=== PATIENT | male | born 1965 | race Caucasian/White ===

== ENCOUNTER → 2017-06-07 09:21 | Outpatient (CLI) | payer BC, SELFPAY ==
[2017-06-07 10:40] LABS: AST(SGOT) 23 U/L (15-37); Alanine Aminotransfer ALT/SGPT 52 U/L (16-61); Albumin, Serum 4.2 g/dL (3.2-5.0); Alkaline Phosphatase 71 U/L (45-117); Bilirubin, Direct 0.13 mg/dL (0.00-0.30); Cholesterol 174 mg/dL (200); Globulin 3.7 g/dL (2.2-4.2); High Density Lipoprotein 51 mg/dL; Protein, Total 7.9 g/dL (6.4-8.2); Triglycerides 100 mg/dL; Very Low Density Lipoprotein 20 mg/dL (5-40)
== END ==
PROVIDERS: Family Provider Internal Medicine; PCP Internal Medicine; Visit Provider Internal Medicine Cardiovascular Disease
DX: E78.5 Hyperlipidemia, unspecified (principal)
CPT/HCPCS: 36415; 80061; 80076

== ENCOUNTER 2018-01-20 13:10 | Emergency (ER) | payer BC, SELFPAY ==
[2018-01-20 13:10] VITALS: BP 127/93; PULSE 86; RESP 20; TEMP 36.7; O2SAT 99; BMI 28.2
[2018-01-20 14:43] VITALS: BP 146/101; PULSE 77; RESP 19; O2SAT 97
--- NOTE | 2018-01-20 15:13 | EKG12_ITS ---
Test Reason : Blood Pressure : / mmHG Vent. Rate : 076 BPM Atrial Rate : 076 BPM P-R Int : 186 ms QRS Dur : 138 ms QT Int : 436 ms P-R-T Axes : 019 -41 004 degrees QTc Int : 490 ms Normal sinus rhythm Left axis deviation Non-specific intra-ventricular conduction block Abnormal ECG Confirmed by KERA GUILLAUME, RACHEL ([id number]), makeup editor SEDRAS PURCELL ([id number]) on 01/23/2018 1:40:54 PM Referred By: AUGUSTO Confirmed By:RACHEL COTE MD
--- NOTE | 2018-01-20 15:14 | ED.VISSUMM ---
- ER Visit Summary Date of Service: 01/20/18 Chief Complaint: Shortness of breath History of Present Illness: The patient is a 52 M past medical history of a left bundle branch block and seasonal allergies. Patient states his been short of breath intermittently for the last month. Not associated with exertion. No chest pain. He has had a nonproductive cough. Friend is is a physician I called him in prednisone and Z-Daniel both in which she recently finished and neither one did give any significant benefit. He denies any melena. He denies any fever. 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 He has never had a DVT or PE. Physical Examination: Well-appearing middle-age male. Vital signs are all. His pulse ox is 97% on room air no signs of. He is in no distress. H EENT exam unremarkable. Neck nontender no lymphadenopathy. No JVD. Noted. Equal and symmetrical. Heart regular rate and rhythm no murmur. Abdomen soft and nontender. Normal bowel sounds no peritoneal signs. He is moving all 4 extremities. Calves are nontender without edema or cords. Radial pulses are equal and symmetrical. 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 Dorsi and plantar flexion are intact. Neurologically he is awake and alert with full motor deficits. Back exam is nontender. Skin is unremarkable without rashes. Test Results: Education CBC normal. Chemistries normal. Troponin normal. D-dimer normal. EKG sinus rhythm rate is 76 with an interventricular conduction delay which is old otherwise no acute process. Chest x-ray normal normal cardiac silhouette. No infiltrate. No pleural effusions or failure. Emergency Department Course and Treatment: Patient complaining of feeling short of breath with a normal exam. Treatment Plan: Repeat exam patient doing well at 1623. All test results with both he and his . He will be discharged home with outpatient follow-up Disposition: Discharge Impression: Acute dyspnea of uncertain etiology This note was generated with [employer] dictation software. It may contain incorrect words, spelling, and punctuation that were not noted in review of the chart prior to signing ED Disposition - Plan for ED Patient: Chief Complaint: Shortness of Breath Referrals: Elaine Soriano MD [Primary Care Provider] -
--- NOTE | 2018-01-20 15:17 | ED.DCSUM_ITS ---
- ER Visit Summary Date of Service: 01/20/18 Chief Complaint: Shortness of breath History of Present Illness: The patient is a 52 M past medical history of a left bundle branch block and seasonal allergies. Patient states his been short of breath intermittently for the last month. Not associated with exertion. No chest pain. He has had a nonproductive cough. Friend is is a physician I called him in prednisone and Z-Daniel both in which she recently finished and neither one did give any significant benefit. He denies any melena. He denies any fever. 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 He has never had a DVT or PE. Physical Examination: Well-appearing middle-age male. Vital signs are all. His pulse ox is 97% on room air no signs of. He is in no distress. H EENT exam unremarkable. Neck nontender no lymphadenopathy. No JVD. Noted. Equal and symmetrical. Heart regular rate and rhythm no murmur. Abdomen soft and nontender. Normal bowel sounds no peritoneal signs. He is moving all 4 extremities. Calves are nontender without edema or cords. Radial pulses are equal and symmetrical. 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 Dorsi and plantar flexion are intact. Neurologically he is awake and alert with full motor deficits. Back exam is nontender. Skin is unremarkable without rashes. Test Results: Education CBC normal. Chemistries normal. Troponin normal. D- dimer normal. EKG sinus rhythm rate is 76 with an interventricular conduction delay which is old otherwise no acute process. Chest x-ray normal normal cardiac silhouette. No infiltrate. No pleural effusions or failure. Emergency Department Course and Treatment: Patient complaining of feeling short of breath with a normal exam. Treatment Plan: Repeat exam patient doing well at 1623. All test results with both he and his . He will be discharged home with outpatient follow-up Disposition: Discharge Impression: Acute dyspnea of uncertain etiology This note was generated with [employer] dictation software. It may contain incorrect words, spelling, and punctuation that were not noted in review of the chart pr ior to signing ED Disposition - Plan for ED Patient: Chief Complaint: Shortness of Breath Referrals: Elaine Soriano MD [Primary Care Provider] -
[2018-01-20 15:19] VITALS: O2SAT 99
--- NOTE | 2018-01-20 15:21 | RAD_ITS ---
STUDY: X-RAY CHEST REASON FOR EXAM: Male, 52 years old. Shortness of breath 2 weeks history of left ventricular blockage. TECHNIQUE: PA and lateral views of the chest. COMPARISON: 09/08/2013 FINDINGS: The lungs are clear and expanded. There is no demonstrated pleural abnormality. There is borderline cardiomegaly. Normal mediastinum and kira. Normal visualized pulmonary arteries. Normal visualized aortic arch and descending thoracic aorta. Normal visualized thoracic spine. Normal visualized ribs, clavicles, and shoulders. There is no demonstrated abnormality of the visualized soft tissue structures of the upper abdomen. RAD/Chest PA and Lateral IMPRESSION: Borderline cardiomegaly. No visualized acute focal infiltrate. Stable chest Electronically Signed: Karina Pichardo MD at 15:56 EDT Tel , Service support ,
[2018-01-20 15:31] LABS: Absolute Lymphocyte Count 2.56 X10^3/ul (0.83-4.51); Absolute Neutrophil Count 6.8 X10^3/uL (2.0-7.7); Basophil# 0.02 X10^3/uL; Basophil% 0.2 % (0-1); Eosinophil# 0.09 X10^3/uL; Eosinophils% 0.9 % (0-5); Hematocrit 44.6 % (40-54); Hemoglobin 14.8 g/dl (13.0-16.5); Lymphocyte # 2.56 X10^3/ul (4.0); Lymphocyte % 24.4 % (19-41); Mean Corp Hgb Conc 33.2 g/gl (32-36); Mean Corpuscular Hgb 28.9 pg (27.0-32.0); Mean Corpuscular Volume 87.1 fL (80-94); Mean Platelet Vol. 8.7 fl (6.2-12.0); Monocyte# 0.99 X10^3/uL; Monocyte% 9.4 % (0-10); Neutrophil % 64.8 % (47-70); Platelet Count 296 K/mm3 (150-450); RBC Distribution Width CV 13.1 % (11.6-14.6); Red Blood Count 5.12 M/mm3 (4.6-6.2); White Blood Count 10.5 K/mm3 (4.4-11.0)
[2018-01-20 15:40] LABS: POSITIVE COUNT NO; POSITIVE DIFFERENTIAL NO; POSITIVE MORPHOLOGY NO
[2018-01-20 15:57] LABS: Anion Gap 9 (5-15); BUN 17 mg/dL (7-18); BUN/Creat Ratio 18.5 RATIO (10-20); Calcium,Total 9.3 mg/dL (8.5-10.1); Chloride 102 mmol/L (98-107); Creatinine, Serum 0.92 mg/dL (0.70-1.30); EST Glomerular Filtration Rate 92 mL/min (>60); Est Glom Filt Rate - Afr Amer 111 mL/min (>60); Glucose 109 mg/dL (74-106); Potassium 3.8 mmol/L (3.5-5.1); Sodium Level 137 mmol/L (136-145)
[2018-01-20 15:59] LABS: D-Dimer Quantitative (DVT/PE) < 0.27 FEU/ug/m (0.27-0.49)
[2018-01-20 16:07] VITALS: BP 132/90; PULSE 71; RESP 15; O2SAT 94
--- NOTE | 2018-01-20 16:24 | ED.DEP ---
ED Disposition - Plan for ED Patient: Disposition: Home or Assisted Living Chief Complaint: Shortness of Breath Instructions: ED Dyspnea Shortness of Breath Referrals: Elaine Soriano MD [Primary Care Provider] - As soon as possible Additional Instructions: All your test results were normal today. Chest x-ray, blood count, chemistry panel, kidney function, heart enzymes and a negative test for blood clot.. Call follow-up your primary care physician.
[2018-01-20 16:50] VITALS: BP 124/86; PULSE 81; RESP 16; O2SAT 97
== END 2018-01-20 16:51 | disposition home or self-care (01) ==
PROVIDERS: Emergency Provider Emergency Medicine; Family Provider Internal Medicine; PCP Internal Medicine
DX: R06.00 Dyspnea, unspecified (principal); Z79.52 Long term (current) use of systemic steroids
CPT/HCPCS: 71046; 80048; 84484; 85025; 85379; 93005; 99284; A4216

== ENCOUNTER → 2019-03-09 09:42 | Outpatient (CLI) | payer OTHER, SELFPAY ==
[2018-06-02 14:13] VITALS: BMI 28.2
[2019-03-09 11:25] LABS: Absolute Lymphocyte Count 2.15 X10^3/uL (0.83-4.51); Absolute Neutrophil Count 3.7 X10^3/uL (2.0-7.7); Basophil# 0.03 X10^3/uL; Basophil% 0.4 % (0-1); Eosinophil# 0.23 X10^3/uL; Eosinophils% 3.3 % (0-5); Hematocrit 44.8 % (40-54); Hemoglobin 14.7 g/dL (13.0-16.5); Lymphocyte # 2.15 X10^3/ul (4.0); Mean Corp Hgb Conc 32.8 g/dL (32-36); Mean Corpuscular Hgb 29.1 pg (27.0-32.0); Mean Corpuscular Volume 88.5 fL (80-94); Mean Platelet Vol. 8.7 fl (6.2-12.0); Monocyte# 0.83 X10^3/uL; NRBC Flagged by Analyzer 0 % (0-5); Neutrophil # 3.67 X10^3/uL (2.7-7.7); Platelet Count 269 K/mm3 (150-450); RBC Distribution Width CV 12.9 % (11.6-14.6); RBC Distribution Width SD 41.4 fl (35.1-43.9); Red Blood Count 5.06 M/mm3 (4.6-6.2); White Blood Count 6.9 K/mm3 (4.4-11.0)
[2019-03-09 11:53] LABS: Vitamin B12 395 pg/mL (211-911); Vitamin D,25 Hydroxy 20.6 ng/mL (29.95-100.01)
[2019-03-09 12:00] LABS: AST(SGOT) 17 U/L (15-37); Alanine Aminotransfer ALT/SGPT 46 U/L (16-61); Alkaline Phosphatase 69 U/L (45-117); Anion Gap 8 (5-15); BUN 12 mg/dL (7-18); BUN/Creat Ratio 13.1 RATIO (10-20); Bilirubin, Direct 0.17 mg/dL (0.00-0.30); Chloride 105 mmol/L (98-107); Cholesterol 172 mg/dL (200); Creatinine, Serum 0.91 mg/dL (0.70-1.30); EST Glomerular Filtration Rate 92 mL/min (>60); Est Glom Filt Rate - Afr Amer 111 mL/min (>60); Globulin 3.9 g/dL (2.2-4.2); Glucose 103 mg/dL (74-106); High Density Lipoprotein 50 mg/dL; PSA,Total - Annual Screen 0.51 ng/mL (0.00-4.00); Potassium 4.4 mmol/L (3.5-5.1); Protein, Total 7.9 g/dL (6.4-8.2); Sodium Level 139 mmol/L (136-145); Thyroid Stim Hormone (TSH) 1.29 uIU/mL (0.358-3.74); Triglycerides 86 mg/dL; Very Low Density Lipoprotein 17 mg/dL (5-40)
[2019-03-12 05:06] LABS: Clam <0.10 kU/L (Class 0); Codfish <0.10 kU/L (Class 0); Corn <0.10 kU/L (Class 0); Dog Epithelia <0.10 kU/L (Class 0); Egg, White <0.10 kU/L (Class 0); Egg, Whole <0.10 kU/L (Class 0); Gluten <0.10 kU/L (Class 0); Milk (Cow) <0.10 kU/L (Class 0); Oak, White <0.10 kU/L (Class 0); Peanut <0.10 kU/L (Class 0); Pecan <0.10 kU/L (Class 0); SCALLOP <0.10 kU/L (Class 0); SESAME SEED <0.10 kU/L (Class 0); Shrimp <0.10 kU/L (Class 0); Soybean <0.10 kU/L (Class 0); Walnut, (Food) <0.10 kU/L (Class 0); Wheat <0.10 kU/L (Class 0)
[2019-03-12 08:03] LABS: Peanut <0.10 kU/L (Class 0); Pine, White <0.10 kU/L (Class 0); Wheat <0.10 kU/L (Class 0)
[2019-03-13 13:41] LABS: Testosterone, % Free 1.87 % (1.50-4.20); Testosterone, Total 385 ng/dL (264-916)
== END ==
PROVIDERS: Family Provider Family Medicine; PCP Family Medicine; Referring Provider Otolaryngology Otolaryngology/Facial Plastic Surgery; Visit Provider Otolaryngology Otolaryngology/Facial Plastic Surgery
DX: E78.5 Hyperlipidemia, unspecified (principal); E55.9 Vitamin D deficiency, unspecified; E53.9 Vitamin B deficiency, unspecified; R53.83 Other fatigue; T78.40XA Allergy, unspecified, initial encounter; Z12.5 Encounter for screening for malignant neoplasm of prostate
CPT/HCPCS: 36415; 80053; 80061; 82248; 82306; 82607; 84153; 84402; 84403; 84443; 85025; 86003; G0103

== ENCOUNTER → 2019-04-09 12:52 | Outpatient (CLI) | payer OTHER, SELFPAY ==
[2019-03-25 10:24] VITALS: BMI 29.7
--- NOTE | 2019-04-09 12:53 | ECHOD_ITS ---
Reason For Study: PALPITATIONS Procedure This was a 2D Doppler, Color Flow transthoracic echocardiogram. The exam was of adequate technical quality. Exam performed in department. Left Ventricle Normal LV size. Apical false tendon noted. Left ventricular systolic function is normal. The estimated ejection fraction is 55 %. Septal motion consistent with IVCD. Diastolic function is indeterminate. No regional wall motion abnormalities noted. Right Ventricle Normal RV size. Normal systolic function. Atria Normal left atrium. Normal right atrium. No doppler evidence for ASD. Mitral Valve There is no mitral annular calcification. Normal mitral valve. Trivial mitral valve insufficiency. Tricuspid Valve Normal tricuspid valve. Trivial tricuspid valve insufficiency. Aortic Valve Trisinus/trileaflet aortic valve. Mild focal aortic valve thickening. Mild focal aortic valve calcification. Pulmonic Valve The pulmonic valve is not well visualized. Trivial pulmonic valve insufficiency. Great Vessels Normal sized aortic root. Pericardium/Pleural No pericardial effusion. MMode/2D Measurements & Calculations LVIDd: 5.4 cm IVSd: 0.97 cm Ao root diam: 3.5 cm LVIDs: 4.1 cm LVPWd: 0.92 cm RVDd: 3.5 cm FS: 23.8 % LAV(MOD-bp): 47.5 ml LA A4 area: 13.4 cm2 LA dimension(2D): 3.7 cm LAV(MOD-bp) Indexed: 24.6 ml/m2 LAV(MOD-sp2): 46.3 ml LAV(MOD-sp4): 38.6 ml RA A4 area: 8.1 cm2 Time Measurements MV dec time: 0.12 sec Doppler Measurements & Calculations MV E max shaan: 102.6 cm/sec Lat Peak E' Shaan: 5.3 cm/sec Med Peak E' Shaan: 5.7 cm/sec MV A max shaan: 37.9 cm/sec E/E' lat: 19.2 E/E' med: 18.1 MV E/A: 2.7 Ao V2 max: 94.4 cm/sec LV V1 max: 67.5 cm/sec PA V2 max: 124.3 cm/sec Ao max P.6 mmHg LV V1 max P.8 mmHg Interpretation Summary Left ventricular systolic function is normal. The estimated ejection fraction is 55 %. Septal motion consistent with IVCD. Apical false tendon noted. Trivial mitral valve insufficiency. Trivial tricuspid valve insufficiency. Mild focal aortic valve thickening. Mild focal aortic valve calcification. Trivial pulmonic valve insufficiency. Diastolic function is indeterminate. Ordering Physician: Se Carrington Referring Physician: Eddie Martin Performed By: Marla Isaac, TRACY, RVT
== END ==
PROVIDERS: Family Provider Family Medicine; PCP Family Medicine; Referring Provider Internal Medicine Cardiovascular Disease; Visit Provider Internal Medicine Cardiovascular Disease
DX: R00.2 Palpitations (principal); I44.7 Left bundle-branch block, unspecified; R55 Syncope and collapse
CPT/HCPCS: 93225; 93226; 93306

== ENCOUNTER 2019-05-31 08:13 | Observation (INO) | payer OTHER, SELFPAY ==
[2019-03-25 10:24] VITALS: BMI 29.7
[2019-05-31] VITALS (10 sets, daily range): BP systolic 118–170; BP diastolic 66–112; PULSE 87–103; RESP 16–20; TEMP 36.4–37.2; O2SAT 93–100; BMI 28.2; BMI 29.2
--- NOTE | 2019-05-31 08:31 | CT_ITS ---
STUDY: CT ABDOMEN AND PELVIS WITH CONTRAST REASON FOR EXAM: Male, 54 years old. RLQ PAIN RADIATION DOSAGE (If Supplied By Facility): CTDIvol = ( 12.47 ) mGy, DLP = ( 906.20 ) mGycm TECHNIQUE: Transaxial images were obtained from the dome of the diaphragm to the symphysis pubis without oral contrast. IV 100mL Isovue-370 was administered. Sagittal and coronal images were reconstructed. Individualized dose optimization techniques were used for this CT. COMPARISON: 10/06/2015 FINDINGS: Calcified granuloma in the right lung base is stable. The visualized portions of the heart are within normal limits. There is decreased attenuation of the liver consistent with steatosis. There is a solitary gallstone. There are multiple benign calcified granulomata of the spleen. Normal pancreas. Normal bilateral adrenal glands. Normal right kidney. Normal left kidney. There is a small hiatal hernia. Normal small intestine. There are multiple colonic diverticula consistent with diverticulosis. There is a tubular, thick-walled appendix (>7mm), consistent with acute appendicitis. There is an appendicolith at the junction of the base of the appendix and the colon. Normal abdominal aorta. Normal inferior vena cava. Normal retroperitoneum. Normal urinary bladder. Normal visualized prostate gland. Normal abdominal wall. There are diffuse degenerative changes of the visualized lumbar spine. CT/Abdomen/Pelvis W IV Cont ONLY IMPRESSION: Acute uncomplicated appendicitis. Electronically Signed: Tank Hagan DO at 10:06 EST Tel , Service support ,
--- NOTE | 2019-05-31 08:31 | EKG12_ITS ---
Test Reason : N/V Blood Pressure : / mmHG Vent. Rate : 074 BPM Atrial Rate : 074 BPM P-R Int : 182 ms QRS Dur : 140 ms QT Int : 448 ms P-R-T Axes : 037 -43 072 degrees QTc Int : 497 ms Normal sinus rhythm Left axis deviation Left bundle branch block Abnormal ECG Confirmed by KERA GUILLAUME, RACHEL ([id number]), avid editor PADDY LANDRY ([id number]) on 06/03/2019 8:57:19 AM Referred By: KOMAL Confirmed By:RACHEL COTE MD
--- NOTE | 2019-05-31 08:37 | ED.VISSUMM ---
- ER Visit Summary Date of Service: 05/31/19 Chief Complaint: Abdominal pain History of Present Illness: The patient is a 54 M presenting with abdominal pain. Patient states he woke up with epigastric abdominal pain. He tried Gas-X with no improvement. He states the pain is now more in the right lower quadrant. He has associated nausea without vomiting. He has had subjective fever. Denies diarrhea or constipation. Denies urinary complaints. Physical Examination: Vitals are stable. Patient is afebrile. Alert no acute distress. HEENT exam is unremarkable. Neck is supple. Lungs are clear and equal bilaterally. Heart is regular rate and rhythm. Abdomen is soft epigastric and right lower quadrant tenderness Extremities are unremarkable. Skin is warm and dry. Remainder of exam is unremarkable. Emergency Department Course and Treatment: Patient was given IV fluids, morphine, Zofran. EKG is sinus rate of 74, unchanged from previous. CBC shows white count 16.7. Chemistries unremarkable other than glucose 123. Liver lipase are normal. Troponin is negative. CT abdomen pelvis shows acute uncomplicated appendicitis. He was given Zosyn IV. Discussed with Dr. Araujo. Disposition: To OR Impression: Appendicitis This note was generated with [employer] dictation software. It may contain incorrect words, spelling, and punctuation that were not noted in review of the chart prior to signing ED Disposition - Plan for ED Patient: Referrals: Eddie Martin MD [Primary Care Provider] -
[2019-05-31 08:38] LABS: Absolute Lymphocyte Count 1.97 X10^3/uL (0.83-4.51); Absolute Neutrophil Count 13.4 X10^3/uL (2.0-7.7); Basophil# 0.07 X10^3/uL; Basophil% 0.4 % (0-1); Eosinophil# 0.11 X10^3/uL; Eosinophils% 0.7 % (0-5); Hematocrit 45.1 % (40-54); Hemoglobin 15.1 g/dL (13.0-16.5); Lymphocyte # 1.97 X10^3/ul (4.0); Lymphocyte % 11.8 % (19-41); Mean Corp Hgb Conc 33.5 g/dL (32-36); Mean Corpuscular Hgb 29.1 pg (27.0-32.0); Mean Corpuscular Volume 86.9 fL (80-94); Mean Platelet Vol. 8.7 fl (6.2-12.0); Monocyte# 1.15 X10^3/uL; Monocyte% 6.9 % (0-10); NRBC Flagged by Analyzer 0 % (0-5); Neutrophil # 13.37 X10^3/uL (2.7-7.7); Neutrophil % 79.8 % (47-70); Platelet Count 280 K/mm3 (150-450); RBC Distribution Width CV 12.4 % (11.6-14.6); RBC Distribution Width SD 39.4 fl (35.1-43.9); Red Blood Count 5.19 M/mm3 (4.6-6.2); White Blood Count 16.7 K/mm3 (4.4-11.0)
[2019-05-31] MEDS: Ondansetron 4 MG/2 ML Vial IV (08:40)
[2019-05-31] MEDS: Morphine 4 MG/ML Syringe IV ×3 (08:40→14:27)
[2019-05-31] MEDS: 0.9% Normal Saline 1,000 ML 1000 ML IV (08:40)
[2019-05-31 08:54] LABS: ALB/GLOB Ratio 1.2 RATIO (0.9-2.4); AST(SGOT) 19 U/L (15-37); Alanine Aminotransfer ALT/SGPT 37 U/L (16-61); Albumin, Serum 4.2 g/dL (3.2-5.0); Alkaline Phosphatase 75 U/L (45-117); Anion Gap 8 (5-15); BUN 13 mg/dL (7-18); BUN/Creat Ratio 13.6 RATIO (10-20); Calcium,Total 9.3 mg/dL (8.5-10.1); Chloride 106 mmol/L (98-107); Creatinine, Serum 0.96 mg/dL (0.70-1.30); EST Glomerular Filtration Rate 87 mL/min (>60); Est Glom Filt Rate - Afr Amer 105 mL/min (>60); Estimated Creatinine Clearance 78.46 ml/min; Globulin 3.6 g/dL (2.2-4.2); Glucose 123 mg/dL (74-106); Lipase 124 U/L (73-393); Protein, Total 7.8 g/dL (6.4-8.2); Sodium Level 137 mmol/L (136-145)
[2019-05-31 10:00] LABS: Bacteria 0 SEEN /hpf (None Seen); Mucous, Urine 0 SEEN /hpf (<or=2+); Red Blood Cells-Urine 0 SEEN /hpf (0-5); Squamous Epithelial Cells - UA 0 SEEN /hpf (0-5); White Blood Cells 0 SEEN /hpf (0-5)
[2019-05-31 10:03] LABS: Color, Urine Straw (Yellow); Glucose, Dipstick Normal (Normal); Ketone-Dipstick 15 mg/dl (Negative); Leukocyte Esterase-Dipstick Negative /ul (Negative); Nitrite-Dipstick Negative (Negative); Occult Blood-Urine Negative /ul (Negative); Protein-Dipstick Negative (Negative); Urine Bilirubin Dipstick Negative (Negative); Urine Clarity Sl. Cloudy (Clear); Urine Urobilinogen Normal (Normal)
--- NOTE | 2019-05-31 10:35 | PCM.HP.BLA ---
History and Physical Date of Admission: 05/31/19 Chief Complaint: abdominal pain History of Present Illness: 54 y/o pleasant WM presents with abdominal pain that awoke him from sleep at 3 am this morning. Thought it was gas pains and tried Gas X with no improvement. Denies problems with chronic constipation or diarrhea. Pain began in periumbilical area and now in right lower quadrant. Presented to [facility] ED. Found to have WBC of 16.7K with left shift of differential CT scan - There is a small hiatal hernia. Normal small intestine. There are multiple colonic diverticula consistent with diverticulosis. There is a tubular, thick-walled appendix (>7mm), consistent with acute appendicitis. There is an appendicolith at the junction of the base of the appendix and the colon. Past Medical History: left bundle branch block - followed by Dr. Carrington ventricular hypertrophy hypertension controlled by diet JEFFERY hyperlipidemia Past Surgical History: left hip replacement 2000 nasal surgery Medications: none Allergies: Has no known drug allergies Social history: TOB use denies Review of Systems: General - denies fevers Cardiovascular denies chest pain, has occasional chest palpitations, denies history of heart attack Pulmonary denies shortness of breath, denies coughing up blood Gastrointestinal as per HPI Neurological denies denies seizures, denies history of stroke Genitourinary denies burning with urination, denies blood in urine Hematological denies spontaneous/prolonged bleeding, not on aspirin Skin denies open non healing wounds Musculoskeletal s/p hip replacement Endocrine denies diabetes Psychological denies hallucinations Physical examination: Vital signs Ht: 5'6 Wt: 184# Temp 97.6F HR 87 BP 153/112 RR 16 General WD/WN WM in no apparent distress, alert and oriented, not septic appearing HEENT Normocephalic. EOM intact with sclera clear and no icterus noted. Neck is supple with no jugular venous distention noted. Trachea is midline. Lungs normal breath sounds in all lung galvez. No rales/rhonchi/wheezing noted. No labored breathing noted, such as retractions. No cough heard. Heart normal S1 and S2 auscultated. No rubs/clicks/murmurs noted. Normal size and location by auscultation. Abdomen soft but tender in right lower quadrant with rebound, decreased bowel sounds. Extremities no calf tenderness noted. No pitting edema noted. . Genitourinary/Rectal deferred Skin normal skin integrity. Neurological gait normal , no focal deficits noted. Psychological normal affect, patient is calm and appropriate Impression: right lower quadrant abdominal pain leukocytosis appendicitis by CT scan Discussion/Plan: I have discussed the above with the patient and his who is present with him. I have offered the patient the procedure of laparoscopic appendectomy. I have explained the procedure to the patient. I have counseled the patient as to the risks of the procedure, including but not limited to: infection, bleeding, injury to any blood vessels/nerves, scar tissue, injury to any intrabdominal organs, injury to kidney/ureters, injury to bowel/bladder, intraabdominal abscess/bleeding, hernias at incisional sites, wound infections, possible open procedure, complications of anesthesia, postoperative pneumonia/cardiac problems/blood clots etc. the patient understands. The patient wishes to proceed I have answered all questions to the patient?s satisfaction and the patient has no further questions.
--- NOTE | 2019-05-31 11:00 | APP_PTH ---
PATIENT: TRIP MURPHY LOC: MS3 U#:[id number] AGE/SX: 54/M ROOM: [facility] RE05/31/[address]: Dr. Dayan Araujo MD : [id number] BED: 1 DIS: 06/01/2019 SPEC #: [id number] RECD: 06/01/19 10:55 STATUS: ANTONIA REQ #: [id number] MOISES: 05/31/19 11:[address]: Dayan Araujo DEPT: SURGICAL PATHOLOGY RECD BY: Francis Dunn ENTERED: 06/01/19 11:11 SP TYPE: APPENDIX OTHR DR: Dr. Eddie Martin MD Tissues: Appendix, NOS Procedures: Surgery Specimen Level III HEADER OPERATION: Laparoscopic appendectomy PRE-OP DIAGNOSIS: Right lower quadrant abdominal pain; leukocytosis, appendicitis TISSUE SUBMITTED: Appendix MICROSCOPIC DIAGNOSIS Appendix, appendectomy: Acute appendicitis. Acute serositis. AM:serenity 06/02/19 MICROSCOPIC DESCRIPTION Slides are reviewed. GROSS DESCRIPTION Received is one container labeled with the patient's name and designated appendix. The specimen consists of an appendix measuring 7.5 cm in length and 0.7 cm in average diameter. No gross perforation is identified. [employer] Director sections are submitted in one cassette. / AM:serenity 06/01/19 TC:2 CPT: 16579
[2019-05-31] MEDS: Bupiv/Epi 0.25% 30 ML Vial (12:18)
--- NOTE | 2019-05-31 12:22 | OP.PCM_ITS ---
Report of Operation Date of Procedure: 05/31/19 Pre-Operative Diagnosis: acute appendicitis by CT scan, right lower quadrant abdominal pain, leukocytosis Post-Operative Diagnosis: acute appendicitis Surgery/Procedure Performed:: laparoscopic appendectomy Description of Surgical Findings:: acute appendicitis, not perforated, darkly pigmented mottling of fatty tissues, large hematoma appearing lesion of abdominal wall Type of Anesthesia:: General Anesthesiologist: Yeni Lopez Specimen's removed: appendix Estimated Blood Loss (mL): < 10 ml Fluids Replaced: 1000 ml RL Description of Procedure: After informed consent was obtained, the patient was brought into the Operating Room. Appropriate time out protocol was followed. He was then placed in the supine position on the operating table. The patient was then placed under general anesthesia. The patient?s abdomen was then prepped with a sterile surgical skin preparation and sterile surgical drapes were placed. A skin fold was grasped with penetrating clamps and the skin and subcutaneous tissues were infiltrated with 0.25% marcaine with epinephrine. A skin incision was then made. A Veress needle was then inserted into the intraabdominal cavity and checked to be in the proper position with a normal saline drop test. A CO2 pne umoperitoneum was then created. Once this was achieved, the Veress needle was removed and a 5 mm trocar was placed in its stead. A 5 mm laparoscope was then inserted into the trocar. Careful examination of the intraabdominal contents was then done. There was no evidence of injury to any internal organs from placement of the Veress needle or the trocar. Under direct visualization, a 12mm suprapubic trocar and a 5mm left lower quadrant trocar was then placed into the intraabdominal cavity. The skin and subcutaneous tissues at these sites were first infiltrated with 0.25% marcaine with epinephrine. Attention was then directed to the right lower quadrant. The appendix was visualized. The mesentery of the appendix was taken down by cauterizing the tissue from the free edge to the base of the appendix with the Harmonic scalpel. Once the base of the appendix was freed of surrounding tissues, then the linear gastrointestinal stapling device was brought into the abdominal cavity via the 12mm port and placed across the base of the appendix. The stapling device was fired, thus stapling across the base of the appendix and transecting it simultaneously. The appendix was then placed in an Endobag and this was brought out through the suprapubic trocar. The appendix was then forwarded to Pathology for analysis. The appendiceal stump was carefully examined. There was no evidence of any active bleeding or fecal leakage. Surgicel was applied. The surrounding tissues were also examined and there was no evidence of any active bleeding or fecal/bile leakage. The intraabdominal cavity was examined and there was no evidence of further inflammation or tissue abnormality. There was no evidence of any peritoneal fluid. The CO2 pneumoperitoneum was released and all trocars were removed intact. The suprapubic fascia was reapproximated with a figure-of-8 vicryl suture. All skin incisions were reapproximated with monocryl suture. Cavilon and steristrips were applied to reinforce skin closure and proper sterile dressings were placed. The patient was then extubated and brought to the Recovery Room in stable condition. - Complications none noted - Admit VTE Documentation VTE Present on Admission: Yes VTE Mechan Device Prophylaxis: SCD's
[2019-05-31] MEDS: Lactated Ringers 1,000 ML 100 ML IV ×2 (12:39→21:13)
--- NOTE | 2019-05-31 12:57 | DCINST_ITS ---
Discharge Diet: No Restrictions - avoid carbonated beverages for a couple of days drink plenty of water Discharge Activity: Return to Normal Activity, May not drive while taking narcotic pain medications. Lifting Restrictions: no lifting greater than 20 pounds for 2 weeks Call your doctor if your incision/area has: Continuous Slow Oozing, Increased Redness, Foul Smelling Discharge Call your doctor if you observe: Fever of 101 or Higher Additional Dressing/Incision Instructions:: Leave dressings in place. May get wet in shower - do not scrub to prevent inadvertant removal of dressings. Do not soak - no tub baths/swimming Additional Instructions: may take alternating dose of ibuprofen (Motrin) and acetaminophen (Tylenol) for steady state control of pain and take narcotic prescription medication for s evere pain and at night can take 600 mg ibuprofen then in 3-4 hours can take 650 mg acetaminophen, then in 3-4 hours take 600 mg ibuprofen, then in 3-4 hours take 650 mg acetaminophen, etc. for 2-3 days Medications to take at Discharge Hydrocodone Bitart/Apap 5-325 [[place] 5MG-325MG] 1 tab PO Q8H PRN PRN 5 Days #15 tab 05/31/19 Allergies/Adverse Reactions: Allergies No Known Allergies Allergy (Verified 03/25/19 10:24) The following prescriptions were given: Hydrocodone Bitart/Apap 5-325 [[place] 5MG-325MG] 1 tab PO Q8H PRN PRN 5 Days #15 tab PRN Reason: Pain Transmission Status: Received by [facility] Primary Care Physician: Eddie Martin MD [Primary Care Provider] - Test Results: Test results from this visit will be discussed in further detail at your follow- up appointment, if applicable. Please Follow Up With: Dayan Araujo MD - call When: to be seen in 1-2 weeks, please call for date and time, thank you
--- NOTE | 2019-05-31 14:00 | NURSING ---
Dr. Araujo in surgery. This nurse called and spoke with Milvia informed that there were no orders by Dr. Araujo and pt was asking about diet and pain medication. Milvia asked Dr. Araujo and Dr. Araujo had ordered Toradol and Morphine.
[2019-05-31] MEDS: 0.9% Saline Lock 10 ML Syringe IV ×2 (14:27→16:41)
[2019-05-31] MEDS: Ketorolac 30 MG/ML Syringe IV (16:41)
[2019-05-31] MEDS: HYDROcodone Bitartrate/Apap 5/325 Tablet PO (23:42)
[2019-06-01 03:42] VITALS: BP 125/66; PULSE 66; RESP 14; TEMP 36.7; O2SAT 93
--- NOTE | 2019-06-01 07:50 | PCM.PN.SRG ---
Subjective: patient feeling well, has minimal pain - Physical Exam Vitals/I&O's: Vital Signs Temp Pulse Resp BP Pulse Ox 98.1 F 66 14 125/66 H 93 06/01/19 03:42 06/01/19 03:42 06/01/19 03:42 06/01/19 03:42 06/01/19 03:42 Oxygen Delivery Method Room Air Weight: 82.101 kg Body Mass Index (BMI) 29.2 Intake and Output for Last 24 Hours 05/30/19 05/31/19 06/01/19 23:59 23:59 23:59 Intake Total 2706.67 / 2906.67 300 / 300 Balance 2706.67 / 2906.67 300 / 300 General: Alert, Oriented x3 Neck: Supple Lungs: Normal air movement Abdomen: Bowel Sounds Present - dressings in tact, Soft Laboratory Results 05/31/19 08:20: WBC 16.7 H, RBC 5.19, Hgb 15.1, Hct 45.1, MCV 86.9, MCH 29.1, MCHC 33.5, RDW Std Deviation 39.4, RDW Coeff of Arnoldo 12.4, Plt Count 280, MPV 8.7, Immature Gran % (Auto) 0.400, Neut % (Auto) 79.8 H, Lymph % (Auto) 11.8 L, [place] % (Auto) 6.9, Eos % (Auto) 0.7, Baso % (Auto) 0.4, Absolute Neuts (auto) 13.4 H, Absolute Lymphs (auto) 1.97, Nucleated RBC % 0 05/31/19 08:20: Sodium 137, Potassium 4.0, Chloride 106, Carbon Dioxide 23.0, Anion Gap 8, BUN 13, Creatinine 0.96, Estim Creat Clear Calc 78.46, Est GFR (MDRD) Af Amer 105, Est GFR (MDRD) Non-Af 87, BUN/Creatinine Ratio 13.6, Glucose 123 H, Calcium 9.3, Total Bilirubin 0.50, AST 19, ALT 37, Alkaline Phosphatase 75, Troponin I < 0.015, Total Protein 7.8, Albumin 4.2, Globulin 3.6, Albumin/Globulin Ratio 1.2, Lipase 124 05/31/19 09:55: Urine Color Straw, Urine Clarity Sl. Cloudy, Urine pH 8.0, Ur Specific [place] 1.010, Urine Protein Negative, Urine Glucose (UA) Normal, Urine Ketones 15 H, Urine Occult Blood Negative, Urine Nitrite Negative, Urine Bilirubin Negative, Urine Urobilinogen Normal, Ur Leukocyte Esterase Negative, Urine RBC 0 SEEN, Urine WBC 0 SEEN, Ur Squamous Epith Cells 0 SEEN, Urine Bacteria 0 SEEN, Urine Mucus 0 SEEN Current Medications Hydrocodone Bitart/Acetaminophen ([place] 5mg-325mg) 1 tablet PO Q4H PRN PRN PRN Reason: Pain Score 1-5/10 Last Admin: 05/31/19 23:42 Dose: 1 tablet Documented by: Lactated Ringer's () 1,000 mls @ 100 mls/hr IV .Q10H ROSARIO Last Admin: 05/31/19 21:13 Dose: 100 mls/hr Documented by: Sodium Chloride () 250 mls @ 15 mls/hr IV .[id number] PRN PRN Reason: Saline Flush Sodium Chloride () 250 mls @ 15 mls/hr IV .[id number] PRN PRN Reason: Additional IVPB Infusion Ketorolac Tromethamine (Toradol (Bkc)) 30 mg IV Q8H PRN PRN PRN Reason: Pain Score 1-5/10 Stop: 06/05/19 13:58 Last Admin: 05/31/19 16:41 Dose: 30 mg Documented by: Morphine Sulfate () 4 mg IV Q2H PRN PRN PRN Reason: Pain Score 6-10/10 Last Admin: 05/31/19 14:27 Dose: 4 mg Documented by: Sodium Chloride () 10 - 40 ml IV UD PRN PRN Reason: SALINE FLUSH Last Admin: 05/31/19 16:41 Dose: 10 ml Documented by: Medical Necessity - Tobacco Use Smoking Status: Former smoker Assessment/Plan Impression: POD#1 s/p laparoscopic appendectomy Plan: d/c to home
[2019-06-01 08:03] VITALS: BP 114/74; PULSE 68; RESP 16; TEMP 36.7; O2SAT 93
--- NOTE | 2019-06-01 10:00 | CASEMGMT ---
RN CONY Face to Face with patient for initial transition planning/care coordination assessment. RN CM introduced self and role at [facility]. Patient lying in bed, alert and oriented, at bedside. Patient willing to participate in assessment and is able to answer all questions appropriately. Care providers, pharmacy, and demographics verified. Patient wishes to discharge home, denies need for home health at this time. Patient states he has no further needs or concerns at this time. CM to follow for discharge planning needs that may arise. PCP: Veronica Specialists: Charissa Preferred [facility]acy: [facility] Insurance: MMO Prescription Benefit: yes Living Will/HPOA: none LNOK: Living Arrangements: Patient lives with in 1 story home with ramp to enter the home. Transportation: self, DME/HHC: Patient denies any DME or HHC. Patient is currently being setup with cpap. Disposition Plan: Patient to discharge home with family support and follow-up plans in place. Yady IRAHETA, RN, CM
== END 2019-06-01 10:58 | disposition home or self-care (01) | DRG 343 ==
LOC: ED 08:50 → SDC 11:18 → MS3 06-01 06:17
PROVIDERS: Admitting Provider Surgery; Emergency Provider Emergency Medicine; PCP Family Medicine; Visit Provider Surgery
PROC: 0DTJ4ZZ Resection of Appendix, Percutaneous Endoscopic Approach (ICD-10-PCS; CPT 44970; principal; 2019-05-31 11:00)
DX: K35.80 Unspecified acute appendicitis (principal); G47.33 Obstructive sleep apnea (adult) (pediatric); I10 Essential (primary) hypertension; E78.5 Hyperlipidemia, unspecified; Z87.891 Personal history of nicotine dependence
CPT/HCPCS: 00840; 44970; 74177; 80053; 81001; 83690; 84484; 85025; 88304; 93005; 96361; 96374; 96375; 96376; 99218; 99284; J7030; J7120; Q9967; A4216; G0378; J2405

== ENCOUNTER → 2019-06-03 13:54 | Outpatient (CLI) | payer OTHER, SELFPAY ==
[2019-05-31 13:24] VITALS: BMI 29.2
--- NOTE | 2019-06-03 13:58 | RAD_ITS ---
STUDY: X-RAY CHEST REASON FOR EXAM: Male, 54 years old. Postop shortness of breath TECHNIQUE: PA and lateral views of the chest. COMPARISON: 01/20/2018 FINDINGS: The lungs are clear and expanded. There is no demonstrated pleural abnormality. Normal size heart. Normal mediastinum and kira. Normal visualized pulmonary arteries. Normal visualized aortic arch and descending thoracic aorta. Normal visualized thoracic spine. Normal visualized ribs, clavicles, and shoulders. There is no demonstrated abnormality of the visualized soft tissue structures of the upper abdomen. RAD/Chest PA and Lateral IMPRESSION: Normal x-ray examination of the chest. Electronically Signed: Alli Foss MD at 17:51 EST , Service support ,
== END ==
PROVIDERS: PCP Family Medicine; Referring Provider Family Medicine; Visit Provider Family Medicine
DX: R06.02 Shortness of breath (principal)
CPT/HCPCS: 71046

== ENCOUNTER → 2019-06-12 13:32 | Outpatient (CLI) | payer OTHER, SELFPAY ==
[2019-06-04 09:56] VITALS: BMI 29.1
--- NOTE | 2019-06-12 13:35 | RAD_ITS ---
STUDY: X-RAY - LEFT KNEE REASON FOR EXAM: Male, 54 years old. knee pain,mostly the right TECHNIQUE: 4 view(s) of the knee. COMPARISON: None. FINDINGS: Mild osteophytosis otherwise normal visualized distal femur. Normal visualized proximal tibia and fibula. There is mild arthrosis of the proximal tibiofibular articulation. There is no demonstrated fracture. There is mild degenerative arthrosis of the medial femorotibial compartment. There is mild degenerative arthrosis of the lateral femorotibial compartment. There is moderate to severe degenerative arthrosis of the lateral patellofemoral articulation. Trace amount of joint effusion. The soft tissue structures are unremarkable. RAD/Knee 4 or More Views IMPRESSION: Degenerative disease as described with trace amount of joint effusion. No acute fracture or subluxation. Electronically Signed: Nia Ribera MD at 2:06 EST , Service support ,
--- NOTE | 2019-06-12 13:36 | RAD_ITS ---
STUDY: X-RAY - RIGHT KNEE REASON FOR EXAM: Male, 54 years old. knee pain, mostly right TECHNIQUE: 4 view(s) of the knee. COMPARISON: None. FINDINGS: Normal visualized distal femur. Normal visualized proximal tibia and fibula. There is arthrosis of the proximal tibiofibular articulation. There is no demonstrated fracture. There is mild degenerative arthrosis of the medial femorotibial compartment. There is mild degenerative arthrosis of the lateral femorotibial compartment. There is mild to moderate degenerative arthrosis of the patellofemoral articulation. There is no demonstrated joint effusion. The soft tissue structures are unremarkable. RAD/Knee 4 or More Views IMPRESSION: Degenerative disease as described. Electronically Signed: Nia Ribera MD at 2:05 EST , Service support ,
== END ==
PROVIDERS: PCP Family Medicine; Referring Provider Family Medicine; Visit Provider Family Medicine
DX: M25.569 Pain in unspecified knee (principal)
CPT/HCPCS: 73564

== ENCOUNTER → 2019-09-02 13:51 | Outpatient (CLI) | payer OTHER, SELFPAY ==
[2019-06-04 09:56] VITALS: BMI 29.1
[2019-09-02 15:59] LABS: Vitamin D,25 Hydroxy 27.3 ng/mL
== END ==
PROVIDERS: PCP Family Medicine; Referring Provider Family Medicine; Visit Provider Family Medicine
DX: E55.9 Vitamin D deficiency, unspecified (principal)
CPT/HCPCS: 36415; 82306

== ENCOUNTER → 2019-11-03 06:45 | Outpatient (CLI) | payer OTHER, SELFPAY ==
[2019-06-04 09:56] VITALS: BMI 29.1
--- NOTE | 2019-11-03 08:55 | STRESSREP_ITS ---
Stress Test Report Date: 11-03-2019 Procedure: Exercise tolerance test/imaging study Indications: Shortness of breath/dyspnea on exertion; abnormal ECG (rate-d ependent left bundle branch block pattern) Consent: Per the patient Procedure: The patient exercised on a Amol protocol for 10 minutes completing Stage III and 1 minute of Stage IV achieving a peak heart rate of 173 bpm (104 % predicted maximal heart rate) with a peak blood pressure 164/100 mmHg and a peak MET capacity of 11 METs. The baseline ECG demonstrated sinus rhythm; left bundle branch block. The peak exercise ECG demonstrated continued left bundle branch block pattern. There was a rare PAC during exercise and recovery. The functional capacity was considered good. There was no complaint of chest discomfort during exercise or recovery9. The examination was discontinued secondary to leg discomfort. Impression: 1. Technically adequate (percent predicted maximal heart rate greater than 85%) exercise tolerance test 2. Peak exercise ECG with continued left bundle branch block pattern 3. There was a rare PAC during exercise and recovery 4. Nuclear images pending Myocardial perfusion imaging study: Technique: The patient was injected with 12.0 mCi of technetium 99m Cardiolite and subsequently rest SPECT Cardiolite nuclear imaging was obtained in the horizontal long, vertical long, and short axis views. The patient exercised on a Amol protocol for 10 minutes completing Stage III and 1 minute of Stage IV achieving a peak heart rate of 173 bpm (104 % predicted maximal heart rate) with a peak blood pressure 164/100 mmHg and a peak MET capacity of 11 METs. The patient was injected with 35.0 mCi of technetium 99m Cardiolite and subsequently stress SPECT Cardiolite nuclear imaging was obtained in the horizontal long, vertical long, and short axis views. A gated Cardiolite study at peak stress was obtained. Interpretation: Rest and stress SPECT Cardiolite nuclear imaging status post realignment, normalization, and attenuation correction, demonstrates the appearance of an area of diminished myocardial perfusion/tracer uptake in portions of the basal t o mid interventricular septum without significant change between rest and stress. There is end systolic thickening and brightening. The gated Cardiolite study demonstrates myocardial thickening and inward wall motion. The reported LVEF is 38 %. Impression: 1. Rest and stress SPECT Cardiolite nuclear imaging demonstrate myocardial perfusion changes appearing compatible with the effects of the underlying left bundle branch block pattern with no myocardial perfusion changes considered diagnostic for associated stress-induced myocardial ischemia. 2. The gated Cardiolite study reports an LVEF of 38 %. This note was generated with WIDIPation software. It may contain incorrect words, spelling, and punctuation that were not noted in checking the note before signing.
== END ==
PROVIDERS: PCP Family Medicine; Referring Provider Internal Medicine Cardiovascular Disease; Visit Provider Internal Medicine Cardiovascular Disease
DX: I44.7 Left bundle-branch block, unspecified (principal); R55 Syncope and collapse; E78.5 Hyperlipidemia, unspecified; I10 Essential (primary) hypertension; R06.09 Other forms of dyspnea
CPT/HCPCS: 78452; 93017; A9500; A4216

== ENCOUNTER → 2019-11-17 12:54 | Outpatient (CLI) | payer OTHER, SELFPAY ==
[2019-06-04 09:56] VITALS: BMI 29.1
--- NOTE | 2019-11-17 12:58 | ECHOD_ITS ---
Reason For Study: LBBB Procedure This was a 2D Doppler, Color Flow transthoracic echocardiogram. The exam was of adequate technical quality. Exam performed in department. Left Ventricle Normal LV size. Apical false tendon noted. Moderate segmental systolic dysfunction (see wall motion). The estimated ejection fraction is 35 %. Septal motion consistent with IVCD. No evidence for diastolic dysfunction. Infero-Basal: Hypokinetic. Basal inferoseptal: Hypokinetic. Basal anteroseptal: Hypokinetic. Mid-Anterior : Hypokinetic. Mid-Lateral : Hypokinetic. Mid-Posterior: Hypokinetic. Mid-Inferior: Hypokinetic. Mid-inferoseptal : Hypokinetic. Mid-anteroseptal : Hypokinetic. [place] : Hypokinetic. Right Ventricle Normal RV size. Normal systolic function. Atria Normal left atrium. Normal right atrium. No doppler evidence for ASD. Mitral Valve There is no mitral annular calcification. Normal mitral valve. Trivial mitral valve insufficiency. Tricuspid Valve Normal tricuspid valve. Trivial tricuspid valve insufficiency. Aortic Valve Trisinus/trileaflet aortic valve. Mild focal aortic valve thickening. Mild focal aortic valve calcification. Pulmonic Valve The pulmonic valve is not well visualized. Trivial pulmonic valve insufficiency. Great Vessels Normal sized aortic root. Pericardium/Pleural No pericardial effusion. MMode/2D Measurements & Calculations LVIDd: 4.4 cm IVSd: 1.2 cm LVOT diam: 2.0 cm LVIDs: 3.7 cm LVPWd: 1.2 cm LVOT area: 3.1 cm2 FS: 14.7 % Ao root diam: 3.8 cm LAV(MOD-sp2): 31.1 ml Time Measurements MV dec time: 0.14 sec Doppler Measurements & Calculations MV E max allyson: 74.0 cm/sec MV V2 max: 84.9 cm/sec MV P1/2t max allyson: 85.7 cm/sec MV A max allyson: 37.0 cm/sec MV max P.9 mmHg MV P1/2t: 40.7 msec MV E/A: 2.0 MV V2 mean: 37.7 cm/sec MV mean P.74 mmHg MV dec slope: 616.9 cm/sec2 MV V2 VTI: 16.0 cm MVA(P1/2t): 5.4 cm2 Ao V2 max: 79.0 cm/sec LV V1 max: 69.1 cm/sec PA V2 max: 82.8 cm/sec Ao max P.5 mmHg LV V1 max P.9 mmHg JEANETH(V,D): 2.7 cm2 Interpretation Summary Moderate segmental systolic dysfunction (see wall motion). The estimated ejection fraction is 35 %. Septal motion consistent with IVCD. Apical false tendon noted. Trivial mitral valve insufficiency. Trivial tricuspid valve insufficiency. Mild focal aortic valve thickening. Mild focal aortic valve calcification. Trivial pulmonic valve insufficiency. No evidence for diastolic dysfunction. Ordering Physician: Se Carrington Referring Physician: Se Carrington Performed By: Ld Reyna RCS
== END ==
PROVIDERS: PCP Family Medicine; Referring Provider Internal Medicine Cardiovascular Disease; Visit Provider Internal Medicine Cardiovascular Disease
DX: I44.7 Left bundle-branch block, unspecified (principal)
CPT/HCPCS: 93306

== ENCOUNTER 2019-12-11 07:58 | Day surgery (SDC) | payer OTHER, SELFPAY ==
[2019-06-04 09:56] VITALS: BMI 29.1
--- NOTE | 2019-12-07 05:18 | HP_ITS ---
HPI HPI History of Present Illness Surgical H&P: Yes Details: TRIP MURPHY, is a 54 year old white male who presents to the office today for Outpatient cardiovascular follow up of his history of underlying left bundle branch block. He states his main concern appears to be his shortness of breath and dyspnea. He is undergoing evaluation care for obstructive sleep apnea. He states he for the most part tolerates his CPAP device at home. However he states there are some nights he wakes up and feels he has to take it off in order to breathe. He did have a recent evaluation with a transthoracic echocardiogram and a follow-up Holter monitor. On transthoracic echocardiogram his estimated LVEF was 55%. His Holter monitor demonstrated his sinus rhythm with an underlying IVCD with occasional ectopy with PACs and PVCs. Based upon his concerns with respect to her shortness of breath and dyspnea on exertion he has undergone further evaluation with an exercise tolerance test/imaging study. The results are noted below. Based upon the exercise tolerance test/imaging study LVEF it was elected to repeat his transthoracic echocardiogram to compare to his study performed earlier. There was concern that his overall LV systolic function has diminished. He has been started on medical management with the addition of a beta-nena. It is been recommended based upon his symptoms and his objective changes that he undergo further definitive evaluation for any concerns of CAD with a diagnostic cardiac catheterization. The procedure and risks have been discussed with him and he is agreeable to this approach. In the meantime he states he has not noted any ongoing chest discomfort. His main concern is the shortness of breath and dyspnea on exertion. There is been no near syncope or syncope. He did have a follow-up ECG today. He was noted to be in sinus rhythm with left axis deviation and a left bundle branch block pattern. It is noted that his QRS duration was 144 ms. 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 Required: No Accompanied by: Self Allergies No Known Allergies Allergy (Verified 12/07/19 15:45) Medications aspirin 81 mg tablet,delayed release 81 mg PO DAILY 11/18/19 [History Confirmed 12/07/19] carvedilol 3.125 mg tablet 3.125 mg PO BID #60 tab 11/18/19 [Rx Confirmed 12/07/19] clopidogrel 75 mg tablet 75 mg PO .COMPLEX #30 tab 12/07/19 [Rx Confirmed 12/07/19] montelukast 10 mg tablet 10 mg PO DAILY 12/07/19 [History Confirmed 12/07/19] [facility] Medical History Decreased cardiac ejection fraction (Acute) Abnormal echocardiogram (Acute) Essential hypertension (Chronic) Ventricular hypertrophy (Chronic) Syncope and collapse (Chronic) Left bundle branch block (Chronic) Hyperlipidemia (Chronic) Dyspnea on exertion (Chronic) Abnormal electrocardiogram (Chronic) JEFFERY (obstructive sleep apnea) (Acute) Left ventricular hypertrophy (Chronic) Surgical History History of appendectomy (Resolved) History of hip replacement, total (Resolved) Social History (Updated 12/07/19 @ 17:[address] Se Carrington MD) Smoking Status: Former smoker alcohol intake: current details: rare ROS Const Const: Positive for fatigue (increased); negative for weakness, frequent falls, excessive sweating, weight gain or weight loss Eyes Eyes: Negative for transient loss of vision, blurry vision or change in vision ENT ENT: Positive for dizziness (occasional random); negative for balance problems Cardio Chest Pain: No Palpitations: No Edema: None Muscle aches with walking: None Resp Respiratory: Positive for SOB with activity and Cough (productive in the am); negative for SOB at rest GI GI: Negative vomiting or vomiting blood/hematemesis : Negative for hematuria Musc Musc: Negative for muscle aches/ myalgia, muscle weakness, joint pain or balance problems Skin Skin: Negative non-healing lesions or rash Neuro Neuro: Positive for dizziness (occasional random); negative for lightheadedness, orthostatic symptoms, frequent falls, weakness or blurry vision Dion Hematologic/Lymphatic: Negative for easy bleeding Endo Endo: Positive for fatigue (increased); negative for excessive sweating Psych Psych: Negative for anxiety or depression Allergy Allergy/Immunology: Negative for hives, Negative for rash Cardiology Exam Const Appearance: cooperative, healthy appearing, comfortable, no acute distress, well developed and well groomed Nutritional Appearance: average body habitus Orientation: alert, awake and oriented x3 Head Head: normal to inspection, normocephalic and atraumatic Ears: hearing grossly normal bilaterally Nose: external nose normal Face and Sinus: face symmetric Eyes Eyelids: eyelids normal Conjunctivae: conjunctivae normal Pupils: PERRL EOM: EOM intact bilaterally Neck Neck: normal visual inspection, full ROM, no lymphadenopathy and trachea midline Carotids: normal carotid upstroke Chest Chest inspection: normal inspection of the chest, symmetric chest movement and normal respiratory effort Auscultation: Bilateral: Clear to Auscultation Cardio Palpation: normal PMI Rate: regular rate Rhythm: regular rhythm Heart sounds: S1 normal and paradoxically split S2 GI GI: normal to inspection, soft and bowel sounds present Neuro General: alert, awake, oriented x3 and moves all extremities Skin Skin: no rashes or lesions noted Extremities Pulses: Normal: Right Femoral Pulse, Left Femoral Pulse, Right Radial Pulse, Left Radial Pulse Lower Extremity Edema: None: Bilateral Psych Psychological: normal affect Assessment & Plan 1. Decreased cardiac ejection fraction R93.1 Plan At the present time there is concern with respect to his change in his LV systolic function/LVEF-diminished compared to previous studies. This may be compatible with a cardiomyopathy. He will continue medical management with adjustment as needed. He will undergo further evaluation with diagnostic cardiac catheterization to define whether he truly has any CAD or not contributing to these findings. If he does not have CAD requiring revascularization therapy then he will continue medical management with further adjustment of beta-blockers in the edition of agent such as EDUARDA inhibitors or ARB's as deemed appropriate. Also as he has a history of an underlying left bundle branch block pattern as noted he may be a future candidate for a cardiac resynchronization device. Orders Orders: 12 Lead EKG performed by BMS Today 12 Lead EKG performed by BMS Today Left Heart Cath/COR/LV Percut Today Basic Metabolic Profile (BMP) Today Partial Thromboplast Time Today Prothrombin Time w/INR Today CBC W/Diff, Automated Today Chest PA and Lateral Today 2. Left bundle branch block I44.7 Plan Again he has a history of a left bundle branch block pattern. He will continue his evaluation and care as noted above. If he does require a future device he should be considered for resynchronization device/LOAN EXAMINER device based upon his left bundle branch block pattern. Orders Orders: 12 Lead EKG performed by BMS Today 12 Lead EKG performed by BMS Today Left Heart Cath/COR/LV Percut Today Basic Metabolic Profile (BMP) Today Partial Thromboplast Time Today Prothrombin Time w/INR Today CBC W/Diff, Automated Today Chest PA and Lateral Today 3. Hyperlipidemia, unspecified hyperlipidemia type E78.5 Plan He will continue risk factor evaluation care as deemed appropriate Orders Orders: 12 Lead EKG performed by BMS Today Left Heart Cath/COR/LV Percut Today Basic Metabolic Profile (BMP) Today Partial Thromboplast Time Today Prothrombin Time w/INR Today CBC W/Diff, Automated Today Chest PA and Lateral Today 4. Essential hypertension I10 Plan His blood pressure appears to be stable at this time. We will continue medical therapy peer Orders Orders: 12 Lead EKG performed by BMS Today 12 Lead EKG performed by BMS Today Left Heart Cath/COR/LV Percut Today Basic Metabolic Profile (BMP) Today Partial Thromboplast Time Today Prothrombin Time w/INR Today CBC W/Diff, Automated Today Chest PA and Lateral Today 5. Dyspnea on exertion R06.00 Plan His main concern is his shortness of breath/dyspnea on exertion. Thus he will continue evaluation care as noted above. Thank you for allowing me to participate in the care of your patient. Please don't hesitate to call if any issues arise. This note was generated using a voice recognition system and there may be incorrect words, spelling or punctuation that were not noted when reviewing the office note prior to saving. Orders Orders: 12 Lead EKG performed by BMS Today Left Heart Cath/COR/LV Percut Today Basic Metabolic Profile (BMP) Today Partial Thromboplast Time Today Prothrombin Time w/INR Today CBC W/Diff, Automated Today Chest PA and Lateral Today Plan Detail Other Medications New: clopidogrel 75 mg PO take 4 tabs by mouth on day 1 and then 1 tab by mouth daily; For cardiac cath 30 tabs 3RF Follow Up 3 Months (with PFM) Coding Level of Care Code Off vis,est,level 5 Diagnoses Decreased cardiac ejection fraction R93.1 Left bundle branch block I44.7 Hyperlipidemia, unspecified hyperlipidemia type E78.5 ??Hyperlipidemia type: unspecified Essential hypertension I10 Dyspnea on exertion R06.00 Coding Level of Care Code Off vis,est,level 5 Diagnoses Decreased cardiac ejection fraction R93.1 Left bundle branch block I44.7 Hyperlipidemia, unspecified hyperlipidemia type E78.5 ??Hyperlipidemia type: unspecified Essential hypertension I10 Dyspnea on exertion R06.00 Supplemental Info Supplemental Information Echocardiogram: 04-09-2019 Interpretation Summary Left ventricular systolic function is normal. The estimated ejection fraction is 55 %. Septal motion consistent with IVCD. Apical false tendon noted. Trivial mitral valve insufficiency. Trivial tricuspid valve insufficiency. Mild focal aortic valve thickening. Mild focal aortic valve calcification. Trivial pulmonic valve insufficiency. Diastolic function is indeterminate. Echocardiogram: 11-17-2019 Interpretation Summary Moderate segmental systolic dysfunction (see wall motion). The estimated ejection fraction is 35 %. Septal motion consistent with IVCD. Apical false tendon noted. Trivial mitral valve insufficiency. Trivial tricuspid valve insufficiency. Mild focal aortic valve thickening. Mild focal aortic valve calcification. Trivial pulmonic valve insufficiency. No evidence for diastolic dysfunction. Stress Test Report Date: 11-03-2019 Procedure: Exercise tolerance test/imaging study Indications: Shortness of breath/dyspnea on exertion; abnormal ECG (rate- dependent left bundle branch block pattern) Consent: Per the patient Procedure: The patient exercised on a Amol protocol for 10 minutes completing Stage III and 1 minute of Stage IV achieving a peak heart rate of 173 bpm (104 % predicted maximal heart rate) with a peak blood pressure 164/100 mmHg and a peak MET capacity of 11 METs. The baseline ECG demonstrated sinus rhythm; left bundle branch block. The peak exercise ECG demonstrated continued left bundle branch block pattern. There was a rare PAC during exercise and recovery. The functional capacity was considered good. There was no complaint of chest discomfort during exercise or recovery9. The examination was discontinued secondary to leg discomfort. Impression: 1. Technically adequate (percent predicted maximal heart rate greater than 85%) exercise tolerance test 2. Peak exercise ECG with continued left bundle branch block pattern 3. There was a rare PAC during exercise and recovery 4. Nuclear images pending Myocardial perfusion imaging study: Technique: The patient was injected with 12.0 mCi of technetium 99m Cardiolite and subsequently rest SPECT Cardiolite nuclear imaging was obtained in the horizontal long, vertical long, and short axis views. The patient exercised on a Amol protocol for 10 minutes completing Stage III and 1 minute of Stage IV achieving a peak heart rate of 173 bpm (104 % predicted maximal heart rate) with a peak blood pressure 164/100 mmHg and a peak MET capacity of 11 METs. The patient was injected with 35.0 mCi of technetium 99m Cardiolite and subsequently stress SPECT Cardiolite nuclear imaging was obtained in the horizontal long, vertical long, and short axis views. A gated Cardiolite study at peak stress was obtained. Interpretation: Rest and stress SPECT Cardiolite nuclear imaging status post realignment, normalization, and attenuation correction, demonstrates the appearance of an area of diminished myocardial perfusion/tracer uptake in portions of the basal to mid interventricular septum without significant change between rest and stress. There is end systolic thickening and brightening. The gated Cardiolite study demonstrates myocardial thickening and inward wall motion. The reported LVEF is 38 %. Impression: 1. Rest and stress SPECT Cardiolite nuclear imaging demonstrate myocardial perfusion changes appearing compatible with the effects of the underlying left bundle branch block pattern with no myocardial perfusion changes considered diagnostic for associated stress-induced myocardial ischemia. 2. The gated Cardiolite study reports an LVEF of 38 %. Labs LDL Cholesterol 105 mg/dL (0-130) 03/09/19 HDL Cholesterol 50 mg/dL (40-) 03/09/19 Triglycerides 86 mg/dL (-199) 03/09/19 VLDL Cholesterol 17 mg/dL (5-40) 03/09/19 Diagnostics Electrocardiogram 12/07/19 Echocardiogram 11/17/19 Stress Test Nuclear Medicine 11/03/19 Stress Test 11/03/19 Chest X-Ray 06/03/19 12/07/19 5200 <Electronically signed by Se quevedo MD> Date _ Se Carrington MD The surgeon/proceduralist and patient have discussed in detail the risk of exposure to and/or potential harm posed by the COVID-19 virus with having a surgery/procedure at this time versus the risk of delaying the surgery/procedure. It is not possible to know either the risk of delaying the surgery or procedure or chance of getting an infection with perfect accuracy, but a joint decision was made between the patient and the surgeon/proceduralist to proceed at this time with the scheduled surgery/procedure as indicated on the consent form. I have re-examined the patient. There are no clinical changes since date of exam.
[2019-12-07 15:45] VITALS: BMI 29.2
--- NOTE | 2019-12-08 16:20 | RAD_ITS ---
STUDY: X-RAY CHEST REASON FOR EXAM: Male, 54 years old. dyspnea, abnormal stress, patient having heart cath TECHNIQUE: PA and lateral views of the chest. COMPARISON: Prior study of 06/03/2019 FINDINGS: The lungs are clear and expanded. There is no demonstrated pleural abnormality. Normal size heart. Normal mediastinum and kira. Normal visualized pulmonary arteries. Normal visualized aortic arch and descending thoracic aorta. Normal visualized thoracic spine. Normal visualized ribs, clavicles, and shoulders. There is no demonstrated abnormality of the visualized soft tissue structures of the upper abdomen. RAD/Chest PA and Lateral IMPRESSION: Normal x-ray examination of the chest. No acute cardiopulmonary disease process is seen. Electronically Signed: Jason Yeung MD at 21:59 EDT , Service support ,
[2019-12-08 16:48] LABS: Absolute Lymphocyte Count 1.93 X10^3/uL (0.83-4.51); Basophil# 0.04 X10^3/uL; Basophil% 0.6 % (0-1); Eosinophil# 0.19 X10^3/uL; Eosinophils% 2.8 % (0-5); Hematocrit 43.1 % (40-54); Hemoglobin 14.4 g/dL (13.0-16.5); Lymphocyte # 1.93 X10^3/ul (4.0); Lymphocyte % 28.2 % (19-41); Mean Corp Hgb Conc 33.4 g/dL (32-36); Mean Corpuscular Volume 86.7 fL (80-94); Mean Platelet Vol. 8.6 fl (6.2-12.0); Monocyte# 0.71 X10^3/uL; Monocyte% 10.4 % (0-10); NRBC Flagged by Analyzer 0 % (0-5); Neutrophil # 3.95 X10^3/uL (2.7-7.7); Neutrophil % 57.6 % (47-70); Platelet Count 289 K/mm3 (150-450); RBC Distribution Width SD 40.5 fl (35.1-43.9); Red Blood Count 4.97 M/mm3 (4.6-6.2); White Blood Count 6.9 K/mm3 (4.4-11.0)
[2019-12-08 17:01] LABS: International Normalized Ratio 1.1; Prothrombin Time (Protime)PT. 13.9 SECONDS (11.7-14.9)
[2019-12-08 17:02] LABS: Partial Thromboplast Time 32.1 Seconds (24.1-36.2)
[2019-12-08 17:40] LABS: Anion Gap 5 (5-15); BUN 14 mg/dL (7-18); BUN/Creat Ratio 13.1 RATIO (10-20); Calcium,Total 8.7 mg/dL (8.5-10.1); Chloride 108 mmol/L (98-107); Creatinine, Serum 1.07 mg/dL (0.70-1.30); EST Glomerular Filtration Rate 76 mL/min (>60); Est Glom Filt Rate - Afr Amer 92 mL/min (>60); Glucose 128 mg/dL (74-106); Sodium Level 140 mmol/L (136-145)
[2019-12-10 07:55] VITALS: BMI 29.2
--- NOTE | 2019-12-11 10:09 | CL.D_ITS ---
Patient Name: TRIP MURPHY Study Date: 12/11/2019 Performing: Se Carrington MD Ht: 66.14 inches 168 cm : 1965 Wt: 180.78 lbs 82 kg Age: 54 Gender: male BSA: 1.92 PROCEDURE(S) PERFORMED BT87-RCW/COR/LV CLINICAL PROFILE AND INDICATIONS Indications: LV Dysfunction, Cardiomyopathy Heart Failure: None Stress/Imaging Date: 11/03/2019Stress Test with SPECT MPI: Positive (abnormal LV systolic functio n / LVEF c/w a cardiomyopathy) Angina Classification Anginal Classification w/in 2 Weeks: Anginal Equivalent Dyspnea CAD Presentations: Other: dyspnea on exertion CONCLUSIONS Elevated Left Ventricular End Diastolic Pressure (mild) Segmented LV systolic dysfunction- Mild LVEF: by LV gram 40 % [place] Multivessel CAD RECOMMENDATIONS Risk factor modification Medical therapy DESCRIPTION OF PROCEDURE The patient arrived to the procedure lab. The risks and benefits of the procedure as well as a full d escription of our services here and current unavailability of surgical backup were fully explained to the patient and/or their significant other prior to the catheterization. The Timeout was completed, verifying the correct patient and procedure. The patient's procedural site was prepped and draped in the usual fashion. Local anesthetic was given subcutaneously to right radial region with Lidocaine 2% . Using a modified Seldinger technique, arterial access was obtained via the right radial artery, a 6 Fr sheath was inserted. Right Coronary Artery selective angiography was then performed in multiple v iews using a 5 Fr. 4.0 [place] catheter. Left Coronary Artery selective angiography was performed in mu ltiple views using a 5 Fr. 4.0 [place] catheter. Left Ventriculography was performed in MOLINA projection using a 5 Fr. Pig[place] catheter. LV to AO pullback pressures were then recorded.The arterial sheath was pulled and a TR Band was applied for hemostasis CORONARY ANGIOGRAPHY DOMINANCE: Right Dominant LEFT HEART ASSESSMENT Left Ventricular Ejection Fraction: by LV Gram 40 % Anterior Hypokinesis. Inferior Mid Hypokinesis. Apical Hypokinesis Elevated Left Ventricular End Diastolic Pressure LVEDP: 19 mmHg LEFT MAIN: Mild luminal irregularities LEFT ANTERIOR DESCENDING ARTERY: DIAGONAL 1: Proximal - small caliber vessel: smooth: 50 % Stenosis CIRCUMFLEX ARTERY: PROX CIRC: Mild luminal irregularities RIGHT CORONARY ARTERY: PROX RCA: Mild luminal irregularities AORTIC ROOT: Angiographically normal COMPLICATIONS No Complications PROCEDURE MEDICATIONS Fentanyl 50 mcg IV Versed 1 mg IV Oxygen: 2 L/min via nasal cannula SUMMARY OF HEMODYNAMIC DATA Time AIR REST ECG 08:14:57 AO 105/96 (101) SA 09:25:38 LV 125/14, 19 09:34:01 LV 128/12, 19 09:34:08 LV 127/11, 20 09:35:37 LVp 126/14, 23 09:35:42 AOp 120/87 (102) 09:35:47 AO 127/86 (103) 09:35:56 Signed By Se Carrington MD On 12/11/2019 10:08:10 AM Se Carrington MD
== END 2019-12-11 11:05 | disposition home or self-care (01) ==
LOC: CLSP 07:59
PROVIDERS: PCP Family Medicine; Referring Provider Internal Medicine Cardiovascular Disease; Visit Provider Internal Medicine Cardiovascular Disease
DX: I25.10 Atherosclerotic heart disease of native coronary artery without angina pectoris (principal); R06.09 Other forms of dyspnea; I44.7 Left bundle-branch block, unspecified; G47.33 Obstructive sleep apnea (adult) (pediatric); Z79.899 Other long term (current) drug therapy; Z79.02 Long term (current) use of antithrombotics/antiplatelets; Z79.82 Long term (current) use of aspirin; I10 Essential (primary) hypertension; E78.5 Hyperlipidemia, unspecified; R94.31 Abnormal electrocardiogram [ECG] [EKG]; Z87.891 Personal history of nicotine dependence; I08.1 Rheumatic disorders of both mitral and tricuspid valves; I42.9 Cardiomyopathy, unspecified
CPT/HCPCS: 36415; 71046; 80048; 85025; 85610; 85730; 93458; 99152; 99153; J7040; Q9967; C1769; C1894

== ENCOUNTER → 2020-01-04 10:07 | Outpatient (CLI) | payer OTHER, SELFPAY ==
[2019-12-10 07:55] VITALS: BMI 29.2
== END ==
PROVIDERS: PCP Family Medicine; Referring Provider Family Medicine; Visit Provider Family Medicine
DX: Z20.828 Contact with and (suspected) exposure to other viral communicable diseases (principal)

== ENCOUNTER → 2020-01-04 17:49 | Outpatient (CLI) | payer OTHER, SELFPAY ==
[2019-12-10 07:55] VITALS: BMI 29.2
== END ==
PROVIDERS: PCP Family Medicine; Referring Provider Family Medicine; Visit Provider Family Medicine
DX: Z20.828 Contact with and (suspected) exposure to other viral communicable diseases (principal)
CPT/HCPCS: 87635; U0003

== ENCOUNTER → 2020-04-12 14:49 | Outpatient (CLI) | payer OTHER, SELFPAY ==
[2020-02-24 15:46] VITALS: BMI 29.0
--- NOTE | 2020-04-12 14:54 | ECHOL_ITS ---
Reason For Study: LBBB, CMP Procedure This was a limited 2D transthoracic echocardiogram. The study was technically difficult. Limited views were obtained. Exam performed in department. Left Ventricle Normal LV size. Apical false tendon noted. Left ventricular systolic function is lower limits of normal. The estimated ejection fraction is 50 %. Septal motion consistent with IVCD. Unable to assess diastolic dysfunction. Right Ventricle Normal RV size. Normal systolic function. Atria Normal left atrium. Normal right atrium. No doppler evidence for ASD. Mitral Valve There is no mitral annular calcification. Normal mitral valve. Tricuspid Valve Normal tricuspid valve. Aortic Valve Trisinus/trileaflet aortic valve. Normal aortic valve. Pulmonic Valve The pulmonic valve is not well visualized. Great Vessels Normal sized aortic root. Pericardium/Pleural No pericardial effusion. MMode/2D Measurements & Calculations LVIDd: 5.0 cm IVSd: 1.1 cm Ao root diam: 3.5 cm LVIDs: 3.7 cm LVPWd: 1.1 cm RVDd: 3.7 cm FS: 26.2 % LAV(MOD-bp): 35.0 ml LA A4 area: 13.1 cm2 LA dimension(2D): 3.8 cm LAV(MOD-bp) Indexed: 18.3 ml/m2 LAV(MOD-sp2): 45.0 ml LAV(MOD-sp4): 28.5 ml RA A4 area: 13.5 cm2 Interpretation Summary The study was technically difficult. Limited views were obtained. Left ventricular systolic function is lower limits of normal. The estimated ejection fraction is 50 %. Septal motion consistent with IVCD. Apical false tendon noted. Unable to assess diastolic dysfunction. Ordering Physician: Se Carrington Referring Physician: Eddie Martin Performed By: Marla Isaac, TRACY, RVT
== END ==
PROVIDERS: PCP Family Medicine; Referring Provider Internal Medicine Cardiovascular Disease; Visit Provider Internal Medicine Cardiovascular Disease
DX: I25.10 Atherosclerotic heart disease of native coronary artery without angina pectoris (principal); R93.1 Abnormal findings on diagnostic imaging of heart and coronary circulation; I44.7 Left bundle-branch block, unspecified; E78.5 Hyperlipidemia, unspecified; I10 Essential (primary) hypertension
CPT/HCPCS: 93308

== ENCOUNTER → 2020-04-19 07:59 | Outpatient (CLI) | payer OTHER, SELFPAY ==
[2020-02-24 15:46] VITALS: BMI 29.0
--- NOTE | 2020-04-19 08:05 | RAD_ITS ---
STUDY: X-RAY - ESOPHAGUS (BARIUM SWALLOW) WITH FLUOROSCOPY REASON FOR EXAM: Male, 55 years old. Pt. Has felt like there is a lump in his throat for a few months, no trouble swallowing TECHNIQUE: 22 view(s) of the esophagus were obtained following swallowing of barium. FLUOROSCOPY TIME (if supplied): (0:24) minutes/seconds COMPARISON: None. FINDINGS: There is no demonstrated esophageal foreign body. There is no demonstrated stricture or mucosal abnormality. Normal gastroesophageal junction, without a demonstrated hiatal hernia. The patient ingested a 12 mm tablet of barium without any difficulty. Normal visualized aortic arch and descending thoracic aorta. Normal visualized pulmonary parenchyma. There are degenerative changes of the visualized thoracic spine. RAD/Esophagus Dual Contrast IMPRESSION: Normal plain film x-ray examination (barium swallow) of the esophagus. Electronically Signed: Rylan Levy, at 9:28 EST , Service support ,
== END ==
PROVIDERS: PCP Family Medicine; Referring Provider Family Medicine; Visit Provider Family Medicine
DX: R09.89 Other specified symptoms and signs involving the circulatory and respiratory systems (principal)
CPT/HCPCS: 74221

== ENCOUNTER → 2020-11-18 12:06 | Outpatient (CLI) | payer OTHER, SELFPAY ==
[2020-10-31 15:49] VITALS: BMI 29.5
--- NOTE | 2020-11-18 12:08 | RAD_ITS ---
STUDY: X-RAY - RIGHT HAND REASON FOR EXAM: Male, 55 years old. Thumb pain. TECHNIQUE: 3 view(s) of the hand. COMPARISON: None. FINDINGS: Mild arthrosis of the radiocarpal articulation. Normal distal radioulnar joint. Normal visualized carpal bones. Mild arthrosis of the radial carpal row. Mild arthrosis of the first CMC joint. Mild arthrosis of the MCP and IP joints. The soft tissue structures are unremarkable. RAD/Hand Min 3 Views IMPRESSION: Osteoarthritic changes as described. No acute abnormality, erosive changes or periostitis. Electronically Signed: Harinder Young MD at 12:41 EDT , Service support ,
== END ==
PROVIDERS: PCP Family Medicine; Referring Provider Family Medicine; Visit Provider Family Medicine
DX: M79.644 Pain in right finger(s) (principal)
CPT/HCPCS: 73130

== ENCOUNTER → 2021-03-21 12:48 | Outpatient (CLI) | payer OTHER, SELFPAY ==
--- NOTE | 2021-03-21 12:54 | ECHOD_ITS ---
Reason For Study: CMP Procedure This was a 2D Doppler, Color Flow transthoracic echocardiogram. The study was technically difficult. Exam performed in department. Left Ventricle Based upon the 2D echocardiographic and contrast enhanced images obtained there appears to be grossly normal left ventricular size, wall motion, and systolic function. The estimated ejection fraction is 55 %. Septal motion consistent with IVCD. Unable to assess diastolic dysfunction. Right Ventricle Normal RV size. Normal systolic function. Atria Normal left atrium. Normal right atrium. No doppler evidence for ASD. Mitral Valve There is no mitral annular calcification. Normal mitral valve. Trivial mitral valve insufficiency. Tricuspid Valve Normal tricuspid valve. Trivial tricuspid valve insufficiency. Unable to estimate RV systolic pressure due to insufficient tricuspid regurgitant envelope. Aortic Valve Trisinus/trileaflet aortic valve. Normal aortic valve. Pulmonic Valve The pulmonic valve is not well visualized. Trivial pulmonic valve insufficiency. Great Vessels Normal sized aortic root. Pericardium/Pleural No pericardial effusion. MMode/2D Measurements & Calculations LVIDd: 4.6 cm IVSd: 1.2 cm Ao root diam: 3.9 cm LVIDs: 2.9 cm LVPWd: 1.0 cm FS: 36.7 % Time Measurements MV dec time: 0.25 sec Doppler Measurements & Calculations MV E max shaan: 54.4 cm/sec Lat Peak E' Shaan: 6.8 cm/sec MV V2 max: 71.2 cm/sec MV A max shaan: 75.5 cm/sec E/E' lat: 8.0 MV max P.0 mmHg MV E/A: 0.72 MV V2 mean: 44.4 cm/sec MV mean P.87 mmHg MV V2 VTI: 22.6 cm MV P1/2t max shaan: 59.9 cm/sec Ao V2 max: 92.0 cm/sec LV V1 max: 77.0 cm/sec MV P1/2t: 132.9 msec Ao max P.4 mmHg LV V1 max P.4 mmHg MV dec slope: 131.9 cm/sec2 MVA(P1/2t): 1.7 cm2 ECHO/Echo Complete Interpretation Summary The study was technically difficult. Based upon the 2D echocardiographic and contrast enhanced images obtained there appears to be grossly normal left ventricular size, wall motion, and systolic function. The estimated ejection fraction is 55 %. Septal motion consistent with IVCD. Trivial mitral valve insufficiency. Trivial tricuspid valve insufficiency. Trivial pulmonic valve insufficiency. Unable to estimate RV systolic pressure due to insufficient tricuspid regurgita nt envelope. Unable to assess diastolic dysfunction. Ordering Physician: Se Carrington Referring Physician: Eddie Martin Performed By: Ld Reyna RCS
== END ==
PROVIDERS: PCP Family Medicine; Referring Provider Internal Medicine Cardiovascular Disease; Visit Provider Internal Medicine Cardiovascular Disease
DX: R93.1 Abnormal findings on diagnostic imaging of heart and coronary circulation (principal)
CPT/HCPCS: 93306

== ENCOUNTER 2021-04-26 17:17 | Outpatient (CLI) | payer OTHER, SELFPAY | END 2021-04-26 23:59 | disposition short-term general hospital (02) | PROVIDERS: PCP Family Medicine; Referring Provider Family Medicine; Visit Provider Family Medicine | DX: Z20.822 Contact with and (suspected) exposure to COVID-19 (principal) | CPT/HCPCS: 87635; U0003; U0005 ==

== ENCOUNTER → 2022-02-20 | Outpatient (CLI) | payer OTHER, SELFPAY ==
[2022-02-20 17:55] LABS: Absolute Neutrophil Count 3.6 X10^3/uL (2.0-7.7); Basophil# 0.02 X10^3/uL; Basophil% 0.3 % (0-1); Eosinophil# 0.18 X10^3/uL; Eosinophils% 2.7 % (0-5); Hematocrit 42.4 % (40-54); Hemoglobin 14.1 g/dL (13.0-16.5); Lymphocyte % 30.3 % (19-41); Mean Corp Hgb Conc 33.3 g/dL (32-36); Mean Corpuscular Hgb 29.6 pg (27.0-32.0); Mean Corpuscular Volume 88.9 fL (80-94); Mean Platelet Vol. 8.6 fl (6.2-12.0); Monocyte# 0.82 X10^3/uL; Monocyte% 12.4 % (0-10); NRBC Flagged by Analyzer 0 % (0-5); Neutrophil # 3.58 X10^3/uL (2.7-7.7); Neutrophil % 54.1 % (47-70); Platelet Count 316 K/mm3 (150-450); RBC Distribution Width CV 13.3 % (11.6-14.6); RBC Distribution Width SD 43.3 fl (35.1-43.9); Red Blood Count 4.77 M/mm3 (4.6-6.2); White Blood Count 6.6 K/mm3 (4.4-11.0)
[2022-02-20 18:32] LABS: ALB/GLOB Ratio 0.9 RATIO (0.9-2.4); AST(SGOT) 18 U/L (15-37); Alanine Aminotransfer ALT/SGPT 46 U/L (16-61); Albumin, Serum 3.6 g/dL (3.2-5.0); Alkaline Phosphatase 70 U/L (45-117); Anion Gap 6 (5-15); BUN 16 mg/dL (7-18); BUN/Creat Ratio 17.7 RATIO (10-20); Calcium,Total 9.1 mg/dL (8.5-10.1); Chloride 106 mmol/L (98-107); EST Glomerular Filtration Rate 92 mL/min (>60); Est Glom Filt Rate - Afr Amer 111 mL/min (>60); Globulin 3.8 g/dL (2.2-4.2); Glucose 112 mg/dL (74-106); PSA,Total - Annual Screen 0.42 ng/mL (0.00-4.00); Potassium 3.9 mmol/L (3.5-5.1); Protein, Total 7.4 g/dL (6.4-8.2); Sodium Level 140 mmol/L (136-145); T4 Free Direct 0.88 ng/dL (0.76-1.46); Thyroid Stim Hormone (TSH) 1.01 uIU/mL (0.358-3.74)
[2022-02-20 18:33] LABS: Vitamin B12 573 pg/mL (211-911); Vitamin D,25 Hydroxy 30.4 ng/mL
== END | disposition home or self-care (01) ==
LOC: MFPLAB 15:08
PROVIDERS: PCP Family Medicine; Referring Provider Family Medicine; Visit Provider Family Medicine
DX: R73.09 Other abnormal glucose (principal); R53.83 Other fatigue; Z12.5 Encounter for screening for malignant neoplasm of prostate
CPT/HCPCS: 36415; 80053; 82306; 82607; 83036; 84153; 84439; 84443; 85025; G0103

== ENCOUNTER → 2022-04-19 | Outpatient (CLI) | payer OTHER, SELFPAY ==
--- NOTE | 2022-04-19 11:01 | ECHOD_ITS ---
Reason For Study: ABNORMAL EKG Procedure This was a 2D Doppler, Color Flow transthoracic echocardiogram. The study was technically difficult. Exam performed in department. Left Ventricle Normal LV size. Left ventricular systolic function is normal. The estimated ejection fraction is 55 %. Septal motion consistent with IVCD. Diastolic function is indeterminate. Right Ventricle Normal RV size. Normal systolic function. Atria Normal left atrium. Normal right atrium. No doppler evidence for ASD. Mitral Valve There is no mitral annular calcification. Normal mitral valve. Trivial mitral valve insufficiency. Tricuspid Valve Normal tricuspid valve. Trivial tricuspid valve insufficiency. Unable to estimate RV systolic pressure/pulmonary artery pressure due to technically difficult study. Aortic Valve Trisinus/trileaflet aortic valve. Normal aortic valve. Trivial aortic valve insufficiency. Pulmonic Valve The pulmonic valve is not well visualized. Trivial pulmonic valve insufficiency. Great Vessels Normal sized aortic root. Pericardium/Pleural No pericardial effusion. MMode/2D Measurements & Calculations LVIDd: 4.9 cm IVSd: 1.2 cm Ao root diam: 3.7 cm LVIDs: 3.4 cm LVPWd: 1.2 cm RVDd: 3.5 cm FS: 30.5 % LA dimension(2D): 3.4 cm Time Measurements MV dec time: 0.26 sec Doppler Measurements & Calculations MV E max shaan: 52.5 cm/sec Lat Peak E' Shaan: 4.0 cm/sec Med Peak E' Shaan: 5.5 cm/sec MV A max shaan: 69.3 cm/sec E/E' lat: 13.2 E/E' med: 9.6 MV E/A: 0.76 LV V1 max: 61.7 cm/sec PA V2 max: 64.3 cm/sec MV dec slope: 204.2 cm/sec2 LV V1 max P.5 mmHg LV V1 mean P.84 mmHg LV V1 mean: 42.6 cm/sec LV V1 VTI: 14.1 cm ECHO/Echo Complete Interpretation Summary The study was technically difficult. Left ventricular systolic function is normal. The estimated ejection fraction is 55 %. Septal motion consistent with IVCD. Trivial mitral valve insufficiency. Trivial tricuspid valve insufficiency. Trivial aortic valve insufficiency. Trivial pulmonic valve insufficiency. Unable to estimate RV systolic pressure/pulmonary artery pressure due to techni ally difficult study. Diastolic function is indeterminate. Ordering Physician: Se Carrington Referring Physician: Eddie Martin Performed By: Marla Isaac, RDCS, RVT
== END | disposition home or self-care (01) ==
LOC: CVS 11:00
PROVIDERS: PCP Family Medicine; Referring Provider Internal Medicine Cardiovascular Disease; Visit Provider Internal Medicine Cardiovascular Disease
DX: I25.10 Atherosclerotic heart disease of native coronary artery without angina pectoris (principal); I10 Essential (primary) hypertension; I44.7 Left bundle-branch block, unspecified; E78.5 Hyperlipidemia, unspecified; R93.1 Abnormal findings on diagnostic imaging of heart and coronary circulation
CPT/HCPCS: 93306

== ENCOUNTER 2022-04-24 05:21 | Day surgery (SDC) | payer OTHER, SELFPAY ==
[2022-04-24] VITALS (9 sets, daily range): BP systolic 108–143; BP diastolic 75–92; PULSE 56–67; RESP 16–18; TEMP 36.5–36.9; O2SAT 91–100; BMI 28.9
[2022-04-24] MEDS: Lactated Ringers 1,000 ML 15 ML IV (05:58)
--- NOTE | 2022-04-24 06:15 | PCM.HP.STD ---
[facility] - General General Date of Service: 04/24/22 Chief Complaint: Personal history of colon polyps [facility] Narrative TRIP MURPHY, is a 57 M who presents who presents for surveillance colonoscopy today. He has had a previous colonoscopy done by Dr. Des Douglas approximately 6-1/2 years ago. He states that there was a polyp that Dr. Douglas cannot remove so the patient then went to [facility] where a different physician apparently was able to completely remove the polyp. The patient presents via open access today. We do not have those records. He denies any bright red blood per rectum or melena. He has no personal history or family history of colon cancer. He is otherwise been enjoying good health. He does have a left bundle branch block and had a echocardiogram just last week. Dr. Se Carrington follows him for this. [facility] Medical History (Updated 04/20/22 @ 14:05 by Lauren Alexander) Abnormal echocardiogram Abnormal electrocardiogram Alcohol use Arthritis Atherosclerotic heart disease of [place] coronary artery without angina pectoris Back pain Cardiology follow-up encounter CPAP (continuous positive airway pressure) dependence Decreased cardiac ejection fraction Dyspnea on exertion Essential hypertension Former smoker History of echocardiogram History of left heart catheterization (LHC) (~12/11/19) Hyperlipidemia Hypertension Left bundle branch block Left ventricular hypertrophy Syncope and collapse Ventricular hypertrophy Home Medications aspirin 81 mg tablet,delayed release (Adult Low Dose Aspirin) 81 mg PO DAILY 11/18/19 [History Last Taken 12/11/19] montelukast 10 mg tablet (Singulair) 10 mg PO DAILY 11/15/21 [History Last Taken Unknown] carvedilol 12.5 mg tablet 12.5 mg PO BID #180 TABLETS 02/02/22 [Rx Last Taken Unknown] Allergy/AdvReac Type Severity Reaction Status Date / Time No Known Allergies Allergy Verified 04/24/22 05:54 Family History Father CAD (coronary artery disease) Myocardial infarction Hx of CABG Grandmother History of permanent cardiac pacemaker placement Grandfather CVA (cerebral vascular accident) Surgical History History of appendectomy History of colonoscopy History of hip replacement, total Social History Smoking Status: Former smoker how long ago did patient quit smokin alcohol intake: current alcohol intake frequency: a few times a week substance use type: does not use caffeine: Yes Type: coffee Number of servings: 1 ROS Constitutional Constitutional: Reports systems reviewed and no addt'l complaints, except as documented Cardiovascular Cardiovascular: Denies chest pain Respiratory/Chest Respiratory/Chest: Denies shortness of breath at rest Gastrointestinal Gastrointestinal: Denies abdominal pain, change in bowel habits, hematochezia or melena Vital Signs Vital Signs Vital Signs: 04/24/22 05:55 04/24/22 05:55 Temperature 98.2 F Temperature Source Temporal Pulse Rate 59 L Respiratory Rate 18 Respiratory Pattern Normal Blood Pressure 127/83 H Blood Pressure Mean 97 Blood Pressure Source Monitor Blood Pressure Position Sitting Blood Pressure Location Right Arm Pulse Ox 100 Oxygen Delivery Method Room Air Weight Weight: 179 lb 3.773 oz Body Mass Index (BMI) 28.9 Physical Exam Const alert, oriented x3 and no apparent distress General Appearance: cooperative and comfortable Eyes General Eye: normal appearance of both eyes Neck General: normal visual inspection Chest inspection of chest normal Resp Effort and Inspection: able to speak in complete sentences and symmetric chest movement Auscultation: clear to auscultation bilaterally Cardio regular rate and regular rhythm GI soft to palpation, non-tender and non-distended Extremity no calf tenderness Neuro oriented x3 Psych thought process normal Assessment & Plan Assessment/Plan (1) Encounter for screening for malignant neoplasm of colon: PLAN: 57-year-old gentleman with a personal history of colon polyps. He presents via open access for colonoscopy with possible biopsy or polypectomy. He is aware of the technique, benefit, risk, alternatives. He denies any limitations on his physical wellbeing. He is on carvedilol and aspirin. He denies any chest pain or shortness of breath. We will proceed with her surveillance colonoscopy as noted. He is aware of the technique, benefit, risk, alternatives. Stefano Yao M.D., F.A.C.S.
[2022-04-24] MEDS: Midazolam 5 MG/ML Syringe (06:30)
--- NOTE | 2022-04-24 06:30 | COLBX_PTH ---
PATIENT: TRIP MURPHY LOC: EN U#:[id number] AGE/SX: 57/M ROOM: RE04/24/[address]: Dr. Stefano Yao MD : 1965 BED: DIS: 04/24/2022 SPEC #: [id number] RECD: 04/24/22 09:55 STATUS: ANTONIA ARMENDARIZRaymond #: [id number] MOISES: 04/24/22 06:[address]: Stefano Yao DEPT: SURGICAL PATHOLOGY RECD BY: Isamar Dias ENTERED: 04/24/22 11:05 SP TYPE: COLON BX MAXIM DR: Dr. Eddie Martin MD Tissues: Descending colon Procedures: Surgery Specimen Level IV HEADER OPERATION: Colonoscopy ? open access, biopsy (MOD) PRE-OP DIAGNOSIS: Screening TISSUE SUBMITTED: Descending colon biopsy MICROSCOPIC DIAGNOSIS Descending colon, biopsy: Fragments of hyperplastic polyp. ROBERTH:serenity 04/25/2022 MICROSCOPIC DESCRIPTION Slides are reviewed. GROSS DESCRIPTION Received in fixative is one container labeled with the patient's name and designated descending colon biopsy. The specimen consists of multiple irregular fragments of light isidro soft tissue that in aggregate measure 1 x 0.3 x 0.1 cm. The specimen is totally submitted in one cassette. / SJ:serenity 04/24/2022 TC:1 CPT: 25969
--- NOTE | 2022-04-24 06:49 | OP.COLON_ITS ---
Patient Name: Barron Myers Procedure Date: 04/24/2022 6:11 AM Date of : 1965 Age: 57 Procedure: Colonoscopy Indications: High risk colon cancer surveillance: Personal history of colonic polyps Providers: Stefano Yao MD Referring MD: Stefano Yao MD Medicines: Midazolam 3.5 mg IV, Meperidine 100 mg IV Patient Profile: Last Colonoscopy: several years ago. Complications: No immediate complications. Procedure: Pre-Anesthesia Assessment: - Prior to the procedure, a History and Physical was performed, and patient medications and allergies were reviewed. The patient's tolerance of previous anesthesia was also reviewed. The risks and benefits of the procedure and the sedation options and risks were discussed with the patient. All questions were answered, and informed consent was obtained. Prior Anticoagulants: The patient has taken aspirin, last dose was 1 day prior to procedure. ASA Grade Assessment: II - A patient with mild systemic disease. After reviewing the risks and benefits, the patient was deemed in satisfactory condition to undergo the procedure. After I obtained informed consent, the scope was passed under direct vision. Throughout the procedure, the patient's blood pressure, pulse, and oxygen saturations were monitored continuously. The adult colonoscope was introduced through the anus and advanced to the cecum, identified by appendiceal orifice and ileocecal valve. The colonoscopy was performed without difficulty. The patient tolerated the procedure well. The quality of the bowel preparation was good. The ileocecal valve and the appendiceal orifice were photographed. Moderate Sedation: Moderate (conscious) sedation was personally administered by the endoscopist. The following parameters were monitored: oxygen saturation, heart rate, blood pressure, and response to care. Total physician intraservice time was 15 minutes. Scope In: 6:32:22 AM Scope Withdrawal Time 0 hours 8 minutes 26 seconds Scope Out: 6:43:34 AM Total Procedure Duration Time 0 hours 11 minutes 12 seconds Findings: Hemorrhoids were found on perianal exam. A 4 mm polyp was found in the mid descending colon. The polyp was sessile. The polyp was removed with a cold biopsy forceps. Resection and retrieval were complete. Scattered diverticula were found in the sigmoid colon. A tattoo was seen in the mid sigmoid colon. The tattoo site appeared normal. Impression: - Hemorrhoids found on perianal exam. - One 4 mm polyp in the mid descending colon, removed with a cold biopsy forceps. Resected and retrieved. - Diverticulosis in the sigmoid colon. - A tattoo was seen in the mid sigmoid colon. The tattoo site appeared normal. Recommendation: - Discharge patient to home. - Resume previous diet. - Continue present medications. - Repeat colonoscopy in 5 years for surveillance. - Telephone my office for pathology results in 1 week. Procedure Code(s): --- Professional --- 28473, Colonoscopy, flexible; with biopsy, single or multiple 12462, 59, Moderate sedation services provided by the same physician or other qualified health patient care provider performing the diagnostic or therapeutic service that the sedation supports, requiring the presence of an independent trained observer to assist in the monitoring of the patient's level of consciousness and physiological status; initial 15 minutes of intraservice time, patient age 5 years or older Diagnosis Code(s): --- Professional --- Z86.010, Personal history of colonic polyps K64.9, Unspecified hemorrhoids D12.4, Benign neoplasm of descending colon K57.30, Diverticulosis of large intestine without perforation or abscess without bleeding CPT copyright 2017 [employer]. All rights reserved. The codes documented in this report are preliminary and upon frame hand review may be revised to meet current compliance requirements. Stefano Yao MD 04/24/2022 6:48:37 AM This report has been signed electronically. Number of Addenda: 0 Note Initiated On: 04/24/2022 6:11 AM
--- NOTE | 2022-04-24 06:50 | OP.CCLET_ITS ---
04/24/2022 Eddie Martin [address] [place] [address] Re : Colonoscopy procedure for Barron Myers Dear Dr. Martin This procedure was performed on Sunday, April 24, 2022. My impressions and recommendations are as follows: Impressions : - Hemorrhoids found on perianal exam. - One 4 mm polyp in the mid descending colon, removed with a cold biopsy forceps. Resected and retrieved. - Diverticulosis in the sigmoid colon. - A tattoo was seen in the mid sigmoid colon. The tattoo site appeared normal. Recommendations : - Discharge patient to home. - Resume previous diet. - Continue present medications. - Repeat colonoscopy in 5 years for surveillance. - Telephone my office for pathology results in 1 week. My findings are described in the full procedure note, which is enclosed. If I can be of further assistance, please feel free to contact me at Doctor phone number(s): Work: . Sincerely, Stefano Yao MD 04/24/2022 6:48:37 AM This report has been signed electronically.
== END 2022-04-24 07:59 | disposition home or self-care (01) ==
LOC: EN 05:25 → AC 05:26
PROVIDERS: PCP Family Medicine; Referring Provider Family Medicine; Visit Provider Surgery
PROC: 0DJD8ZZ Inspection of Lower Intestinal Tract, Via Natural or Artificial Opening Endoscopic (ICD-10-PCS; CPT 45378; principal; 2022-04-24 06:25)
DX: Z12.11 Encounter for screening for malignant neoplasm of colon (principal); D12.4 Benign neoplasm of descending colon; K57.30 Diverticulosis of large intestine without perforation or abscess without bleeding; E78.5 Hyperlipidemia, unspecified; I25.10 Atherosclerotic heart disease of native coronary artery without angina pectoris; K64.9 Unspecified hemorrhoids; I44.7 Left bundle-branch block, unspecified; I10 Essential (primary) hypertension; F10.90 Alcohol use, unspecified, uncomplicated; Z79.82 Long term (current) use of aspirin; Z79.899 Other long term (current) drug therapy; Z86.010 Personal history of colon polyps; Z87.891 Personal history of nicotine dependence
CPT/HCPCS: 45380; 88305; 99152; 99153; J7120

== ENCOUNTER → 2022-07-10 | Outpatient (CLI) | payer OTHER, SELFPAY ==
[2022-07-10 09:54] LABS: Absolute Lymphocyte Count 1.73 X10^3/uL (0.83-4.51); Absolute Neutrophil Count 5.3 X10^3/uL (2.0-7.7); Basophil# 0.04 X10^3/uL; Basophil% 0.5 % (0-1); Eosinophil# 0.25 X10^3/uL; Hematocrit 40.8 % (40-54); Hemoglobin 13.6 g/dL (13.0-16.5); Lymphocyte # 1.73 X10^3/ul (0.83-4.51); Lymphocyte % 20.8 % (19-41); Mean Corp Hgb Conc 33.3 g/dL (32-36); Mean Corpuscular Hgb 29.4 pg (27.0-32.0); Mean Corpuscular Volume 88.3 fL (80-94); Mean Platelet Vol. 8.3 fl (6.2-12.0); Monocyte# 0.97 X10^3/uL; Monocyte% 11.7 % (0-10); NRBC Flagged by Analyzer 0 % (0-5); Neutrophil # 5.29 X10^3/uL (2.7-7.7); Neutrophil % 63.5 % (47-70); Platelet Count 335 K/mm3 (150-450); RBC Distribution Width CV 12.9 % (11.6-14.6); RBC Distribution Width SD 41.5 fl (35.1-43.9); Red Blood Count 4.62 M/mm3 (4.6-6.2); White Blood Count 8.3 K/mm3 (4.4-11.0)
[2022-07-10 10:21] LABS: ALB/GLOB Ratio 0.9 RATIO (0.9-2.4); AST(SGOT) 14 U/L (15-37); Alanine Aminotransfer ALT/SGPT 31 U/L (16-61); Albumin, Serum 3.5 g/dL (3.2-5.0); Alkaline Phosphatase 65 U/L (45-117); Anion Gap 5 (5-15); BUN 15 mg/dL (7-18); BUN/Creat Ratio 16.2 RATIO (10-20); Calcium,Total 8.9 mg/dL (8.5-10.1); Chloride 106 mmol/L (98-107); Creatinine, Serum 0.92 mg/dL (0.70-1.30); EST Glomerular Filtration Rate 89 mL/min (>60); Est Glom Filt Rate - Afr Amer 108 mL/min (>60); Globulin 4.1 g/dL (2.2-4.2); Glucose 142 mg/dL (74-106); Protein, Total 7.6 g/dL (6.4-8.2); Sodium Level 137 mmol/L (136-145)
== END | disposition home or self-care (01) ==
LOC: MTLAB 08:36
PROVIDERS: PCP Family Medicine; Referring Provider Family Medicine; Visit Provider Family Medicine
DX: K57.92 Diverticulitis of intestine, part unspecified, without perforation or abscess without bleeding (principal)
CPT/HCPCS: 36415; 80053; 85025

== ENCOUNTER → 2022-07-10 | Outpatient (CLI) | payer OTHER, SELFPAY ==
--- NOTE | 2022-07-10 09:19 | CT_ITS ---
EXAM: CT ABDOMEN AND PELVIS WITH INTRAVENOUS CONTRAST CLINICAL INDICATION: DIVERTICULITIS TECHNIQUE: Helically acquired images were obtained of the abdomen and pelvis with intravenous contrast. This CT exam was performed using one or more of the following dose reduction techniques: automated exposure control, adjustment of the mA and/or kV according to patient size, and/or use of iterative reconstruction technique. This report was created using [employer] report generation technology. CONTRAST: Oral and amp; IV Gastrografin and amp; 100mL Isovue-300 COMPARISON: CT Abdomen Pelvis dated 05/31/2019 FINDINGS: LOWER THORAX: Mild/moderate coronary artery calcification. ABDOMEN: LIVER: Normal. Homogeneous. No focal mass. GALLBLADDER AND BILE DUCTS: Multiple stones are noted within the gallbladder. No gallbladder distention or wall edema. No intra- or extrahepatic biliary ductal dilation. PANCREAS: Normal. No focal cystic or solid mass. SPLEEN: Multiple splenic granulomata. ADRENALS: Normal. No nodules. KIDNEYS AND URETERS: Normal. Normal renal size and position. No hydronephrosis. STOMACH AND BOWEL: There is wall thickening of the sigmoid colon and edematous change of the adjacent tissues consistent with acute diverticulitis. Question of small contained perforation. No evidence of abscess. PELVIS: APPENDIX: No evidence of acute appendicitis. BLADDER: Normal. REPRODUCTIVE: Unremarkable as visualized. No mass. ABDOMEN and PELVIS: INTRAPERITONEAL SPACE: Minimal amount of fluid noted within the vesicorectal pouch. No free air. BONES/JOINTS: No suspicious lytic or blastic abnormality. SOFT TISSUES: Normal. No discrete abdominal or pelvic wall hernia. VASCULATURE: See above. LYMPH NODES: Calcified right hilar lymph nodes related to old granulomatous disease. CT/Abdomen/Pelvis WITH Contrast IMPRESSION: 1. Acute sigmoid diverticulitis with suggestion of a small contained perforation. 2. Cholelithiasis. Electronically Signed: Hakan Martínez MD at 12:35 EDT ,
== END | disposition home or self-care (01) ==
LOC: CT 09:17
PROVIDERS: PCP Family Medicine; Visit Provider Family Medicine
DX: K57.32 Diverticulitis of large intestine without perforation or abscess without bleeding (principal); K80.20 Calculus of gallbladder without cholecystitis without obstruction
CPT/HCPCS: 74177; Q9967

== ENCOUNTER → 2022-10-24 | Outpatient (CLI) | payer OTHER, SELFPAY ==
[2022-10-24 17:54] LABS: Absolute Lymphocyte Count 2.11 X10^3/uL (0.83-4.51); Absolute Neutrophil Count 3.5 X10^3/uL (2.0-7.7); Basophil# 0.04 X10^3/uL; Basophil% 0.6 % (0-1); Eosinophil# 0.29 X10^3/uL; Eosinophils% 4.3 % (0-5); Hematocrit 42.3 % (40-54); Hemoglobin 13.7 g/dL (13.0-16.5); Lymphocyte # 2.11 X10^3/ul (0.83-4.51); Lymphocyte % 31.3 % (19-41); Mean Corp Hgb Conc 32.4 g/dL (32-36); Mean Corpuscular Hgb 29.1 pg (27.0-32.0); Mean Corpuscular Volume 89.8 fL (80-94); Monocyte% 11.9 % (0-10); NRBC Flagged by Analyzer 0 % (0-5); Neutrophil # 3.49 X10^3/uL (2.7-7.7); Neutrophil % 51.6 % (47-70); Platelet Count 278 K/mm3 (150-450); RBC Distribution Width CV 13.2 % (11.6-14.6); RBC Distribution Width SD 43.4 fl (35.1-43.9); Red Blood Count 4.71 M/mm3 (4.6-6.2); White Blood Count 6.8 K/mm3 (4.4-11.0)
[2022-10-24 18:37] LABS: ALB/GLOB Ratio 1.1 RATIO (0.9-2.4); AST(SGOT) 32 U/L (15-37); Alanine Aminotransfer ALT/SGPT 130 U/L (16-61); Albumin, Serum 3.7 g/dL (3.2-5.0); Alkaline Phosphatase 99 U/L (45-117); Anion Gap 6 (5-15); BUN 13 mg/dL (7-18); BUN/Creat Ratio 15.1 RATIO (10-20); Calcium,Total 9.1 mg/dL (8.5-10.1); Chloride 108 mmol/L (98-107); Creatinine, Serum 0.86 mg/dL (0.70-1.30); EST Glomerular Filtration Rate 97 mL/min (>60); Est Glom Filt Rate - Afr Amer 117 mL/min (>60); Globulin 3.4 g/dL (2.2-4.2); Glucose 90 mg/dL (74-106); Lipase 92 U/L (13-75); Potassium 4.4 mmol/L (3.5-5.1); Protein, Total 7.1 g/dL (6.4-8.2); Sodium Level 140 mmol/L (136-145)
[2022-10-27 08:11] LABS: HEPATITIS B SURFACE AG Negative (Negative); Hep C Antibodies Non Reactive (Non Reactive); Hepatitis A IgM Antibody Negative (Negative); Hepatitis B Core AB IgM Negative (Negative)
== END | disposition home or self-care (01) ==
LOC: MFPLAB 16:37
PROVIDERS: PCP Family Medicine; Visit Provider Family Medicine
DX: R79.89 Other specified abnormal findings of blood chemistry (principal)
CPT/HCPCS: 36415; 80053; 80074; 83690; 85025

== ENCOUNTER → 2022-10-27 | Outpatient (CLI) | payer OTHER, SELFPAY ==
--- NOTE | 2022-10-27 08:44 | US_ITS ---
EXAM: US ABDOMEN LIMITED, RIGHT UPPER QUADRANT CLINICAL INDICATION: RUQ PAIN TECHNIQUE: Real-time ultrasound of the right upper quadrant with image documentation. COMPARISON: No relevant prior studies available. FINDINGS: LIVER: The liver measures 14.7 cm in length. There is normal echotexture. No intrahepatic biliary ductal dilation. GALLBLADDER: The gallbladder wall measures 2 mm. Multiple gallstones filling the gallbladder. No pericholecystic fluid. Negative sonographic Vivas''s sign. COMMON BILE DUCT: Unremarkable as visualized. The proximal common bile duct is within normal limits for the patient''s age. The common bile duct measuring 4 mm. PANCREAS: The tail of the pancreas is obscured by bowel gas. RIGHT KIDNEY: The right kidney measures 10.2 cm in length. There is no hydronephrosis. No shadowing calculus. No focal lesion or perinephric collection is demonstrated. US/Abdomen Limited IMPRESSION: Multiple gallstones filling the gallbladder without evidence of biliary dilatation. Electronically Signed: Jayden Mccain MD at 9:44 EDT ,
== END | disposition home or self-care (01) ==
PROVIDERS: PCP Family Medicine; Referring Provider Family Medicine; Visit Provider Family Medicine
DX: R10.11 Right upper quadrant pain (principal)
CPT/HCPCS: 76705

== ENCOUNTER → 2022-10-31 | Outpatient (CLI) | payer OTHER, SELFPAY ==
[2022-11-02 05:07] LABS: HEPATITIS B SURFACE AG Negative (Negative); Hep C Antibodies Non Reactive (Non Reactive); Hepatitis A IgM Antibody Negative (Negative); Hepatitis B Core AB IgM Negative (Negative)
== END | disposition home or self-care (01) ==
LOC: MFPLAB 14:41
PROVIDERS: PCP Family Medicine; Visit Provider Family Medicine
DX: R79.89 Other specified abnormal findings of blood chemistry (principal)
CPT/HCPCS: 36415; 80074

== ENCOUNTER 2022-12-03 00:26 | Inpatient (IN) | payer OTHER, SELFPAY ==
[2022-12-03] VITALS (19 sets, daily range): BP systolic 104–162; BP diastolic 68–94; PULSE 50–79; RESP 15–116; TEMP 36–37.6; O2SAT 92–100; BMI 26.1; BMI 25.9
--- NOTE | 2022-12-03 00:43 | EDS_ITS ---
HPI History of Present Illness Chief Complaint: Abd Pain Informant: patient Onset/Context/Timing Onset: Yesterday Current Severity: Moderate Maximum Severity: Severe Narrative Narrative: Patient presents secondary to upper abdominal pain. He has been having intermittent flares of upper abdominal pain and is scheduled to have his gallbladder removed 12/[address] Yao. Patient states around 2 PM yesterday afternoon after eating lunch she developed upper abdominal pain that is persisted and worsened throughout the evening. He complains of pain to the upper right abdomen that radiates into his back. He has had nausea and vomiting. He tried Tylenol at home without improvement. [facility] Medical History Abnormal echocardiogram Abnormal electrocardiogram Alcohol use Arthritis Atherosclerotic heart disease of [place] coronary artery without angina pectoris Back pain Cardiology follow-up encounter CPAP (continuous positive airway pressure) dependence Decreased cardiac ejection fraction Dyspnea on exertion Essential hypertension Former smoker History of diverticulitis History of echocardiogram History of Holter monitoring History of left heart catheterization (LHC) (~12/11/19) History of stress test Hyperlipidemia Hypertension Left bundle branch block Left ventricular hypertrophy Sleep apnea Syncope and collapse Ventricular hypertrophy Wears hearing aid Home Medications aspirin 81 mg tablet,delayed release (Adult Low Dose Aspirin) 81 mg PO DAILY 11/18/19 [History Last Taken 12/11/19] montelukast 10 mg tablet (Singulair) 10 mg PO DAILY 11/15/21 [History Last Taken Unknown] carvedilol 12.5 mg tablet 12.5 mg PO BID #180 TABLETS 02/02/22 [Rx Last Taken Unknown] Allergy/AdvReac Type Severity Reaction Status Date / Time Seasonal Allergies: Uncoded Allergy Mild PT UNSURE Verified 12/03/22 00:30 OF REACTION Family History Father CAD (coronary artery disease) Myocardial infarction Hx of CABG Grandmother History of permanent cardiac pacemaker placement Grandfather CVA (cerebral vascular accident) Surgical History History of appendectomy History of colonoscopy History of hip replacement, total History of nasal surgery Social History Smoking Status: Former smoker how long ago did patient quit smokin alcohol intake: current alcohol intake frequency: a few times a week substance use type: does not use caffeine: Yes Type: coffee Number of servings: 1 ROS ROS ED Constitutional Constitutional ED: Reports chills; Denies fever(s) Eyes Eyes: Denies change in vision or discharge from eye(s) ENT ENT ED: Denies discharge from eye(s), rhinorrhea or sore throat Cardiovascular Cardiovascular: Denies chest pain or palpitations Respiratory/Chest Respiratory/Chest: Denies cough or dyspnea Gastrointestinal Gastrointestinal: Reports abdominal pain, nausea and vomiting; Denies diarrhea Genitourinary Genitourinary ED: Denies dysuria Musculoskeletal Musculoskeletal: Reports back pain; Denies extremity pain Integumentary Denies Abrasions or rash Neurologic Neurologic: Denies headache(s) or weakness Psychiatric Psychiatric: Denies anxiety or depression Allergic/Immunologic Allergic/Immunologic ED: Denies lip swelling or urticaria EXAM Physical Exam Const Vital Signs: 12/03/22 00:27 12/03/22 01:55 12/03/22 02:53 Temperature 98.3 F Temperature Source Oral Pulse Rate 70 67 76 Respiratory Rate 18 20 H 15 Blood Pressure 124/78 H 149/87 H 142/88 H Blood Pressure Mean 93 107 106 Pulse Ox 97 100 97 Oxygen Delivery Method Room Air Room Air Room Air 12/03/22 03:42 Temperature Temperature Source Pulse Rate 73 Respiratory Rate 18 Blood Pressure 128/76 H Blood Pressure Mean 93 Pulse Ox 97 Oxygen Delivery Method Room Air Positive well nourished and well developed General Appearance ED: well developed HEENT Reports normocephalic and head/scalp atraumatic Eyes PERRL and EOMs intact bilaterally Neck supple Chest Wall inspection of chest normal and palpation of chest normal Resp normal respiratory effort and clear to auscultation bilaterally Cardio regular rate and regular rhythm GI GI Narrative: Moderate tenderness to palpation in the upper abdomen. Hypoactive bowel sounds. Palpation: soft Extremity normal to inspection Neuro oriented x3 and no sensory deficits noted Sensorium / Orientation: alert Motor Exam: strength 5/5 throughout Psych mental status grossly normal Skin no rashes or lesions noted MDM MDM MDM Narrative Medical decision making narrative: Patient is given morphine and Zofran along with IV fluids. Labwork obtained to evaluate for leukocytosis, anemia, and electrolyte derangement. Lab Data Attestation: I reviewed the patient's lab results. Labs: Laboratory Results - last 24 hr 12/03/22 00:45 WBC 12.4 H RBC 4.83 Hgb 14.1 Hct 42.5 MCV 88.0 MCH 29.2 MCHC 33.2 RDW Std Deviation 41.1 RDW Coeff of Arnoldo 12.8 Plt Count 218 MPV 8.6 Immature Gran % (Auto) 0.500 Neut % (Auto) 83.3 H Lymph % (Auto) 7.1 L Marshall % (Auto) 7.7 Eos % (Auto) 1.1 Baso % (Auto) 0.3 Absolute Neuts (auto) 10.3 H Absolute Lymphs (auto) 0.88 Nucleated RBC % 0 Sodium 137 Potassium 3.8 Chloride 103 Carbon Dioxide 28.0 Anion Gap 6 BUN 18 Creatinine 0.92 Estim Creat Clear Calc 78.98 Est GFR (MDRD) Af Amer 109 Est GFR (MDRD) Non-Af 90 BUN/Creatinine Ratio 19.6 Glucose 149 H Calcium 9.3 Total Bilirubin 2.10 H Direct Bilirubin 1.48 H AST 616 H ALT 605 H Alkaline Phosphatase 163 H Total Protein 7.1 Albumin 3.7 Globulin 3.4 Lipase > 5000 H Radiography Diagnostic Testing: Clinical Impression(s) from Imaging Studies Abdomen/Pelvis CT 12/03/22 02:08 IMPRESSION: undefined Treatment and Re-Evaluation :: CBC was a white count 12.4 with 83% neutrophils. Hemoglobin is normal at 14.1. Chemistry studies unremarkable. Liver function tests are abnormal with a total bilirubin of 2.1, direct bilirubin of 1.48, AST of 616, ALT of 605, alk phos of 163. Lipase is greater than 5000. Patient did require a dose of Dilaudid for pain control. I spoke with Dr. Powers, on-call for surgery. He asked that the patient receive a CT scan of the abdomen pelvis with IV contrast to evaluate how much pancreatic edema and inflammation is noted. An ultrasound will then need to be performed in the morning. He asked medicine to admit the patient with consults to both surgery and GI. Patient will be given a dose of Zosyn. Discharge Plan Triage Chief Complaint: Abd Pain ED Provider: Lisa Barger Dx/Rx/DC Orders Clinical Impression: Gallstone pancreatitis Prescriptions: No Action montelukast [Singulair] 10 mg tablet 10 mg PO DAILY aspirin [Adult Low Dose Aspirin] 81 mg tablet,delayed release (DR/EC) 81 mg PO DAILY carvedilol 12.5 mg tablet 12.5 mg PO BID Qty: 180 3RF Primary Care Provider: Eddie Martin Referrals: Eddie Martin MD [Primary Care Provider] - Disposition Disposition: Acute Care Hospital [facility]
[2022-12-03] MEDS: 0.9% Normal Saline 1,000 ML 150 ML IV ×3 (00:44→20:56)
[2022-12-03] MEDS: Ondansetron 4 MG/2 ML Vial IV ×3 (00:45→13:52)
[2022-12-03] MEDS: Morphine 4 MG/ML Syringe IV (00:45)
[2022-12-03 00:51] LABS: Absolute Lymphocyte Count 0.88 X10^3/uL (0.83-4.51); Absolute Neutrophil Count 10.3 X10^3/uL (2.0-7.7); Basophil# 0.04 X10^3/uL; Basophil% 0.3 % (0-1); Eosinophil# 0.14 X10^3/uL; Eosinophils% 1.1 % (0-5); Hematocrit 42.5 % (40-54); Hemoglobin 14.1 g/dL (13.0-16.5); Lymphocyte # 0.88 X10^3/ul (0.83-4.51); Lymphocyte % 7.1 % (19-41); Mean Corp Hgb Conc 33.2 g/dL (32-36); Mean Corpuscular Hgb 29.2 pg (27.0-32.0); Mean Platelet Vol. 8.6 fl (6.2-12.0); Monocyte# 0.96 X10^3/uL; Monocyte% 7.7 % (0-10); NRBC Flagged by Analyzer 0 % (0-5); Neutrophil # 10.31 X10^3/uL (2.7-7.7); Neutrophil % 83.3 % (47-70); Platelet Count 218 K/mm3 (150-450); RBC Distribution Width CV 12.8 % (11.6-14.6); RBC Distribution Width SD 41.1 fl (35.1-43.9); Red Blood Count 4.83 M/mm3 (4.6-6.2); White Blood Count 12.4 K/mm3 (4.4-11.0)
--- OUTSIDE RECORDS SUMMARY | 2022-12-03 00:52 | XMS RPT_ITS | CCD ---
Author Name Unknown Address [address] [place] [address] Organization [facility] Care Team Providers Care Asbestos Worker Name Role Phone Dulce Reyna RN Unavailable Unavailable Medications Completed/Discontinued Medications Medication Drug Class(es) Dates Sig (Normalized) Sig (Original) montelukast 10 mg oral tablet (2 sources) Leukotriene Receptor Antagonist Start: 05-14-2012 End: 05-21-2012 take 1 tablet by mouth once daily SINGULAIR 10 MG TABS One tablet by mouth daily MONTELUKAST SODIUM [id number] Rashmi Barboza valsartan 80 mg oral tablet (2 sources) Angiotensin 2 Receptor Willian Start: 05-14-2012 End: 05-21-2012 take 1 tablet by mouth once daily DIOVAN 80 MG TABS One tablet by mouth daily VALSARTAN [id number] Rashmi Barboza Problems Active Problems Problem Classification Problem Date Documented Da te Episodic/Chronic Conduction disorders (2 sources) Left bundle branch block; Translations: [Bundle branch block] Onset: 05-14-2012 09-10-2013 Chronic Disorders of lipid metabolism (1 source) Hyperlipidemia; Translations: [Hyperlipidemia, unspecified] Onset: 05-14-2012 05-14-2012 Chronic Essential hypertension (1 source) Hypertensive disorder; Translations: [Essential (primary) hypertension] Onset: 05-14-2012 05-14-2012 Chronic Other and ill-defined heart disease (1 source) Left ventricular hypertrophy; Translations: [Cardiomegaly] Onset: 05-25-2013 05-25-2013 Chronic Past or Other Problems Problem Classification Problem Date Documented Date Episodic/Chronic Other circulatory disease (1 source) Electrocardiogram abnormal; Translations: [Abnormal electrocardiogram [ECG] [EKG]] Onset: 05-14-2012 05-14-2012 Episodic Other lower respiratory disease (1 source) Dyspnea on exertion; Translations: [Other forms of dyspnea] Onset: 05-14-2012 05-14-2012 Episodic Other nutritional; endocrine; and metabolic disorders (1 source) Body mass index (BMI) 28.0-28.9, adult; Translations: [Body mass index (BMI) 28.0-28.9, adult] Onset: 05-25-2013 05-25-2013 Episodic Syncope (1 source) Syncope and collapse; Translations: [Syncope and collapse] Onset: 09-10-2013 09-10-2013 Episodic Results Test Name Value Interpretation Reference Range Facil ity Vital Signs Date Time Vital Sign Value Performing Clinician Roberto sutton 05-23-2016 14:58-0500 BMI (Body Mass Index) 29.37 kg/m2 [facility] Work Phone: 05-23-2016 14:58-0500 BP Diastolic 88 mm[Hg] Dulce Reyna RN [facility] Work Phone: 05-23-2016 14:58-0500 BP Systolic 122 mm[Hg] [facility] Work Phone: 05-23-2016 14:58-0500 BSA (Body Surface Area) 1.92 m2 [facility] Work Phone: 05-23-2016 14:58-0500 Pulse (Heart Rate) 88 /min [facility] Work Phone: 05-23-2016 14:58-0500 Respiratory Rate 14 /min [facility] Work Phone: 05-23-2016 14:58-0500 Weight 82.56 kg [facility] Work Phone: 05-21-2012 11:14-0500 Height 167.64 cm [facility] Work Phone: Procedures Date Procedure Procedure Detail Performing Clinician Start: 05-23-2016 End: 05-23-2016 Follow Up Appt 1 year Se Snell Start: 05-23-2016 End: 05-23-2016 PFM Se Carrington MD Start: 06-08-2015 End: 06-08-2015 Follow Up Appt 1 year Se Snell Start: 06-08-2015 End: 06-08-2015 PFM Se Carrington MD Start: 07-09-2014 End: 07-10-2014 Documentation of current medications Se Carrington MD Start: 09-14-2013 End: 09-14-2013 Follow Up Appt Other Se Carrington MD Start: 09-14-2013 End: 09-14-2013 PFM Se Carrington MD Start: 05-25-2013 End: 05-25-2013 Follow Up Appt 1 year Se Snell Start: 05-25-2013 End: 05-25-2013 PFM Se Carrington MD Start: 05-21-2012 End: 06-09-2015 *Hepatic Function Panel Se Carrington MD Start: 05-21-2012 End: 05-21-2012 Electrocardiogram, complete Se smith MD Start: 05-21-2012 End: 05-21-2012 Follow Up Appt 1 year Se Snell Start: 05-21-2012 End: 06-09-2015 Lipid panel [AGGREGATE] Se Carrington MD Start: 05-21-2012 End: 05-21-2012 PFM Se Carrington MD Plan of Treatment Date Care Activity Detail Author Start: 05-23-2016 End: 05-23-2016 Follow Up Appt 1 year Follow Up Appt 1 year [facility] Work Phone: Start: 05-23-2016 End: 05-23-2016 PFM PFM [facility] Work Phone: Start: 06-08-2015 End: 06-08-2015 Follow Up Appt 1 year Follow Up Appt 1 year [facility] Work Phone: Start: 06-08-2015 End: 06-08-2015 PFM PFM [facility] Work Phone: Start: 07-09-2014 End: 07-09-2014 Follow Up Appt 1 year Follow Up Appt 1 year [facility] Work Phone: Start: 07-09-2014 End: 07-09-2014 PFM PFM [facility] Work Phone: Start: 09-14-2013 End: 09-14-2013 Follow Up Appt Other Follow Up Appt Other [facility] Work Phone: Start: 09-14-2013 End: 09-14-2013 PFM PFM [facility] Work Phone: Start: 05-25-2013 End: 05-25-2013 Follow Up Appt 1 year Follow Up Appt 1 year [facility] Work Phone: Start: 05-25-2013 End: 05-25-2013 PFM PFM [facility] Work Phone: Start: 05-21-2012 End: 06-09-2015 *Hepatic Function Panel *Hepatic Function Panel [facility] Work Phone: Start: 05-21-2012 End: 05-21-2012 Electrocardiogram, complete EKG (In office) [facility] Work Phone: Start: 05-21-2012 End: 05-21-2012 Follow Up Appt 1 year Follow Up Appt 1 year [facility] Work Phone: Start: 05-21-2012 End: 06-09-2015 Lipid panel [AGGREGATE] *Lipid Profile [facility] Work Phone: Start: 05-21-2012 End: 05-21-2012 PFM PF [facility] Work Phone: Clinical Note 12-08-2020 Note Date & Type Note Facility 12-08-2020 Note Patient Outreach (ARA TNAV) TRIP MURPHY ([id number]) 1965 M Date Time Provider Department 12/08/20 EMMY LI During your visit today, we recorded the following information about you: Emmy Li Population Health Navigator 12/08/2020 11:21 AM Signed POPULATION HEALTH NAVIGATION OUTREACH Action/FYI I left a voice message and a my chart message re: pcp No care everywhere Contact made with patient or family member? NO Pt identified by name and : NO Outreach Outcome/Action Unable to reach patient: Left message [employer] message sent Reason for Outreach Attribution: Provider Off-boarding Payer: Payor: MMO / Plan: MMO [employer] / Product Type: PPO / Care Gap Reviewed:: Reminder: Reminder note to check Health Maintenance for items below Health Maintenance items due: DEPRESSION SCREENING Never done COVID-19 VACCINE(1) Never done ANNUAL PCP TEAM CHRONIC DISEASE VISIT Never done HEPATITIS C SCREENING Never done HIV SCREENING Never done BP CONTROLLED (<130/80) Never done LIPID SCREEN due on 08/08/2007 DIABETES SCREEN due on 02/18/2009 SHINGRIX VACCINE(1 of 2) Never done COLORECTAL CANCER SCREENING due on 02/12/2017 PROSTATE CANCER SCREENING DISCUSSION Never done Advanced Directives Completed: Have you ever planned for future healthcare decisions with a power of insurance defense attorney, living will, or advance directives? No. Please bring a copy to your next appointment or email to Referrals: N/A Message Sent to Practice: NO Navigation Signature: Emmy Li Population Health Navigator December 08, 2020 11:20 AM Allergies As of Date: 12/08/2020 (No Known Allergies) Date Reviewed: 06/11/2019 Reviewed by: Katie Cheng - Fully Assessed Reason for Visit: Population Health Navigation Outreach [3910] Cmt: Offboarding Problem List As Of Date 12/08/2020 Noted Resolved ABNORMAL WEIGHT GAIN [R63.5] 07/04/2005 HYPERTENSION NOS [I10] 07/04/2005 HYPERLIPIDEMIA NEC/NOS [E78.5] 07/04/2005 JEFFERY (obstructive sleep apnea) [G47.33] 10/30/2005 LBBB (left bundle branch block) [I44.7] 08/18/2015 Status post total replacement of left hip [Z96.*08/18/2015 Encounter Status:Closed by [facility] HEALTH NAVIGATOREMMY on 12/08/20 [facility] Progress note 12-08-2020 Note Date & Type Note Facility 12-08-2020 Note HNO ID: [id number] Author: Emmy [facility] Navigpadma Service: ? Author Type: ? Type: Progress Notes Filed: 12/08/2020 11:21 AM Note Text: POPULATION HEALTH NAVIGATION OUTREACH Action/FYI I left a voice message and a my chart message re: pcp No care everywhere Contact made with patient or family member? NO Pt identified by name and : NO Outreach Outcome/Action Unable to reach patient: Left message [employer] message sent Reason for Outreach Attribution: Provider Off-boarding Payer: Payor: MMO / Plan: MMO [employer] / Product Type: PPO / Care Gap Reviewed:: Reminder: Reminder note to check Health Maintenance for items below Health Maintenance items due: DEPRESSION SCREENING Never done COVID-19 VACCINE(1) Never done ANNUAL PCP TEAM CHRONIC DISEASE VISIT Never done HEPATITIS C SCREENING Never done HIV SCREENING Never done BP CONTROLLED (<130/80) Never done LIPID SCREEN due on 08/08/2007 DIABETES SCREEN due on 02/18/2009 SHINGRIX VACCINE(1 of 2) Never done COLORECTAL CANCER SCREENING due on 02/12/2017 PROSTATE CANCER SCREENING DISCUSSION Never done Advanced Directives Completed: Have you ever planned for future healthcare decisions with a power of insurance defense attorney, living will, or advance directives? No. Please bring a copy to your next appointment or email to Referrals: N/A Message Sent to Practice: NO Navigation Signature: Emmylai Li Population Health Navigator December 08, 2020 11:20 AM [facility] Summary Purpose Family History No Family History Records Found Advance Directives No Advanced Directives Records Found Additional Source Comments (unrecognized sect ion and content) No Status Records Found INFORMATION SOURCE (unrecogn ized section and content) FOR RECORDS PERTAINING TO PATIENTS WHO ARE OR HAVE BEEN ENROLLED IN A CHEMICAL DEPENDENCY/SUBSTANCEABUSE PROGRAM, SOME INFORMATION MAY BE OMITTED. This clinical summary was aggregated from multiple sources. Caution should be exercised in using it in the provision of clinical care. This summary normalizes information from multiple sources, and as a consequence, information in this document may materially change the coding, format and clinical context of patient data. In addition, data may be omitted in some cases. CLINICAL DECISIONS SHOULD BE BASED ON THE PRIMARY CLINICAL RECORDS. [facility]. provides no warranty or guarantee of the accuracy or completeness of information in this document.
[2022-12-03] MEDS: HYDROmorphone 0.5 MG/0.5 ML SYRINGE IV ×6 (01:51→21:09)
[2022-12-03 01:58] LABS: AST(SGOT) 616 U/L (15-37); Alanine Aminotransfer ALT/SGPT 605 U/L (16-61); Albumin, Serum 3.7 g/dL (3.2-5.0); Alkaline Phosphatase 163 U/L (45-117); Anion Gap 6 (5-15); BUN 18 mg/dL (7-18); BUN/Creat Ratio 19.6 RATIO (10-20); Bilirubin, Direct 1.48 mg/dL (0.00-0.30); Calcium,Total 9.3 mg/dL (8.5-10.1); Chloride 103 mmol/L (98-107); Creatinine, Serum 0.92 mg/dL (0.70-1.30); EST Glomerular Filtration Rate 90 mL/min (>60); Est Glom Filt Rate - Afr Amer 109 mL/min (>60); Estimated Creatinine Clearance 78.98 ml/min; Globulin 3.4 g/dL (2.2-4.2); Glucose 149 mg/dL (74-106); Lipase > 5000 U/L (13-75); Potassium 3.8 mmol/L (3.5-5.1); Protein, Total 7.1 g/dL (6.4-8.2); Sodium Level 137 mmol/L (136-145)
--- NOTE | 2022-12-03 02:08 | CT_ITS ---
EXAM: CT abdomen and pelvis with contrast. HISTORY: gallstone pancreatitis TECHNIQUE: CT Abdomen And Pelvis W/ Contrast Injection. A radiation dose optimization technique was used for this scan. COMPARISON: CT abdomen and pelvis July 10, 2022. LIMITATIONS: None. LOWER CHEST: Calcified granulomata. LIVER: Normal. GALLBLADDER: Multiple gallstones. No gross inflammatory change. BILE DUCTS: The common bile duct is mildly dilated measuring 6-7mm in diameter, new since the prior exam. One or more possible small stones in the distal common bile duct. PANCREAS: Extensive peripancreatic inflammatory stranding and ill-defined fluid. The inflammatory changes extend inferiorly within the retroperitoneum. These changes are new since the prior exam. No definite pancreatic necrosis. No pseudocyst identified. SPLEEN: Calcified granulomata. ADRENAL GLANDS: Normal. KIDNEYS/URETERS/BLADDER: Normal. AORTA: Normal caliber. BOWEL/MESENTERY: Multiple diverticula are without evidence of diverticulitis. No small bowel obstruction. APPENDIX: Not visualized. PERITONEUM: Mild free pelvic fluid. REPRODUCTIVE ORGANS: Normal. BONES/SOFT TISSUES: No acute fracture. Left hip prosthesis. Degenerative changes of the lumbar spine, greatest at L5-S1. OTHER: None. CONCLUSION: Extensive peripancreatic inflammatory changes consistent with severe acute pancreatitis, new since the prior exam. Mild dilatation of the common bile duct, new. Possible small stones in the distal common bile duct. Gallstones. Electronically Signed: Tanner Schmidt MD at 3:38 EDT , CT/Abdomen/Pelvis W IV Cont ONLY IMPRESSION: undefined
--- NOTE | 2022-12-03 04:29 | HP.PCM.HOS_ITS ---
HPI - General General Date of Admission: 12/03/22 Date of Service: 12/03/22 Chief Complaint: Abdominal pain HPI Narrative TRIP MURPHY, is a 57 M with a significant history of hypertension; and diverticulosis who presented to the emergency department with excruciating epigastric pain that radiated to his entire abdomen and into his back; diametrically opposite his epigastric region. He described the pain as heaviness. The pain has been going on for a couple of years but worsened since June 2022. The pain factors to food. On the day of presentation the pain came on with lunch. He denies any alleviating factors to the pain. Associated with symptoms is nausea, vomiting and chills. Because of gallbladder attacks and diverticulosis patient had developed sitophobia so he does not eat. He has lost about 30 pounds because of sitophobia. Previously patient was hypertensive but with losing so much weight his blood pressure has gone down. [facility] Medical History Abnormal echocardiogram Abnormal electrocardiogram Alcohol use Arthritis Atherosclerotic heart disease of [place] coronary artery without angina pectoris Back pain Cardiology follow-up encounter CPAP (continuous positive airway pressure) dependence Decreased cardiac ejection fraction Dyspnea on exertion Essential hypertension Former smoker History of diverticulitis History of echocardiogram History of Holter monitoring History of left heart catheterization (LHC) (~12/11/19) History of stress test Hyperlipidemia Hypertension Left bundle branch block Left ventricular hypertrophy Sleep apnea Syncope and collapse Ventricular hypertrophy Wears hearing aid Home Medications aspirin 81 mg tablet,delayed release (Adult Low Dose Aspirin) 81 mg PO DAILY 11/18/19 [History Last Taken 12/11/19] montelukast 10 mg tablet (Singulair) 10 mg PO DAILY 11/15/21 [History Last Taken Unknown] carvedilol 12.5 mg tablet 12.5 mg PO BID #180 TABLETS 02/02/22 [Rx Last Taken Unknown] Allergy/AdvReac Type Severity Reaction Status Date / Time Seasonal Allergies: Uncoded Allergy Mild PT UNSURE Verified 12/03/22 00:30 OF REACTION Family History Father CAD (coronary artery disease) Myocardial infarction Hx of CABG Grandmother History of permanent cardiac pacemaker placement Grandfather CVA (cerebral vascular accident) Surgical History History of appendectomy History of colonoscopy History of hip replacement, total History of nasal surgery Social History Smoking Status: Former smoker how long ago did patient quit smokin alcohol intake: current alcohol intake frequency: a few times a week substance use type: does not use caffeine: Yes Type: coffee Number of servings: 1 ROS ROS Narrative Pertinent positives and pertinent negatives as noted in HPI. All other systems were reviewed and are negative Vital Signs Vital Signs Vital Signs: 12/03/22 00:27 12/03/22 01:55 12/03/22 02:53 Temperature 98.3 F Temperature Source Oral Pulse Rate 70 67 76 Respiratory Rate 18 20 H 15 Blood Pressure 124/78 H 149/87 H 142/88 H Blood Pressure Mean 93 107 106 Pulse Ox 97 100 97 Oxygen Delivery Method Room Air Room Air Room Air 12/03/22 03:42 Temperature Temperature Source Pulse Rate 73 Respiratory Rate 18 Blood Pressure 128/76 H Blood Pressure Mean 93 Pulse Ox 97 Oxygen Delivery Method Room Air Weight Weight: 73.4 kg Body Mass Index (BMI) 26.1 Physical Exam Narrative Physical exam: General: Well-nourished, well-developed. Head: Normocephalic, atraumatic, no tenderness Eyes: Vision is grossly intact. EOMI ENT, no trauma, moist mucous membranes, no rhinorrhea Neck: Nontender, No thyromegaly. CVS: Regular rate and rhythm. S1-S2 present. No murmur, gallop or rub. Respiratory : clear to auscultation bilaterally, chest wall nontender Abdomen: Soft, tender, nondistended, normal bowel sounds, no masses : Deferred Back: Nontender, no CVA tenderness, no midline spinal tenderness, deformities, step-offs Extremities: Nontender full range of motion, no trauma Skin: Normal color, no trauma, abrasions Neuro: Alert, oriented, cranial nerves II through XII grossly intact. Psychiatry: Normal mood. Normal affect. Not depressed. Not anxious. Results Lab / Micro Data 12/03/22 00:45 12/03/22 00:45 Labs: Laboratory Results - last 24 hr 12/03/22 00:45: WBC 12.4 H, RBC 4.83, Hgb 14.1, Hct 42.5, MCV 88.0, MCH 29.2, MCHC 33.2, RDW Std Deviation 41.1, RDW Coeff of Arnoldo 12.8, Plt Count 218, MPV 8.6, Immature Gran % (Auto) 0.500, Neut % (Auto) 83.3 H, Lymph % (Auto) 7.1 L, [place] % (Auto) 7.7, Eos % (Auto) 1.1, Baso % (Auto) 0.3, Absolute Neuts (auto) 1 0.3 H, Absolute Lymphs (auto) 0.88, Nucleated RBC % 0, Sodium 137, Potassium 3.8, Chloride 103, Carbon Dioxide 28.0, Anion Gap 6, BUN 18, Creatinine 0.92, Estim Creat Clear Calc 78.98, Est GFR (MDRD) Af Amer 109, Est GFR (MDRD) Non-Af 90, BUN/Creatinine Ratio 19.6, Glucose 149 H, Calcium 9.3, Total Bilirubin 2.10 H, Direct Bilirubin 1.48 H, AST 616 H, ALT 605 H, Alkaline Phosphatase 163 H, Total Protein 7.1, Albumin 3.7, Globulin 3.4, Lipase > 5000 H Radiology Impression Abdomen/Pelvis CT 12/03/22 02:08 IMPRESSION: undefined Assessment & Plan Assessment/Plan (1) Gallstone pancreatitis: (2) Cholelithiasis with chronic cholecystitis: QUALIFIERS: Cholelithiasis location: gallbladder Biliary obstruction: without biliary obstruction Qualified Code(s): K80.10 - Calculus of gallbladder with chronic cholecystitis without obstruction PLAN: Plan Acute gallstone pancreatitis with chronic cholelithiasis and acute on chronic cholecystitis Patient was scheduled for cholecystitis (12/06/2022) of the week of presentation Impression of abdomen/pelvis CT by radiologist: Extensive peripancreatic inflammatory changes consistent with severe acute pancreatitis, new since the prior exam. Mild dilatation of the common bile duct, new. Possible small stones in the distal common bile duct. Gallstones. Abdomen/pelvis CT was independently interpreted and I agree with radiologist interpretation. Abdomen ultrasound on 10/27/2022 showed multiple gallstones without evidence of biliary dilatation. Patient with elevated lipase; total bilirubin; direct bilirubin and liver biochemistry. Trend CMP. Normal saline hydration. Keep NPO. Per general surgeon recommendations ultrasound of gallbladder was ordered from the ED. Zosyn was started emergency department and continued. GI consult and general surgery consult. History of hypertension Blood pressure is stable Hold home carvedilol in the setting of patient be n.p.o. Scheduled metoprolol IV ordered. Trend blood pressures DVT prophylaxis: SCDs ordered Time spent in the patient's overall evaluation,decision-making process, review of diagnostic data, adjustment of management, discussion with other providers, nursing nursing and ancillary staff involved in patient's care documentation, 65 minutes Charges/Coding Visit Charges Inpatient E&M: 47989 Init Hosp L3
--- OUTSIDE RECORDS SUMMARY | 2022-12-03 04:54 | XMS RPT_ITS | CCD ---
Author Name Unknown Address [address] [place] [address] Organization [facility] Care Team Providers Care Prosthetics Technician Name Role Phone Dulce Reyna RN Unavailable Unavailable Medications Completed/Discontinued Medications Medication Drug Class(es) Dates Sig (Normalized) Sig (Original) montelukast 10 mg oral tablet (2 sources) Leukotriene Receptor Antagonist Start: 05-14-2012 End: 05-21-2012 take 1 tablet by mouth once daily SINGULAIR 10 MG TABS One tablet by mouth daily MONTELUKAST SODIUM [id number] Rashmi Barboza valsartan 80 mg oral tablet (2 sources) Angiotensin 2 Receptor Willian Start: 05-14-2012 End: 05-21-2012 take 1 tablet by mouth once daily DIOVAN 80 MG TABS One tablet by mouth daily VALSARTAN [id number] Rashmi Barboza Problems Active Problems Problem Classification [...] BP Diastolic 88 mm[Hg] Dulce Reyna RN [facility] Work Phone: 05-23-2016 14:58-0500 BP [...] 1 year Follow Up Appt 1 year [facility] Work Phone: Start: 05-23-2016 End: 05-23-2016 PFM PFM [facility] Work Phone: Start: 06-08-2015 End: 06-08-2015 Follow Up Appt 1 year Follow Up Appt 1 year [facility] Work Phone: Start: 06-08-2015 End: 06-08-2015 PFM PFM [facility] Work Phone: Start: 07-09-2014 End: 07-09-2014 Follow Up Appt 1 year Follow Up Appt 1 year [facility] Work Phone: Start: 07-09-2014 End: 07-09-2014 PFM PFM [facility] Work Phone: Start: 09-14-2013 End: 09-14-2013 Follow Up Appt Other Follow Up Appt Other [facility] Work Phone: Start: 09-14-2013 End: 09-14-2013 PFM PFM [facility] Work Phone: Start: 05-25-2013 End: [...] End: 06-09-2015 Lipid panel [AGGREGATE] *Lipid Profile [facility] Work Phone: Start: 05-21-2012 End: 05-21-2012 PFM PF [facility] Work Phone: Clinical Note 12-08-2020 Note Date & Type Note Facility 12-08-2020 Note Patient Outreach (ARA TNAV) TRIP MURPHY ([id number]) 1965 M Date Time Provider Department 12/08/20 [...] Outcome/Action Unable to reach patient: Left message [employer] message sent Reason for Outreach Attribution: Provider [...] future healthcare decisions with a power of estate attorney, living will, or advance directives? No. [...] left hip [Z96.*08/18/2015 Encounter Status:Closed by [facility]EN [facility] HEALTH NAVIGATOREMMY on 12/08/20 [facility] Progress note 12-08-2020 Note Date & Type Note Facility 12-08-2020 Note HNO ID: [id number] Author: Emmy [facility] Navigpad[facility] Service: ? Author Type: ? Type: Progress Notes Filed: 12/08/2020 11:21 AM Note Text: POPULATION HEALTH NAVIGATION OUTREACH Action/FYI I left a voice message and a my chart message re: pcp No care everywhere Contact made with patient or family member? NO Pt identified by name and : NO Outreach Outcome/Action Unable to reach patient: Left message [employer] message sent Reason for Outreach Attribution: Provider [...] future healthcare decisions with a power of estate attorney, living will, or advance directives? No. Please bring a copy to your next appointment or email to Referrals: N/A Message Sent to Practice: NO Navigation Signature: Emmylai Li Population Health Navigator December 08, 2020 11:20 AM [facility] Summary Purpose Family History No Family History [...] BE BASED ON THE PRIMARY CLINICAL RECORDS. [facility] [email or web address] [facility]. provides no warranty or guarantee of the accuracy or completeness of information in this document.
[2022-12-03] MEDS: Metoprolol Tartrate 5 MG/5 ML Vial IV (05:48)
--- NOTE | 2022-12-03 06:52 | PN.HOSP_ITS ---
Reason for Visit Reason for Visit: Diagnoses Calculus of gallbladder with chronic cholecystitis without obstruction ( 3) Biliary acute pancreatitis without necrosis or infection (12/03/22) Subjective Subjective Patient with no acute events overnight per self or per nursing report. He notes still ongoing discomfort to the epigastric and right upper quadrant region, currently rated 5 out of 10 in severity, more sharp stabbing and aching in sensation. He does admit to mild nausea. He notes that currently its improved with Dilaudid administration. Patient evaluated already by general surgery Dr. Yao and also being evaluated by Dr. Eula PETTIT. Patient denies fevers, chills, emesis, chest pain or dyspnea. Objective Data Objective Data Vital Signs: Vital Signs Temp Pulse Resp BP Pulse Ox O2 Del Method 98.1 F 57 L 18 120/73 97 Room Air 12/03/22 05:39 12/03/22 05:48 12/03/22 05:39 12/03/22 06:28 12/03/22 05:39 12/03/22 05:39 Oxygen Delivery Method Room Air Weight: 161 lb 2.526 oz Body Mass Index (BMI) 25.9 Intake & Output: Intake and Output for Last 24 Hours 12/01/22 12/02/22 12/03/22 23:59 23:59 23:59 Intake Total 1050 / 1050 Output Total 0 / 0 Balance 1050 / 1050 Lab / Micro Data 12/03/22 00:45 12/03/22 00:45 Labs: Laboratory Results - last 24 hr 12/03/22 00:45: WBC 12.4 H, RBC 4.83, Hgb 14.1, Hct 42.5, MCV 88.0, MCH 29.2, MCHC 33.2, RDW Std Deviation 41.1, RDW Coeff of Arnoldo 12.8, Plt Count 218, MPV 8.6, Immature Gran % (Auto) 0.500, Neut % (Auto) 83.3 H, Lymph % (Auto) 7.1 L, [place] % (Auto) 7.7, Eos % (Auto) 1.1, Baso % (Auto) 0.3, Absolute Neuts (auto) 10.3 H, Absolute Lymphs (auto) 0.88, Nucleated RBC % 0, Sodium 137, Potassium 3.8, Chloride 103, Carbon Dioxide 28.0, Anion Gap 6, BUN 18, Creatinine 0.92, Estim Creat Clear Calc 78.98, Est GFR (MDRD) Af Amer 109, Est GFR (MDRD) Non-Af 90, BUN/Creatinine Ratio 19.6, Glucose 149 H, Calcium 9.3, Total Bilirubin 2.10 H, Direct Bilirubin 1.48 H, AST 616 H, ALT 605 H, Alkaline Phosphatase 163 H, Total Protein 7.1, Albumin 3.7, Globulin 3.4, Lipase > 5000 H Radiography Diagnostic Testing: Radiology Impression Abdomen/Pelvis CT 12/03/22 02:08 IMPRESSION: undefined Physical Exam Narrative Physical Examination: General: Awake, alert, oriented x 3 and cooperative, seated upright in the PCU bed, fatigued, notes pain improved currently status post Dilaudid, currently 5 out of 10. Skin: Normal color, normal turgor, no icterus, no cyanosis. HEENT: AT/NC, EOMI, PERRLA, mild dry MM. Lungs: CTA bilaterally, moderate effort, mild decrease BL bases, no rales, ronchi or wheezing. Heart: Mildly bradycardic with regular rhythm; no gallop, rub audible. Abdomen: Soft, when distracted mild discomfort apparent right upper quadrant and epigastric region however with full manual palpation severe discomfort with voluntary guarding, no marked distention, hyperactive BS. Extremities: No cyanosis, clubbing, or edema. Neurological: Patient awake, alert, oriented as noted, cognitive function intact; pupils equally reactive to light and accommodation, cranial nerves grossly normal, moving all 4 extremities, no focal deficits, strength moderately global decrease secondary to acute presentation. Psychiatric: Affect appears fatigued, reports discomfort, no acute evidence of depressive or anxiety feelings. Assessment & Plan Assessment/Plan (1) Cholelithiasis with chronic cholecystitis: QUALIFIERS: Cholelithiasis location: gallbladder Biliary obstruction: without biliary obstruction Qualified Code(s): K80.10 - Calculus of gallbladder with chronic cholecystitis without obstruction PLAN: Plan The patient is a 57 y/o M w/ PMHx: Allergic rhintis, OA, HTN, HLD, JEFFERY on CPAP, HTN, HLD, Former tobacco use, Non-CAD related cardiomyopathy, CAD-none angiographically significant, Underlying LBBB who presents to the [facility] ED on 8/21/23 with history of excruciating epigastric discomfort with radiation across his abdomen into his back with intermittent similar discomfort over the last several years however worsened since June prompting eventual ED evaluation. #1. Acute gallstone pancreatitis with potentially acute on chronic chol ecystitis with chronic cholelithiasis with Hyperbilirubinemia/Transaminitis: ED evaluation with lipase greater than 5000, T. bili 2.10, D bili 1.48, AST/ALT 616/65, alk phos 163, CT abdomen and pelvis with extensive peripancreatic inflammatory changes, mild dilation of the common bile duct, possible small stones in the distal common bile duct, follow-up gallbladder ultrasound with cholelithiasis with a distended biliary tree. Patient was scheduled a Cholecystectomy outpatient of note, given worsening pain presented to ED for evaluation, admitted to medical surgical floor, will maintain n.p.o., continue aggressive IV fluid, trend lipase and CMP, maintain on IV Zosyn, general surgery and gastroenterology consulted, pending evaluation and surgical intervention timeline. Based on most recent cardiology assessments and interventions/evaluations agree with progression to OR once felt appropriate per surgery/gastroenterology. #2. Nonobstructive not angiographically significant CAD with known CAD related cardiomyopathy: 04/19/22 ECHO w/ normal LV systolic function, EF 55%, septal motion consistent with IVCD, trivial MVI, trivial TVI, trivial IMAN, trivial PVI, diastolic function indeterminate, last cardiac catheterization noted 12/11/2019, holding aspirin therapy given planned intervention as noted, not on statin therapy which will defer to outpatient especially given acute presentation #1, continue Coreg. #3. Hypertension: Continue home regimen including Coreg, PRN hydralazine. #4. Hyperlipidemia: Not on statin therapy, defer to outpatient especially given #1. #5. Allergic rhinitis: We will continue patient home montelukast regimen. #6. Former tobacco use: Encourage continued tobacco cessation. #7. JEFFERY: CPAP nightly. #8. DVT prophylaxis: SCDs, hold chemoprophylaxis given planned interventions as noted. #9. CODE status: Full Code. Charges/Coding Procedures Hospitalists Procedures: Other Procedure - See Report ([id number]--froxmv to bill, admitted same day.)
--- NOTE | 2022-12-03 07:00 | US_ITS ---
EXAM: US ABDOMEN LIMITED, RIGHT UPPER QUADRANT CLINICAL INDICATION: gallstone pancreatitis -- being admitted - perform in AM TECHNIQUE: Real-time ultrasound of the right upper quadrant with image documentation. COMPARISON: No relevant prior studies available. FINDINGS: LIVER: Mild distention of the intrahepatic bile ducts. There is normal echotexture. GALLBLADDER: Multiple stones are present within the gallbladder. Positive ultrasound Vivas sign is reported. No pericholecystic fluid or significant gallbladder wall thickening. COMMON BILE DUCT: Common bile duct is enlarged measuring 8.3 mm in diameter. PANCREAS: Pancreas is obscured by overlying bowel gas. RIGHT KIDNEY: Normal. There is no hydronephrosis. No shadowing calculus. No focal lesion or perinephric collection is demonstrated. US/Gallbladder IMPRESSION: Cholelithiasis. Distended biliary tree. RECOMMENDATIONS: Follow-up MRCP recommended to exclude common bile duct stone. Electronically Signed: Hakan Martínez MD at 8:39 EDT ,
--- NOTE | 2022-12-03 07:36 | NURSING ---
This RN gave updates about this pt to charge nurse before leaving unit
--- NOTE | 2022-12-03 08:34 | PCM.HP.STD ---
HPI - General General Date of Admission: 12/03/22 Chief Complaint: Abdominal pain HPI Narrative TRIP MYERS, is a 57 M who presented to [facility] early this morning with complaints of acute onset upper abdominal discomfort and associated nausea. He states that his pain started yesterday after lunch, but intensified as the day wore on. He reports that it reached a maximum intensity of a 9 out of 10. 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 Patient's ER work-up was notable for abnormal CMP with elevated liver function testing and hyperbilirubinemia. Is also noted to have an elevated lipase of greater than 5000. It was at this point I was notified of the patient's presence in the ER and I recommended further evaluation with CT imaging as well as ultrasound. Patient's CT imaging showed evidence of severe pancreatitis with significant inflammatory change but no evidence of hemorrhagic conversion or pseudocyst. Radiology did also comment that patient's common bile duct appeared dilated. Ultrasound has since been done but not reported. Common bile duct of the study measures 8 mm. Incidentally, patient is already established with Dr. Yao and plans are in place to undergo laparoscopic cholecystectomy with intraoperative cholangiography later this week on 12/06/2022. Mr. Myers states that he had plans to be in [place] now, but was advised to hold off on those plans given his symptoms and he states that he is now happy he heeded that advice. Outside of the above, patient has a history of left bundle branch block and a depressed ejection fraction. He reports that through working with the [facility] here at the hospital he has been able to do rather well over the last couple of years and states that that seems to be pretty much cleared up . [facility] Medical History Abnormal echocardiogram Abnormal electrocardiogram Alcohol use Arthritis Atherosclerotic heart disease of [place] coronary artery without angina pectoris Back pain Cardiology follow-up encounter CPAP (continuous positive airway pressure) dependence Decreased cardiac ejection fraction Dyspnea on exertion Essential hypertension Former smoker History of diverticulitis History of echocardiogram History of Holter monitoring History of left heart catheterization (LHC) (~12/11/19) History of stress test Hyperlipidemia Hypertension Left bundle branch block Left ventricular hypertrophy Sleep apnea Syncope and collapse Ventricular hypertrophy Wears hearing aid Home Medications aspirin 81 mg tablet,delayed release (Adult Low Dose Aspirin) 81 mg PO DAILY 11/18/19 [History Last Taken 12/11/19] montelukast 10 mg tablet (Singulair) 10 mg PO DAILY 11/15/21 [History Last Taken Unknown] carvedilol 12.5 mg tablet 12.5 mg PO BID #180 TABLETS 02/02/22 [Rx Last Taken Unknown] Allergy/AdvReac Type Severity Reaction Status Date / Time Seasonal Allergies: Uncoded Allergy Mild PT UNSURE Verified 12/03/22 00:30 OF REACTION Family History Father CAD (coronary artery disease) Myocardial infarction Hx of CABG Grandmother History of permanent cardiac pacemaker placement Grandfather CVA (cerebral vascular accident) Surgical History History of appendectomy History of colonoscopy History of hip replacement, total History of nasal surgery Social History Smoking Status: Former smoker how long ago did patient quit smokin alcohol intake: current alcohol intake frequency: a few times a week substance use type: does not use caffeine: Yes Type: coffee Number of servings: 1 Vital Signs Vital Signs Vital Signs: 12/03/22 00:27 12/03/22 01:55 12/03/22 02:53 Temperature 98.3 F Temperature Source Oral Pulse Rate 70 67 76 Respiratory Rate 18 20 H 15 Respiratory Effort Respiratory Depth Respiratory Pattern Blood Pressure 124/78 H 149/87 H 142/88 H Blood Pressure [BP] Blood Pressure Mean 93 107 106 Blood Pressure Mean [BP] Blood Pressure Source Blood Pressure Source [BP] Blood Pressure Position Blood Pressure Position [BP] Blood Pressure Location Blood Pressure Location [BP] Pulse Ox 97 100 97 Oxygen Delivery Method Room Air Room Air Room Air 12/03/22 03:42 12/03/22 04:43 12/03/22 05:24 Temperature 98.0 F Temperature Source Temporal Pulse Rate 73 72 Respiratory Rate 18 16 Respiratory Effort Normal Non-Labored Respiratory Depth Normal Respiratory Pattern Normal Blood Pressure 128/76 H 104/68 Blood Pressure [BP] Blood Pressure Mean 93 80 Blood Pressure Mean [BP] Blood Pressure Source Blood Pressure Source [BP] Blood Pressure Position Blood Pressure Position [BP] Blood Pressure Location Blood Pressure Location [BP] Pulse Ox 97 96 Oxygen Delivery Method Room Air Room Air Room Air 12/03/22 05:39 12/03/22 05:48 12/03/22 06:28 Temperature 98.1 F Temperature Source Oral Pulse Rate 55 L 57 L Respiratory Rate 18 Respiratory Effort Respiratory Depth Respiratory Pattern Blood Pressure 137/81 H 137/81 H Blood Pressure [BP] 120/73 Blood Pressure Mean 99 Blood Pressure Mean [BP] 88 Blood Pressure Source Monitor Blood Pressure Source [BP] Monitor Blood Pressure Position Semi-Fowlers Blood Pressure Position [BP] Semi-Fowlers Blood Pressure Location Right Arm Blood Pressure Location [BP] Right Arm Pulse Ox 97 Oxygen Delivery Method Room Air 12/03/22 07:24 Temperature Temperature Source Pulse Rate Respiratory Rate Respiratory Effort Respiratory Depth Respiratory Pattern Blood Pressure Blood Pressure [BP] Blood Pressure Mean Blood Pressure Mean [BP] Blood Pressure Source Blood Pressure Source [BP] Blood Pressure Position Blood Pressure Position [BP] Blood Pressure Location Blood Pressure Location [BP] Pulse Ox 97 Oxygen Delivery Method Room Air Weight Weight: 161 lb 2.526 oz Body Mass Index (BMI) 25.9 Physical Exam Const alert and oriented x3 Constitutional Narrative: Exhibits some discomfort but no significant distress General Appearance: cooperative Resp normal respiratory effort GI GI Narrative: Mildly distended, soft, tenderness across the epigastrium Results Lab / Micro Data 12/03/22 00:45 12/03/22 00:45 Labs: Laboratory Results - last 24 hr 12/03/22 00:45: WBC 12.4 H, RBC 4.83, Hgb 14.1, Hct 42.5, MCV 88.0, MCH 29.2, MCHC 33.2, RDW Std Deviation 41.1, RDW Coeff of Arnoldo 12.8, Plt Count 218, MPV 8.6, Immature Gran % (Auto) 0.500, Neut % (Auto) 83.3 H, Lymph % (Auto) 7.1 L, [place] % (Auto) 7.7, Eos % (Auto) 1.1, Baso % (Auto) 0.3, Absolute Neuts (auto) 10.3 H, Absolute Lymphs (auto) 0.88, Nucleated RBC % 0, Sodium 137, Potassium 3.8, Chloride 103, Carbon Dioxide 28.0, Anion Gap 6, BUN 18, Creatinine 0.92, Estim Creat Clear Calc 78.98, Est GFR (MDRD) Af Amer 109, Est GFR (MDRD) Non-Af 90, BUN/Creatinine Ratio 19.6, Glucose 149 H, Calcium 9.3, Total Bilirubin 2.10 H, Direct Bilirubin 1.48 H, AST 616 H, ALT 605 H, Alkaline Phosphatase 163 H, Total Protein 7.1, Albumin 3.7, Globulin 3.4, Lipase > 5000 H Radiology Impression Abdomen/Pelvis CT 12/03/22 02:08 IMPRESSION: undefined Assessment & Plan Assessment/Plan (1) Gallstone pancreatitis: (2) Cholelithiasis with chronic cholecystitis: QUALIFIERS: Biliary obstruction: without biliary obstruction Cholelithiasis location: gallbladder Qualified Code(s): K80.10 - Calculus of gallbladder with chronic cholecystitis without obstruction PLAN: Plan This is a 57-year-old male who presents with acute gallstone pancreatitis and a previous diagnosis of cholelithiasis with chronic cholecystitis. Given the latter diagnosis he was actually due to undergo laparoscopic cholecystectomy with intraoperative cholangiogram later this week. However, beginning yesterday at lunchtime he experienced progressive epigastric abdominal discomfort that is now believed to be secondary to his diagnosis of acute pancreatitis. Biochemically and radiologically this pancreatitis appears to be rather severe. Fortunately patient's exam is more reassuring. I held a lengthy conversation with him regarding the relevant pathophysiology and used hand drawings to try to illustrate the relevant points. I shared with him that I would recommend evaluation with gastroenterology for possible MRCP/ERCP and that we would ultimately like to complete a same admission cholecystectomy to try to mitigate his risk for recurrent pancreatitis. Overall, Mr. Myers expressed an understanding of the information shared, but did seem to still have some lingering questions. For now recommend n.p.o. status with IV fluid resuscitation. Continue IV antibiotics as started by emergency medicine given the probability of biliary obstruction. As above await GI consultation. General surgery will continue to follow patient's exam and case will be turned over to Dr. Yao for ongoing management. Charges/Coding Visit Charges Inpatient E&M: 87830 Init Hosp L2
[2022-12-03] MEDS: 0.9% Saline Lock 10 ML Syringe IV ×2 (09:45→21:17)
--- NOTE | 2022-12-03 11:55 | CASEMGMT ---
RN CM Face to Face with patient for initial transition planning/care coordination assessment. RN CM introduced self and role at [facility]. Patient lying in bed, alert and oriented. Patient willing to participate in assessment and is able to answer all questions appropriately. Care providers, pharmacy, and demographics verified. Patient wishes to discharge home, denies need for home health at this time. Patient states he has no further needs or concerns at this time. CM to follow for discharge planning needs that may arise. PCP: Veronica Specialists: Friend, GI; Cebul, surgeon Preferred Pharmacy: [facility] retail Insurance: MMO Prescription Benefit: yes Living Will/HPOA: yes, Dulce Myers LNOK: Living Arrangements: Patient lives with in a single story home with ramp to enter the home. Patient is independent at home. Transportation: self, DME/HHC: Patient has cpap and pulse ox at home. Patient denies previous HHC or SNF Disposition Plan: Patient to discharge home with family support and up plans in place. Yady IRAHETA, RN, CM
[2022-12-03] MEDS: 0.9% Normal Saline 1,000 ML 15 ML IV (15:38)
--- NOTE | 2022-12-03 16:39 | CHAPLAIN ---
Type of Pastoral Visit ___ Initial Visit ___ Follow-up Visit ___ On-call Visit ___ General Patient Visit ___ Spiritual Assessment ___ Family Conference ___ Bereavement ___ Rapid Response ___ Code Blue ___ Other (describe below) Pastoral Care Referral From ___ Patient ___ Family ___ Nurse ___ Physician ___ Branch Manager ___ Hourly Sign Language Interpreter ___ Other (describe below) Sacrament/Intervention ___ Active listening ___ Anointing ___ Islam ___ Bereavement ___ Communion ___ Jasmine exploration ___ ___ Life review ___ Prayer ___ Reconciliation ___ Sacrament of Sick ___ Supportive presence ___ Wedding ___ Other (describe below) Pastoral Comments patient is out of the room; a calling card is left
--- NOTE | 2022-12-03 16:40 | RAD_ITS ---
HISTORY: ERCP COMPARISON: Gallbladder ultrasound December 03, 2022 TECHNIQUE: A total of 10 fluoroscopic images were saved without a radiologist present. FINDINGS: Images demonstrate progressive ERCP with opacification of the intrahepatic and extrahepatic bile ducts. Biliary stent noted on final image with tip projecting over the duodenal shadow.. Total fluoroscopy time: 22 seconds Cumulative air kerma: 73.2 mGy 9 images RAD/ERCP Biliary/Pancreas IMPRESSION: Fluoroscopic assistance for ERCP. Please see operative report for additional information. Electronically Signed: Uriel Quinonez MD at 22:11 EDT ,
--- NOTE | 2022-12-03 17:29 | OP.ERCP_ITS ---
Patient Name: Barron Myers Procedure Date: 12/03/2022 3:55 PM Date of : 1965 Age: 57 Procedure: ERCP Indications: Evaluation and possible treatment of bile duct stone(s), Bile duct stone(s), Jaundice Providers: Clem Forde DO Medicines: See the Anesthesia note for documentation of the administered medications Patient Profile: This is a 57 year old male. Refer to note in patient chart for documentation of history and physical. Patient has symptoms of acute epigastric abdominal pain and acute jaundice. Complications: No immediate complications. Procedure: Pre-Anesthesia Assessment: - Prior to the procedure, a History and Physical was performed, and patient medications and allergies were reviewed. The patient is competent. The risks and benefits of the procedure and the sedation options and risks were discussed with the patient. All questions were answered and informed consent was obtained. Patient identification and proposed procedure were verified by the physician in the pre-procedure area. Mental Status Examination: alert and oriented. Airway Examination: normal oropharyngeal airway and neck mobility. Respiratory Examination: clear to auscultation. CV Examination: normal. Prophylactic Antibiotics: The patient does not require prophylactic antibiotics. Prior Anticoagulants: The patient has taken no anticoagulant or antiplatelet agents. ASA Grade Assessment: II - A patient with mild systemic disease. After reviewing the risks and benefits, the patient was deemed in satisfactory condition to undergo the procedure. The anesthesia plan was to use monitored anesthesia care (MAC). Immediately prior to administration of medications, the patient was re-assessed for adequacy to receive sedatives. The heart rate, respiratory rate, oxygen saturations, blood pressure, adequacy of pulmonary ventilation, and response to care were monitored throughout the procedure. The physical status of the patient was re-assessed after the procedure. After obtaining informed consent, the scope was passed under direct vision. Throughout the procedure, the patient's blood pressure, pulse, and oxygen saturations were monitored continuously. The Duodenoscope was introduced through the mouth, and advanced to the duodenum and used to inject contrast into the bile duct. The ERCP was accomplished without difficulty. The patient tolerated the procedure well. Scope In: 4:49:10 PM Scope Out: 5:12:37 PM Total Procedure Duration Time 0 hours 23 minutes 27 seconds Findings: The night shift manager film was normal. The esophagus was successfully intubated under direct vision. The scope was advanced to a normal major papilla in the descending duodenum without detailed examination of the pharynx, larynx and associated structures, and upper GI tract. The upper GI tract was grossly normal. The bile duct was deeply cannulated with the short-nosed traction sphincterotome. Contrast was injected. I personally interpreted the bile duct images. There was brisk flow of contrast through the ducts. Image quality was excellent. Contrast extended to the entire biliary tree. Opacification of the entire biliary tree except for the cystic duct and gallbladder was successful. The maximum diameter of the ducts was 8 mm. The lower third of the main bile duct contained one stone, which was 3 mm in diameter. The lower third of the main bile duct contained a single localized stenosis 4 mm in length. The entire opacified area was diffusely dilated, secondary to a stricture. The largest diameter was 8 mm. Placement of a long 0.025 inch Jagwire into the biliary tree was attempted. This passed successfully. A 5 mm biliary sphincterotomy was made with a monofilament traction (standard) sphincterotome using ERBE electrocautery. The sphincterotomy oozed blood. To discover objects, the biliary tree was swept with a 12 mm balloon starting at the bifurcation. Sludge was swept from the duct. All stones were removed. Dilation of the lower third of the main bile duct with 5-7-8.5 Fr catheter dilator was successful. One 10 Fr by 5 cm temporary stent with two external flaps and two internal flaps was placed 5 cm into the common bile duct. Bile flowed through the stent. The stent was in good position. Impression: - A single localized biliary stricture was found in the lower third of the main bile duct. The stricture was secondary to previous stone(s) and benign appearing. - The biliary system were dilated, secondary to a stricture. - Choledocholithiasis was found. Complete removal was accomplished by biliary sphincterotomy and balloon extraction. - A biliary sphincterotomy was performed. - The biliary tree was swept. - The lower third of the main bile duct was successfully dilated. - One temporary stent was placed into the common bile duct. - Gastric bezoar secondary to retained food likely secondary to paralytic ileus from acute pancreatitis causing delayed gastric emptying without true gastroparesis. Recommendations are azithromycin 500 mg IV daily, metoclopramide 5 mg IV every 6 hours. Clear liquid diet. Increase IV fluids up to 300 cc an hour. Hold anticoagulation as they can be conversion to hemorrhagic pancreatitis with the use of anticoagulation in the setting of severe pancreatitis. Procedure Code(s): --- Professional --- 30470, Endoscopic retrograde cholangiopancreatography (ERCP); with placement of endoscopic stent into biliary or pancreatic duct, including pre- and post-dilation and guide wire passage, when performed, including sphincterotomy, when performed, each stent [id number], Endoscopic retrograde cholangiopancreatography (ERCP); with removal of calculi/debris from biliary/pancreatic duct(s) 64055, 26, Endoscopic catheterization of the biliary ductal system, radiological supervision and interpretation CPT copyright 2021 [employer]. All rights reserved. The codes documented in this report are preliminary and upon well logger review may be revised to meet current compliance requirements. Clem Forde DO 12/03/2022 5:28:25 PM This report has been signed electronically. Number of Addenda: 0 Note Initiated On: 12/03/2022 3:55 PM
--- NOTE | 2022-12-03 17:29 | OP.CCLET_ITS ---
12/03/2022 Eddie Martin [address] [place] [address] Re : ERCP procedure for Barron Myers Dear Dr. Martin This procedure was performed on Saturday, December 03, 2022. My impressions and recommendations are as follows: Impressions : - A single localized biliary stricture was found in the lower third of the main bile duct. The stricture was secondary to previous stone(s) and benign appearing. - The biliary system were dilated, secondary to a stricture. - Choledocholithiasis was found. Complete removal was accomplished by biliary sphincterotomy and balloon extraction. - A biliary sphincterotomy was performed. - The biliary tree was swept. - The lower third of the main bile duct was successfully dilated. - One temporary stent was placed into the common bile duct. - Gastric bezoar secondary to retained food likely secondary to paralytic ileus from acute pancreatitis causing delayed gastric emptying without true gastroparesis. Recommendations are azithromycin 500 mg IV daily, metoclopramide 5 mg IV every 6 hours. Clear liquid diet. Increase IV fluids up to 300 cc an hour. Hold anticoagulation as they can be conversion to hemorrhagic pancreatitis with the use of anticoagulation in the setting of severe pancreatitis. Recommendations : My findings are described in the full procedure note, which is enclosed. If I can be of further assistance, please feel free to contact me at . Sincerely, Clem Forde, 12/03/2022 5:28:25 PM This report has been signed electronically.
[2022-12-03 20:38] LABS: CRP 2.95 mg/L (0.0-3.0)
--- NOTE | 2022-12-03 20:45 | NURSING ---
This RN spoke with Jonas from pharmacy and explained about how pts 1400 dose of zosyn was not given. This RN was advised to hand 2200 dose now.
[2022-12-03] MEDS: Metoclopramide 10 MG/2 ML Vial 5 MG IV (20:57)
[2022-12-03 21:04] LABS: Erythrocyte Sedimentation Rate 8 mm/hr (0-20)
[2022-12-04] VITALS (12 sets, daily range): BP systolic 121–160; BP diastolic 76–94; PULSE 70–92; RESP 15–18; TEMP 36.5–37.7; O2SAT 90–98
[2022-12-04] MEDS: HYDROmorphone 0.5 MG/0.5 ML SYRINGE IV ×6 (00:32→20:00)
[2022-12-04] MEDS: 0.9% Normal Saline 1,000 ML 300 ML IV ×3 (00:34→06:38)
[2022-12-04] MEDS: Metoclopramide 10 MG/2 ML Vial 5 MG IV ×4 (00:35→17:26)
[2022-12-04 05:25] LABS: Absolute Lymphocyte Count 0.81 X10^3/uL (0.83-4.51); Absolute Neutrophil Count 16.8 X10^3/uL (2.0-7.7); Basophil# 0.03 X10^3/uL; Basophil% 0.2 % (0-1); Hematocrit 39.7 % (40-54); Lymphocyte # 0.81 X10^3/ul (0.83-4.51); Lymphocyte % 4.3 % (19-41); Mean Corp Hgb Conc 32.7 g/dL (32-36); Mean Corpuscular Volume 88.6 fL (80-94); Monocyte# 1.22 X10^3/uL; Monocyte% 6.4 % (0-10); NRBC Flagged by Analyzer 0 % (0-5); Neutrophil # 16.78 X10^3/uL (2.7-7.7); Neutrophil % 88.3 % (47-70); Platelet Count 198 K/mm3 (150-450); RBC Distribution Width CV 13.4 % (11.6-14.6); RBC Distribution Width SD 43.6 fl (35.1-43.9); Red Blood Count 4.48 M/mm3 (4.6-6.2)
--- NOTE | 2022-12-04 05:55 | EKG12_ITS ---
Test Reason : AM EKG Blood Pressure : / mmHG Vent. Rate : 068 BPM Atrial Rate : 068 BPM P-R Int : 182 ms QRS Dur : 142 ms QT Int : 430 ms P-R-T Axes : 021 -19 021 degrees QTc Int : 457 ms Poor data quality, interpretation may be adversely affected Normal sinus rhythm Left bundle branch block Abnormal ECG When compared with ECG of 03-DEC-2022 15:33, MANUAL COMPARISON REQUIRED, DATA IS UNCONFIRMED Confirmed by DAVIS GUILLAUME, DIVYA ([id number]), news video editor JAMEY ALEXANDRA ([id number]) on 01/23/2023 10:29:14 AM Referred By: DUNCAN Confirmed By:DIVYA CANNON MD
[2022-12-04 05:57] LABS: ALB/GLOB Ratio 0.9 RATIO (0.9-2.4); AST(SGOT) 132 U/L (15-37); Alanine Aminotransfer ALT/SGPT 302 U/L (16-61); Albumin, Serum 2.9 g/dL (3.2-5.0); Alkaline Phosphatase 110 U/L (45-117); Anion Gap 5 (5-15); BUN 10 mg/dL (7-18); BUN/Creat Ratio 14.7 RATIO (10-20); Calcium,Total 7.8 mg/dL (8.5-10.1); Chloride 111 mmol/L (98-107); Creatinine, Serum 0.68 mg/dL (0.70-1.30); EST Glomerular Filtration Rate 127 mL/min (>60); Est Glom Filt Rate - Afr Amer 154 mL/min (>60); Estimated Creatinine Clearance 106.85 ml/min; Globulin 3.2 g/dL (2.2-4.2); Glucose 101 mg/dL (74-106); Lipase 1089 U/L (13-75); Potassium 3.4 mmol/L (3.5-5.1); Protein, Total 6.1 g/dL (6.4-8.2); Sodium Level 139 mmol/L (136-145)
--- NOTE | 2022-12-04 05:57 | PCM.PN.SRG ---
Subjective Subjective Patient seen and evaluated Gallstone pancreatitis with choledocholithiasis and benign distal common bile duct stricture treated yesterday with ERCP sphincterotomy dilatation and stone removal and temporary stent placement. The patient is currently receiving aggressive IV hydration. He remains on 2 L nasal prong oxygen subsequent to the ERCP. He complains of ongoing back pain and abdominal pain. Very dry mouth. Objective Data Objective Data Vital Signs: Vital Signs Temp Pulse Resp BP Pulse Ox O2 Del Method O2 Flow Rate 99.6 F H 73 15 138/76 H 94 Nasal Cannula 2 12/04/22 04:06 12/04/22 04:06 12/04/22 04:06 12/04/22 04:06 12/04/22 04:06 12/04/22 04:06 12/04/22 04:06 FiO2 21 12/04/22 01:30 Oxygen Flow Rate (L/min) 2 Oxygen Delivery Method Nasal Cannula Weight: 161 lb 2.526 oz Body Mass Index (BMI) 25.9 Intake & Output: Intake and Output for Last 24 Hours 12/02/22 12/03/22 12/04/22 23:59 23:59 23:59 Intake Total 2703.0 / 2703.0 781.75 / 781.75 Output Total 0 / 0 Balance 2703.0 / 2703.0 781.75 / 781.75 Lab / Micro Data 12/04/22 04:46 12/04/22 04:46 Labs: Laboratory Results - last 24 hr 12/03/22 00:45: ESR 8, C-React Prot Ext Range 2.95 12/04/22 04:46: WBC 19.0 H, RBC 4.48 L, Hgb 13.0, Hct 39.7 L, MCV 88.6, MCH 29.0, MCHC 32.7, RDW Std Deviation 43.6, RDW Coeff of Arnoldo 13.4, Plt Count 198, MPV 9.0, Immature Gran % (Auto) 0.800, Neut % (Auto) 88.3 H, Lymph % (Auto) 4.3 L, [place] % (Auto) 6.4, Eos % (Auto) 0.0, Baso % (Auto) 0.2, Absolute Neuts (auto) 16.8 H, Absolute Lymphs (auto) 0.81 L, Nucleated RBC % 0, Sodium 139, Potassium 3.4 L, Chloride 111 H, Carbon Dioxide 23.0, Anion Gap 5, BUN 10, Creatinine 0.68 L, Estim Creat Clear Calc 106.85, Est GFR (MDRD) Af Amer 154, Est GFR (MDRD) Non-Af 127, BUN/Creatinine Ratio 14.7, Glucose 101, Calcium 7.8 L, Total Bilirubin 0.80, AST 132 H, ALT 302 H, Alkaline Phosphatase 110, Total Protein 6.1 L, Albumin 2.9 L, Globulin 3.2, Albumin/Globulin Ratio 0.9, Lipase 1089 H Radiography Diagnostic Testing: Radiology Impression Gallbladder Ultrasound 12/03/22 07:00 IMPRESSION: Cholelithiasis. Distended biliary tree. RECOMMENDATIONS: Follow-up MRCP recommended to exclude common bile duct stone. Electronically Signed: Hakan Martínez MD at 8:39 EDT , Endo Retro Cholangiopancreatogram 12/03/22 16:40 IMPRESSION: Fluoroscopic assistance for ERCP. Please see operative report for additional information. Electronically Signed: Uriel Quinonez MD at 22:11 EDT , Physical Exam Resp Resp Narrative: Diminished in the bases GI GI Narrative: Mildly distended, quiet bowel sounds, diffusely mildly tender in the epigastrium Assessment & Plan Assessment/Plan (1) Gallstone pancreatitis: (2) Cholelithiasis with chronic cholecystitis: QUALIFIERS: Cholelithiasis location: gallbladder Biliary obstruction: without biliary obstruction Qualified Code(s): K80.10 - Calculus of gallbladder with chronic cholecystitis without obstruction (3) Gastroparesis: (4) Ileus: PLAN: Plan Patient current presentation to has ongoing progression of pancreatitis. Gastroparesis with retained food and ileus identified. Majority of the patient's ongoing back and abdominal complaints are secondary to the pancreatitis. I believe that there is a remaining small window of opportunity to attempt a laparoscopic cholecystectomy. Although he was tentatively scheduled for December 06 I do not believe that we can delay till that time. I am awaiting laboratory and then we will make a definitive determination. We will need to slow his IV fluids at least temporarily to avoid preoperative fluid overload. Patient is already on IV Zosyn. We will initiate incentive spirometry and hopefully nursing staff get that started immediately. We will initiate sequential venous compression devices. We will hold off on pharmacologic DVT prophylaxis secondary to the acute pancreatitis at this time. I have continue to encourage patient mobilization. He is aware of the technique, benefit, risk, alternatives. We will try to proceed today pending his clinical progress. Stefano Yao M.D., F.A.C.S.
--- NOTE | 2022-12-04 06:21 | PN.HOSP_ITS ---
Reason for Visit Reason for Visit: Diagnoses Gastroparesis (12/03/22) Ileus, unspecified (12/03/22) Calculus of gallbladder with chronic cholecystitis without obstruction (12/03/22) Biliary acute pancreatitis without necrosis or infection (12/03/22) Subjective Subjective Patient with no acute events overnight per self and per nursing report. He notes abdominal discomfort has improved and currently rating it 4 out of 10 in severity. This morning has been up in the halls moving without marked issues. Currently he is status post ERCP and discussed awaiting decision for general surgery consideration of operative intervention for cholecystectomy. Objective Data Objective Data Vital Signs: Vital Signs Temp Pulse Resp BP Pulse Ox O2 Del Method O2 Flow Rate 99.6 F H 73 15 138/76 H 94 Nasal Cannula 2 12/04/22 04:06 12/04/22 04:06 12/04/22 04:06 12/04/22 04:06 12/04/22 04:06 12/04/22 04:06 12/04/22 04:06 FiO2 21 12/04/22 01:30 Oxygen Flow Rate (L/min) 2 Oxygen Delivery Method Nasal Cannula Weight: 161 lb 2.526 oz Body Mass Index (BMI) 25.9 Intake & Output: Intake and Output for Last 24 Hours 12/02/22 12/03/22 12/04/22 23:59 23:59 23:59 Intake Total 2703.0 / 2703.0 781.75 / 781.75 Output Total 0 / 0 Balance 2703.0 / 2703.0 781.75 / 781.75 Lab / Micro Data 12/04/22 04:46 12/04/22 04:46 Labs: Laboratory Results - last 24 hr 12/03/22 00:45: ESR 8, C-React Prot Ext Range 2.95 12/04/22 04:46: WBC 19.0 H, RBC 4.48 L, Hgb 13.0, Hct 39.7 L, MCV 88.6, MCH 29.0, MCHC 32.7, RDW Std Deviation 43.6, RDW Coeff of Arnoldo 13.4, Plt Count 198, MPV 9.0, Immature Gran % (Auto) 0.800, Neut % (Auto) 88.3 H, Lymph % (Auto) 4.3 L, [place] % (Auto) 6.4, Eos % (Auto) 0.0, Baso % (Auto) 0.2, Absolute Neuts (auto) 16.8 H, Absolute Lymphs (auto) 0.81 L, Nucleated RBC % 0, Sodium 139, Potassium 3.4 L, Chloride 111 H, Carbon Dioxide 23.0, Anion Gap 5, BUN 10, Creatinine 0.68 L, Estim Creat Clear Calc 106.85, Est GFR (MDRD) Af Amer 154, Est GFR (MDRD) Non-Af 127, BUN/Creatinine Ratio 14.7, Glucose 101, Calcium 7.8 L, Total Bilirubin 0.80, AST 132 H, ALT 302 H, Alkaline Phosphatase 110, Total Protein 6.1 L, Albumin 2.9 L, Globulin 3.2, Albumin/Globulin Ratio 0.9, Lipase 1089 H Radiography Diagnostic Testing: Radiology Impression Gallbladder Ultrasound 12/03/22 07:00 IMPRESSION: Cholelithiasis. Distended biliary tree. RECOMMENDATIONS: Follow-up MRCP recommended to exclude common bile duct stone. Electronically Signed: Hakan Martínez MD at 8:39 EDT , Endo Retro Cholangiopancreatogram 12/03/22 16:40 IMPRESSION: Fluoroscopic assistance for ERCP. Please see operative report for additional information. Electronically Signed: Uriel Quinonez MD at 22:11 EDT , Physical Exam Narrative Physical Examination: General: Awake, alert, oriented x 3 and cooperative, seated upright in the PCU bed, fatigued, notes pain improved currently status post Dilaudid, currently 5 out of 10. Skin: Normal color, normal turgor, no icterus, no cyanosis. HEENT: AT/NC, EOMI, PERRLA, mild dry MM. Lungs: CTA bilaterally, moderate effort, mild decrease BL bases, no rales, ronchi or wheezing. Heart: Mildly bradycardic with regular rhythm; no gallop, rub audible. Abdomen: Soft, when distracted mild discomfort apparent right upper quadrant and epigastric region however with full manual palpation severe discomfort with voluntary guarding, no marked distention, hyperactive BS. Extremities: No cyanosis, clubbing, or edema. Neurological: Patient awake, alert, oriented as noted, cognitive function intact; pupils equally reactive to light and accommodation, cranial nerves grossly normal, moving all 4 extremities, no focal deficits, strength moderately global decrease secondary to acute presentation. Psychiatric: Affect appears fatigued, reports discomfort, no acute evidence of depressive or anxiety feelings. Assessment & Plan Assessment/Plan (1) Cholelithiasis with chronic cholecystitis: QUALIFIERS: Biliary obstruction: without biliary obstruction Cholelithiasis location: gallbladder Qualified Code(s): K80.10 - Calculus of gallbladder with chronic cholecystitis without obstruction PLAN: Plan The patient is a 57 y/o M w/ PMHx: Allergic rhintis, OA, HTN, HLD, JEFFERY on CPAP, HTN, HLD, Former tobacco use, Non-CAD related cardiomyopathy, CAD-none angiographically significant, Underlying LBBB who presents to the [facility] ED on 12/03/22 with history of excruciating epigastric discomfort with radiation across his abdomen into his back with intermittent similar discomfort over the last several years however worsened since June prompting eventual ED evaluation. #1. Acute gallstone pancreatitis with potentially acute on chronic cholecystitis with chronic cholelithiasis with Hyperbilirubinemia/Transaminitis: ED evaluation with lipase greater than 5000, T. bili 2.10, D bili 1.48, AST/ALT 616/65, alk phos 163, CT abdomen and pelvis with extensive peripancreatic inf lammatory changes, mild dilation of the common bile duct, possible small stones in the distal common bile duct, follow-up gallbladder ultrasound with cholelithiasis with a distended biliary tree. Patient was scheduled a Cholecystectomy outpatient of note, given worsening pain presented to ED for ev aluation, admitted to medical surgical floor, maintained NPO, IVFs, trending lipase and CMP, maintained on IV zosyn, GI consulted and s/p 12/03/22 ERCP with a single localized biliary stricture found in the lower third of the main bile duct likely secondary to previous stones and benign appearing with dilation performed, choledocholithiasis found with complete removal as well as biliary sphincterotomy and balloon extraction and a temporary stent placed in the common bile duct with recommendation for azithromycin 500 mg IV daily, Reglan 5 mg IV every 6 hours and hold on anticoagulation secondary to potential conversion to hemorrhagic pancreatitis, 12/04/2022 hepatic profile with T. bili 0.80, AST/LT 132/302, alk phos 110, lipase 1089, improving. General surgery following for future cholecystectomy plans. Based on most recent cardiology assessments and interventions/evaluations agree with progression to OR once felt appropriate per surgery. #2. Nonobstructive not angiographically significant CAD with known CAD related cardiomyopathy: 04/19/22 ECHO w/ normal LV systolic function, EF 55%, septal motion consistent with IVCD, trivial MVI, trivial TVI, trivial IMAN, trivial PVI, diastolic function indeterminate, last cardiac catheterization noted 12/11/2019, holding aspirin therapy given planned intervention as noted, not on statin therapy which will defer to outpatient especially given acute presentation #1, continue Coreg. #3. Hypertension: Continue home regimen including Coreg, PRN hydralazine. #4. Hyperlipidemia: Not on statin therapy, defer to outpatient especially given #1. #5. Allergic rhinitis: We will continue patient home montelukast regimen. #6. Former tobacco use: Encourage continued tobacco cessation. #7. JEFFERY: CPAP nightly. #8. DVT prophylaxis: SCDs, hold chemoprophylaxis given planned interventions as noted. #9. CODE status: Full Code. Charges/Coding Visit Charges Inpatient E&M: 98450 Subs Hosp L2
[2022-12-04] MEDS: Potassium Chloride 10mEq/100mL 10 MEQ/100 ML IV.SOLN. 100 MEQ IV BOLUS ×3 (06:37→09:41)
[2022-12-04] MEDS: 0.9% Saline Lock 10 ML Syringe IV ×3 (06:50→20:00)
[2022-12-04 08:24] LABS: Erythrocyte Sedimentation Rate 18 mm/hr (0-20)
--- NOTE | 2022-12-04 09:15 | RAD_ITS ---
STUDY: X-RAY CHEST REASON FOR EXAM: Male, 57 years old. Increased oxygen requirements. TECHNIQUE: Single frontal view of the chest. COMPARISON: Chest dated December 08, 2019. FINDINGS: Stable cardiomegaly with aortic tortuosity. Low volume inspiration with atelectasis at both bases, right greater than left. Small left pleural effusion. No active or acute cardiopulmonary disease. No abnormality of the visualized soft tissue structures of the upper abdomen. RAD/Chest 1 View (Portable) IMPRESSION: Stable cardiomegaly with atelectasis at both bases, right greater than left and small left effusion. No active or acute cardiopulmonary disease. Electronically Signed: Harinder Young MD at 9:42 EDT ,
--- NOTE | 2022-12-04 11:57 | CHAPLAIN ---
Type of Pastoral Visit _x__ Initial Visit ___ Follow-up Visit ___ On-call Visit ___ General Patient Visit ___ Spiritual Assessment ___ Family Conference ___ Bereavement ___ Rapid Response ___ Code Blue ___ Other (describe below) Pastoral Care Referral From _x__ Patient ___ Family ___ Nurse ___ Physician ___ Intelligence Operations Specialist ___ Personal Injury Law Specialist ___ Other (describe below) Sacrament/Intervention ___ Active listening ___ Anointing ___ Anabaptism ___ Bereavement ___ Communion ___ Jasmine exploration ___ ___ Life review ___ Prayer ___ Reconciliation ___ Sacrament of Sick _x__ Supportive presence ___ Wedding ___ Other (describe below) Pastoral Comments patient was resting but awoke easily to his name; pt states that this is no fun and will have to patiently get through this ; offer of presence and support; pt states that rest is his most desired need at this time; pt also states that he should probably get up and walk for awhile ; later pt is seen in hallway walking and is once again greeted and encouraged by this fixed wing pilot; offer of future support given as pt desires
--- NOTE | 2022-12-04 12:00 | EX.PCM.PN.GI ---
Subjective Subjective Patient underwent ERCP yesterday. He has some abdominal pain that he rates at a 6 out of 10. He denies any chest pain or shortness of breath. I ordered a chest x-ray this morning images showed some mild atelectasis. Plan is for cholecystectomy today. Objective Data Objective Data Vital Signs: Vital Signs Temp Pulse Resp BP Pulse Ox O2 Del Method O2 Flow Rate 99.9 F H 82 16 121/89 H 93 Nasal Cannula 2 12/04/22 16:52 12/04/22 16:52 12/04/22 16:52 12/04/22 16:52 12/04/22 16:52 12/04/22 16:52 12/04/22 16:52 FiO2 21 12/04/22 01:30 Oxygen Flow Rate (L/min) 2 Oxygen Delivery Method Nasal Cannula Weight: 161 lb 2.526 oz Body Mass Index (BMI) 25.9 Intake & Output: Intake and Output for Last 24 Hours 12/02/22 12/03/22 12/04/22 23:59 23:59 23:59 Intake Total 2703.0 / 2703.0 4211.25 / 4211.25 Output Total 0 / 0 Balance 2703.0 / 2703.0 4211.25 / 4211.25 Lab / Micro Data 12/04/22 04:46 12/04/22 04:46 Labs: Laboratory Results - last 24 hr 12/03/22 00:45: ESR 8, C-React Prot Ext Range 2.95 12/04/22 04:46: WBC 19.0 H, RBC 4.48 L, Hgb 13.0, Hct 39.7 L, MCV 88.6, MCH 29.0, MCHC 32.7, RDW Std Deviation 43.6, RDW Coeff of Arnoldo 13.4, Plt Count 198, MPV 9.0, Immature Gran % (Auto) 0.800, Neut % (Auto) 88.3 H, Lymph % (Auto) 4.3 L, Carbon % (Auto) 6.4, Eos % (Auto) 0.0, Baso % (Auto) 0.2, Absolute Neuts (auto) 16.8 H, Absolute Lymphs (auto) 0.81 L, Nucleated RBC % 0, ESR 18, Sodium 139, Potassium 3.4 L, Chloride 111 H, Carbon Dioxide 23.0, Anion Gap 5, BUN 10, Creatinine 0.68 L, Estim Creat Clear Calc 106.85, Est GFR (MDRD) Af Amer 154, Est GFR (MDRD) Non-Af 127, BUN/Creatinine Ratio 14.7, Glucose 101, Calcium 7.8 L, Total Bilirubin 0.80, AST 132 H, ALT 302 H, Alkaline Phosphatase 110, C-React Prot Ext Range 112.00 H, Total Protein 6.1 L, Albumin 2.9 L, Globulin 3.2, Albumin/Globulin Ratio 0.9, Lipase 1089 H Radiography Diagnostic Testing: Radiology Impression Endo Retro Cholangiopancreatogram 12/03/22 16:40 IMPRESSION: Fluoroscopic assistance for ERCP. Please see operative report for additional information. Electronically Signed: Uriel Quinonez MD at 22:11 EDT , Chest X-Ray 12/04/22 09:15 IMPRESSION: Stable cardiomegaly with atelectasis at both bases, right greater than left and small left effusion. No active or acute cardiopulmonary disease. Electronically Signed: Harinder Young MD at 9:42 EDT , Physical Exam Narrative Physical Examination: General: Awake, alert, oriented x 3 and cooperative, seated upright in the PCU bed, fatigued, notes pain improved currently status post Dilaudid, currently 5 out of 10. Skin: Normal color, normal turgor, no icterus, no cyanosis. HEENT: AT/NC, EOMI, PERRLA, mild dry MM. Lungs: CTA bilaterally, moderate effort, mild decrease BL bases, no rales, ronchi or wheezing. Heart: Mildly bradycardic with regular rhythm; no gallop, rub audible. Abdomen: Soft, when distracted mild discomfort apparent right upper quadrant and epigastric region however with full manual palpation severe discomfort with voluntary guarding, no marked distention, hyperactive BS. Extremities: No cyanosis, clubbing, or edema. Neurological: Patient awake, alert, oriented as noted, cognitive function intact; pupils equally reactive to light and accommodation, cranial nerves grossly normal, moving all 4 extremities, no focal deficits, strength moderately global decrease secondary to acute presentation. Psychiatric: Affect appears fatigued, reports discomfort, no acute evidence of depressive or anxiety feelings. Assessment & Plan Assessment/Plan (1) Gastroparesis: (2) Ileus: (3) Gallstone pancreatitis: PLAN: Plan 49-year-old gentleman with cholelithiasis and choledocholithiasis with obstructive jaundice secondary to choledocholithiasis and gallstone induced pancreatitis -Status post ERCP day 1 with removal of filling defects from the distal common bile duct and dilation of the distal common bile duct with stent placement. -Gastroparesis-likely secondary to paralytic ileus associated with acute pancreatitis. He has had elevated lipase's in the past so I suspect that this is acute on chronic pancreatitis secondary to gallstone induced pancreatitis. Continue IV Reglan as ordered and azithromycin as ordered -Cholelithiasis-he is scheduled to undergo cholecystectomy today -Pancreatitis-he has had a good decrease in his hematocrit and BUN which correlates with good outcome regarding severe pancreatitis. I would recommend him eating as much as tolerated after he undergoes cholecystectomy. I am okay with taking his fluid down to 200 cc an hour. Hopefully this will prevent translocation of bacteria from his gut to his pancreas. Repeat ESR and CRP and monitor white count Charges/Coding Visit Charges Inpatient E&M: 57900 Subs Hosp L3
--- NOTE | 2022-12-04 13:45 | GALL_PTH ---
PATHOLOGY RESULTS PATIENT: TRIP MURPHY LOC: [facility] U#:[id number] AGE/SX: 57/M ROOM: [facility] RE12/03/[address]: Dr. Linda Hicks MD : 1965 BED: 1 DIS: 12/08/2022 SPEC #: [id number] RECD: 12/05/22 08:30 STATUS: ANTONIA RERaymond #: [id number] MOISES: 12/04/22 13:[address]: Linda Hicks DEPT: SURGICAL PATHOLOGY RECD BY: Isamar Dias ENTERED: 12/05/22 09:32 SP TYPE: IRA PAN DR: MD Dr. Eddie Mason MD Dr. Michael Bortz, MD Dr. Rahsaan Friend, DO Tissues: Gallbladder, NOS Procedures: Surgery Specimen Level III HEADER OPERATION: Laparoscopic, cholecystectomy with OIC, umbilical hernia repair PRE-OP DIAGNOSIS: Gallstone pancreatitis, cholelithiasis with chronic choleystitis TISSUE SUBMITTED: Gallbladder MICROSCOPIC DIAGNOSIS Gallbladder, cholecystectomy: Chronic cholecystitis and cholelithiasis. SJ: 12/06/2022 MICROSCOPIC DESCRIPTION Slides are reviewed. GROSS DESCRIPTION Received is one container labeled with the patient's name and designated gallbladder. The specimen consists of a gallbladder measuring 8 x 3.0 x 2.5 cm. The external surface is smooth and glistening. Focally, it is granular, hemorrhagic and contains cautery artifact. The lumen of the gallbladder contains yellow-green mucoid bile and yellow-green calculi ranging in size from 0.1-1.6 cm in greatest dimension. The mucosa is bile-stained and without any mass lesions. The gallbladder wall averages 0.3 cm in thickness and is free of mass lesions. Orthotist sections of the gallbladder and the cystic duct at margin of resection are submitted in one cassette. / AM:cc 12/05/22 TC:3 CPT: 08961
--- NOTE | 2022-12-04 14:16 | DCINST_ITS ---
Discharge Instructions Procedure General Surgery Diet Discharge Diet: Light diet - advance as tolerated (if you have questions about your diet instructions, please talk to you doctor.) Activity Discharge Activity: May Not Drive (for 3-5 days or while taking narcotic pain medicine.) May shower in (days): 1 Lifting Restrictions: 10 pounds Dressing / Incision Call your doctor if your incision/area has: Continuous Slow Oozing, Sudden Increased Bleeding, Increased Pain/ Swelling, Increased Redness and Foul Smelling Discharge Call your doctor if you observe: Fever of 101 or Higher Suture Line Care: Avoid Pulling/Pushing and Avoid Pinching/Bending Additional Dressing/Incision Instructions:: Change or remove dressing in 4 days. Leave steri-strips in place for 1 week. Follow Up Care Please Follow Up With: Stefano Yao MD When: Call [phone] to make an appointment to be seen in about 10 days. Test Results: Test results from this visit will be discussed in further detail at your follow- up appointment, if applicable. Discharge Plan Admission Admit Date/Time: 12/03/22 04:06 Attending Provider: Linda Hicks Primary Care Provider: Eddie Martin Consulting Providers: Derik Powers; Ziggy Hunter; Clem Forde Discharge Orders/Prescriptions Prescriptions: No Action montelukast [Singulair] 10 mg tablet 10 mg PO DAILY aspirin [Adult Low Dose Aspirin] 81 mg tablet,delayed release (DR/EC) 81 mg PO DAILY carvedilol 12.5 mg tablet 12.5 mg PO BID Qty: 180 3RF Referrals / Follow Up: Eddie Martin MD [Primary Care Provider] -
--- NOTE | 2022-12-04 14:57 | RAD_ITS ---
HISTORY: PAIN, intraoperative cholangiogram. COMPARISON: Gallbladder ultrasound December 03, 2022 TECHNIQUE: Single series fluoroscopic images were saved without a radiologist present. FINDINGS: Images demonstrate progressive enhancement of the cystic duct and common bile duct with passage into duodenum. . Enteric tube projects over the upper stomach. Overlying gastrostomy at the inferior stomach. Total fluoroscopy time: 8.8 s Cumulative air kerma: 4.38 mGy RAD/Cholangiogram/ O R,Initial IMPRESSION: Fluoroscopic assistance for intraoperative cholangiogram. Please see operative report for additional information. Electronically Signed: Uriel Quinonez MD at 3:01 EDT ,
[2022-12-04] MEDS: Bupivacaine Mpf 0.5% 30 ML VIAL (16:02)
--- NOTE | 2022-12-04 16:04 | OP.PCM_ITS ---
Report of Operation Date of Procedure: 12/04/22 Pre-Operative Diagnosis: Gallstone pancreatitis, chronic cholecystitis cholelit hiasis, ileus, gastroparesis Post-Operative Diagnosis: Same plus umbilical hernia Surgery/Procedure Performed:: Laparoscopic cholecystectomy with cholangiograms and umbilical herniorrhaphy Description of Surgical Findings:: Timeout and informed consent was obtained. 57-year-old gentleman was taken to the operating placed on the table. An attempt was made to do an endotracheal the patient this was met with difficulty patient could not be intubated cricoid pressure was held the patient had to have an LMA placed and respiratory resuscitated. The patient was allowed to completely awaken and then a repeat attempt was performed. The patient received his routine 2 PM dosing of Zosyn. His abdomen was sterilely prepped and draped. 0.5% Marcaine was used as a local anesthetic. Skin sites were preanesthetized. Throughout the procedure a total of 30 cc was used. A curvilinear supraumbilical incision was created sharp dissection carried down through the subcutaneous tissue a palpable small umbilical hernia was identified the umbilical skin was dissected free holding sutures of 0 Vicryl placed varies needle inserted saline drop test performed the abdomen was insufflated with CO2 to a pressure of 10 mmHg pressure 10 mm trocar inserted no masses or trocar injuries. The patient was placed in reverse T rendelenburg right side up position. There was gross distention of both small and large bowel and stomach all consistent with ileus related to the patient's pancreatitis. Visualization was challenging. Three 5 mm trocars were placed in the epigastrium and right mid subcostal area and right lateral subcostal area the gallbladder was grasped with adhesions of omentum to the gallbladder these were bluntly and sharply dissected free there were adhesions of omentum to the liver that were sharply dissected free then blunt dissection was instituted the infundibulum where needed hemostasis was obtained with Hem-o-agustin clips finally the cystic duct and cystic artery identified and the critical view achieved. Hem-o-agustin clip was placed twice proximally and once distally on the cystic artery divided transecting it. Smaller vessels were secured with Hem-o-agustin clips prior to transection. A Hem-o-agustin clip was placed on the cystic duct incision made in the cystic duct and through a 14-gauge Angiocath cholangiogram catheter was inserted fluoroscopically controlled cholangiograms were obtained demonstrating that there was good distance from my dissection in the common bile duct and the common bile duct was patent and that there was free flow into the small bowel. Evidence of the previously placed biliary stent. The cholangiogram catheter was removed and a 10 mm Hem-o-agustin clip was placed so secured the cystic duct. The gallbladder was then tediously dissected free from the liver bed using electrocautery where needed Hem-o-agustin clip was additionally used for hemostasis. The gallbladder was released. There is no spillage. The gallbladder was placed in retrieval bag. The right upper quadrant was irrigated and aspirated free of excess fluid. Bilious type ascites was found at the i nitiation of the procedure and this was aspirated. A piece of fibrillar was placed in the liver bed hemostasis was intact the abdomen was allowed to deflate through an antiviral valve the gallbladder was exited the umbilicus slight enlargement of the fascial incision was required. The umbilical hernia was then approximated with multiple simple sutures of 0 Nurolon transversely. Then skin edges were approximated opted for Monocryl subdermal stitches. Steri-Strips Telfa OpSite dressings applied. Sponge and instrument and needle counts were reported to the surgeon to be correct. Specimens gallbladder. Drains none. Blood loss 10 cc. The patient was taken to the recovery room in satisfactory addition without apparent complication Stefano Yao M.D., F.A.C.S. Surgeon: Stefano Yao Type of Anesthesia: General and Local Anesthesiologist: Cachorro Kay
[2022-12-04] MEDS: 0.9% Normal Saline 1,000 ML 100 ML IV (18:58)
--- NOTE | 2022-12-04 19:55 | CPS ---
Pt requested not to wear AutoPAP.
[2022-12-04] MEDS: Carvedilol 12.5 MG Tablet PO (21:14)
[2022-12-04] MEDS: Docusate Sodium 100 MG Capsule PO (21:14)
[2022-12-05] MEDS: Metoclopramide 10 MG/2 ML Vial 5 MG IV ×4 (00:28→17:55)
[2022-12-05 01:53] VITALS: BP 131/67; PULSE 72; RESP 13; TEMP 36.3; O2SAT 94
[2022-12-05 05:00] VITALS: BP 127/74; PULSE 63; RESP 16; TEMP 36.3; O2SAT 93
[2022-12-05] MEDS: 0.9% Normal Saline 1,000 ML 100 ML IV (05:24)
[2022-12-05] MEDS: HYDROmorphone 0.5 MG/0.5 ML SYRINGE IV (05:24)
[2022-12-05] MEDS: 0.9% Saline Lock 10 ML Syringe IV (05:27)
[2022-12-05 05:28] LABS: Absolute Lymphocyte Count 0.64 X10^3/uL (0.83-4.51); Absolute Neutrophil Count 16.2 X10^3/uL (2.0-7.7); Basophil# 0.02 X10^3/uL; Basophil% 0.1 % (0-1); Hemoglobin 12.5 g/dL (13.0-16.5); Lymphocyte # 0.64 X10^3/ul (0.83-4.51); Lymphocyte % 3.6 % (19-41); Mean Corp Hgb Conc 32.9 g/dL (32-36); Mean Corpuscular Hgb 29.1 pg (27.0-32.0); Mean Corpuscular Volume 88.6 fL (80-94); Mean Platelet Vol. 8.9 fl (6.2-12.0); Monocyte# 0.97 X10^3/uL; Monocyte% 5.4 % (0-10); NRBC Flagged by Analyzer 0 % (0-5); Neutrophil # 16.18 X10^3/uL (2.7-7.7); Platelet Count 185 K/mm3 (150-450); RBC Distribution Width CV 13.6 % (11.6-14.6); RBC Distribution Width SD 44.3 fl (35.1-43.9); Red Blood Count 4.29 M/mm3 (4.6-6.2)
[2022-12-05 05:58] LABS: ALB/GLOB Ratio 0.8 RATIO (0.9-2.4); AST(SGOT) 71 U/L (15-37); Alanine Aminotransfer ALT/SGPT 190 U/L (16-61); Albumin, Serum 2.7 g/dL (3.2-5.0); Alkaline Phosphatase 83 U/L (45-117); Anion Gap 6 (5-15); BUN 9 mg/dL (7-18); BUN/Creat Ratio 13.7 RATIO (10-20); Chloride 108 mmol/L (98-107); Creatinine, Serum 0.66 mg/dL (0.70-1.30); EST Glomerular Filtration Rate 133 mL/min (>60); Est Glom Filt Rate - Afr Amer 160 mL/min (>60); Estimated Creatinine Clearance 110.09 ml/min; Globulin 3.4 g/dL (2.2-4.2); Glucose 126 mg/dL (74-106); Lipase 170 U/L (13-75); Potassium 3.6 mmol/L (3.5-5.1); Protein, Total 6.1 g/dL (6.4-8.2); Sodium Level 138 mmol/L (136-145)
--- NOTE | 2022-12-05 06:11 | PCM.PN.SRG ---
Subjective Subjective Patient is feeling generally improved Burping but no stool or flatus Objective Data Objective Data Vital Signs: Vital Signs Temp Pulse Resp BP Pulse Ox O2 Del Method O2 Flow Rate 97.4 F L 63 16 127/74 H 93 Nasal Cannula 1 12/05/22 05:00 12/05/22 05:00 12/05/22 05:00 12/05/22 05:00 12/05/22 05:00 12/05/22 05:00 12/05/22 05:00 FiO2 21 12/04/22 01:30 Oxygen Flow Rate (L/min) 1 Oxygen Delivery Method Nasal Cannula Weight: 161 lb 2.526 oz Body Mass Index (BMI) 25.9 Intake & Output: Intake and Output for Last 24 Hours 12/03/22 12/04/22 12/05/22 23:59 23:59 23:59 Intake Total 2703.0 / 2703.0 4211.25 / 4211.25 550 / 550 Output Total 0 / 0 Balance 2703.0 / 2703.0 4211.25 / 4211.25 550 / 550 Lab / Micro Data 12/05/22 05:10 12/05/22 05:10 Labs: Laboratory Results - last 24 hr 12/04/22 04:46: ESR 18, C-React Prot Ext Range 112.00 H 12/05/22 05:10: WBC 18.0 H, RBC 4.29 L, Hgb 12.5 L, Hct 38.0 L, MCV 88.6, MCH 29.1, MCHC 32.9, RDW Std Deviation 44.3 H, RDW Coeff of Arnoldo 13.6, Plt Count 185, MPV 8.9, Immature Gran % (Auto) 0.900, Neut % (Auto) 90.0 H, Lymph % (Auto) 3.6 L, [place] % (Auto) 5.4, Eos % (Auto) 0.0, Baso % (Auto) 0.1, Absolute Neuts (auto) 16.2 H, Absolute Lymphs (auto) 0.64 L, Nucleated RBC % 0, Sodium 138, Potassium 3.6, Chloride 108 H, Carbon Dioxide 24.0, Anion Gap 6, BUN 9, Creatinine 0.66 L, Estim Creat Clear Calc 110.09, Est GFR (MDRD) Af Amer 160, Est GFR (MDRD) Non-Af 133, BUN/Creatinine Ratio 13.7, Glucose 126 H, Calcium 8.0 L, Total Bilirubin 0.80, AST 71 H, ALT 190 H, Alkaline Phosphatase 83, Total Protein 6.1 L, Albumin 2.7 L, Globulin 3.4, Albumin/Globulin Ratio 0.8 L, Lipase 170 H Radiography Diagnostic Testing: Radiology Impression Chest X-Ray 12/04/22 09:15 IMPRESSION: Stable cardiomegaly with atelectasis at both bases, right greater than left and small left effusion. No active or acute cardiopulmonary disease. Electronically Signed: Harinder Young MD at 9:42 EDT , Cholangiogram 12/04/22 14:57 IMPRESSION: Fluoroscopic assistance for intraoperative cholangiogram. Please see operative report for additional information. Electronically Signed: Uriel Quinonez MD at 3:01 EDT , Physical Exam Resp Resp Narrative: Slightly diminished bibasilar GI GI Narrative: Soft, distended, dressings clean and dry, few bowel sounds, not focally tender Extremity Extremity Narrative: No significant lower extremity edema, SCUDs in place Assessment & Plan Assessment/Plan (1) Ileus: (2) Gastroparesis: (3) Gallstone pancreatitis: PLAN: Laboratories pending. Patient is making slow progress. Ileus related to the gallstone pancreatitis is the primary current issue. I have encouraged him to avoid narcotics. Encouraged him to ambulate and can utilize a heating pad as needed for comfort. I will moderate his IV fluids as he is voiding well. He is currently be allowed sips of clear liquids. Once his ileus improves we will be able to advance diet. I have also ceased his IV Zosyn therapy. Stefano Yao M.D., F.A.C.S.
--- NOTE | 2022-12-05 06:23 | PN.HOSP_ITS ---
Reason for Visit Reason for Visit: Diagnoses Gastroparesis (12/03/22) Ileus, unspecified (12/03/22) Calculus of gallbladder with chronic cholecystitis without obstruction (12/03/22) Biliary acute pancreatitis without necrosis or infection (12/03/22) Subjective Subjective Patient overnight with no acute complaints and notes that he does feel improved in the day prior with less abdominal discomfort however he does feel mildly distended and has not had any marked flatus or stool. He has been walking the halls without issue. Patient denies fevers, chills, nausea, emesis, abdominal pain, chest pain or dyspnea. Objective Data Objective Data Vital Signs: Vital Signs Temp Pulse Resp BP Pulse Ox O2 Del Method O2 Flow Rate 97.4 F L 63 16 127/74 H 93 Nasal Cannula 1 12/05/22 05:00 12/05/22 05:00 12/05/22 05:00 12/05/22 05:00 12/05/22 05:00 12/05/22 05:00 12/05/22 05:00 FiO2 21 12/04/22 01:30 Oxygen Flow Rate (L/min) 1 Oxygen Delivery Method Nasal Cannula Weight: 161 lb 2.526 oz Body Mass Index (BMI) 25.9 Intake & Output: Intake and Output for Last 24 Hours 12/03/22 12/04/22 12/05/22 23:59 23:59 23:59 Intake Total 2703.0 / 2703.0 4211.25 / 4211.25 550 / 550 Output Total 0 / 0 Balance 2703.0 / 2703.0 4211.25 / 4211.25 550 / 550 Lab / Micro Data 12/05/22 05:10 12/05/22 05:10 Labs: Laboratory Results - last 24 hr 12/04/22 04:46: ESR 18, C-React Prot Ext Range 112.00 H 12/05/22 05:10: WBC 18.0 H, RBC 4.29 L, Hgb 12.5 L, Hct 38.0 L, MCV 88.6, MCH 29.1, MCHC 32.9, RDW Std Deviation 44.3 H, RDW Coeff of Arnoldo 13.6, Plt Count 185, MPV 8.9, Immature Gran % (Auto) 0.900, Neut % (Auto) 90.0 H, Lymph % (Auto) 3.6 L, [place] % (Auto) 5.4, Eos % (Auto) 0.0, Baso % (Auto) 0.1, Absolute Neuts (auto) 16.2 H, Absolute Lymphs (auto) 0.64 L, Nucleated RBC % 0, Sodium 138, Potassium 3.6, Chloride 108 H, Carbon Dioxide 24.0, Anion Gap 6, BUN 9, Creatinine 0.66 L, Estim Creat Clear Calc 110.09, Est GFR (MDRD) Af Amer 160, Est GFR (MDRD) Non-Af 133, BUN/Creatinine Ratio 13.7, Glucose 126 H, Calcium 8.0 L, Total Bilirubin 0.80, AST 71 H, ALT 190 H, Alkaline Phosphatase 83, Total Protein 6.1 L, Albumin 2.7 L, Globulin 3.4, Albumin/Globulin Ratio 0.8 L, Lipase 170 H Radiography Diagnostic Testing: Radiology Impression Chest X-Ray 12/04/22 09:15 IMPRESSION: Stable cardiomegaly with atelectasis at both bases, right greater than left and small left effusion. No active or acute cardiopulmonary disease. Electronically Signed: Harinder Young MD at 9:42 EDT , Cholangiogram 12/04/22 14:57 IMPRESSION: Fluoroscopic assistance for intraoperative cholangiogram. Please see operative report for additional information. Electronically Signed: Uriel Quinonez MD at 3:01 EDT , Physical Exam Narrative Physical Examination: General: Awake, alert, oriented x 3 and cooperative, laying in the PCU bed, improved appearance, notes minimal abdominal pain at this time. Skin: Normal color, normal turgor, no icterus, no cyanosis. HEENT: AT/NC, EOMI, PERRLA, MMM. Lungs: CTA bilaterally, moderate effort, mild decrease BL bases, no rales, ronchi or wheezing. Heart: Mildly bradycardic with regular rhythm; no gallop, rub audible. Abdomen: Soft, expected mild discomfort to palpation given recent OR, no rebound or guarding, mild to moderate distention with tympany noted, hypoactive bowel sounds currently. Extremities: No cyanosis, clubbing, or edema. Neurological: Patient awake, alert, oriented as noted, cognitive function intact; pupils equally reactive to light and accommodation, cranial nerves grossly normal, moving all 4 extremities, no focal deficits, strength mildly to moderately global decrease secondary to acute presentation. Psychiatric: Affect appears improved, no acute evidence of depressive or anxiety feelings. Assessment & Plan Assessment/Plan (1) Cholelithiasis with chronic cholecystitis: QUALIFIERS: Biliary obstruction: without biliary obstruction Cholelithiasis location: gallbladder Qualified Code(s): K80.10 - Calculus of gallbladder with chronic cholecystitis without obstruction PLAN: Plan The patient is a 57 y/o M w/ PMHx: Allergic rhintis, OA, HTN, HLD, JEFFERY on CPAP, HTN, HLD, Former tobacco use, Non-CAD related cardiomyopathy, CAD-none angiographically significant, Underlying LBBB who presents to the [facility] ED on 12/03/22 with history of excruciating epigastric discomfort with radiation across his abdomen into his back with intermittent similar discomfort over the last several years however worsened since June prompting eventual ED evaluation. #1. Acute gallstone pancreatitis with potentially acute on chronic cholecystitis with chronic cholelithiasis with Hyperbilirubinemia/Transaminitis complicated by postoperative ileus: ED evaluation with lipase greater than 5000, T. bili 2.10, D bili 1.48, AST/ALT 616/65, alk phos 163, CT abdomen and pelvis with extensive peripancreatic inflammatory changes, mild dilation of the common bile duct, possible small stones in the distal common bile duct, follow-up gallbladder ultrasound with cholelithiasis with a distended biliary tree. 12/03/22 Dr. Forde ERCP with a single localized biliary stricture found in the lower third of the main bile duct likely secondary to previous stones and benign appearing with dilation performed, choledocholithiasis found with complete removal as well as biliary sphincterotomy and balloon extraction and a temporary stent placed in the common bile duct with recommendation for azithromycin 500 mg IV daily, Reglan 5 mg IV every 6 hours and hold on anticoagulation secondary to potential conversion to hemorrhagic pancreatitis. 12/04/22 Dr. Yao Laparoscopic cholecystectomy with cholangiograms and umbilical herniorrhaphy. 12/05/22 abdominal distention, decreased flatus, no BM with post-operative ileus, encouraged ambulation/activity, decreased oral intake per surgery to sips/chips until improved with planned advancement following. 12/05/22 hepatic profile with T. bili 0.80, AST/LT 71/190, alk phos 83, lipase 170, improving. #2. Nonobstructive not angiographically significant CAD with known CAD related cardiomyopathy: 04/19/22 ECHO w/ normal LV systolic function, EF 55%, septal motion consistent with IVCD, trivial MVI, trivial TVI, trivial IMAN, trivial PVI, diastolic function indeterminate, last cardiac catheterization noted 12/11/2019, will continue coreg, add back aspirin potentially 12/06/[address] Yao, but will also clarify with Dr. Forde. #3. Hypertension: Continue home regimen including Coreg, PRN hydralazine. #4. Hyperlipidemia: Not on statin therapy, defer to outpatient especially given #1. #5. Allergic rhinitis: We will continue patient home montelukast regimen. #6. Former tobacco use: Encourage continued tobacco cessation. #7. JEFFERY: CPAP nightly; however, here as been preferentially using HS oxygen instead. #8. DVT prophylaxis: SCDs, hold chemoprophylaxis given planned interventions as noted. #9. CODE status: Full Code. Charges/Coding Visit Charges Inpatient E&M: 14829 Subs Hosp L2
--- NOTE | 2022-12-05 07:45 | PN.GI_ITS ---
Subjective Subjective Patient underwent cholecystectomy yesterday. His only issue is a mild sore throat from intubation. He also has not had any bowel movement since admission. Objective Data Objective Data Vital Signs: Vital Signs Temp Pulse Resp BP Pulse Ox O2 Del Method O2 Flow Rate 97.4 F L 63 16 127/74 H 93 Nasal Cannula 1 12/05/22 05:00 12/05/22 05:00 12/05/22 05:00 12/05/22 05:00 12/05/22 05:00 12/05/22 05:00 12/05/22 05:00 FiO2 21 12/04/22 01:30 Oxygen Flow Rate (L/min) 1 Oxygen Delivery Method Nasal Cannula Weight: 161 lb 2.526 oz Body Mass Index (BMI) 25.9 Intake & Output: Intake and Output for Last 24 Hours 12/03/22 12/04/22 12/05/22 23:59 23:59 23:59 Intake Total 2703.0 / 2703.0 4211.25 / 4211.25 936.92 / 936.92 Output Total 0 / 0 Balance 2703.0 / 2703.0 4211.25 / 4211.25 936.92 / 936.92 Lab / Micro Data 12/05/22 05:10 12/05/22 05:10 Labs: Laboratory Results - last 24 hr 12/04/22 04:46: ESR 18, C-React Prot Ext Range 112.00 H 12/05/22 05:10: WBC 18.0 H, RBC 4.29 L, Hgb 12.5 L, Hct 38.0 L, MCV 88.6, MCH 29.1, MCHC 32.9, RDW Std Deviation 44.3 H, RDW Coeff of Arnoldo 13.6, Plt Count 185, MPV 8.9, Immature Gran % (Auto) 0.900, Neut % (Auto) 90.0 H, Lymph % (Auto) 3.6 L, [place] % (Auto) 5.4, Eos % (Auto) 0.0, Baso % (Auto) 0.1, Absolute Neuts (auto) 16.2 H, Absolute Lymphs (auto) 0.64 L, Nucleated RBC % 0, Sodium 138, Potassium 3.6, Chloride 108 H, Carbon Dioxide 24.0, Anion Gap 6, BUN 9, Creatinine 0.66 L, Estim Creat Clear Calc 110.09, Est GFR (MDRD) Af Amer 160, Est GFR (MDRD) Non-Af 133, BUN/Creatinine Ratio 13.7, Glucose 126 H, Calcium 8.0 L, Total Bilirubin 0.80, AST 71 H, ALT 190 H, Alkaline Phosphatase 83, Total Protein 6.1 L, Albumin 2.7 L, Globulin 3.4, Albumin/Globulin Ratio 0.8 L, Lipase 170 H Radiography Diagnostic Testing: Radiology Impression Chest X-Ray 12/04/22 09:15 IMPRESSION: Stable cardiomegaly with atelectasis at both bases, right greater than left and small left effusion. No active or acute cardiopulmonary disease. Electronically Signed: Harinder Young MD at 9:42 EDT , Cholangiogram 12/04/22 14:57 IMPRESSION: Fluoroscopic assistance for intraoperative cholangiogram. Please see operative report for additional information. Electronically Signed: Uriel Quinonez MD at 3:01 EDT , Physical Exam Narrative Physical Examination: General: Awake, alert, oriented x 3 and cooperative, seated upright in the PCU bed, fatigued, notes pain improved currently status post Dilaudid, currently 5 out of 10. Skin: Normal color, normal turgor, no icterus, no cyanosis. HEENT: AT/NC, EOMI, PERRLA, mild dry MM. Lungs: CTA bilaterally, moderate effort, mild decrease BL bases, no rales, ronchi or wheezing. Heart: Mildly bradycardic with regular rhythm; no gallop, rub audible. Abdomen: Soft, when distracted mild discomfort apparent right upper quadrant and epigastric region however with full manual palpation severe discomfort with voluntary guarding, no marked distention, hyperactive BS. Extremities: No cyanosis, clubbing, or edema. Neurological: Patient awake, alert, oriented as noted, cognitive function intact; pupils equally reactive to light and accommodation, cranial nerves grossly normal, moving all 4 extremities, no focal deficits, strength moderately global decrease secondary to acute presentation. Psychiatric: Affect appears fatigued, reports discomfort, no acute evidence of depressive or anxiety feelings. Assessment & Plan Assessment/Plan (1) Gastroparesis: (2) Ileus: (3) Gallstone pancreatitis: PLAN: Plan 49-year-old gentleman with cholelithiasis and choledocholithiasis with obstructive jaundice secondary to choledocholithiasis and gallstone induced pancreatitis -Status post ERCP day 1 with removal of filling defects from the distal common bile duct and dilation of the distal common bile duct with stent placement. -Gastroparesis-likely secondary to paralytic ileus associated with acute pancreatitis. He has had elevated lipase's in the past so I suspect that this is acute on chronic pancreatitis secondary to gallstone induced pancreatitis. Continue IV Reglan as ordered and azithromycin as ordered -Cholelithiasis-status postcholecystectomy postop day 1. -Pancreatitis-he has had a good decrease in his hematocrit and BUN which correlates with good outcome regarding severe pancreatitis. I would recommend him eating as much as tolerated after he undergoes cholecystectomy. Maintenance IV fluids at 100 cc an hour. Encourage p.o. Aggressive bowel regimen. Repeat ESR and CRP and monitor white count Charges/Coding Visit Charges Inpatient E&M: 66660 Subs Hosp L3
[2022-12-05 08:00] VITALS: BP 133/77; PULSE 66; RESP 18; TEMP 36.7; O2SAT 94
[2022-12-05 10:00] VITALS: O2SAT 92
[2022-12-05] MEDS: Docusate Sodium 100 MG Capsule PO ×2 (10:31→20:53)
[2022-12-05] MEDS: Montelukast 10 MG Tablet PO (10:31)
[2022-12-05] MEDS: Carvedilol 12.5 MG Tablet PO ×2 (10:31→20:53)
[2022-12-05] MEDS: Acetaminophen 325 MG Tablet PO ×3 (10:35→23:04)
--- NOTE | 2022-12-05 15:05 | CASEMGMT ---
Social Work SW met with pt to discuss advance directives. Pt states he has completed a living will and a health care POA naming his Dulce Myers. Pt aware documents are not on file at [facility] and requested they be brought in for scanning into EMR. Pt understanding. CLAUDE Garcia
[2022-12-05] MEDS: Ondansetron 4 MG/2 ML Vial IV (17:55)
[2022-12-05] MEDS: Ketorolac 15 MG/ML Vial IV (20:45)
[2022-12-05 20:57] VITALS: BP 155/88; PULSE 66; RESP 18; TEMP 36.7; O2SAT 98
[2022-12-06] MEDS: Metoclopramide 10 MG/2 ML Vial 5 MG IV ×4 (00:13→18:16)
[2022-12-06] MEDS: 0.9% Normal Saline 1,000 ML 50 ML IV (00:14)
[2022-12-06 03:00] VITALS: BP 151/83; PULSE 72; RESP 16; TEMP 36.8; O2SAT 95
[2022-12-06] MEDS: Acetaminophen 325 MG Tablet PO ×2 (05:07→23:30)
--- NOTE | 2022-12-06 06:22 | CT_ITS ---
INDICATION: acute pancreatitis -- oral contrast and IV contrast EXAMINATION: CT ABDOMEN WITH IV CONTRAST CT Abdomen W/ Contrast Injection TECHNIQUE: Helically acquired images were obtained of the abdomen pre and post IV contrast. A radiation dose optimization technique was used for this scan. IV Contrast dosage and agent: 100 cc of Isovue-300 Oral contrast: None. RADIATION DOSAGE (If Supplied By Facility): CTDIvol = ( 14.80 ) mGy, DLP = ( 1336.32 ) mGycm COMPARISON: Prior study dated: December 03, 2022 FINDINGS: LOWER CHEST: There are bilateral pleural effusions associated with dependent consolidation within the lower lobes. There is a granuloma within the right lower lobe. There is a small pericardial effusion. LIVER: The liver is diffusely low in attenuation cysts or fatty infiltration. There is minimal pneumobilia likely secondary to recent biliary stent placement. GALLBLADDER AND BILIARY TREE: The gallbladder is within normal limits. There is a new stent within the common bile duct. No intra- or extrahepatic biliary ductal dilation. PANCREAS: There is peripancreatic fluid that is less pronounced than the prior examination. SPLEEN: There are splenic granulomas. ADRENAL GLANDS: No nodules. KIDNEYS AND URETERS: Normal renal size and position. No hydronephrosis. PERITONEUM: There is free fluid that has decreased in volume since the prior examination. BOWEL: No stomach or bowel distension. No focal inflammatory change. There is nonvisualization of the appendix. LYMPH NODES: No enlarged mesenteric or retroperitoneal lymph nodes. VESSELS: Aorta is non-dilated. There are peripheral calcifications consistent with atherosclerosis. ABDOMINAL WALL: There is subcutaneous edema. BONES: There are degenerative changes of the visualized thoracic and lumbar spine. CT/Abdomen WITH IV Contrast IMPRESSION: Partial resolution of acute pancreatitis. Small bilateral pleural effusions associated with bilateral lower lobe dependent consolidation. Fatty infiltration of the liver. Atherosclerosis. Electronically Signed: Moira Hammond MD at 8:51 EDT ,
--- NOTE | 2022-12-06 06:22 | PCM.PN.HOSP ---
Reason for Visit Reason for Visit: Diagnoses Gastroparesis (12/03/22) Ileus, unspecified (12/03/22) Calculus of gallbladder with chronic cholecystitis without obstruction (12/03/22) Biliary acute pancreatitis without necrosis or infection (12/03/22) Subjective Subjective Patient overnight with increased abdominal sensation of distention, still only minimal flatus despite walking aggressively and increased discomfort, cramping, currently improved he notes but had been 10 out of 10 earlier and more sharp stabbing with cramping. Discussed plan of care which included CT abdomen ordered by general surgery and awaiting these results. Patient denies fevers, chills, nausea, emesis, chest pain or dyspnea. Objective Data Objective Data Vital Signs: Vital Signs Temp Pulse Resp BP Pulse Ox O2 Del Method O2 Flow Rate 98.2 F 72 16 151/83 H 95 Room Air 1 12/06/22 03:00 12/06/22 03:00 12/06/22 03:00 12/06/22 03:00 12/06/22 03:00 12/06/22 05:40 12/05/22 05:00 FiO2 21 12/04/22 01:30 Oxygen Flow Rate (L/min) 1 Oxygen Delivery Method Room Air Weight: 161 lb 2.526 oz Body Mass Index (BMI) 25.9 Intake & Output: Intake and Output for Last 24 Hours 12/04/22 12/05/22 12/06/22 23:59 23:59 23:59 Intake Total 4211.25 / 4211.25 1241.92 / 1241.92 878.33 / 878.33 Balance 4211.25 / 4211.25 1241.92 / 1241.92 878.33 / 878.33 Lab / Micro Data 12/06/22 06:15 12/06/22 06:15 Physical Exam Narrative Physical Examination: General: Awake, alert, oriented x 3 and cooperative, laying in the PCU bed, more fatigued than day prior, notes abdominal pain currently improved but still distended and decreased flatus see notes. Skin: Normal color, normal turgor, no icterus, no cyanosis except recent operative intervention with abdominal incisional dressings in place with no drainage. HEENT: AT/NC, EOMI, PERRLA, mildly dry MM. Lungs: CTA bilaterally, moderate effort, mild decrease BL bases, no rales, ronchi or wheezing. Heart: Mildly bradycardic with regular rhythm; no gallop, rub audible. Abdomen: Soft, tenderness to palpation, increased to moderate distention from day prior, hypoactive bowel sounds. Extremities: No cyanosis, clubbing, or edema. Neurological: Patient awake, alert, oriented as noted, cognitive function intact; pupils equally reactive to light and accommodation, cranial nerves grossly normal, moving all 4 extremities, no focal deficits, strength mildly to moderately global decrease secondary to acute presentation. Psychiatric: Affect appears fatigued, no acute evidence of depressive or anxiety feelings. Assessment & Plan Assessment/Plan (1) Cholelithiasis with chronic cholecystitis: QUALIFIERS: Biliary obstruction: without biliary obstruction Cholelithiasis location: gallbladder Qualified Code(s): K80.10 - Calculus of gallbladder with chronic cholecystitis without obstruction PLAN: Plan The patient is a 57 y/o M w/ PMHx: Allergic rhintis, OA, HTN, HLD, JEFFERY on CPAP, HTN, HLD, Former tobacco use, Non-CAD related cardiomyopathy, CAD-none angiographically significant, Underlying LBBB who presents to the [facility] ED on 12/03/22 with history of excruciating epigastric discomfort with radiation across his abdomen into his back with intermittent similar discomfort over the last several years however worsened since June prompting eventual ED evaluation. #1. Acute gallstone pancreatitis with potentially acute on chronic cholecystitis with chronic cholelithiasis with Hyperbilirubinemia/Transaminitis complicated by postoperative ileus: ED evaluation with lipase greater than 5000, T. bili 2.10, D bili 1.48, AST/ALT 616/65, alk phos 163, CT abdomen and pelvis with extensive peripancreatic inflammatory changes, mild dilation of the common bile duct, possible small stones in the distal common bile duct, follow-up gallbladder ultrasound with cholelithiasis with a distended biliary tree. 12/03/22 Dr. Forde ERCP with a single localized biliary stricture found in the lower third of the main bile duct likely secondary to previous stones and benign appearing with dilation performed, choledocholithiasis found with complete removal as well as biliary sphincterotomy and balloon extraction and a temporary stent placed in the common bile duct with recommendation for azithromycin 500 mg IV daily, Reglan 5 mg IV every 6 hours and hold on anticoagulation secondary to potential conversion to hemorrhagic pancreatitis. 12/04/22 Dr. Yao Laparoscopic cholecystectomy with cholangiograms and umbilical herniorrhaphy. 12/05/22 abdominal distention, decreased flatus, no BM with post-operative ileus, encouraged ambulation/activity, decreased oral intake per surgery to sips/chips until improved with planned advancement following. 12/05/22 hepatic profile with T. bili 0.80, AST/ALT 71/190, alk phos 83, lipase 170, improving-->12/06/22 hepatic profile with T. bili 1.0, AST/ALT 45/151, alk phos 81, lipase 36. 12/06/22 transitioned to IV PPI, added back IV dilaudid, pending repeat CT A/P and low judicious IVFs given ongoing pain, distention although does admit to onset flatus. #2. Nonobstructive not angiographically significant CAD with known CAD related cardiomyopathy: 04/19/22 ECHO w/ normal LV systolic function, EF 55%, septal motion consistent with IVCD, trivial MVI, trivial TVI, trivial IMAN, trivial PVI, diastolic function indeterminate, last cardiac catheterization noted 12/11/2019, will continue coreg, add back aspirin potentially 12/06/[address] Yao, but will also clarify with Dr. Forde. #3. Hypertension: Continue home regimen including Coreg, PRN hydralazine. #4. Hyperlipidemia: Not on statin therapy, defer to outpatient especially given #1. #5. Allergic rhinitis: We will continue patient home montelukast regimen. #6. Former tobacco use: Encourage continued tobacco cessation. #7. JEFFERY: CPAP nightly; however, here as been preferentially using HS oxygen instead. #8. DVT prophylaxis: SCDs, hold chemoprophylaxis given planned interventions as noted. #9. CODE status: Full Code. Charges/Coding Visit Charges Inpatient E&M: 38453 Subs Hosp L2
--- NOTE | 2022-12-06 06:27 | PCM.PN.SRG ---
Subjective Subjective Patient has had a miserable night. Complaining of increasing severity of back pain. Complaining of generalized abdominal pain. Although he is passing some flatus this is not providing him relief. He additionally complains of heartburn and indigestion. Denies fever. Although previously he thought he was chilling last night that was only 1 episode. Now he just simply feels globally warm though no abnormal temperatures being recorded. No stool. No nausea no vomiting. Objective Data Objective Data Vital Signs: Vital Signs Temp Pulse Resp BP Pulse Ox O2 Del Method O2 Flow Rate 98.2 F 72 16 151/83 H 95 Room Air 1 12/06/22 03:00 12/06/22 03:00 12/06/22 03:00 12/06/22 03:00 12/06/22 03:00 12/06/22 05:40 12/05/22 05:00 FiO2 21 12/04/22 01:30 Oxygen Flow Rate (L/min) 1 Oxygen Delivery Method Room Air Weight: 161 lb 2.526 oz Body Mass Index (BMI) 25.9 Intake & Output: Intake and Output for Last 24 Hours 12/04/22 12/05/22 12/06/22 23:59 23:59 23:59 Intake Total 4211.25 / 4211.25 1241.92 / 1241.92 878.33 / 878.33 Balance 4211.25 / 4211.25 1241.92 / 1241.92 878.33 / 878.33 Lab / Micro Data 12/05/22 05:10 12/05/22 05:10 Physical Exam Const Constitutional Narrative: Patient clearly is miserable, moving around trying to find a comfortable position. Resp Resp Narrative: Diminished in the bases GI GI Narrative: Distended, diffusely tender, bowel sounds present with a few tinkles and rushes, laparoscopic incisions clean and dry Assessment & Plan Assessment/Plan (1) Ileus: (2) Gastroparesis: (3) Gallstone pancreatitis: PLAN: Plan Although there is some suggestion of the patient's ileus is starting to resolve with some flatus he clearly is absolutely miserable. We will reinitiate IV Dilaudid for patient comfort. I have concerns that his pancreatitis may be evolving. Need to assess for possible pseudocyst formation or pancreatic necrosis. Laboratory is pending. We will reinitiate IV fluids from 50 to 100 cc an hour. We will initiate proton pump inhibitor to assist with gastroparesis gastric stasis and indigestion and reflux We will reinitiate IV Dilaudid although patient is aware that this will complicate the resolution of his ileus he is clearly very fatigued with the amount of discomfort he is currently having We will check a abdominal contrasted CT scan particular looking for advancement of his pancreatitis. Ongoing pancreatitis related ileus is complicating his progress Stefano Yao M.D., F.A.C.S.
[2022-12-06 06:55] LABS: Absolute Lymphocyte Count 0.69 X10^3/uL (0.83-4.51); Absolute Neutrophil Count 15.9 X10^3/uL (2.0-7.7); Basophil# 0.03 X10^3/uL; Basophil% 0.2 % (0-1); Eosinophil# 0.01 X10^3/uL; Eosinophils% 0.1 % (0-5); Hematocrit 39.2 % (40-54); Hemoglobin 12.7 g/dL (13.0-16.5); Lymphocyte # 0.69 X10^3/ul (0.83-4.51); Lymphocyte % 3.8 % (19-41); Mean Corp Hgb Conc 32.4 g/dL (32-36); Mean Corpuscular Hgb 28.8 pg (27.0-32.0); Mean Corpuscular Volume 88.9 fL (80-94); Monocyte# 1.27 X10^3/uL; NRBC Flagged by Analyzer 0 % (0-5); Neutrophil # 15.88 X10^3/uL (2.7-7.7); Neutrophil % 87.3 % (47-70); Platelet Count 263 K/mm3 (150-450); RBC Distribution Width CV 13.3 % (11.6-14.6); RBC Distribution Width SD 43.5 fl (35.1-43.9); Red Blood Count 4.41 M/mm3 (4.6-6.2); White Blood Count 18.2 K/mm3 (4.4-11.0)
[2022-12-06] MEDS: HYDROmorphone 0.5 MG/0.5 ML SYRINGE IV ×5 (06:59→21:13)
[2022-12-06 07:42] VITALS: O2SAT 91
[2022-12-06 07:54] LABS: ALB/GLOB Ratio 0.8 RATIO (0.9-2.4); AST(SGOT) 45 U/L (15-37); Alanine Aminotransfer ALT/SGPT 151 U/L (16-61); Albumin, Serum 2.9 g/dL (3.2-5.0); Alkaline Phosphatase 81 U/L (45-117); Anion Gap 8 (5-15); BUN 12 mg/dL (7-18); BUN/Creat Ratio 19.1 RATIO (10-20); Calcium,Total 8.3 mg/dL (8.5-10.1); Chloride 105 mmol/L (98-107); Creatinine, Serum 0.63 mg/dL (0.70-1.30); EST Glomerular Filtration Rate 139 mL/min (>60); Est Glom Filt Rate - Afr Amer 169 mL/min (>60); Estimated Creatinine Clearance 115.34 ml/min; Globulin 3.8 g/dL (2.2-4.2); Glucose 95 mg/dL (74-106); Lipase 36 U/L (13-75); Potassium 3.1 mmol/L (3.5-5.1); Protein, Total 6.7 g/dL (6.4-8.2); Sodium Level 139 mmol/L (136-145)
[2022-12-06] MEDS: 0.9% Saline Lock 10 ML Syringe IV ×5 (08:41→16:50)
[2022-12-06 08:51] VITALS: BP 153/82; PULSE 68; RESP 16; TEMP 36.2; O2SAT 94
[2022-12-06] MEDS: Carvedilol 12.5 MG Tablet PO ×2 (09:18→21:13)
[2022-12-06] MEDS: Aspirin 81 MG TAB.CHEW PO (09:18)
[2022-12-06] MEDS: Docusate Sodium 100 MG Capsule PO ×2 (09:18→21:13)
[2022-12-06] MEDS: Montelukast 10 MG Tablet PO (09:18)
[2022-12-06] MEDS: Potassium Chloride 10mEq/100mL 10 MEQ/100 ML IV.SOLN. 100 MEQ IV BOLUS ×3 (11:42→15:23)
[2022-12-06] MEDS: 0.9% Normal Saline 1,000 ML 100 ML IV (15:22)
[2022-12-06 15:30] VITALS: BP 155/80; PULSE 63; RESP 16; TEMP 36.8; O2SAT 95
--- NOTE | 2022-12-06 17:13 | EX.PCM.PN.GI ---
Subjective Subjective Patient notes that his abdominal pain is a 4 out of 10 at this time. Earlier today was a 10 out of 10. He still has not had a significant bowel movement. He has been passing some gas. He denies any chest pain or breath. CT scan abdomen pelvis was ordered but did not show any signs of acute pathology. His IV fluids were increased. His oxygen requirements have not increased. Objective Data Objective Data Vital Signs: Vital Signs Temp Pulse Resp BP Pulse Ox O2 Del Method O2 Flow Rate 98.3 F 63 16 155/80 H 95 Room Air 1 12/06/22 15:30 12/06/22 15:30 12/06/22 15:30 12/06/22 15:30 12/06/22 15:30 12/06/22 15:30 12/05/22 05:00 FiO2 21 12/04/22 01:30 Oxygen Flow Rate (L/min) 1 Oxygen Delivery Method Room Air Weight: 161 lb 2.526 oz Body Mass Index (BMI) 25.9 Intake & Output: Intake and Output for Last 24 Hours 12/04/22 12/05/22 12/06/22 23:59 23:59 23:59 Intake Total 4211.25 / 4211.25 1241.92 / 1241.92 2543.33 / 2543.33 Balance 4211.25 / 4211.25 1241.92 / 1241.92 2543.33 / 2543.33 Lab / Micro Data 12/06/22 06:15 12/06/22 06:15 Labs: Laboratory Results - last 24 hr 12/06/22 06:15: WBC 18.2 H, RBC 4.41 L, Hgb 12.7 L, Hct 39.2 L, MCV 88.9, MCH 28.8, MCHC 32.4, RDW Std Deviation 43.5, RDW Coeff of Arnoldo 13.3, Plt Count 263, MPV 9.0, Immature Gran % (Auto) 1.600 H, Neut % (Auto) 87.3 H, Lymph % (Auto) 3.8 L, [place] % (Auto) 7.0, Eos % (Auto) 0.1, Baso % (Auto) 0.2, Absolute Neuts (auto) 15.9 H, Absolute Lymphs (auto) 0.69 L, Nucleated RBC % 0, Sodium 139, Potassium 3.1 L, Chloride 105, Carbon Dioxide 26.0, Anion Gap 8, BUN 12, Creatinine 0.63 L, Estim Creat Clear Calc 115.34, Est GFR (MDRD) Af Amer 169, Est GFR (MDRD) Non-Af 139, BUN/Creatinine Ratio 19.1, Glucose 95, Calcium 8.3 L, Total Bilirubin 1.00, AST 45 H, ALT 151 H, Alkaline Phosphatase 81, Total Protein 6.7, Albumin 2.9 L, Globulin 3.8, Albumin/Globulin Ratio 0.8 L, Lipase 36 Radiography Diagnostic Testing: Radiology Impression Abdomen CT 12/06/22 06:22 IMPRESSION: Partial resolution of acute pancreatitis. Small bilateral pleural effusions associated with bilateral lower lobe dependent consolidation. Fatty infiltration of the liver. Atherosclerosis. Electronically Signed: Moira Hammond MD at 8:51 EDT , ADDENDUM: 12/06/22 0928 IMPRESSION: undefined Physical Exam Narrative Physical Examination: General: Awake, alert, oriented x 3 and cooperative, laying in the PCU bed, Skin: Normal color, normal turgor, no icterus, no cyanosis except recent operative intervention with abdominal incisional dressings in place with no drainage. HEENT: AT/NC, EOMI, PERRLA, mildly dry MM. Lungs: CTA bilaterally, moderate effort, mild decrease BL bases, no rales, ronchi or wheezing. Heart: Mildly bradycardic with regular rhythm; no gallop, rub audible. Abdomen: Soft, tenderness to palpation, increased to moderate distention from day prior, hypoactive bowel sounds. Extremities: No cyanosis, clubbing, or edema. Neurological: Patient awake, alert, oriented as noted, cognitive function intact; pupils equally reactive to light and accommodation, cranial nerves grossly normal, moving all 4 extremities, no focal deficits, strength mildly to moderately global decrease secondary to acute presentation. Psychiatric: Affect appears fatigued, no acute evidence of depressive or anxiety feelings. Const Constitutional Narrative: Patient clearly is miserable, moving around trying to find a comfortable position. Resp Resp Narrative: Diminished in the bases GI GI Narrative: Distended, diffusely tender, bowel sounds present with a few tinkles and rushes, laparoscopic incisions clean and dry Assessment & Plan Assessment/Plan (1) Gastroparesis: (2) Ileus: (3) Gallstone pancreatitis: PLAN: Plan 49-year-old gentleman with cholelithiasis and choledocholithiasis with obstructive jaundice secondary to choledocholithiasis and gallstone induced pancreatitis -Status post ERCP day 1 with removal of filling defects from the distal common bile duct and dilation of the distal common bile duct with stent placement. -Gastroparesis-likely secondary to paralytic ileus associated with acute pancreatitis. He has had elevated lipase's in the past so I suspect that this is acute on chronic pancreatitis secondary to gallstone induced pancreatitis. Continue IV Reglan as ordered and azithromycin as ordered -Cholelithiasis-status postcholecystectomy postop day 1. -Pancreatitis-he has had a good decrease in his hematocrit and BUN which correlates with good outcome regarding severe pancreatitis. I would recommend him eating as much as tolerated after he undergoes cholecystectomy. Maintenance IV fluids at 100 cc an hour. Encourage p.o. Aggressive bowel regimen. Repeat ESR and CRP and monitor white count 12/06-status post ERCP postop day 3. Status post cholecystectomy postop day 2. All his numbers are trending in the right direction. CT scan abdomen pelvis shows improving pancreatitis. He I suspect that he just has an ileus. We will continue azithromycin to hopefully increase his migratory motor complex. Would recommend to continue scheduled Reglan. Recommend to add MiraLAX and stool softener and if he does not have a significant bowel movement to incorporate enema this until he has 3 good bowel movements. Charges/Coding Visit Charges Inpatient E&M: 74681 Subs Hosp L3
[2022-12-06 21:07] VITALS: BP 170/91; PULSE 74; RESP 16; TEMP 37.1; O2SAT 94
[2022-12-06] MEDS: Ondansetron 4 MG/2 ML Vial IV (21:13)
[2022-12-07] MEDS: 0.9% Normal Saline 1,000 ML 100 ML IV (00:42)
[2022-12-07] MEDS: Metoclopramide 10 MG/2 ML Vial 5 MG IV ×5 (00:43→23:26)
[2022-12-07] MEDS: 0.9% Saline Lock 10 ML Syringe IV ×4 (00:49→23:22)
[2022-12-07 03:07] VITALS: BP 160/91; PULSE 70; RESP 16; TEMP 37; O2SAT 96
[2022-12-07] MEDS: HYDROmorphone 0.5 MG/0.5 ML SYRINGE IV ×2 (04:06→23:21)
--- NOTE | 2022-12-07 06:06 | PN.HOSP_ITS ---
Reason for Visit Reason for Visit: Diagnoses Gastroparesis (12/03/22) Ileus, unspecified (12/03/22) Calculus of gallbladder with chronic cholecystitis without obstruction (12/03/22) Biliary acute pancreatitis without necrosis or infection (12/03/22) Subjective Subjective With no acute events overnight per self and per nursing report. Patient is passing flatus but still no BM and still mild abdominal distention. Currently he denies any nausea and notes pain is well controlled and has not required any narcotic therapy. Patient denies fevers, chills, nausea, emesis, abdominal pain, chest pain or dyspnea. Objective Data Objective Data Vital Signs: Vital Signs Temp Pulse Resp BP Pulse Ox O2 Del Method O2 Flow Rate 98.6 F 70 16 160/91 H 96 Room Air 1 12/07/22 03:07 12/07/22 03:07 12/07/22 03:07 12/07/22 03:07 12/07/22 03:07 12/07/22 05:29 12/05/22 05:00 FiO2 21 12/04/22 01:30 Oxygen Flow Rate (L/min) 1 Oxygen Delivery Method Room Air Weight: 161 lb 2.526 oz Body Mass Index (BMI) 25.9 Intake & Output: Intake and Output for Last 24 Hours 12/05/22 12/06/22 12/07/22 23:59 23:59 23:59 Intake Total 1241.92 / 1241.92 2543.33 / 2543.33 1000 / 1000 Balance 1241.92 / 1241.92 2543.33 / 2543.33 1000 / 1000 Lab / Micro Data 12/07/22 05:47 12/07/22 05:47 Labs: Laboratory Results - last 24 hr 12/06/22 06:15: WBC 18.2 H, RBC 4.41 L, Hgb 12.7 L, Hct 39.2 L, MCV 88.9, MCH 28.8, MCHC 32.4, RDW Std Deviation 43.5, RDW Coeff of Arnoldo 13.3, Plt Count 263, MPV 9.0, Immature Gran % (Auto) 1.600 H, Neut % (Auto) 87.3 H, Lymph % (Auto) 3.8 L, [place] % (Auto) 7.0, Eos % (Auto) 0.1, Baso % (Auto) 0.2, Absolute Neuts (auto) 15.9 H, Absolute Lymphs (auto) 0.69 L, Nucleated RBC % 0, Sodium 139, Potassium 3.1 L, Chloride 105, Carbon Dioxide 26.0, Anion Gap 8, BUN 12, Creatinine 0.63 L, Estim Creat Clear Calc 115.34, Est GFR (MDRD) Af Amer 169, Est GFR (MDRD) Non-Af 139, BUN/Creatinine Ratio 19.1, Glucose 95, Calcium 8.3 L, Total Bilirubin 1.00, AST 45 H, ALT 151 H, Alkaline Phosphatase 81, Total Protein 6.7, Albumin 2.9 L, Globulin 3.8, Albumin/Globulin Ratio 0.8 L, Lipase 36 Radiography Diagnostic Testing: Radiology Impression Abdomen CT 12/06/22 06:22 IMPRESSION: Partial resolution of acute pancreatitis. Small bilateral pleural effusions associated with bilateral lower lobe dependent consolidation. Fatty infiltration of the liver. Atherosclerosis. Electronically Signed: Moira Hammond MD at 8:51 EDT , ADDENDUM: 12/06/22 0928 IMPRESSION: undefined Physical Exam Narrative Physical Examination: General: Awake, alert, oriented x 3 and cooperative, seated upright in the PCU bedside chair, notes feeling improved the day prior, mildly fatigued. Skin: Normal color, normal turgor, no icterus, no cyanosis except recent operative intervention with abdominal incisional dressings in place with no drainage. HEENT: AT/NC, EOMI, PERRLA, MMM. Lungs: CTA bilaterally, moderate effort, mild decrease BL bases, no rales, ronchi or wheezing. Heart: Mildly bradycardic with regular rhythm; no gallop, rub audible. Abdomen: Soft, expected mild tenderness palpation but no rebound or guarding, still mild distention, mildly increased bowel sounds from day prior. Extremities: No cyanosis, clubbing, or edema. Neurological: Patient awake, alert, oriented as noted, cognitive function intact; pupils equally reactive to light and accommodation, cranial nerves grossly normal, moving all 4 extremities, no focal deficits, strength improving, mildly to moderately global decrease secondary to acute presentation. Psychiatric: Affect appears fatigued, no acute evidence of depressive or anxiety feelings. Assessment & Plan Assessment/Plan (1) Cholelithiasis with chronic cholecystitis: QUALIFIERS: Biliary obstruction: without biliary obstruction Cholelithiasis location: gallbladder Qualified Code(s): K80.10 - Calculus of gallbladder with chronic cholecystitis without obstruction PLAN: Plan The patient is a 57 y/o M w/ PMHx: Allergic rhintis, OA, HTN, HLD, JEFFERY on CPAP, HTN, HLD, Former tobacco use, Non-CAD related cardiomyopathy, CAD-none angiographically significant, Underlying LBBB who presents to the [facility] ED on 12/03/22 with history of excruciating epigastric discomfort with radiation across his abdomen into his back with intermittent similar discomfort over the last several years however worsened since June prompting eventual ED evaluation. #1. Acute gallstone pancreatitis with potentially acute on chronic cholecystitis with chronic cholelithiasis with Hyperbilirubinemia/Transaminitis complicated by postoperative ileus: ED evaluation with lipase greater than 5000, T. bili 2.10, D bili 1.48, AST/ALT 616/65, alk phos 163, CT abdomen and pelvis with extensive peripancreatic inflammatory changes, mild dilation of the common bile duct, possible small stones in the distal common bile duct, follow-up gallbladder ultrasound with cholelithiasis with a distended biliary tree. 12/03/22 Dr. Forde ERCP with a single localized biliary stricture found in the lower third of the main bile duct likely secondary to previous stones and benign appearing with dilation performed, choledocholithiasis found with complete removal as well as biliary sphincterotomy and balloon extraction and a temporary stent placed in the common bile duct with recommendation for azithromycin 500 mg IV daily, Reglan 5 mg IV every 6 hours and hold on anticoagulation secondary to potential conversion to hemorrhagic pancreatitis. 12/04/22 Dr. Yao Laparoscopic cholecystectomy with cholangiograms and umbilical herniorrhaphy. 12/05/22 abdominal distention, decreased flatus, no BM with post-operative ileus, encouraged ambulation/activity, decreased oral intake per surgery to sips/chips until improved with planned advancement following. 12/05/22 hepatic profile with T. bili 0.80, AST/ALT 71/190, alk phos 83, lipase 170, improving-->12/06/22 hepatic profile with T. bili 1.0, AST/ALT 45/151, alk phos 81, lipase 36. CT A/P w/ partial resolution of acute pancreatitis, small bilateral pleural effusions with bilateral lower lobe dependent consolidation, fatty infiltration of the liver, atherosclerosis, surgically absent gallbladder with fluid within the gallbladder fossa which is to be expected postsurgically. 12/07/2022 CBC with WBC 16.9 with left shift but improved since prior. 12/07/22 initiated on clears given improvement per Surgery. #2. Hypokalemia: Admission K+ 3.2, will request magnesium level, initiated on scheduled supplementation per general surgery, repeat level in AM. #3. Nonobstructive not angiographically significant CAD with known CAD related cardiomyopathy: 04/19/22 ECHO w/ normal LV systolic function, EF 55%, septal motion consistent with IVCD, trivial MVI, trivial TVI, trivial IMAN, trivial PVI, diastolic function indeterminate, last cardiac catheterization noted 12/11/2019, continued home coreg, added back aspirin potentially 12/06/[address] Yao/Dr. Forde. #4. Hypertension: Continue home regimen including Coreg, PRN hydralazine. #5. Hyperlipidemia: Not on statin therapy, defer to outpatient especially given #1. #6. Allergic rhinitis: We will continue patient home montelukast regimen. #7. Former tobacco use: Encourage continued tobacco cessation. #8. JEFFERY: CPAP nightly; however, here as been preferentially using HS oxygen instead. #9. DVT prophylaxis: SCDs, hold chemoprophylaxis given planned interventions as noted. #9. CODE status: Full Code. Charges/Coding Visit Charges Inpatient E&M: 10524 Subs Hosp L2
--- NOTE | 2022-12-07 06:09 | PCM.PN.SRG ---
Subjective Subjective Patient states that last night he suddenly feels like he turned the switch and is feeling better. He continues to have flatus although no stool. Pain is better managed and he was able to do overnight once again with Tylenol. He hopes not to have to resume the Dilaudid. He has been ambulating frequently. Objective Data Objective Data Vital Signs: Vital Signs Temp Pulse Resp BP Pulse Ox O2 Del Method O2 Flow Rate 98.6 F 70 16 160/91 H 96 Room Air 1 12/07/22 03:07 12/07/22 03:07 12/07/22 03:07 12/07/22 03:07 12/07/22 03:07 12/07/22 05:29 12/05/22 05:00 FiO2 21 12/04/22 01:30 Oxygen Flow Rate (L/min) 1 Oxygen Delivery Method Room Air Weight: 161 lb 2.526 oz Body Mass Index (BMI) 25.9 Intake & Output: Intake and Output for Last 24 Hours 12/05/22 12/06/22 12/07/22 23:59 23:59 23:59 Intake Total 1241.92 / 1241.92 2543.33 / 2543.33 1000 / 1000 Balance 1241.92 / 1241.92 2543.33 / 2543.33 1000 / 1000 Lab / Micro Data 12/06/22 06:15 12/06/22 06:15 Labs: Laboratory Results - last 24 hr 12/06/22 06:15: WBC 18.2 H, RBC 4.41 L, Hgb 12.7 L, Hct 39.2 L, MCV 88.9, MCH 28.8, MCHC 32.4, RDW Std Deviation 43.5, RDW Coeff of Arnoldo 13.3, Plt Count 263, MPV 9.0, Immature Gran % (Auto) 1.600 H, Neut % (Auto) 87.3 H, Lymph % (Auto) 3.8 L, [place] % (Auto) 7.0, Eos % (Auto) 0.1, Baso % (Auto) 0.2, Absolute Neuts (auto) 15.9 H, Absolute Lymphs (auto) 0.69 L, Nucleated RBC % 0, Sodium 139, Potassium 3.1 L, Chloride 105, Carbon Dioxide 26.0, Anion Gap 8, BUN 12, Creatinine 0.63 L, Estim Creat Clear Calc 115.34, Est GFR (MDRD) Af Amer 169, Est GFR (MDRD) Non-Af 139, BUN/Creatinine Ratio 19.1, Glucose 95, Calcium 8.3 L, Total Bilirubin 1.00, AST 45 H, ALT 151 H, Alkaline Phosphatase 81, Total Protein 6.7, Albumin 2.9 L, Globulin 3.8, Albumin/Globulin Ratio 0.8 L, Lipase 36 Radiography Diagnostic Testing: Radiology Impression Abdomen CT 12/06/22 06:22 IMPRESSION: Partial resolution of acute pancreatitis. Small bilateral pleural effusions associated with bilateral lower lobe dependent consolidation. Fatty infiltration of the liver. Atherosclerosis. Electronically Signed: Moira Hammond MD at 8:51 EDT , ADDENDUM: 12/06/22 0928 IMPRESSION: undefined Physical Exam Narrative Patient all generally appears to be much more comfortable and much more optimistic about his progress Resp normal respiratory effort and clear to auscultation bilaterally GI GI Narrative: Softly distended, bowel sounds infrequent, dressings dry, less tender overall Assessment & Plan Assessment/Plan (1) Ileus: (2) Gastroparesis: (3) Gallstone pancreatitis: PLAN: Plan Patient progress and clinical findings suggest that his pancreatitis/ileus are slowly resolving. I will initiate clear liquids and stop the IV fluids. Convert to oral pantoprazole The patient will continue to mobilize and ambulate. I will assist with third space fluid removal solution to a single low-dose Lasix. Laboratories pending. Patient has had mild hypokalemia which was replaced yesterday. We will recheck today. He has had leukocytosis and that will be rechecked today as well. No current antibiotic therapy.
[2022-12-07 06:21] LABS: Absolute Lymphocyte Count 0.93 X10^3/uL (0.83-4.51); Absolute Neutrophil Count 14.3 X10^3/uL (2.0-7.7); Basophil# 0.03 X10^3/uL; Basophil% 0.2 % (0-1); Eosinophil# 0.06 X10^3/uL; Eosinophils% 0.4 % (0-5); Hematocrit 35.7 % (40-54); Hemoglobin 11.8 g/dL (13.0-16.5); Lymphocyte # 0.93 X10^3/ul (0.83-4.51); Lymphocyte % 5.5 % (19-41); Mean Corp Hgb Conc 33.1 g/dL (32-36); Mean Corpuscular Hgb 29.1 pg (27.0-32.0); Mean Corpuscular Volume 88.1 fL (80-94); Mean Platelet Vol. 8.8 fl (6.2-12.0); Monocyte# 1.49 X10^3/uL; Monocyte% 8.8 % (0-10); NRBC Flagged by Analyzer 0 % (0-5); Neutrophil # 14.28 X10^3/uL (2.7-7.7); Neutrophil % 84.6 % (47-70); Platelet Count 237 K/mm3 (150-450); RBC Distribution Width CV 13.4 % (11.6-14.6); RBC Distribution Width SD 43.7 fl (35.1-43.9); Red Blood Count 4.05 M/mm3 (4.6-6.2); White Blood Count 16.9 K/mm3 (4.4-11.0)
[2022-12-07] MEDS: Acetaminophen 325 MG Tablet PO ×2 (06:27→16:53)
[2022-12-07] MEDS: Furosemide 20 MG/2 ML VIAL 10 MG IV (06:27)
[2022-12-07 06:51] LABS: ALB/GLOB Ratio 0.7 RATIO (0.9-2.4); AST(SGOT) 23 U/L (15-37); Alanine Aminotransfer ALT/SGPT 96 U/L (16-61); Albumin, Serum 2.5 g/dL (3.2-5.0); Alkaline Phosphatase 68 U/L (45-117); Anion Gap 10 (5-15); BUN 9 mg/dL (7-18); BUN/Creat Ratio 18.6 RATIO (10-20); Chloride 106 mmol/L (98-107); Creatinine, Serum 0.48 mg/dL (0.70-1.30); EST Glomerular Filtration Rate 188 mL/min (>60); Est Glom Filt Rate - Afr Amer 228 mL/min (>60); Estimated Creatinine Clearance 151.38 ml/min; Globulin 3.6 g/dL (2.2-4.2); Glucose 96 mg/dL (74-106); Lipase 22 U/L (13-75); Potassium 3.2 mmol/L (3.5-5.1); Protein, Total 6.1 g/dL (6.4-8.2); Sodium Level 139 mmol/L (136-145)
[2022-12-07 08:04] LABS: Magnesium 2.1 mg/dL (1.6-2.6)
[2022-12-07 08:18] VITALS: O2SAT 96
[2022-12-07] MEDS: Potassium Chloride Oral Tablet 20 MEQ PO ×2 (08:47→16:52)
[2022-12-07] MEDS: Montelukast 10 MG Tablet PO (08:47)
[2022-12-07] MEDS: Pantoprazole Sodium 40 MG Tablet PO (08:47)
[2022-12-07] MEDS: Carvedilol 12.5 MG Tablet PO ×2 (08:47→21:57)
[2022-12-07] MEDS: Docusate Sodium 100 MG Capsule PO ×2 (08:47→21:57)
[2022-12-07] MEDS: Aspirin 81 MG TAB.CHEW PO (08:47)
[2022-12-07 09:00] VITALS: BP 150/92; PULSE 73; RESP 18; TEMP 37.2; O2SAT 94
[2022-12-07 15:00] VITALS: BP 151/86; PULSE 67; RESP 18; TEMP 36.9; O2SAT 100
--- NOTE | 2022-12-07 16:06 | PCM.PN.SRG ---
Subjective Subjective Patient feels that he is making progress. He had a reasonable amount of flatus this morning although during the afternoon it is slowed down. He has not had a bowel movement. He has some mild nausea with taking the clear liquids but no emesis. He has back and abdominal pain remained fairly constant but he has not required narcotics. He probably will pursue some acetaminophen here later today. He is not overly hungry. Objective Data Objective Data Vital Signs: Vital Signs Temp Pulse Resp BP Pulse Ox O2 Del Method O2 Flow Rate 98.9 F 73 18 150/92 H 94 Room Air 1 12/07/22 09:00 12/07/22 09:00 12/07/22 09:00 12/07/22 09:00 12/07/22 09:00 12/07/22 13:47 12/05/22 05:00 FiO2 21 12/04/22 01:30 Oxygen Flow Rate (L/min) 1 Oxygen Delivery Method Room Air Weight: 161 lb 2.526 oz Body Mass Index (BMI) 25.9 Intake & Output: Intake and Output for Last 24 Hours 12/05/22 12/06/22 12/07/22 23:59 23:59 23:59 Intake Total 1241.92 / 1241.92 2543.33 / 2543.33 2218.33 / 2218.33 Balance 1241.92 / 1241.92 2543.33 / 2543.33 2218.33 / 2218.33 Lab / Micro Data 12/07/22 05:47 12/07/22 05:47 Labs: Laboratory Results - last 24 hr 12/07/22 05:47: WBC 16.9 H, RBC 4.05 L, Hgb 11.8 L, Hct 35.7 L, MCV 88.1, MCH 29.1, MCHC 33.1, RDW Std Deviation 43.7, RDW Coeff of Arnoldo 13.4, Plt Count 237, MPV 8.8, Immature Gran % (Auto) 0.500, Neut % (Auto) 84.6 H, Lymph % (Auto) 5.5 L, [place] % (Auto) 8.8, Eos % (Auto) 0.4, Baso % (Auto) 0.2, Absolute Neuts (auto) 14.3 H, Absolute Lymphs (auto) 0.93, Nucleated RBC % 0, Sodium 139, Potassium 3.2 L, Chloride 106, Carbon Dioxide 23.0, Anion Gap 10, BUN 9, Creatinine 0.48 L, Estim Creat Clear Calc 151.38, Est GFR (MDRD) Af Amer 228, Est GFR (MDRD) Non-Af 188, BUN/Creatinine Ratio 18.6, Glucose 96, Calcium 8.0 L, Magnesium 2.1, Total Bilirubin 0.80, AST 23, ALT 96 H, Alkaline Phosphatase 68, Total Protein 6.1 L, Albumin 2.5 L, Globulin 3.6, Albumin/Globulin Ratio 0.7 L, Lipase 22 Physical Exam GI GI Narrative: Abdomen remains as earlier today distended though not focally tender. Assessment & Plan Assessment/Plan (1) Ileus: (2) Gastroparesis: PLAN: Plan Very slowly resolving ileus. I will hold at clear liquids tonight. I will treat the patient with a Dulcolax suppository tonight to see if that offers any benefit. He is doing a very good job of walking the halls. He enjoys having the IV out. He is voiding well today and feels that that is back close to normal. He has had an opportunity to ask and have questions answered. Dr. Hicks will cover for the weekend.
[2022-12-07] MEDS: Bisacodyl 10 MG Suppository RC (16:53)
--- NOTE | 2022-12-07 18:48 | PN.GI_ITS ---
Subjective Subjective Patient had small bowel movement with some gas. Appetite is very poor. Denies any nausea or vomiting. Objective Data Objective Data Vital Signs: Vital Signs Temp Pulse Resp BP Pulse Ox O2 Del Method O2 Flow Rate 98.5 F 67 18 151/86 H 100 Room Air 1 12/07/22 15:00 12/07/22 15:00 12/07/22 15:00 12/07/22 15:00 12/07/22 15:00 12/07/22 15:00 12/05/22 05:00 FiO2 21 12/04/22 01:30 Oxygen Flow Rate (L/min) 1 Oxygen Delivery Method Room Air Weight: 161 lb 2.526 oz Body Mass Index (BMI) 25.9 Intake & Output: Intake and Output for Last 24 Hours 12/05/22 12/06/22 12/07/22 23:59 23:59 23:59 Intake Total 1241.92 / 1241.92 2543.33 / 2543.33 2698.33 / 2698.33 Balance 1241.92 / 1241.92 2543.33 / 2543.33 2698.33 / 2698.33 Lab / Micro Data 12/07/22 05:47 12/07/22 05:47 Labs: Laboratory Results - last 24 hr 12/07/22 05:47: WBC 16.9 H, RBC 4.05 L, Hgb 11.8 L, Hct 35.7 L, MCV 88.1, MCH 29.1, MCHC 33.1, RDW Std Deviation 43.7, RDW Coeff of Arnoldo 13.4, Plt Count 237, MPV 8.8, Immature Gran % (Auto) 0.500, Neut % (Auto) 84.6 H, Lymph % (Auto) 5.5 L, [place] % (Auto) 8.8, Eos % (Auto) 0.4, Baso % (Auto) 0.2, Absolute Neuts (auto) 14.3 H, Absolute Lymphs (auto) 0.93, Nucleated RBC % 0, Sodium 139, Potassium 3.2 L, Chloride 106, Carbon Dioxide 23.0, Anion Gap 10, BUN 9, Creatinine 0.48 L , Estim Creat Clear Calc 151.38, Est GFR (MDRD) Af Amer 228, Est GFR (MDRD) Non- Af 188, BUN/Creatinine Ratio 18.6, Glucose 96, Calcium 8.0 L, Magnesium 2.1, Total Bilirubin 0.80, AST 23, ALT 96 H, Alkaline Phosphatase 68, Total Protein 6.1 L, Albumin 2.5 L, Globulin 3.6, Albumin/Globulin Ratio 0.7 L, Lipase 22 Physical Exam Narrative Physical Examination: General: Awake, alert, oriented x 3 and cooperative, laying in the PCU bed, Skin: Normal color, normal turgor, no icterus, no cyanosis except recent operat tasneem intervention with abdominal incisional dressings in place with no drainage. HEENT: AT/NC, EOMI, PERRLA, mildly dry MM. Lungs: CTA bilaterally, moderate effort, mild decrease BL bases, no rales, ro nchi or wheezing. Heart: Mildly bradycardic with regular rhythm; no gallop, rub audible. Abdomen: Soft, tenderness to palpation, increased to moderate distention from day prior, hypoactive bowel sounds. Extremities: No cyanosis, clubbing, or edema. Neurological: Patient awake, alert, oriented as noted, cognitive function intact; pupils equally reactive to light and accommodation, cranial nerves grossly normal, moving all 4 extremities, no focal deficits, strength mildly to moderately global decrease secondary to acute presentation. Psychiatric: Affect appears fatigued, no acute evidence of depressive or anxiety feelings. Const Constitutional Narrative: Patient clearly is miserable, moving around trying to find a comfortable position. Resp Resp Narrative: Diminished in the bases GI GI Narrative: Distended, diffusely tender, bowel sounds present with a few tinkles and rushes, laparoscopic incisions clean and dry Assessment & Plan Assessment/Plan (1) Gastroparesis: (2) Ileus: (3) Gallstone pancreatitis: PLAN: Plan 49-year-old gentleman with cholelithiasis and choledocholithiasis with obstructive jaundice secondary to choledocholithiasis and gallstone induced pancreatitis -Status post ERCP day 1 with removal of filling defects from the distal common bile duct and dilation of the distal common bile duct with stent placement. -Gastroparesis-likely secondary to paralytic ileus associated with acute pancreatitis. He has had elevated lipase's in the past so I suspect that this is acute on chronic pancreatitis secondary to gallstone induced pancreatitis. Continue IV Reglan as ordered and azithromycin as ordered -Cholelithiasis-status postcholecystectomy postop day 1. -Pancreatitis-he has had a good decrease in his hematocrit and BUN which correla alison with good outcome regarding severe pancreatitis. I would recommend him eating as much as tolerated after he undergoes cholecystectomy. Maintenance IV fluids at 100 cc an hour. Encourage p.o. Aggressive bowel regimen. Repeat ESR and CRP and monitor white count 12/06-status post ERCP postop day 3. Status post cholecystectomy postop day 2. All his numbers are trending in the right direction. CT scan abdomen pelvis shows improving pancreatitis. He I suspect that he just has an ileus. We will continue azithromycin to hopefully increase his migratory motor complex. Would recommend to continue scheduled Reglan. Recommend to add MiraLAX and stool softener and if he does not have a significant bowel movement to incorporate enema this until he has 3 good bowel movements. -12/07-status post ERCP postop day 4. Status post lap cholecystectomy day 3. All numbers are trending in the right direction. He is feeling a lot better. He is less bloated. He continues to walk the halls to improve his GI motility. Continue Reglan, MiraLAX and stool softener. Hopefully if he has a good bowel movement he will be able to be DC'd tomorrow. Charges/Coding Visit Charges Inpatient E&M: 85154 Subs Hosp L3
[2022-12-07 20:19] VITALS: BP 142/83; PULSE 68; RESP 16; TEMP 36.6; O2SAT 94
[2022-12-07 20:35] VITALS: O2SAT 94
[2022-12-08] MEDS: Acetaminophen 325 MG Tablet PO ×2 (02:06→09:21)
[2022-12-08] MEDS: 0.9% Saline Lock 10 ML Syringe IV ×4 (02:07→12:21)
[2022-12-08 05:46] VITALS: BP 157/87; PULSE 68; RESP 16; TEMP 36.8; O2SAT 94
--- NOTE | 2022-12-08 05:57 | PCM.PN.HOSP ---
Reason for Visit Reason for Visit: Diagnoses Gastroparesis (12/03/22) Ileus, unspecified (12/03/22) Calculus of gallbladder with chronic cholecystitis without obstruction (12/03/22) Biliary acute pancreatitis without necrosis or infection (12/03/22) Subjective Subjective Patient overnight with no acute events per self and per nursing report. Patient did have continued flatus and fortunately did have bowel movements. His diet has been advanced and he is tolerating this with clearance for discharge to home per discussion with general surgery. Patient denies fevers, chills, nausea, emesis, recurrent or worsened abdominal pain, chest pain or dyspnea. Objective Data Objective Data Vital Signs: Vital Signs Temp Pulse Resp BP Pulse Ox O2 Del Method O2 Flow Rate 98.2 F 68 16 157/87 H 94 Room Air 1 12/08/22 05:46 12/08/22 05:46 12/08/22 05:46 12/08/22 05:46 12/08/22 05:46 12/08/22 05:54 12/05/22 05:00 FiO2 21 12/04/22 01:30 Oxygen Flow Rate (L/min) 1 Oxygen Delivery Method Room Air Weight: 161 lb 2.526 oz Body Mass Index (BMI) 25.9 Intake & Output: Intake and Output for Last 24 Hours 12/06/22 12/07/22 12/08/22 23:59 23:59 23:59 Intake Total 2543.33 / 2543.33 2698.33 / 3148.33 700 / 700 Balance 2543.33 / 2543.33 2698.33 / 3148.33 700 / 700 Lab / Micro Data 12/08/22 06:05 12/08/22 06:05 Labs: Laboratory Results - last 24 hr 12/07/22 05:47: WBC 16.9 H, RBC 4.05 L, Hgb 11.8 L, Hct 35.7 L, MCV 88.1, MCH 29.1, MCHC 33.1, RDW Std Deviation 43.7, RDW Coeff of Arnoldo 13.4, Plt Count 237, MPV 8.8, Immature Gran % (Auto) 0.500, Neut % (Auto) 84.6 H, Lymph % (Auto) 5.5 L, Winn % (Auto) 8.8, Eos % (Auto) 0.4, Baso % (Auto) 0.2, Absolute Neuts (auto) 14.3 H, Absolute Lymphs (auto) 0.93, Nucleated RBC % 0, Sodium 139, Potassium 3.2 L, Chloride 106, Carbon Dioxide 23.0, Anion Gap 10, BUN 9, Creatinine 0.48 L, Estim Creat Clear Calc 151.38, Est GFR (MDRD) Af Amer 228, Est GFR (MDRD) Non-Af 188, BUN/Creatinine Ratio 18.6, Glucose 96, Calcium 8.0 L, Magnesium 2.1, Total Bilirubin 0.80, AST 23, ALT 96 H, Alkaline Phosphatase 68, Total Protein 6.1 L, Albumin 2.5 L, Globulin 3.6, Albumin/Globulin Ratio 0.7 L, Lipase 22 Physical Exam Narrative Physical Examination: General: Awake, alert, oriented x 3 and cooperative, seated upright in the PCU bedside chair, eating a full lunch, notes abdominal discomfort/distention has resolved and he did have bowel movement as well as continued flatus. Skin: Normal color, normal turgor, no icterus, no cyanosis except recent operative intervention with abdominal incisional dressings in place with no drainage. HEENT: AT/NC, EOMI, PERRLA, MMM. Lungs: CTA bilaterally, moderate effort, mild decrease BL bases, no rales, ronchi or wheezing. Heart: Mildly bradycardic with regular rhythm; no gallop, rub audible. Abdomen: Soft, expected mild discomfort with recent surgery and incisions, no rebound or guarding, no marked tympany, bowel sounds have improved, no marked distention. Extremities: No cyanosis, clubbing, or edema. Neurological: Patient awake, alert, oriented as noted, cognitive function intact; pupils equally reactive to light and accommodation, cranial nerves grossly normal, moving all 4 extremities, no focal deficits, strength improving, mildly globally decreased but continues to improve. Psychiatric: Affect appears normal, no acute evidence of depressive or anxiety feelings. Assessment & Plan Assessment/Plan (1) Gallstone pancreatitis: (2) S/P laparoscopic cholecystectomy: PLAN: Plan The patient is a 57 y/o M w/ PMHx: Allergic rhintis, OA, HTN, HLD, JEFFERY on CPAP, HTN, HLD, Former tobacco use, Non-CAD related cardiomyopathy, CAD-none angiographically significant, Underlying LBBB who presents to the [facility] ED on 12/03/22 with history of excruciating epigastric discomfort with radiation across his abdomen into his back with intermittent similar discomfort over the last several years however worsened since June prompting eventual ED evaluation. #1. Acute gallstone pancreatitis with potentially acute on chronic cholecystitis with chronic cholelithiasis with Hyperbilirubinemia/Transaminitis complicated by postoperative ileus: ED evaluation with lipase greater than 5000, T. bili 2.10, D bili 1.48, AST/ALT 616/65, alk phos 163, CT abdomen and pelvis with extensive peripancreatic inflammatory changes, mild dilation of the common bile duct, possible small stones in the distal common bile duct, follow-up gallbladder ultrasound with cholelithiasis with a distended biliary tree. 12/03/22 Dr. Forde ERCP with a single localized biliary stricture found in the lower third of the main bile duct likely secondary to previous stones and benign appearing with dilation performed, choledocholithiasis found with complete removal as well as biliary sphincterotomy and balloon extraction and a temporary stent placed in the common bile duct with recommendation for azithromycin 500 mg IV daily, Reglan 5 mg IV every 6 hours and hold on anticoagulation secondary to potential conversion to hemorrhagic pancreatitis. 12/04/22 Dr. Yao Laparoscopic cholecystectomy with cholangiograms and umbilical herniorrhaphy. 12/05/22 abdominal distention, decreased flatus, no BM with post-operative ileus, encouraged ambulation/activity, decreased oral intake per surgery to sips/chips until improved with planned advancement following. 12/05/22 hepatic profile with T. bili 0.80, AST/ALT 71/190, alk phos 83, lipase 170, improving-->12/06/22 hepatic profile with T. bili 1.0, AST/ALT 45/151, alk phos 81, lipase 36. CT A/P w/ partial resolution of acute pancreatitis, small bilateral pleural effusions with bilateral lower lobe dependent consolidation, fatty infiltration of the liver, atherosclerosis, surgically absent gallbladder with fluid within the gallbladder fossa which is to be expected postsurgically. 12/07/22 initiated on clears given improvement per Surgery and overnight had small BM with continued flatus. 12/07/22 GI evaluation with recommendation for continued azithromycin/reglan for gastroparesis secondary to paralytic ileus secondary to acute pancreatitis with repeat ESR 56 and CRP 186 but patient clinically improved with ongoing flatus as well as bowel movements and cleared for discharge per general surgery with close early follow-up planned. 12/08/22 CBC 16.4 with decreasing left shift and remains afebrile, CMP with T. bili 0.70, AST/ALT , alk phos 79, Lipase 39. #2. Hypokalemia: Admission K+ 3.2, will request magnesium level, initiated on scheduled supplementation per general surgery, 12/08/22 K+ 3.1 with oral supplementation. #3. Nonobstructive not angiographically significant CAD with known CAD related cardiomyopathy: 04/19/22 ECHO w/ normal LV systolic function, EF 55%, septal motion consistent with IVCD, trivial MVI, trivial TVI, trivial IMAN, trivial PVI, diastolic function indeterminate, last cardiac catheterization noted 12/11/2019, continued home coreg, added back aspirin potentially 12/06/[address] Yao/Dr. Forde. #4. Hypertension: Continue home regimen including Coreg, PRN hydralazine. #5. Hyperlipidemia: Not on statin therapy, defer to outpatient especially given #1. #6. Allergic rhinitis: We will continue patient home montelukast regimen. #7. Former tobacco use: Encourage continued tobacco cessation. #8. JEFFERY: CPAP nightly; however, here as been preferentially using HS oxygen instead. #9. DVT prophylaxis: SCDs, hold chemoprophylaxis given planned interventions as noted. #9. CODE status: Full Code. Charges/Coding Visit Charges Inpatient E&M: 59610 Subs Hosp L2
[2022-12-08] MEDS: Metoclopramide 10 MG/2 ML Vial 5 MG IV ×2 (06:57→12:20)
[2022-12-08 07:03] LABS: Absolute Lymphocyte Count 0.94 X10^3/uL (0.83-4.51); Absolute Neutrophil Count 13.6 X10^3/uL (2.0-7.7); Basophil# 0.03 X10^3/uL; Basophil% 0.2 % (0-1); Eosinophil# 0.18 X10^3/uL; Eosinophils% 1.1 % (0-5); Hematocrit 34.5 % (40-54); Hemoglobin 11.5 g/dL (13.0-16.5); Lymphocyte # 0.94 X10^3/ul (0.83-4.51); Lymphocyte % 5.7 % (19-41); Mean Corp Hgb Conc 33.3 g/dL (32-36); Mean Corpuscular Hgb 28.8 pg (27.0-32.0); Mean Corpuscular Volume 86.3 fL (80-94); Mean Platelet Vol. 8.9 fl (6.2-12.0); Monocyte# 1.56 X10^3/uL; Monocyte% 9.5 % (0-10); NRBC Flagged by Analyzer 0 % (0-5); Neutrophil # 13.55 X10^3/uL (2.7-7.7); Neutrophil % 82.9 % (47-70); POSITIVE DIFFERENTIAL YES; Platelet Count 257 K/mm3 (150-450); RBC Distribution Width CV 13.3 % (11.6-14.6); RBC Distribution Width SD 42.5 fl (35.1-43.9); White Blood Count 16.4 K/mm3 (4.4-11.0)
--- NOTE | 2022-12-08 07:03 | PCM.PN.SRG ---
Subjective Subjective Patient is tolerating clear liquids. Patient did have 2 bowel movements yesterday first 1 was larger, positive flatus Objective Data Objective Data Vital Signs: Vital Signs Temp Pulse Resp BP Pulse Ox O2 Del Method O2 Flow Rate 98.2 F 68 16 157/87 H 94 Room Air 1 12/08/22 05:46 12/08/22 05:46 12/08/22 05:46 12/08/22 05:46 12/08/22 05:46 12/08/22 05:54 12/05/22 05:00 FiO2 21 12/04/22 01:30 Oxygen Flow Rate (L/min) 1 Oxygen Delivery Method Room Air Weight: 161 lb 2.526 oz Body Mass Index (BMI) 25.9 Intake & Output: Intake and Output for Last 24 Hours 12/06/22 12/07/22 12/08/22 23:59 23:59 23:59 Intake Total 2543.33 / 2543.33 2698.33 / 3148.33 700 / 700 Balance 2543.33 / 2543.33 2698.33 / 3148.33 700 / 700 Lab / Micro Data 12/08/22 06:05 12/07/22 05:47 Labs: Laboratory Results - last 24 hr 12/07/22 05:47: Magnesium 2.1 Physical Exam Const oriented x3 and no apparent distress Resp normal respiratory effort Cardio regular rate GI soft to palpation GI Narrative: Incision dressed clean dry and intact, mild distention, no peritoneal signs Assessment & Plan Assessment/Plan (1) S/P laparoscopic cholecystectomy: (2) Ileus: (3) Gastroparesis: PLAN: Plan Patient is having some flatus also had 2 bowel movements yesterday. Patient did tolerate clears will advance to regular diet. Patient able to tolerate & continue to do well, patient could be DC'd. Angelina Hicks M.D. Pager: [phone] [facility] [address] [place] [address], [facility], [address] [place] [address] Office: [phone]
[2022-12-08 07:50] LABS: Differential Indicated SCAN CRITERIA MET
[2022-12-08 08:03] LABS: ALB/GLOB Ratio 0.6 RATIO (0.9-2.4); AST(SGOT) 23 U/L (15-37); Alanine Aminotransfer ALT/SGPT 76 U/L (16-61); Albumin, Serum 2.3 g/dL (3.2-5.0); Alkaline Phosphatase 79 U/L (45-117); Anion Gap 6 (5-15); BUN 7 mg/dL (7-18); BUN/Creat Ratio 12.9 RATIO (10-20); Calcium,Total 8.1 mg/dL (8.5-10.1); Chloride 103 mmol/L (98-107); Creatinine, Serum 0.54 mg/dL (0.70-1.30); EST Glomerular Filtration Rate 164 mL/min (>60); Est Glom Filt Rate - Afr Amer 199 mL/min (>60); Estimated Creatinine Clearance 134.56 ml/min; Globulin 3.7 g/dL (2.2-4.2); Glucose 119 mg/dL (74-106); Lipase 39 U/L (13-75); Potassium 3.1 mmol/L (3.5-5.1); Sodium Level 136 mmol/L (136-145)
[2022-12-08 09:00] VITALS: BP 149/96; PULSE 83; RESP 14; TEMP 36.6; O2SAT 96
[2022-12-08] MEDS: Pantoprazole Sodium 40 MG Tablet PO (09:20)
[2022-12-08] MEDS: Potassium Chloride Oral Tablet 20 MEQ PO (09:20)
[2022-12-08] MEDS: Aspirin 81 MG TAB.CHEW PO (09:20)
[2022-12-08] MEDS: Docusate Sodium 100 MG Capsule PO (09:21)
[2022-12-08] MEDS: Montelukast 10 MG Tablet PO (09:21)
[2022-12-08] MEDS: Carvedilol 12.5 MG Tablet PO (09:22)
--- NOTE | 2022-12-08 10:16 | EX.PCM.PN.GI ---
Subjective Subjective Patient had 2 bowel movements. He also has been passing some gas and is tolerating liquid diet. He feels a lot better. Objective Data Objective Data Vital Signs: Vital Signs Temp Pulse Resp BP Pulse Ox O2 Del Method O2 Flow Rate 97.9 F 83 14 149/96 H 96 Room Air 1 12/08/22 09:00 12/08/22 09:00 12/08/22 09:00 12/08/22 09:00 12/08/22 09:00 12/08/22 09:00 12/05/22 05:00 FiO2 21 12/04/22 01:30 Oxygen Flow Rate (L/min) 1 Oxygen Delivery Method Room Air Weight: 161 lb 2.526 oz Body Mass Index (BMI) 25.9 Intake & Output: Intake and Output for Last 24 Hours 12/06/22 12/07/22 12/08/22 23:59 23:59 23:59 Intake Total 2543.33 / 2543.33 2698.33 / 3148.33 700 / 700 Balance 2543.33 / 2543.33 2698.33 / 3148.33 700 / 700 Lab / Micro Data 12/08/22 06:05 12/08/22 06:05 Labs: Laboratory Results - last 24 hr 12/08/22 06:05: WBC 16.4 H, RBC 4.00 L, Hgb 11.5 L, Hct 34.5 L, MCV 86.3, MCH 28.8, MCHC 33.3, RDW Std Deviation 42.5, RDW Coeff of Arnoldo 13.3, Plt Count 257, MPV 8.9, Immature Gran % (Auto) 0.600, Neut % (Auto) 82.9 H, Lymph % (Auto) 5.7 L, [place] % (Auto) 9.5, Eos % (Auto) 1.1, Baso % (Auto) 0.2, Absolute Neuts (auto) 13.6 H, Absolute Lymphs (auto) 0.94, Nucleated RBC % 0, Sodium 136, Potassium 3.1 L, Chloride 103, Carbon Dioxide 27.0, Anion Gap 6, BUN 7, Creatinine 0.54 L, Estim Creat Clear Calc 134.56, Est GFR (MDRD) Af Amer 199, Est GFR (MDRD) Non-Af 164, BUN/Creatinine Ratio 12.9, Glucose 119 H, Calcium 8.1 L, Total Bilirubin 0.70, AST 23, ALT 76 H, Alkaline Phosphatase 79, C-React Prot Ext Range 186.00 H, Total Protein 6.0 L, Albumin 2.3 L, Globulin 3.7, Albumin/Globulin Ratio 0.6 L, Lipase 39 Physical Exam Const oriented x3 and no apparent distress Resp normal respiratory effort Cardio regular rate GI soft to palpation GI Narrative: Incision dressed clean dry and intact, mild distention, no peritoneal signs Assessment & Plan Assessment/Plan (1) Gastroparesis: (2) Ileus: (3) Gallstone pancreatitis: PLAN: Plan 49-year-old gentleman with cholelithiasis and choledocholithiasis with obstructive jaundice secondary to choledocholithiasis and gallstone induced pancreatitis -Status post ERCP day 1 with removal of filling defects from the distal common bile duct and dilation of the distal common bile duct with stent placement. -Gastroparesis-likely secondary to paralytic ileus associated with acute pancreatitis. He has had elevated lipase's in the past so I suspect that this is acute on chronic pancreatitis secondary to gallstone induced pancreatitis. Continue IV Reglan as ordered and azithromycin as ordered -Cholelithiasis-status postcholecystectomy postop day 1. -Pancreatitis-he has had a good decrease in his hematocrit and BUN which correlates with good outcome regarding severe pancreatitis. I would recommend him eating as much as tolerated after he undergoes cholecystectomy. Maintenance IV fluids at 100 cc an hour. Encourage p.o. Aggressive bowel regimen. Repeat ESR and CRP and monitor white count 12/06-status post ERCP postop day 3. Status post cholecystectomy postop day 2. All his numbers are trending in the right direction. CT scan abdomen pelvis shows improving pancreatitis. He I suspect that he just has an ileus. We will continue azithromycin to hopefully increase his migratory motor complex. Would recommend to continue scheduled Reglan. Recommend to add MiraLAX and stool softener and if he does not have a significant bowel movement to incorporate enema this until he has 3 good bowel movements. -12/07-status post ERCP postop day 4. Status post lap cholecystectomy day 3. All numbers are trending in the right direction. He is feeling a lot better. He is less bloated. He continues to walk the halls to improve his GI motility. Continue Reglan, MiraLAX and stool softener. Hopefully if he has a good bowel movement he will be able to be DC'd tomorrow. 12/08-patient is doing a lot better. He has been okay to be DC'd from surgical standpoint. He will need to follow-up in the GI clinic if he goes home today. He will need stent removal or replacement in approximately 8 weeks. Charges/Coding Visit Charges Inpatient E&M: 40764 [facility] Hosp L3
[2022-12-08 10:17] LABS: Erythrocyte Sedimentation Rate 56 mm/hr (0-20)
[2022-12-08 10:47] LABS: Differential Comment SCANNED
--- NOTE | 2022-12-08 12:28 | DCINST_ITS ---
Discharge Instructions Diet Discharge Diet: Light diet - advance as tolerated (if you have questions about your diet instructions, please talk to you doctor.) Activity Discharge Activity: - (Continue parameters per Dr. Yao recommendations.) May shower in (days): 1 May resume sexual activity in: - (Once cleared per Dr. Yao.) Dressing / Incision Call your doctor if your incision/area has: Continuous Slow Oozing, Sudden Increased Bleeding, Increased Pain/ Swelling, Increased Redness and Foul Smelling Discharge Call your doctor if you observe: Fever of 101 or Higher Suture Line Care: Avoid Pulling/Pushing and Avoid Pinching/Bending Additional Dressing/Incision Instructions:: Change or remove dressing in 4 days. Leave steri-strips in place for 1 week. Follow Up Care Please Follow Up With: Stefano Yao MD Test Results: Test results from this visit will be discussed in further detail at your follow- up appointment, if applicable. Discharge Plan Admission Admit Date/Time: 12/03/22 04:06 Primary Reason for Your Visit: Acute gallstone pancreatitis, Acute on Chronic Cholecystitis, Post-op Ileus Attending Provider: Linda Hicks Primary Care Provider: Eddie Martin Consulting Providers: Ziggy Hunter; Clem Fodre; Derik Powers Instructions Patient Instructions: After Gallbladder Surgery, Understanding Pancreatitis, Pancreatitis Acute Dc, Cholecystectomy Dc Additional Instructions / Restrictions: Okay to take ibuprofen 400-600 mg PO q6hr PRN along with the hydro codone/acetaminophen. Avoid Tylenol since there is already Tylenol in the hydrocodone/acetaminophen. Take all pain meds with food. Hydrocodone/acetaminophen can cause constipation recommend taking daily stool softener (i.e. Colace/docusate) while taking the pain meds. Recommend starting some MiraLAX in 1-2 days if no bowel movement. Discharge Orders/Prescriptions Prescriptions: New pantoprazole 40 mg Tablet,Delayed Release (Dr/Ec) 40 mg PO DAILY 30 Days Qty: 30 0RF docusate sodium 100 mg Capsule 100 mg PO BID 30 Days Qty: 60 0RF hydrocodone-acetaminophen 5-325 mg tablet 1 tab PO Q4H PRN (Reason: pain) 5 Days Qty: 20 0RF Continued montelukast [Singulair] 10 mg tablet 10 mg PO DAILY aspirin [Adult Low Dose Aspirin] 81 mg tablet,delayed release (DR/EC) 81 mg PO DAILY carvedilol 12.5 mg tablet 12.5 mg PO BID Qty: 180 3RF Referrals / Follow Up: Eddie Martin MD [Primary Care Provider] - (Follow-up within 3-5 days to review admission.) Stefano Yao MD [Med Staff - Active Staff] - (Please contact Dr. Yao office Saturday morning to request follow-up visit 7-10 days.) Clem Forde DO [Med Staff - Active Staff] - (Follow-up with Dr. Forde in 6-8 weeks for re-assessment for stent removal/replacement. Contact office Saturday to set-up visit and assure follow-up timeline preference.) Disposition Disposition (needs filled in before D/C Order can be placed): Home, Self Care
--- NOTE | 2022-12-08 12:31 | PCM.DC.SUM ---
Providers Date of Admission: 12/03/22 Date of Discharge: 12/08/22 Primary Care Physician: Dr. Eddie Martin MD Consultations 12/03/22 04:57 Consult: Gastroenterology Routine Consulting Provider: Clem Forde Reason for Consult: Choledocholithiasis EMERGENT Consult: No Notified: Yes Date Notified: 12/03/22 Time Notified: 07:45 Method of Notification: Text Consult: General Surgery Routine Consulting Provider: Derik Powers Reason for Consult: Possible cholecystitis EMERGENT Consult: No Notified: Yes Date Notified: 12/03/22 Time Notified: 04:18 Method of Notification: ED Physician Initiated Reason For Visit: ACUTE CHOLECYSTITIS W POSSIBLE CHOLANGITIS AND CHO Diagnosis Discharge Diagnosis (1) Gallstone pancreatitis: Status: Acute Code(s): K85.10 - Biliary acute pancreatitis without necrosis or infection Plan: Discharge Diagnoses: #1. Acute gallstone pancreatitis with potentially acute on chronic cholecystitis with chronic cholelithiasis with Hyperbilirubinemia/Transaminitis complicated by postoperative ileus #2. Hypokalemia #3. Nonobstructive not angiographically significant CAD with known CAD related cardiomyopathy #4. Hypertension #5. Hyperlipidemia #6. Allergic rhinitis #7. Former tobacco use #8. JEFFERY on CPAP nightly Medications at Discharge Home Medications aspirin 81 mg tablet,delayed release (Adult Low Dose Aspirin) 81 mg PO DAILY 11/18/19 montelukast 10 mg tablet (Singulair) 10 mg PO DAILY 11/15/21 carvedilol 12.5 mg tablet 12.5 mg PO BID #180 TABLETS 02/02/22 docusate sodium 100 mg capsule 100 mg PO BID 30 days #60 caps 12/08/22 hydrocodone-acetaminophen 5-325mg 5mg-325mg 1 tab PO Q8H PRN pain 5 days #10 tabs 12/08/22 pantoprazole 40 mg tablet,delayed release 40 mg PO DAILY 30 days #30 tabs 12/08/22 Hospital Course Operations - (12/03/22 ERCP w/ biliary sphincterotomy, dilation, temporary stent placement. 12/04/22 laparoscopic cholecystectomy with cholangiogram and umbilical hernia raphe.) Procedures EKG Summary of Care Provided Minutes Spent on Discharge: 35 Hospital Course: The patient is a 57 y/o M w/ PMHx: Allergic rhintis, OA, HTN, HLD, JEFFERY on CPAP, HTN, HLD, Former tobacco use, Non-CAD related cardiomyopathy, CAD-none angiographically significant, Underlying LBBB who presented to the [facility] ED on 12/03/22 with history of excruciating epigastric discomfort with radiation across his abdomen into his back with intermittent similar discomfort over the last several years however worsened since June prompting eventual ED evaluation. ED evaluation with lipase greater than 5000, T. bili 2.10, D bili 1.48, AST/ALT 616/65, alk phos 163, CT abdomen and pelvis with extensive peripancreatic inflammatory changes, mild dilation of the common bile duct, possible small stones in the distal common bile duct, follow-up gallbladder ultrasound with cholelithiasis with a distended biliary tree. 12/03/22 Dr. Forde ERCP with a single localized biliary stricture found in the lower third of the main bile duct likely secondary to previous stones and benign appearing with dilation performed, choledocholithiasis found with complete removal as well as biliary sphincterotomy and balloon extraction and a temporary stent placed in the common bile duct with recommendation for azithromycin 500 mg IV daily, Reglan 5 mg IV every 6 hours and hold on anticoagulation secondary to potential conversion to hemorrhagic pancreatitis. 12/04/22 Dr. Yao Laparoscopic cholecystectomy with cholangiograms and umbilical herniorrhaphy. 12/05/22 abdominal distention, decreased flatus, no BM with post-operative ileus, encouraged ambulation/activity, decreased oral intake per surgery to sips/chips until improved with planned advancement following. 12/05/22 hepatic profile with T. bili 0.80, AST/ALT 71/190, alk phos 83, lipase 170, improving-->12/06/22 hepatic profile with T. bili 1.0, AST/ALT 45/151, alk phos 81, lipase 36. CT A/P w/ partial resolution of acute pancreatitis, small bilateral pleural effusions with bilateral lower lobe dependent consolidation, fatty infiltration of the liver, atherosclerosis, surgically absent gallbladder with fluid within the gallbladder fossa which is to be expected postsurgically. 12/07/22 initiated on clears given improvement per Surgery and overnight had small BM with continued flatus. 12/07/22 GI evaluation with recommendation for continued azithromycin/reglan for gastroparesis secondary to paralytic ileus secondary to acute pancreatitis with repeat ESR 56 and CRP 186 but patient clinically improved with ongoing flatus as well as bowel movements and cleared for discharge per general surgery with close early follow-up planned. 12/08/22 CBC 16.4 with decreasing left shift and remains afebrile, CMP with T. bili 0.70, AST/ALT 23/76, alk phos 79, Lipase 39. Given clinical improvement patient discharged to home in stable improved condition with follow-up with PCP, general surgery and gastroenterology requested. Weight / BMI Weight Weight: 161 lb 2.526 oz Body Mass Index (BMI) 25.9 ABG / Lab / Microbiology Data 12/08/22 06:05 12/08/22 06:05 Laboratory: Laboratory Results - last 24 hr 12/08/22 06:05: WBC 16.4 H, RBC 4.00 L, Hgb 11.5 L, Hct 34.5 L, MCV 86.3, MCH 28.8, MCHC 33.3, RDW Std Deviation 42.5, RDW Coeff of Arnoldo 13.3, Plt Count 257, MPV 8.9, Immature Gran % (Auto) 0.600, Neut % (Auto) 82.9 H, Lymph % (Auto) 5.7 L, [place] % (Auto) 9.5, Eos % (Auto) 1.1, Baso % (Auto) 0.2, Absolute Neuts (auto) 13.6 H, Absolute Lymphs (auto) 0.94, Nucleated RBC % 0, Differential Comment SCANNED, Diff Path Review August, ESR 56 H, Sodium 136, Potassium 3.1 L, Chloride 103, Carbon Dioxide 27.0, Anion Gap 6, BUN 7, Creatinine 0.54 L, Estim Creat Clear Calc 134.56, Est GFR (MDRD) Af Amer 199, Est GFR (MDRD) Non-Af 164, BUN/Creatinine Ratio 12.9, Glucose 119 H, Calcium 8.1 L, Total Bilirubin 0.70, AST 23, ALT 76 H, Alkaline Phosphatase 79, C-React Prot Ext Range 186.00 H, Total Protein 6.0 L, Albumin 2.3 L, Globulin 3.7, Albumin/Globulin Ratio 0.6 L, Lipase 39 D/C Instructions Discharge Diet: Light diet - advance as tolerated (if you have questions about your diet instructions, please talk to you doctor.) May shower in (days): 1 August resume sexual activity in: - (Once cleared per Dr. Yao.) Call your doctor if your incision/area has: Continuous Slow Oozing, Sudden Increased Bleeding, Increased Pain/ Swelling, Increased Redness and Foul Smelling Discharge Call your doctor if you observe: Fever of 101 or Higher Suture Line Care: Avoid Pulling/Pushing and Avoid Pinching/Bending Additional Dressing/Incision Instructions: Change or remove dressing in 4 days. Leave steri-strips in place for 1 week. Please Follow Up With: Stefano Yao MD When: Call [phone] to make an appointment to be seen in about 10 days. Meaningful Use Info Meaningful Use Diagnoses (Choose all that apply): None applicable Discharge Plan Admission Admit Date/Time: 12/03/22 04:06 Primary Reason for Your Visit: Acute gallstone pancreatitis, Acute on Chronic Cholecystitis, Post-op Ileus Attending Provider: Linda Hicks Primary Care Provider: Eddie Martin Consulting Providers: Ziggy Hunter; Clem Forde; Derik Powers Instructions Patient Instructions: After Gallbladder Surgery, Understanding Pancreatitis, Pancreatitis Acute Dc, Cholecystectomy Dc Additional Instructions / Restrictions: Okay to take ibuprofen 400-600 mg PO q6hr PRN along with the hydrocodone/acetaminophen. Avoid Tylenol since there is already Tylenol in the hydrocodone/acetaminophen. Take all pain meds with food. Hydrocodone/acetaminophen can cause constipation recommend taking daily stool softener (i.e. Colace/docusate) while taking the pain meds. Recommend starting some MiraLAX in 1-2 days if no bowel movement. Discharge Orders/Prescriptions Prescriptions: New pantoprazole 40 mg Tablet,Delayed Release (Dr/Ec) 40 mg PO DAILY 30 Days Qty: 30 0RF docusate sodium 100 mg Capsule 100 mg PO BID 30 Days Qty: 60 0RF hydrocodone-acetaminophen 5-325 mg tablet 1 tab PO Q8H PRN (Reason: pain) 5 Days Qty: 10 0RF Continued montelukast [Singulair] 10 mg tablet 10 mg PO DAILY aspirin [Adult Low Dose Aspirin] 81 mg tablet,delayed release (DR/EC) 81 mg PO DAILY carvedilol 12.5 mg tablet 12.5 mg PO BID Qty: 180 3RF Referrals / Follow Up: Eddie Martin MD [Primary Care Provider] - (Follow-up within 3-5 days to review admission.) Stefano Yao MD [Med Staff - Active Staff] - (Please contact Dr. Yao office Saturday morning to request follow-up visit 7-10 days.) Clem Forde DO [Med Staff - Active Staff] - (Follow-up with Dr. Forde in 6-8 weeks for re-assessment for stent removal/replacement. Contact office Saturday to set-up visit and assure follow-up timeline preference.) Disposition Disposition (needs filled in before D/C Order can be placed): Home, Self Care Charges/Coding Visit Charges Inpatient E&M: 82487 Disch Hosp >30min
[2022-12-08 15:00] VITALS: BP 125/80; PULSE 65; RESP 16; TEMP 36.9; O2SAT 98
[2022-12-11 12:27] LABS: Pathologist Review Reviewed
== END 2022-12-08 15:38 | disposition home or self-care (01) | DRG 418 ==
LOC: ED 04:01 → PCU 04:24
PROVIDERS: Internal Medicine Gastroenterology; Surgery; Admitting Provider Hospitalist; Emergency Provider Emergency Medicine; PCP Family Medicine; Visit Provider Family Medicine
PROC: 0FC98ZZ Extirpation of Matter from Common Bile Duct, Via Natural or Artificial Opening Endoscopic (ICD-10-PCS; CPT 43260; principal; 2022-12-03 15:40)
PROC: 0FT44ZZ Resection of Gallbladder, Percutaneous Endoscopic Approach (ICD-10-PCS; CPT 47610; principal; 2022-12-04 13:25)
DX: K85.10 Biliary acute pancreatitis without necrosis or infection (principal); K80.65 Calculus of gallbladder and bile duct with chronic cholecystitis with obstruction; K56.0 Paralytic ileus; I10 Essential (primary) hypertension; I25.5 Ischemic cardiomyopathy; I25.10 Atherosclerotic heart disease of native coronary artery without angina pectoris; E78.5 Hyperlipidemia, unspecified; G47.33 Obstructive sleep apnea (adult) (pediatric); E87.6 Hypokalemia; J30.9 Allergic rhinitis, unspecified; K42.9 Umbilical hernia without obstruction or gangrene; K31.84 Gastroparesis; Z90.49 Acquired absence of other specified parts of digestive tract; Z79.82 Long term (current) use of aspirin; Z79.899 Other long term (current) drug therapy; Z87.891 Personal history of nicotine dependence
CPT/HCPCS: 36415; 71045; 74160; 74177; 74300; 74330; 76000; 76705; 80048; 80053; 80076; 83690; 83735; 85025; 85652; 86140; 88304; 93005; 94660; 94668; 99285; J7030; J7050; Q9967; A4216; J1940; J2405

== ENCOUNTER → 2022-12-14 | Outpatient (CLI) | payer OTHER, SELFPAY ==
[2022-12-14 17:46] LABS: Absolute Neutrophil Count 6.7 X10^3/uL (2.0-7.7); Basophil# 0.08 X10^3/uL; Basophil% 0.8 % (0-1); Eosinophil# 0.29 X10^3/uL; Eosinophils% 2.8 % (0-5); Hematocrit 36.7 % (40-54); Hemoglobin 11.4 g/dL (13.0-16.5); Lymphocyte % 19.1 % (19-41); Mean Corp Hgb Conc 31.1 g/dL (32-36); Mean Corpuscular Hgb 28.1 pg (27.0-32.0); Mean Corpuscular Volume 90.6 fL (80-94); Mean Platelet Vol. 8.3 fl (6.2-12.0); Monocyte# 1.11 X10^3/uL; Monocyte% 10.6 % (0-10); NRBC Flagged by Analyzer 0 % (0-5); Neutrophil # 6.69 X10^3/uL (2.7-7.7); Neutrophil % 63.8 % (47-70); Platelet Count 548 K/mm3 (150-450); RBC Distribution Width SD 46.8 fl (35.1-43.9); Red Blood Count 4.05 M/mm3 (4.6-6.2); White Blood Count 10.5 K/mm3 (4.4-11.0)
[2022-12-14 18:32] LABS: ALB/GLOB Ratio 0.6 RATIO (0.9-2.4); AST(SGOT) 56 U/L (15-37); Alanine Aminotransfer ALT/SGPT 110 U/L (16-61); Albumin, Serum 2.8 g/dL (3.2-5.0); Alkaline Phosphatase 104 U/L (45-117); Anion Gap 6 (5-15); BUN 11 mg/dL (7-18); BUN/Creat Ratio 12.4 RATIO (10-20); Calcium,Total 8.9 mg/dL (8.5-10.1); Chloride 104 mmol/L (98-107); Creatinine, Serum 0.89 mg/dL (0.70-1.30); EST Glomerular Filtration Rate 93 mL/min (>60); Est Glom Filt Rate - Afr Amer 113 mL/min (>60); Globulin 4.4 g/dL (2.2-4.2); Glucose 135 mg/dL (74-106); Protein, Total 7.2 g/dL (6.4-8.2); Sodium Level 137 mmol/L (136-145)
== END | disposition home or self-care (01) ==
LOC: MTLAB 17:08
PROVIDERS: PCP Family Medicine; Referring Provider Family Medicine; Visit Provider Family Medicine
DX: D72.829 Elevated white blood cell count, unspecified (principal)
CPT/HCPCS: 36415; 80053; 85025

== ENCOUNTER 2023-04-03 10:25 | Day surgery (SDC) | payer OTHER, SELFPAY ==
[2023-04-03] VITALS (7 sets, daily range): BP systolic 101–129; BP diastolic 60–81; PULSE 60–69; RESP 16; TEMP 36.1–36.8; O2SAT 95–100; BMI 26.3
--- NOTE | 2023-04-03 | FLU_PTH ---
PATIENT: TRIP MURPHY LOC: EN U#:[id number] AGE/SX: 58/M ROOM: RE04/03/[address]: Dr. Clem Forde DO : 1965 BED: DIS: 04/03/2023 SPEC #: [id number] RECD: 04/03/23 14:03 STATUS: ANTONIA CATHLEEN #: [id number] MOISES: 04/03/23 00:[address]: Clem Forde DEPT: CYTOLOGY RECD BY: Shaan Wolfe ENTERED: 04/03/23 14:04 SP TYPE: Fluid OTHR DR: Dr. Eddie Martin MD Tissues: A - Biliary tract, NOS B - Biliary tract, NOS Procedures: Special Stain Group II Surgery Specimen Level IV Cytospin Fluid HEADER OPERATION: ERCP with stent pull, balloon, brushings PRE-OP DIAGNOSIS: Stent pull TISSUE SUBMITTED: A - [place] tip fluid, B - Biliary brushing x3 smears DIAGNOSIS CYTOLOGY A. [place] tip fluid (cytospin and cell block): Negative for malignant cells. B. Biliary brushing (smears): Negative for malignant cells. See comment. SJ:[facility] 04/04/2023 COMMENT Clinical correlation and appropriate follow up are necessary. CYTOLOGY STUDY Slides are reviewed. CYTOLOGY GROSS A - Received is a metallic endoscopic cytobrush with adherent minute fragments of isidro-red tissue brush in 2 ml of clear red fluid and labeled with the patient's name and and designated per the requisition as brush tip. The material is dislodged from the brush and submitted for cytology preparation including cell block. B - Received are three smears labeled with the patient's name and designated per the requisition as biliary brushing. Submitted for staining. / [facility] 04/03/2023 TC:5 CPT: 64518, 77404, 60378
--- NOTE | 2023-04-03 10:34 | EKG12_ITS ---
Test Reason : PREOP Blood Pressure : / mmHG Vent. Rate : 061 BPM Atrial Rate : 061 BPM P-R Int : 184 ms QRS Dur : 142 ms QT Int : 466 ms P-R-T Axes : 012 -34 -02 degrees QTc Int : 469 ms Normal sinus rhythm Left axis deviation Left bundle branch block Abnormal ECG When compared with ECG of 04-DEC-2022 05:49, No significant change was found Confirmed by DAVIS GUILLAUME, DIVYA ([id number]), writer editor PADDY LANDRY ([id number]) on 04/05/2023 2:08:43 PM Referred By: Eddie Martin Confirmed By:DIVYA CANNON MD
[2023-04-03] MEDS: Lactated Ringers 1,000 ML 15 ML IV (10:43)
--- NOTE | 2023-04-03 12:15 | RAD_ITS ---
STUDY: ERCP REASON FOR EXAM: Male, 58 years old. ERCP FLUOROSCOPY TIME (if supplied): ( 4 minutes and 23 seconds ) minutes/seconds. 53.45 mGy. TECHNIQUE: Intraoperative imaging provided for ERCP. COMPARISON: None. FINDINGS: Removal of biliary stent. RAD/ERCP Biliary/Pancreas IMPRESSION: Fluoroscopic services provided for removal of the biliary stent. Electronically Signed: Rylan Levy MD at 15:00 EST ,
--- NOTE | 2023-04-03 12:48 | HP.PCM_ITS ---
History and Physical Date of Admission: 04/03/23 58 M who presents to the office today for Prior workup: ? Colonoscopy, screening 04.24.22 4mm hyperplastic polyp; diverticulosis; tattoo of mid sigmoid colon, appeared normal *[facility] hospitalization 12.03.22-12.08.22 for management of gallstone pancreatitis with chronic conditions HTN, HLD, allergic rhinitis, JEFFERY with CPAP. CT abd/pel IV only 12.03.22 lung calcified granulomata; normal liver; gallstones; CBD dilated 6-7mm with possible stones, new; extensive peripancreatic inflammatory stranding and ill-defined fluid extending into retroperitoneum; sp lenic calcified granulomata; colonic diverticulosis. ? US RUQ 12.03.22 intrahepatic bile duct distention, CBD 8.3mm; normal hepatic echotexture; gallstones with Vivas sign + ERCP 12.03.22 MBD stricture secondary to previous stones with dilated biliary system; choledocholithiasis removed via sphincterotomy and balloon extraction; lower MBD dilated; temporary stent placed CBD; gastric bezoar likely secondary to paralytic ileus from acute pancreatitis without true gastroparesis. Start azithromycin, reglan. No specimens ? Surgery 12.04.22 laparoscopic cholecystectomy and umbilical herniorrhaphy. Chronic cholecystitis and cholelithiasis CT abd IV contrast 12.06.22 bilateral PE; R lung granuloma; small pericardial effusion; s/p cholecystectomy with postsurgical fluid versus biloma; hepatic cysts versus fatty infiltration; minimal pneumobilia secondary to biliary stent placement; new stent in CBD; peripancreatic fluid, less pronounced; splenic granulomas; improved free fluid of peritoneum OV 03.06.23 denies current symptoms that require attention at this time. Colonoscopy with Dr. Douglas 5-6 years prior with large polyp he was not comfortable removing and was sent to [facility] to have it removed, recalls it was likely benign. ROS Const Constitutional: No anorexia, fatigue, fever(s), weight change or sleep problems Eyes Eyes: No change in vision ENT ENT: No abnormal hearing, difficulty swallowing, mouth lesions, tongue swelling or throat swelling Resp Respiratory: No cough or shortness of breath Cardio Cardiology: No chest pain at rest, chest pain with exertion, shortness of breath or dyspnea on exertion Gastro GI: No difficulty swallowing Genitourinary Male: No difficulty urinating or burning urination Musc Musculoskeletal: No joint pain, joint swelling, muscle weakness or decreased muscle mass Skin Skin: No hair loss in leg, yellowing of the eye, itchy eyes, rash, skin ulcer or skin swelling Neuro Neurology: No abnormal hearing, abnormal movements, confusion, unsteady gait/balance or memory loss Psych Psychiatric: No anxiety, No confusion and No memory loss Endo Endocrine: No fatigue or weight change Aller/Imm Allergy/Immunologic: No itchy eyes, throat swelling or tongue swelling Dion/Lymp Hematologic/Lymphatic: No easy bleeding, easy bruising or enlarged lymph nodes Exam Const General: cooperative and comfortable Nutritional Appearance: average body habitus and well nourished HENMT Head: normal to inspection Ears: hearing grossly normal bilaterally Nose: external nose normal Face and sinus: normal facial exam Mouth: oral mucosae normal Throat: posterior oropharynx normal Eyes General: appearance normal, both eyes and all related structures Neck Neck: normal visual inspection Chest Chest palpation & inspection: normal inspection of the chest and normal palpation of entire chest wall Resp Effort & Inspection: normal respiratory effort Auscultation: Bilateral: Clear to Auscultation Cardio Palpation: normal PMI Rate: regular rate Rhythm: regular rhythm GI Inspection: normal to inspection Auscultation: normal bowel sounds Percussion: normal to percussion Palpation: no hepatosplenomegaly Skin General: no rashes or lesions noted Neuro General: patient alert Extrem General: normal to inspection Psych Affect: normal affect Quality Reporting Tobacco Screening ([facility] 138) Smoking Status: Former smoker Assessment and Plan Assessment and Plan (1) Acute gallstone pancreatitis: Status: Resolved Comment: s/p ERCP Plan: 57 y/o M w/ PMHx: Allergic rhintis, OA, HTN, HLD, JEFFERY on CPAP, HTN, HLD, Former tobacco use, Non-CAD related cardiomyopathy, CAD-none angiographically significant, Underlying LBBB who presented to the [facility] ED on 12/03/22 with history of excruciating epigastric discomfort. ED evaluation with lipase greater than 5000, T. bili 2.10, D bili 1.48, AST/ALT 616/65, alk phos 163, CT abdomen and pelvis with extensive peripancreatic inflammatory changes, mild dilation of the common bile duct, possible small stones in the distal common bile duct, follow-up gallbladder ultrasound with cholelithiasis with a distended biliary tree. ERCP with a single localized biliary stricture found in the lower third of the main bile duct likely secondary to previous stones and benign appearing with dilation performed, choledocholithiasis found with complete removal as well as biliary sphincterotomy and balloon extraction and a temporary stent placed in the common bile duct with recommendation for azithromycin 500 mg IV daily, Reglan 5 mg IV every 6 hours and hold on anticoagulation secondary to potential conversion to hemorrhagic pancreatitis. Dr. Yao Laparoscopic cholecystectomy with cholangiograms and umbilical herniorrhaphy. He did have some abdominal distention, decreased flatus, no BM with post-operative ileus, encouraged ambulation/activity, decreased oral intake per surgery to sips/chips until improved with planned advancement following. His hepatic profile with T. bili 0.80, AST/ALT 71/190, alk phos 83, lipase 170, improving-->12/06/22 hepatic profile with T. bili 1.0, AST/ALT 45/151, alk phos 81, lipase 36. CT A/P w/ partial resolution of acute pancreatitis, small bilateral pleural effusions with bilateral lower lobe dependent consolidation, fatty infiltration of the liver, atherosclerosis, surgically absent gallbladder with fluid within the gallbladder fossa which is to be expected postsurgically. He is doing very well at this time. We will schedule him for stent removal. Orders: Orders ERCP Biliary/Pancreas 04/03/23 K85.10 - Biliary acute pancreatitis without necrosis or infection I have examined the patient and the H&P has been reviewed. There are no clinical changes since date of exam.
--- NOTE | 2023-04-03 12:49 | OP.CCLET_ITS ---
04/03/2023 Eddie Martin [address] [place] [address] Re : ERCP procedure for Barron Myers Dear Dr. Martin This procedure was performed on Monday, April 03, 2023. My impressions and recommendations are as follows: Impressions : - The biliary system were dilated, with a stone causing an obstruction. - Choledocholithiasis was found. Complete removal was accomplished by biliary sphincterotomy and balloon extraction. - A biliary sphincterotomy was performed. - The biliary tree was swept. - One stent was removed from the biliary tree. - Cells for cytology obtained in the middle third of the main bile duct and at the hepatic duct bifurcation. Recommendations : My findings are described in the full procedure note, which is enclosed. If I can be of further assistance, please feel free to contact me at . Sincerely, Clem Forde, 04/03/2023 12:48:40 PM This report has been signed electronically.
--- NOTE | 2023-04-03 12:49 | OP.ERCP_ITS ---
Patient Name: Barron Myers Procedure Date: 04/03/2023 12:06 PM Date of : 1965 Age: 58 Procedure: ERCP Indications: Bile duct stone(s), Stent removal Providers: Clem Forde DO Medicines: Monitored Anesthesia Care Patient Profile: This is a 58 year old male. Refer to note in patient chart for documentation of history and physical. Patient has symptoms of acute right upper quadrant abdominal pain. His most recent ERCP for biliary evaluation, ERCP for stent and ERCP for stone removal was within the past six months. He is status post laparoscopic cholecystectomy within the past six months. Complications: No immediate complications. Procedure: Pre-Anesthesia Assessment: - Prior to the procedure, a History and Physical was performed, and patient medications and allergies were reviewed. The patient is competent. The risks and benefits of the procedure and the sedation options and risks were discussed with the patient. All questions were answered and informed consent was obtained. Patient identification and proposed procedure were verified by the physician in the pre-procedure area. Mental Status Examination: alert and oriented. Airway Examination: normal oropharyngeal airway and neck mobility. Respiratory Examination: clear to auscultation. CV Examination: normal. Prophylactic Antibiotics: The patient does not require prophylactic antibiotics. Prior Anticoagulants: The patient has taken no anticoagulant or antiplatelet agents. ASA Grade Assessment: II - A patient with mild systemic disease. After reviewing the risks and benefits, the patient was deemed in satisfactory condition to undergo the procedure. The anesthesia plan was to use monitored anesthesia care (MAC). Immediately prior to administration of medications, the patient was re-assessed for adequacy to receive sedatives. The heart rate, respiratory rate, oxygen saturations, blood pressure, adequacy of pulmonary ventilation, and response to care were monitored throughout the procedure. The physical status of the patient was re-assessed after the procedure. After obtaining informed consent, the scope was passed under direct vision. Throughout the procedure, the patient's blood pressure, pulse, and oxygen saturations were monitored continuously. The was introduced through the mouth, and advanced to the duodenum and used to inject contrast into the bile duct and ventral pancreatic duct. The ERCP was accomplished without difficulty. The patient tolerated the procedure well. Scope In: 12:19:37 PM Scope Out: 12:38:32 PM Total Procedure Duration Time 0 hours 18 minutes 55 seconds Findings: The senior treasury analyst film was normal. The esophagus was successfully intubated under direct vision. The scope was advanced to a normal major papilla in the descending duodenum without detailed examination of the pharynx, larynx and associated structures, and upper GI tract. The upper GI tract was grossly normal. A straight Roadrunner wire was passed into the biliary tree. The short-nosed traction sphincterotome was passed over the guidewire and the bile duct was then deeply cannulated. Contrast was injected. I personally interpreted the bile duct and pancreatic duct images. There was brisk flow of contrast through the ducts. Image quality was adequate. Contrast extended to the entire biliary tree. Opacification of the entire biliary tree except for the cystic duct and gallbladder and entire opacified area was successful. The maximum diameter of the ducts was 9 mm. The lower third of the main bile duct contained one stone, which was 6 mm in diameter. The entire biliary tree except for the cystic duct and gallbladder were diffusely dilated, with a stone causing an obstruction. The largest diameter was 9 mm. A 5 mm biliary sphincterotomy was made with a traction (standard) sphincterotome using ERBE electrocautery. There was no post-sphincterotomy bleeding. The biliary tree was swept with a 15 mm balloon starting at the bifurcation. Sludge was swept from the duct. All stones were removed. One stent was removed from the biliary tree using a Guerrero net and sent for cytology. The stent was found to be partially occluded via the water column test. Cells for cytology were obtained by brushing in the middle third of the main bile duct and the hepatic duct bifurcation. Impression: - The biliary system were dilated, with a stone causing an obstruction. - Choledocholithiasis was found. Complete removal was accomplished by biliary sphincterotomy and balloon extraction. - A biliary sphincterotomy was performed. - The biliary tree was swept. - One stent was removed from the biliary tree. - Cells for cytology obtained in the middle third of the main bile duct and at the hepatic duct bifurcation. Procedure Code(s): --- Professional --- 24906, Endoscopic retrograde cholangiopancreatography (ERCP); with removal of foreign body(s) or stent(s) from biliary/pancreatic duct(s) 77737, Endoscopic retrograde cholangiopancreatography (ERCP); with removal of calculi/debris from biliary/pancreatic duct(s) 79419, Endoscopic retrograde cholangiopancreatography (ERCP); with sphincterotomy/papillotomy 75248, 26, Combined endoscopic catheterization of the biliary and pancreatic ductal systems, radiological supervision and interpretation CPT copyright 2021 [employer]. All rights reserved. The codes documented in this report are preliminary and upon inspector quality assurance review may be revised to meet current compliance requirements. Clem Forde DO 04/03/2023 12:48:40 PM This report has been signed electronically. Number of Addenda: 0 Note Initiated On: 04/03/2023 12:06 PM
== END 2023-04-03 13:53 | disposition home or self-care (01) ==
LOC: EN 10:26 → AC 10:30
PROVIDERS: PCP Family Medicine; Referring Provider Family Medicine; Visit Provider Internal Medicine Gastroenterology
PROC: (CPT 43260; principal; 2023-04-03 11:10)
DX: K85.10 Biliary acute pancreatitis without necrosis or infection (principal); K80.50 Calculus of bile duct without cholangitis or cholecystitis without obstruction; I25.10 Atherosclerotic heart disease of native coronary artery without angina pectoris; I10 Essential (primary) hypertension; Z79.82 Long term (current) use of aspirin; Z79.899 Other long term (current) drug therapy; Z87.891 Personal history of nicotine dependence
CPT/HCPCS: 43275; 43264; 43262; 74330; 76000; 88108; 88305; 88313; 93005; J7120; J2405

== ENCOUNTER → 2023-08-13 | Outpatient (CLI) | payer OTHER, SELFPAY ==
[2023-08-13 15:37] LABS: Absolute Lymphocyte Count 1.93 X10^3/uL (0.83-4.51); Absolute Neutrophil Count 3.3 X10^3/uL (2.0-7.7); Basophil# 0.06 X10^3/uL; Basophil% 0.9 % (0-1); Eosinophils% 6.1 % (0-5); Hematocrit 43.2 % (40-54); Hemoglobin 14.3 g/dL (13.0-16.5); Lymphocyte # 1.93 X10^3/ul (0.83-4.51); Lymphocyte % 29.2 % (19-41); Mean Corp Hgb Conc 33.1 g/dL (32-36); Mean Corpuscular Hgb 29.4 pg (27.0-32.0); Mean Corpuscular Volume 88.7 fL (80-94); Mean Platelet Vol. 8.8 fl (6.2-12.0); Monocyte# 0.87 X10^3/uL; Monocyte% 13.2 % (0-10); NRBC Flagged by Analyzer 0 % (0-5); Neutrophil # 3.32 X10^3/uL (2.7-7.7); Neutrophil % 50.3 % (47-70); Platelet Count 270 K/mm3 (150-450); RBC Distribution Width CV 12.7 % (11.6-14.6); RBC Distribution Width SD 41.2 fl (35.1-43.9); Red Blood Count 4.87 M/mm3 (4.6-6.2); White Blood Count 6.6 K/mm3 (4.4-11.0)
[2023-08-13 15:53] LABS: ALB/GLOB Ratio 1.1 RATIO (0.9-2.4); AST(SGOT) 30 U/L (15-37); Alanine Aminotransfer ALT/SGPT 59 U/L (16-61); Alkaline Phosphatase 79 U/L (45-117); Anion Gap 6 (5-15); BUN 13 mg/dL (7-18); BUN/Creat Ratio 16.6 RATIO (10-20); Calcium,Total 9.3 mg/dL (8.5-10.1); Chloride 106 mmol/L (98-107); Creatinine, Serum 0.78 mg/dL (0.70-1.30); EST Glomerular Filtration Rate 107 mL/min (>60); Est Glom Filt Rate - Afr Amer 130 mL/min (>60); Globulin 3.7 g/dL (2.2-4.2); Glucose 103 mg/dL (74-106); Phosphorus 3.4 mg/dL (2.5-4.9); Potassium 4.3 mmol/L (3.5-5.1); Protein, Total 7.7 g/dL (6.4-8.2); Sodium Level 137 mmol/L (136-145)
[2023-08-13 15:58] LABS: Hemoglobin A1c 5.6 % (3.8-5.6)
[2023-08-13 15:59] LABS: Vitamin B12 625 pg/mL (211-911); Vitamin D,25 Hydroxy 29.8 ng/mL
[2023-08-17 00:06] LABS: Vitamin B1, Thiamine 147.4 nmol/L (66.5-200.0)
== END | disposition home or self-care (01) ==
LOC: MFPLAB 12:04
PROVIDERS: PCP Family Medicine; Visit Provider Family Medicine
DX: G62.9 Polyneuropathy, unspecified (principal); E55.9 Vitamin D deficiency, unspecified; R73.02 Impaired glucose tolerance (oral)
CPT/HCPCS: 36415; 80053; 82306; 82607; 83036; 84100; 84425; 85025

== ENCOUNTER → 2023-12-18 | Outpatient (CLI) | payer OTHER, SELFPAY ==
[2023-12-18 17:39] LABS: Absolute Lymphocyte Count 2.02 X10^3/uL (0.83-4.51); Absolute Neutrophil Count 3.8 X10^3/uL (2.0-7.7); Basophil# 0.05 X10^3/uL; Basophil% 0.7 % (0-1); Eosinophil# 0.27 X10^3/uL; Eosinophils% 3.9 % (0-5); Hematocrit 41.4 % (40-54); Hemoglobin 13.4 g/dL (13.0-16.5); Lymphocyte # 2.02 X10^3/ul (0.83-4.51); Lymphocyte % 29.4 % (19-41); Mean Corp Hgb Conc 32.4 g/dL (32-36); Mean Corpuscular Hgb 28.7 pg (27.0-32.0); Mean Corpuscular Volume 88.7 fL (80-94); Monocyte% 10.2 % (0-10); NRBC Flagged by Analyzer 0 % (0-5); Neutrophil # 3.82 X10^3/uL (2.7-7.7); Neutrophil % 55.5 % (47-70); Platelet Count 350 K/mm3 (150-450); RBC Distribution Width SD 42.2 fl (35.1-43.9); Red Blood Count 4.67 M/mm3 (4.6-6.2); White Blood Count 6.9 K/mm3 (4.4-11.0)
[2023-12-18 18:09] LABS: Vitamin D,25 Hydroxy 30.6 ng/mL
[2023-12-18 18:14] LABS: ALB/GLOB Ratio 0.9 RATIO (0.9-2.4); AST(SGOT) 24 U/L (15-37); Alanine Aminotransfer ALT/SGPT 48 U/L (16-61); Albumin, Serum 3.5 g/dL (3.2-5.0); Alkaline Phosphatase 64 U/L (45-117); Anion Gap 7 (5-15); BUN 13 mg/dL (7-18); BUN/Creat Ratio 17.3 RATIO (10-20); Calcium,Total 9.6 mg/dL (8.5-10.1); Chloride 107 mmol/L (98-107); Cholesterol 172 mg/dL (200); Creatinine, Serum 0.75 mg/dL (0.70-1.30); EST Glomerular Filtration Rate 113 mL/min (>60); Est Glom Filt Rate - Afr Amer 136 mL/min (>60); Globulin 3.9 g/dL (2.2-4.2); Glucose 108 mg/dL (74-106); High Density Lipoprotein 43 mg/dL; Potassium 4.1 mmol/L (3.5-5.1); Protein, Total 7.4 g/dL (6.4-8.2); Sodium Level 138 mmol/L (136-145); Triglycerides 162 mg/dL; Very Low Density Lipoprotein 32 mg/dL (5-40)
[2023-12-19 08:53] LABS: PSA,Total - Annual Screen 0.53 ng/mL (0.00-4.00)
== END | disposition home or self-care (01) ==
LOC: MFPLAB 14:28
PROVIDERS: PCP Family Medicine; Visit Provider Family Medicine
DX: Z12.5 Encounter for screening for malignant neoplasm of prostate (principal); R73.02 Impaired glucose tolerance (oral); E55.9 Vitamin D deficiency, unspecified
CPT/HCPCS: 36415; 80053; 80061; 82306; 83036; 84153; 85025; G0103

== ENCOUNTER 2024-06-17 14:32 | Outpatient (CLI) | payer OTHER, SELFPAY ==
[2024-06-17 17:51] LABS: Absolute Lymphocyte Count 2.16 X10^3/uL (0.83-4.51); Absolute Neutrophil Count 3.2 X10^3/uL (2.0-7.7); Basophil# 0.06 X10^3/uL; Basophil% 0.9 % (0-1); Eosinophil# 0.34 X10^3/uL; Hematocrit 42.9 % (40-54); Hemoglobin 14.2 g/dL (13.0-16.5); Lymphocyte # 2.16 X10^3/ul (0.83-4.51); Lymphocyte % 31.9 % (19-41); Mean Corp Hgb Conc 33.1 g/dL (32-36); Mean Corpuscular Hgb 29.5 pg (27.0-32.0); Mean Corpuscular Volume 89.2 fL (80-94); Mean Platelet Vol. 8.9 fl (6.2-12.0); Monocyte# 0.95 X10^3/uL; NRBC Flagged by Analyzer 0 % (0-5); Neutrophil # 3.24 X10^3/uL (2.7-7.7); Neutrophil % 47.9 % (47-70); Platelet Count 303 K/mm3 (150-450); RBC Distribution Width CV 12.9 % (11.6-14.6); RBC Distribution Width SD 42.2 fl (35.1-43.9); Red Blood Count 4.81 M/mm3 (4.6-6.2); White Blood Count 6.8 K/mm3 (4.4-11.0)
[2024-06-17 18:34] LABS: ALB/GLOB Ratio 1.4 RATIO (0.9-2.4); AST(SGOT) 27 U/L (<=37); Alanine Aminotransfer ALT/SGPT 43 U/L (<=46); Albumin, Serum 4.4 g/dL (3.4-4.8); Alkaline Phosphatase 67 U/L (40-129); Anion Gap 15 (5-15); BUN 11 mg/dL (4-19); BUN/Creat Ratio 13.9 RATIO (10-20); Calcium,Total 9.8 mg/dL (7.6-11.0); Carbon Dioxide 21.8 mmol/L (21.0-32.0); Chloride 103 mmol/L (98-108); Creatinine, Serum 0.82 mg/dL (0.70-1.20); EST Glomerular Filtration Rate 101 (>60); Glucose 87 mg/dL (70-99); Potassium 4.4 mmol/L (3.3-5.1); Protein, Total 7.4 g/dL (5.9-8.4); Sodium Level 139 mmol/L (133-145); Total Bilirubin 0.36 mg/dL (0.00-1.30); Vitamin D,25 Hydroxy 24.2 ng/mL (30-100)
[2024-06-17 19:57] LABS: Hemoglobin A1c 6.1 % (<=5.6)
== END 2024-06-17 23:59 | disposition home or self-care (01) ==
LOC: MFPLAB 14:32
PROVIDERS: PCP Family Medicine; Referring Provider Family Medicine; Visit Provider Family Medicine
DX: R73.02 Impaired glucose tolerance (oral) (principal); Z12.5 Encounter for screening for malignant neoplasm of prostate
CPT/HCPCS: 36415; 80053; 82306; 83036; 85025

== ENCOUNTER → 2025-03-18 | Outpatient (CLI) | payer OTHER, SELFPAY ==
[2025-03-18 17:36] LABS: Hematocrit 42.2 % (40-54); Hemoglobin 14.1 g/dL (13.0-16.5); Immature Granulocytes Count 0.020 X10^3/uL (0.0-0.0); Mean Corp Hgb Conc 33.4 g/dL (32-36); Mean Corpuscular Volume 87.6 fL (80-94); Mean Platelet Vol. 8.6 fl (6.2-12.0); NRBC Flagged by Analyzer 0 % (0-5); Platelet Count 257 K/mm3 (150-450); RBC Distribution Width CV 13.2 % (11.6-14.6); RBC Distribution Width SD 42.2 fl (35.1-43.9); Red Blood Count 4.82 M/mm3 (4.6-6.2); White Blood Count 8.2 K/mm3 (4.4-11.0)
[2025-03-18 18:04] LABS: AST(SGOT) 24 U/L (<=37); Alanine Aminotransfer ALT/SGPT 35 U/L (<=46); Albumin, Serum 4.6 g/dL (3.4-4.8); Alkaline Phosphatase 77 U/L (40-129); Anion Gap 15 (5-15); BUN 13 mg/dL (4-19); BUN/Creat Ratio 15.6 RATIO (10-20); Calcium,Total 9.6 mg/dL (7.6-11.0); Carbon Dioxide 20.9 mmol/L (21.0-32.0); Chloride 102 mmol/L (98-108); Globulin 3.0 g/dL (2.2-4.2); Glucose 147 mg/dL (70-99); PSA,Total - Annual Screen 0.36 ng/mL (0.02-4.00); Potassium 3.8 mmol/L (3.3-5.1); Vitamin B12 670 pg/mL (180-914); Vitamin D,25 Hydroxy 35.9 ng/mL (30-100)
--- OUTSIDE RECORDS SUMMARY | 2025-03-18 18:04 | XMS RPT_ITS | CCD ---
Author Organization [facility] CliniSyla Care Team Providers Care Asset Card Clerk Name Role Phone Dulce Reyna RN Unavailable Unavailable Dr. Danni Swann Primary Care Provider [phone] Dr. Danni Swann Referring Provider Dr. Se Cote Attending Provider [phone] Danni Swann Primary Care Provider Natacha Pulliam Attending Provider Unavailable Dr. Se Cote Attending Provider [phone] Stefano Yao Attending Provider [phone] Maximilian, Dr. Stefano Snell Referring Provider Maximilian, Dr. Stefano Snell Other Provider Dr. Danni Swann Primary Care Provider [phone] Dr. Se Cote Attending Provider [phone] C[place]uan[place]oliy, Dr. Stefano Snell Attending Provider [phone] Maximilian, Dr. Stefano Snell Referring Provider [phone] Maximilian, Dr. Stefano Snell Other Provider Dr. Danni Swann Referring Provider Dr. Danni Swann Primary Care Provider Dr. Danni Swann Referring Provider [phone] Maximilian, Dr. Stefano Snell Attending Provider [phone] Lisa Barger Emergency Provider Dr. Ziggy Hunter Admit Provider Dr. Ziggy Hunter Attending Provider Dr. Ziggy Hunter Other Provider Dr. Derik Powers Other Provider Dr. Derik Powers Attending Provider Dr. Linda Hicks Other Provider Eula, Dr. Nj Other Provider Eula, Dr. jN Attending Provider Dr. Linda Hicks Attending Provider Dr. Angelina Hicks Attending Provider Dr. Linda Hicks Referring Provider Dr. Ana Renee Attending Provider Dr. Cachorro Kay Referring Provider [facility] Other Primary Ca re Provider [facility] Other Primary Ca re Provider Danni Swann MD Primary Care Provider Dr. Danni Swann MD Primary Care Provider Dr. Danni Swann MD Attending Provider [phone] Dr. Danni Swann MD Referring Provider [phone] Danni Swann Referring Unavailable Danni Swann Attending Dnani Coulter Primary Care Unavailable Danni Swann Primary Care Unavailable Danni Swann Attending Unavailable Danni Swann Primary Care Unavailable Danni Swann Attending Unavailable Danni Swann MD Primary Care Provider [facility], OTHER Referring Unavailable [facility] Primary Ca re Unavailable SE COTE Attending Unavailable SE COTE Attending Unavailable DANNI SWANN Referring Unavailable DANNI SWANN Primary Care Unavailable Allergies Allergy Classification Reported Allergen(s) Allergy Type Date of Onset Reaction(s) Facility (6 sources) Seasonal Allergies: Uncoded; Translations: [Seasonal Allergies: Uncoded] Allergy to substance 3 PT UNSURE OF REACTION [place] [facility] Medications Current Medications Medication Drug Class(es) Dates Sig (Normalized) Sig (Original) acetaminophen 325 mg / HYDROcodone bitartrate 5 mg oral tablet (20 sources) Opioid Agonist Start: 12-08-2022 take 1 tablet by mouth every eight hours Hydrocodone-Aceta minophen Active 1 TABLET PO Q8H 10 5 December 08, 2022 Start: 05-31-2019 End: 06-05-2019 Hydrocodone-Acetaminophen 1 TABLET tablet Discontinued 1 {tbl} PO EVERY 8 HOURS NEEDED as needed for Pain 27 08May 31, 2019 June 04, 2019 1:00am June 05, 2019 1:09am Start: 05-31-2019 End: 06-05-2019 take 1 tablet by mouth every eight hours as needed Hydrocodone-Acetaminophen Discontinued 1 TABLET PO EVERY 8 HOURS NEEDED 27 08May 31, 2019 June 05, 2019 1:09am Start: 10-06-2015 End: 05-22-2017 Hydrocodone-Acetaminophen 1 TABLET tablet Discontinued 1 - 2 {tbl} PO EVERY 4 HOURS NEEDED as needed for Pain October 06, 2015 12:00am May 22, 2017 3:55pm Start: 10-06-2015 End: 05-22-2017 take 1 tablet by mouth every four hours as needed Hydrocodone-Acetaminophen Discontinued 1 - 2 TABLET PO EVERY 4 HOURS NEEDED October 06, 2015 12:00am May 22, 2017 3:55pm aspirin 81 mg delayed release oral tablet (17 sources) Platelet Aggregation Inhibitor, Nonsteroidal Anti-inflammatory Drug Start: 11-18-2019 Aspirin (Adult Lo w Dose Aspirin) 81 mg tablet,delayed release (DR/EC) Active 81 mg PO DAILY November 18, 2019 12:00am take 81 mg by mouth once daily A SPIRIN PO Take 81 mg by mouth daily. Active busPIRone hydrochloride 7.5 mg oral tablet (1 source) Start: 11-18-2024 take 1 tablet by mouth twice daily busPIRone HCl 7.5 MG tablet Take 1 tablet by mouth 2 times daily. 11/18/2024 Active carvedilol 12.5 mg oral tablet (20 sources) alpha-Adrenerg ic Nena, beta-Adrenergi c Nena Start: 12-30-2024 carveDILOL 12.5 MG tablet Indications: Left bundle-branch block , Other cardiomyopathy , Essential hypertension TAKE 1 TABLET TWICE A DAY 180 tablet 3 12/30/2024 Active Start: 05-11-2020 End: 12-31-2023 take 1 tablet by mouth twice daily Carvedilol 12.5 mg tablet Discontinued 12.5 mg PO TWICE A DAY 180 February 02, 2022 8:36am January 28, 2023 12:51pm Start: 03-21-2020 End: 05-11-2020 take 1 tablet by mouth twice daily at mealtime Carvedilol (Coreg) 6.25 mg tablet Discontinued 6.25 mg PO TWICE A DAY 1 March 21, 2020 1:00am May 11, 2020 5:03pm must administer with a meal/food Start: 02-24-2020 End: 03-21-2020 take 1 tablet by mouth twice daily at mealtime Carvedilol 12.5 mg tablet Discontinued 12.5 mg PO TWICE A DAY 180 February 24, 2020 5:18pm March 21, 2020 2:33pm must administer with a meal/food Start: 12-11-2019 End: 02-24-2020 take 1 tablet by mouth twice daily at mealtime Carvedilol 6.25 mg tablet Discontinued 6.25 mg PO TWICE A DAY 180 January 06, 2020 10:43am February 24, 2020 5:19pm must administer with a meal/food Start: 11-18-2019 End: 12-11-2019 take 1 tablet by mouth twice daily at mealtime Carvedilol 3.125 mg tablet Discontinued 3.125 mg PO TWICE A DAY 60 November 18, 2019 5:50pm December 11, 2019 10:13am must administer with a meal/food docusate sodium 100 mg oral capsule (4 sources) Start: 12-08-2022 End: 07-04-2023 take 100 mg by mouth twice daily Docusate Sodium Active 100 MG PO TWICE A DAY 60 December 08, 2022 12:00am ferrous sulfate (6 sources) Ferrous Sulfate (IRON PO) Take by mouth daily. Active Ferrous Sulfate (IRON PO) Take by mouth daily. 0 Active montelukast 10 mg oral tablet (20 sources) Leukotriene Receptor Antagonist Start: 11-15-2021 take 1 tablet by mouth once daily Montelukast 10 MG tablet Take 1 tablet by mouth daily. 11/15/2022 Active Start: 12-07-2019 End: 10-31-2020 take 1 tablet by mouth once daily Montelukast (Singulair) 10 mg tablet Discontinued 10 mg PO DAILY December 07, 2019 12:00am October 31, 2020 3:52pm Start: 05-14-2012 End: 05-21-2012 take 1 tablet by mouth once daily SINGULAIR 10 MG TABS One tablet by mouth daily MONTELUKAST SODIUM [id number] Rashmi Barboza Multiple Vitamin (multivitamin) capsule (6 sources) take 1 capsule by mouth once daily Multiple Vitamin (multivitamin) capsule Take 1 capsule by mouth daily. Active take 1 capsule by mouth once edwin ly Multiple Vitamin (multivitamin) capsule Take 1 capsule by mouth daily. 0 Active sertraline 100 mg oral tablet (1 source) Serotonin Reuptake Inhibitor Start: 12-16-2024 take 1 tablet by mouth once daily Sertraline 100 MG tablet Take 1 tablet by mouth daily. 12/16/2024 Active Completed/Discontinued Medications Medication Drug Class(es) Dates Sig (Normalized) Sig (Original) cholecalciferol 0.125 mg oral capsule (11 sources) Vitamin D Start: 0 End: 1 take 1 capsule by mouth once daily Cholecalciferol (Vitamin D3) 125 mcg (5,000 unit) capsule Discontinued 125 ug PO DAILY February 24, 2020 1:00am October 31, 2020 3:52pm ciprofloxacin 500 mg oral tablet (11 sources) Quinolone Antimicrobial Start: 6 End: 8 take 1 tablet by mouth twice daily Ciprofloxacin Hcl 500 MG tablet Discontinued 500 mg PO TWICE A DAY October 06, 2015 12:00am May 22, 2017 3:55pm clopidogrel 75 mg oral tablet (20 sources) P2Y12 Platelet Inhibitor Start: 0 End: 0 take 1 tablet by mouth once daily Clopidogrel 75 MG tablet Discontinued 75 mg PO DAILY December 11, 2019 8:02am December 11, 2019 10:12am 75 mg PO take 4 tabs by mouth on day 1 and then 1 tab by mouth daily; For cardiac cath methylPREDNISolone 4 mg oral tablet (11 sources) Corticosteroid Start: 8 End: 9 Methylprednisolone 4 MG tablet Discontinued 3 {tbl} PO DAILY January 20, 2018 12:00am June 02, 2018 3:08pm medrol dose pack Start: 01-20-2018 End: 06-02-2018 take 3 tablets by mouth once daily Methylprednisolone Discontinued 3 TABLET PO DAILY January 20, 2018 12:00am June 02, 2018 3:08pm medrol dose pack Start: 01-20-2018 End: 06-02-2018 take 3 tablets by mouth once daily Methylprednisolone Discontinued 3 TABLET PO DAILY January 19, 2018 11:00pm June 02, 2018 2:08pm medrol dose pack metroNIDAZOLE 500 mg oral tablet (11 sources) Nitroimidazole Antimicrobial Start: 10-06-2015 End: 05-22-2017 take 1 tablet by mouth every eight hours Metronidazole 500 MG tablet Discontinued 500 mg PO EVERY 8 HOURS October 06, 2015 12:00am May 22, 2017 3:55pm pantoprazole 40 mg delayed release oral tablet (4 sources) Proton Pump Inhibitor Start: 12-08-2022 End: 07-04-2023 take 1 tablet by mouth once daily Pantoprazole [address] tablet DR Take 1 tablet by mouth daily. 12/08/2022 07/04/2023 Discontinued (Medication Reconciliation (suppress cancel msg)) valsartan 80 mg oral tablet (2 sources) Angiotensin 2 Receptor Nena Start: 05-14-2012 End: 05-21-2012 take 1 tablet by mouth once daily DIOVAN 80 MG TABS One tablet by mouth daily VALSARTAN [id number] Rashmi Barboza Problems Active Problems Problem Classification Problem Date Documented Date Episodic/Chronic Biliary tract disease (9 sources) Calculus of gallbladder with cholecystitis; Translations: [Calculus of gallbladder with chronic cholecystitis without obstruction] 11-09-2022 Episodic Conduction disorders (20 sources) Left bundle branch block; Translations: [Bundle branch block] Onset: 3 09-10-2013 Chronic Coronary atherosclerosis and other heart disease (20 sources) Coronary atherosclerosis; Translations: [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] Onset: 3 Chronic Diabetes mellitus without complication (1 source) Impaired glucose tolerance (oral); Translations: [Impaired glucose tolerance (oral)] Onset: 5 Episodic Disorders of lipid metabolism (20 sources) Hyperlipidemia; Translations: [Hyperlipidemia, unspecified] Onset: 3 05-14-2012 Chronic Essential hypertension (20 sources) Hypertensive disorder; Translations: [Essential hypertension] Onset: 3 05-14-2012 Chronic Comment on above: PER PT, CONTROLLED O N MEDS Intestinal obstruction without hernia (2 sources) Intestinal obstruction co-occurrent and due to decreased peristalsis; Translations: [Ileus, unspecified] 12-04-2022 Episodic Other and ill-defined heart disease (1 source) Left ventricular hypertrophy; Translations: [Cardiomegaly] Onset: 4 05-25-2013 Chronic Other and ill-defined heart disease (11 sources) Ventricular hypertrophy ; Translations: [Cardiomegaly] 05-20-2017 Chronic Comment on above: Left Other circulatory disease (12 sources) Electrocardiogram abnormal; Translations: [Abnormal electrocardiogram [ECG] [EKG]] Onset: 3 05-14-2012 Episodic Other disorders of stomach and duodenum (1 source) Gastroparesis syndrome; Translations: [Gastroparesis] 12-04-2022 Episodic Other disorders of stomach and duodenum (1 source) Gastroparesis; Translations: [Gastroparesis] 12-08-2022 Episodic Other lower respiratory disease (12 sources) Dyspnea on exertion; Translations: [Other forms of dyspnea] Onset: 3 05-14-2012 Episodic Other nervous system disorders (1 source) Polyneuropathy, unspecified; Translations: [Polyneuropathy, unspecified] Onset: 4 Chronic Pancreatic disorders (not diabetes) (9 sources) Gallstone pancreatitis; Translations: [Biliary acute pancreatitis without necrosis or infection] 12-03-2022 Episodic Comment on above: s/p ERCP Samantha-; endo-; and myocarditis; cardiomyopathy (except that caused by tuberculosis or sexually transmitted disease) (15 sources) Cardiomyopathy; Translations: [Cardiomyopathy, unspecified] Onset: 3 01-01-2023 Chronic Residual codes; unclassified (1 source) Acquired absence of other specified parts of digestive tract; Translations: [Other postprocedural status] 12-08-2022 Episodic Syncope (12 sources) Syncope and collapse; Translations: [Syncope and collapse] Onset: 4 09-10-2013 Episodic Past or Other Problems Problem Classification Problem Date Documented Date Episodic/Chronic Other nutritional; endocrine; and metabolic disorders (1 source) Body mass index (BMI) 28.0-28.9, adult; Translations: [Body mass index (BMI) 28.0-28.9, adult] Onset: 05-25-2013 05-25-2013 Episodic Other screening for suspected conditions (not mental disorders or infectious disease) (20 sources) Echocardiogram abnormal; Translations: [Abnormal findings on diagnostic imaging of heart and coronary circulation] Onset: 01-07-2024 Episodic Results Test Name Value Interpretation Reference Range Facility Absolute neutrophil countOrd ered By: Danni Swann on 06-17-2024 Neutrophils (Bld) [#/Vol] 3.2 10*3/uL 2.0-7.7 [facility] Anion gap in Serum or Plasma Ordered By: Danni Swann on 06-17-2024 Anion gap [Moles/Vol] 15 mmol/L 08-27 [facility] BUN/creatinine ratioOrdered By: Danni Swann on 06-17-2024 Urea nitrogen/Creatinine [Mass ratio] 13.9 mg/mg 02-01 [facility] Basophil percentageOrdered B y: Danni Swann on 06-17-2024 Basophils/100 WBC (Bld) 0.9 % 0- [facility] Bilirubin, totalOrdered By: Danni Swann on 06-17-2024 Bilirubin [Mass/Vol] 0.36 mg/dL 0.00-1.30 [facility] CBC W/Diff, Automatedon Absolute Lymph 2.16 X10 3/uL Normal 0.83-4.51 [facility] Comment on above: Order Comment: Order Date: 06/17/24 Order Info: 0184-1 - CBCD Performed By: #### L [id number], [id number], L100.0100 #### [facility] [address] [place], [place], [id number] Absolute Neut 3.2 X10 3/uL Normal 2.0-7.7 [facility] Comment on above: Order Comment: Order Date: 06/17/24 Order Info: 0184-1 - CBCD Performed By: #### L [id number], [id number], L100.0100 #### [facility] [address] [place], [address] Basophils/100 WBC (Bld) 0.9 % Normal 0-[address] [facility] Comment on above: Order Comment: Order Date: 06/17/24 Order Info: 0184-1 - CBCD Performed By: #### L [id number], [id number], L100.0100 #### [facility] [address] [place], [address] Eosinophils/100 WBC (Bld) 5.0 % Normal 0-5 [facility] Comment on above: Order Comment: Order Date: 06/17/24 Order Info: 0184-1 - CBCD Performed By: #### L [id number], [id number], L100.0100 #### [facility] [address] [place], [address] Erythrocyte distribution width (RBC) [Ratio] 12.9 % Normal 11.6-14.6 [facility] Comment on above: Order Comment: Order Date: 06/17/24 Order Info: 0184-1 - CBCD Performed By: #### L [id number], [id number], L100.0100 #### [facility] [address] [place], [address] Hematocrit (Bld) [Volume fraction] 42.9 % Normal 40-54 [facility] Comment on above: Order Comment: Order Date: 06/17/24 Order Info: 0184-1 - CBCD Performed By: #### L [id number], [id number], L100.0100 #### [facility] [address] [place], [address] Hemoglobin (Bld) [Mass/Vol] 14.2 g/dL Normal 13.0-16.5 [facility] Comment on above: Order Comment: Order Date: 06/17/24 Order Info: 0184-1 - CBCD Performed By: #### L [id number], [id number], L100.0100 #### [facility] [address] [place], [address] IG% 0.300 Normal 0.0-0.9 [facility] Comment on above: Order Comment: Order Date: 06/17/24 Order Info: 0184-1 - CBCD Result Comment: IG% - Immature Granulocytes (promyelocytes, myelocytes and metamyelocytes) > 1% indicates that a LEFT SHIFT is Present. Performed By: #### L [id number], [id number], L100.0100 #### [facility] [address] [place], [address] Lymphocytes/100 WBC (Bld) 31.9 % Normal 19-41 [facility] Comment on above: Order Comment: Order Date: 06/17/24 Order Info: 0184-1 - CBCD Performed By: #### L [id number], [id number], L100.0100 #### [facility] [address] [place], [address] MCH (RBC) [Entitic mass] 29.5 pg Normal 27.0-32.0 [facility] Comment on above: Order Comment: Order Date: 06/17/24 Order Info: 0184-1 - CBCD Performed By: #### L [id number], [id number], L100.0100 #### [facility] [address] [place], [address] MCHC (RBC) [Mass/Vol] 33.1 g/dL Normal 32-36 [facility] Comment on above: Order Comment: Order Date: 06/17/24 Order Info: 0184-1 - CBCD Performed By: #### L [id number], [id number], L100.0100 #### [facility] [address] [place], [address] MCV (RBC) [Entitic vol] 89.2 fL Normal 80-[address] [facility] Comment on above: Order Comment: Order Date: 06/17/24 Order Info: 0184-1 - CBCD Performed By: #### L [id number], [id number], L100.0100 #### [facility] [address] [place], [address] Monocytes/100 WBC (Bld) 14.0 % High 0-[address] [facility] Comment on above: Order Comment: Order Date: 06/17/24 Order Info: 0184-1 - CBCD Performed By: #### L [id number], [id number], L100.0100 #### [facility] [address] [place], [address] Neutrophils/100 WBC (Bld) 47.9 % Normal 47-70 [facility] Comment on above: Order Comment: Order Date: 06/17/24 Order Info: 0184-1 - CBCD Performed By: #### L [id number], [id number], L100.0100 #### [facility] [address] [place], [address] Nucleated RBC (Bld) [#/Vol] 0 10*3/uL Normal 0-5 [facility] Comment on above: Order Comment: Order Date: 06/17/24 Order Info: 0184-1 - CBCD Performed By: #### L [id number], [id number], L100.0100 #### [facility] [address] [place], [address] Platelet mean volume (Bld) [Entitic vol] 8.9 fL Normal 6.2-12.0 [facility] Comment on above: Order Comment: Order Date: 06/17/24 Order Info: 0184-1 - CBCD Performed By: #### L [id number], [id number], L100.0100 #### [facility] [address] [place], [address] Platelets (Bld) [#/Vol] 303 10*3/uL Normal 150-450 [facility] Comment on above: Order Comment: Order Date: 06/17/24 Order Info: 0184-1 - CBCD Performed By: #### L [id number], [id number], L100.0100 #### [facility] [address] [place], [address] RBC (Bld) [#/Vol] 4.81 10*6/uL Normal 4.6-6.2 [facility] Comment on above: Order Comment: Order Date: 06/17/24 Order Info: 0184-1 - CBCD Performed By: #### L [id number], [id number], L100.0100 #### [facility] [address] [place], [address] RDW SD 42.2 fl Normal 35.1-43.9 [facility] Comment on above: Order Comment: Order Date: 06/17/24 Order Info: 0184-1 - CBCD Performed By: #### L [id number], [id number], L100.0100 #### [facility] [address] [place], [address] WBC (Bld) [#/Vol] 6.8 10*3/uL Normal 4.4-11.0 [facility] Comment on above: Order Comment: Order Date: 06/17/24 Order Info: 0184-1 - CBCD Performed By: #### L [id number], [id number], L100.0100 #### [facility] [address] [place], [address] Carbon dioxide, total [Moles /volume] in Central venous bloodOrdered By: Danni Swann on 06-17-2024 CO2 [Moles/Vol] 21.8 mmol/L 21.0-32.0 [facility] Chloride assayOrdered By: Farida Swann on 06-17-2024 Chloride [Moles/Vol] 103 mmol/L 98-108 [facility] Comprehensive Metabolic Prof ilon 06-17-2024 Albumin [Mass/Vol] 4.4 g/dL Normal 3.4-4.8 [facility] Comment on above: Order Comment: Order Date: 06/17/24 Order Info: 0786-1 - CMP Performed By: #### L [id number], [id number], L100.0100 #### [facility] [address] [place], [address] Albumin/Globulin [Mass ratio] 1.4 {ratio} Normal 0.9-2.4 [facility] Comment on above: Order Comment: Order Date: 06/17/24 Order Info: 0786-1 - CMP Performed By: #### L [id number], [id number], L100.0100 #### [facility] [address] [place], [address] ALK PHOS 67 U/L Normal 40-129 [facility] Comment on above: Order Comment: Order Date: 06/17/24 Order Info: 0786-1 - CMP Performed By: #### L [id number], [id number], L100.0100 #### [facility] [address] [place], [address] ALT [Catalytic activity/Vol] 43 U/L Normal <=46 [facility] Comment on above: Order Comment: Order Date: 06/17/24 Order Info: 0786-1 - CMP Performed By: #### L [id number], [id number], L100.0100 #### [facility] [address] [place], [address] AST [Catalytic activity/Vol] 27 U/L Normal <=37 [facility] Comment on above: Order Comment: Order Date: 06/17/24 Order Info: 0786-1 - CMP Performed By: #### L [id number], [id number], L100.0100 #### [facility] [address] [place], [address] Bilirubin [Mass/Vol] 0.36 mg/dL Normal 0.00-1.30 [facility] Comment on above: Order Comment: Order Date: 06/17/24 Order Info: 0786-1 - CMP Performed By: #### L [id number], [id number], L100.0100 #### [facility] [address] [place], [address] BUN/CRE 13.9 RATIO Normal 10-20 [facility] Comment on above: Order Comment: Order Date: 06/17/24 Order Info: 0786-1 - CMP Performed By: #### L [id number], [id number], L100.0100 #### [facility] [address] [place], [address] Calcium [Mass/Vol] 9.8 mg/dL Normal 7.6-11.0 [facility] Comment on above: Order Comment: Order Date: 06/17/24 Order Info: 0786-1 - CMP Performed By: #### L [id number], [id number], L100.0100 #### [facility] [address] [place], [address] Chloride [Moles/Vol] 103 mmol/L Normal 98-108 [facility] Comment on above: Order Comment: Order Date: 06/17/24 Order Info: 0786-1 - CMP Performed By: #### L [id number], [id number], L100.0100 #### [facility] [address] [place], [address] CO2 [Moles/Vol] 21.8 mmol/L Normal 21.0-32.0 [facility] Comment on above: Order Comment: Order Date: 06/17/24 Order Info: 0786-1 - CMP Performed By: #### L [id number], [id number], L100.0100 #### [facility] [address] [place], [address] Creatinine [Mass/Vol] 0.82 mg/dL Normal 0.70-1.20 [facility] Comment on above: Order Comment: Order Date: 06/17/24 Order Info: 0786-1 - CMP Performed By: #### L [id number], [id number], L100.0100 #### [facility] [address] [place], [address] GAP 15 Normal 5-15 [facility] Comment on above: Order Comment: Order Date: 06/17/24 Order Info: 0786-1 - CMP Performed By: #### L [id number], [id number], L100.0100 #### [facility] [address] [place], [address] GFR/1.73 sq M.predicted among non-blacks MDRD (S/P/Bld) [Vol rate/Area] 101 mL/min/{1.73_m2} Normal >60 [facility] Comment on above: Order Comment: Order Date: 06/17/24 Order Info: 0786-1 - CMP Result Comment: mL/m in/1.73m2 CKD-EPI Creatinine Equation (2020) Performed By: #### L [id number], [id number], L100.0100 #### [facility] [address] [place], [address] Globulin (S) [Mass/Vol] 3.0 g/dL Normal 2.2-4.2 [facility] Comment on above: Order Comment: Order Date: 06/17/24 Order Info: 0786-1 - CMP Performed By: #### L 501.9985, L500.4050, L100.0100 #### [facility] [address] [place], [address] Glucose [Mass/Vol] 87 mg/dL Normal 70-99 [facility] Comment on above: Order Comment: Order Date: 06/17/24 Order Info: [id number] - CMP Performed By: #### L 501.9985, L500.4050, L100.0100 #### [facility] [address] [place], [address] Potassium [Moles/Vol] 4.4 mmol/L Normal 3.3-5.1 [facility] Comment on above: Order Comment: Order Date: 06/17/24 Order Info: [id number] - CMP Performed By: #### L 501.9985, L500.4050, L100.0100 #### [facility] [address] [place], [address] Sodium [Moles/Vol] 139 mmol/L Normal 133-145 [facility] Comment on above: Order Comment: Order Date: 06/17/24 Order Info: [id number] - CMP Performed By: #### L 501.9985, L500.4050, L100.0100 #### [facility] [address] [place], [address] T PROT 7.4 g/dL Normal 5.9-8.4 [facility] Comment on above: Order Comment: Order Date: 06/17/24 Order Info: [id number] - CMP Performed By: #### L 501.9985, L500.4050, L100.0100 #### [facility] [address] [place], [address] Urea nitrogen [Mass/Vol] 11 mg/dL Normal 4-19 [facility] Comment on above: Order Comment: Order Date: 06/17/24 Order Info: [id number] - CMP Performed By: #### L 501.9985, L500.4050, L100.0100 #### [facility] [address] [place], [address] Eosinophil percentageOrdered By: Danni Swann on 06-17-2024 Eosinophils/100 WBC (Bld) 5.0 % 0-5 [facility] Erythrocyte distribution wid th ratioOrdered By: Danni Swann on 06-17-2024 Erythrocyte distribution width (RBC) [Ratio] 12.9 % 11.6-14.6 [facility] Erythrocyte distribution wid th standard deviationOrdered By: Danni Swann on 06-17-2024 Erythrocyte distribution width (RBC) [Entitic vol] 42.2 fL 35.1-43.9 [facility] GFR/1.73 sq M.predicted farzad g non-blacks MDRD (S/P/Bld) [Vol rate/Area]Ordered By: Danni Swann on 06-17-2024 Estimated GFR (MDRD) Non-Af Amer 101 >60 [facility] Comment on above: mL/min/1.73m2 CKD-EP I Creatinine Equation (2020) Hematocrit Auto (Bld) [Volum e fraction]Ordered By: Danni Swann on 06-17-2024 Hematocrit (Bld) [Volume fraction] 42.9 % 40-54 [facility] Hemoglobin A1con 06-17-2024 HbA1c (Bld) [Mass fraction] 6.1 % Normal <=5.6 [facility] Comment on above: Order Comment: Order Date: 06/17/24 Order Info: [id number] - A1C Performed By: #### L 501.9985, L500.4050, L100.0100 #### [facility] [address] [place] [address], [id number] Hemoglobin A1c percentageOrd ered By: Danni Swann on 06-17-2024 HbA1c (Bld) [Mass fraction] 6.1 % >5.7 [facility] Hemoglobin measurementOrdere d By: Danni Swann on 06-17-2024 Hemoglobin (Bld) [Mass/Vol] 14.2 g/dL 13.0-16.5 [facility] Immature granulocytes/100 WB C Auto (Bld)Ordered By: Danni Swann on 06-17-2024 Immature granulocytes/100 WBC (Bld) 0.300 % 0.0-0.9 [facility] Comment on above: IG% - Immature Granu locytes (promyelocytes, myelocytes and metamyelocytes) > 1% indicates that a LEFT SHIFT is Present. L506.1001on 06-17-2024 Vitamin D 25-OH 24.2 ng/mL Low 30-100 [facility] Comment on above: Order Comment: Order Date: 06/17/24 Order Info: [id number] - CMP Result Comment: Chelly min D Status Deficiency: <20 ng/mL (50nmol/L) Insufficiency: 20-30 ng/mL (50-75 nmol/L) Sufficiency: 30-100 ng/mL (75-250 nmol/L) Toxicity: >100 ng/mL (>250 nmol/L) Performed By: #### L 501.9985, L500.4050, L100.0100 #### [facility] [address] [place], [address] Laboratory - Chemistry and C hemistry - challengeOrdered By: Danni Swann on 06-17-2024 AST [Catalytic activity/Vol] 27 U/L <38 [facility] Lymphocytes Auto (Unsp spec) [#/Vol]Ordered By: Danni Swann on 06-17-2024 Lymphocytes (Bld) [#/Vol] 2.16 10*3/uL 0.83-4.51 [facility] Lymphocytes/100 WBC Auto (Un sp spec)Ordered By: Danni Swann on 06-17-2024 Lymphocytes/100 WBC (Bld) 31.9 % 19-41 [facility] MCV (mean corpuscular volume ) determinationOrdered By: Danni Swann on 06-17-2024 MCV (RBC) [Entitic vol] 89.2 fL 80-[address] [facility] Mean corpuscular hemoglobin (MCH) determinationOrdered By: Danni Swann on 06-17-2024 MCH (RBC) [Entitic mass] 29.5 pg 27.0-32.0 [facility] Mean corpuscular hemoglobin concentration (MCHC) determinationOrdered By: Danni Swann on 06-17-2024 MCHC (RBC) [Mass/Vol] 33.1 g/dL 32-36 [facility] Mean platelet volume determi nationOrdered By: Danni Swann on 06-17-2024 Platelet mean volume (Bld) [Entitic vol] 8.9 fL 6.2-12.0 [facility] Monocyte percentageOrdered B y: Danni Swann on 06-17-2024 Monocytes/100 WBC (Bld) 14.0 % High 0-[address] [facility] Neutrophil percentageOrdered By: Danni Swann on 06-17-2024 Neutrophils/100 WBC (Bld) 47.9 % 47-70 [facility] Nucleated red blood cell per centageOrdered By: Danni Swann on 06-17-2024 Nucleated RBC/100 WBC (Bld) [Ratio] 0 % 0-5 [facility] Platelet countOrdered By: Farida Swann on 06-17-2024 Platelets (Bld) [#/Vol] 303 10*3/uL 150-450 [facility] Potassium (Unsp spec) [Mass/ Vol]Ordered By: Danni Swann on 06-17-2024 Potassium [Moles/Vol] 4.4 mmol/L 3.3-5.1 [facility] RBC Auto (Bld) [#/Vol]Ordere d By: Danni Swann on 06-17-2024 RBC (Bld) [#/Vol] 4.81 10*6/uL 4.6-6.2 [facility] Serum creatinine measurement (mass/volume)Ordered By: Danni Swann on 06-17-2024 Creatinine [Mass/Vol] 0.82 mg/dL 0.70-1.20 [facility] Serum globulin measurementOr dered By: Danni Swann on 06-17-2024 Globulin (S) [Mass/Vol] 3.0 g/dL 2.2-4.2 [facility] Serum glucose measurement (m ass/volume)Ordered By: Danni Swann on 06-17-2024 Glucose [Mass/Vol] 87 mg/dL 70-99 [facility] Serum or plasma alanine robert otransferase (ALT) measurementOrdered By: Danni Swann on 06-17-2024 ALT [Catalytic activity/Vol] 43 U/L <47 [facility] Serum or plasma albumin ivan urement (mass/volume)Ordered By: Danni Swann on 06-17-2024 Albumin [Mass/Vol] 4.4 g/dL 3.4-4.8 [facility] Serum or plasma albumin/glob ulin mass ratioOrdered By: Danni Swann on 06-17-2024 Albumin/Globulin [Mass ratio] 1.4 {ratio} 0.9-2.4 [facility] Serum or plasma alkaline armen sphatase measurementOrdered By: Danni Swann on 06-17-2024 ALP [Catalytic activity/Vol] 67 U/L 40-129 [facility] Serum or plasma calcium ivan urement (mass/volume)Ordered By: Danni Swann on 06-17-2024 Calcium [Mass/Vol] 9.8 mg/dL 7.6-11.0 [facility] Serum or plasma urea nitroge n measurement (mass/volume)Ordered By: Danni Swann on 06-17-2024 Urea nitrogen [Mass/Vol] 11 mg/dL 4-19 [facility] Sodium levelOrdered By: Danni Swann on 06-17-2024 Sodium [Moles/Vol] 139 mmol/L 133-145 [facility] Total proteinOrdered By: Hugo Swann on 06-17-2024 Protein [Mass/Vol] 7.4 g/dL 5.9-8.4 [facility] Vitamin D, 25-hydroxyOrdered By: Danni Swann on 06-17-2024 Vitamin D 25-Hydroxy 24.2 ng/mL Low 30-100 [facility] Comment on above: Vitamin D StatusDefi ciency: <20 ng/mL (50nmol/L)Insufficiency: 20-30 ng/mL (50-75 nmol/L)Sufficiency: 30-100 ng/mL (75-250 nmol/L)Toxicity: >100 ng/mL (>250 nmol/L) White blood cell (WBC) count Ordered By: Danni Swann on 06-17-2024 WBC (Bld) [#/Vol] 6.8 10*3/uL 4.4-11.0 [facility] PSA,Total - Annual Screenon 12-19-2023 PSA,TOT SCREEN 0.53 ng/mL Normal 0.00-4.00 [facility] Comment on above: Order Comment: Order Date: 06/17/24 Order Info: [id number] - CMP Result Comment: This test was performed using the TPSA assay method for the [employer] chemistry system. Values obtained with different assay methods cannot be used interchangably. When changing PSA assays in the course of monitoring a patient, additional sequential testing should be carried out to confirm baseline values. Performed By: #### L 501.9985, L500.4050, L100.0100 #### [facility] [address] [place], [address] CBC W/Diff, Automatedon 090 -2023 Absolute Lymph 2.02 X10 3/uL Normal 0.83-4.51 [facility] Comment on above: Order Comment: Order Date: 12/18/23 Order Info: [id number] - CBCD Performed By: #### L 500.4100, L500.4050, L506.1000, L501.9985, L100.0100 #### [facility] [address] [place], [address] Absolute Neut 3.8 X10 3/uL Normal 2.0-7.7 [facility] Comment on above: Order Comment: Order Date: 12/18/23 Order Info: [id number] - CBCD Performed By: #### L 500.4100, L500.4050, L506.1000, L501.9985, L100.0100 #### [facility] [address] [place], [address] Basophils/100 WBC (Bld) 0.7 % Normal 0-[address] [facility] Comment on above: Order Comment: Order Date: 12/18/23 Order Info: [id number] - CBCD Performed By: #### L 500.4100, L500.4050, L506.1000, L501.9985, L100.0100 #### [facility] [address] [place], [address] Eosinophils/100 WBC (Bld) 3.9 % Normal 0-5 [facility] Comment on above: Order Comment: Order Date: 12/18/23 Order Info: 0184-1 - CBCD Performed By: #### L 500.4100, L500.4050, L506.1000, L501.9985, L100.0100 #### [facility] [address] [place], [address] Erythrocyte distribution width (RBC) [Ratio] 13.0 % Normal 11.6-14.6 [facility] Comment on above: Order Comment: Order Date: 12/18/23 Order Info: 0184- - CBCD Performed By: #### L 500.4100, L500.4050, L506.1000, L501.9985, L100.0100 #### [facility] [address] [place], [address] Hematocrit (Bld) [Volume fraction] 41.4 % Normal 40-54 [facility] Comment on above: Order Comment: Order Date: 12/18/23 Order Info: 0184- - CBCD Performed By: #### L 500.4100, L500.4050, L506.1000, L501.9985, L100.0100 #### [facility] [address] [place], [address] Hemoglobin (Bld) [Mass/Vol] 13.4 g/dL Normal 13.0-16.5 [facility] Comment on above: Order Comment: Order Date: 12/18/23 Order Info: 0184- - CBCD Performed By: #### L 500.4100, L500.4050, L506.1000, L501.9985, L100.0100 #### [facility] [address] [place], [address] IG% 0.300 Normal 0.0-0.9 [facility] Comment on above: Order Comment: Order Date: 12/18/23 Order Info: [id number] - CBCD Result Comment: IG% - Immature Granulocytes (promyelocytes, myelocytes and metamyelocytes) > 1% indicates that a LEFT SHIFT is Present. Performed By: #### L 500.4100, L500.4050, L506.1000, L501.9985, L100.0100 #### [facility] [address] [place], [address] Lymphocytes/100 WBC (Bld) 29.4 % Normal 19-41 [facility] Comment on above: Order Comment: Order Date: 12/18/23 Order Info: 0184-1 - CBCD Performed By: #### L 500.4100, L500.4050, L506.1000, L501.9985, L100.0100 #### [facility] [address] [place], [address] MCH (RBC) [Entitic mass] 28.7 pg Normal 27.0-32.0 [facility] Comment on above: Order Comment: Order Date: 12/18/23 Order Info: 0184- - CBCD Performed By: #### L 500.4100, L500.4050, L506.1000, L501.9985, L100.0100 #### [facility] [address] [place], [address] MCHC (RBC) [Mass/Vol] 32.4 g/dL Normal 32-36 [facility] Comment on above: Order Comment: Order Date: 12/18/23 Order Info: 0184- - CBCD Performed By: #### L 500.4100, L500.4050, L506.1000, L501.9985, L100.0100 #### [facility] [address] [place], [address] MCV (RBC) [Entitic vol] 88.7 fL Normal 80-[address] [facility] Comment on above: Order Comment: Order Date: 12/18/23 Order Info: 0184-1 - CBCD Performed By: #### L 500.4100, L500.4050, L506.1000, L501.9985, L100.0100 #### [facility] [address] [place], [address] Monocytes/100 WBC (Bld) 10.2 % High 0-[address] [facility] Comment on above: Order Comment: Order Date: 12/18/23 Order Info: 0184-1 - CBCD Performed By: #### L 500.4100, L500.4050, L506.1000, L501.9985, L100.0100 #### [facility] [address] [place], [address] Neutrophils/100 WBC (Bld) 55.5 % Normal 47-70 [facility] Comment on above: Order Comment: Order Date: 12/18/23 Order Info: [id number] - CBCD Performed By: #### L 500.4100, L500.4050, L506.1000, L501.9985, L100.0100 #### [facility] [address] [place], [address] Nucleated RBC (Bld) [#/Vol] 0 10*3/uL Normal 0-5 [facility] Comment on above: Order Comment: Order Date: 12/18/23 Order Info: [id number] - CBCD Performed By: #### L 500.4100, L500.4050, L506.1000, L501.9985, L100.0100 #### [facility] [address] [place], [address] Platelet mean volume (Bld) [Entitic vol] 9.0 fL Normal 6.2-12.0 [facility] Comment on above: Order Comment: Order Date: 12/18/23 Order Info: 0184-1 - CBCD Performed By: #### L 500.4100, L500.4050, L506.1000, L501.9985, L100.0100 #### [facility] [address] [place], [address] Platelets (Bld) [#/Vol] 350 10*3/uL Normal 150-450 [facility] Comment on above: Order Comment: Order Date: 12/18/23 Order Info: [id number] - CBCD Performed By: #### L 500.4100, L500.4050, L506.1000, L501.9985, L100.0100 #### [facility] [address] [place], [address] RBC (Bld) [#/Vol] 4.67 10*6/uL Normal 4.6-6.2 [facility] Comment on above: Order Comment: Order Date: 12/18/23 Order Info: [id number] - CBCD Performed By: #### L 500.4100, L500.4050, L506.1000, L501.9985, L100.0100 #### [facility] [address] [place], [address] RDW SD 42.2 fl Normal 35.1-43.9 [facility] Comment on above: Order Comment: Order Date: 12/18/23 Order Info: [id number] - CBCD Performed By: #### L 500.4100, L500.4050, L506.1000, L501.9985, L100.0100 #### [facility] [address] [place], [address] WBC (Bld) [#/Vol] 6.9 10*3/uL Normal 4.4-11.0 [facility] Comment on above: Order Comment: Order Date: 12/18/23 Order Info: [id number] - CBCD Performed By: #### L 500.4100, L500.4050, L506.1000, L501.9985, L100.0100 #### [facility] [address] [place], [address] Comprehensive Metabolic Prof ilon 12-18-2023 Albumin [Mass/Vol] 3.5 g/dL Normal 3.2-5.0 [facility] Comment on above: Order Comment: Order Date: 12/18/23 Order Info: [id number] - CMP Order Info: [id number] - LIPID Performed By: #### L 500.4100, L500.4050, L506.1000, L501.9985, L100.0100 #### [facility] [address] [place], [address] Albumin/Globulin [Mass ratio] 0.9 {ratio} Normal 0.9-2.4 [facility] Comment on above: Order Comment: Order Date: 12/18/23 Order Info: [id number] - CMP Order Info: [id number] - LIPID Performed By: #### L 500.4100, L500.4050, L506.1000, L501.9985, L100.0100 #### [facility] [address] [place], [address] ALK P 64 U/L Normal 45-117 [facility] Comment on above: Order Comment: Order Date: 12/18/23 Order Info: [id number] - CMP Order Info: [id number] - LIPID Performed By: #### L 500.4100, L500.4050, L506.1000, L501.9985, L100.0100 #### [facility] [address] [place], [address] ALT [Catalytic activity/Vol] 48 U/L Normal 16-61 [facility] Comment on above: Order Comment: Order Date: 12/18/23 Order Info: [id number] - CMP Order Info: [id number] - LIPID Performed By: #### L 500.4100, L500.4050, L506.1000, L501.9985, L100.0100 #### [facility] [address] [place], [address] AST [Catalytic activity/Vol] 24 U/L Normal 15-37 [facility] Comment on above: Order Comment: Order Date: 12/18/23 Order Info: [id number] - CMP Order Info: [id number] - LIPID Performed By: #### L 500.4100, L500.4050, L506.1000, L501.9985, L100.0100 #### [facility] [address] [place], [address] Bilirubin [Mass/Vol] 0.40 mg/dL Normal 0.20-1.00 [facility] Comment on above: Order Comment: Order Date: 12/18/23 Order Info: [id number] - CMP Order Info: [id number] - LIPID Result Comment: For patients on eltrombopag therapy, use of Dimension [place] TBIL is not recommended. Performed By: #### L 500.4100, L500.4050, L506.1000, L501.9985, L100.0100 #### [facility] [address] [place], [address] BUN/CRE 17.3 RATIO Normal 10-20 [facility] Comment on above: Order Comment: Order Date: 12/18/23 Order Info: [id number] - CMP Order Info: [id number] - LIPID Performed By: #### L 500.4100, L500.4050, L506.1000, L501.9985, L100.0100 #### [facility] [address] [place], [address] CA,Total 9.6 mg/dL Normal 8.5-10.1 [facility] Comment on above: Order Comment: Order Date: 12/18/23 Order Info: [id number] - CMP Order Info: [id number] - LIPID Performed By: #### L 500.4100, L500.4050, L506.1000, L501.9985, L100.0100 #### [facility] [address] [place], [address] Chloride [Moles/Vol] 107 mmol/L Normal 98-107 [facility] Comment on above: Order Comment: Order Date: 12/18/23 Order Info: [id number] - CMP Order Info: [id number] - LIPID Performed By: #### L 500.4100, L500.4050, L506.1000, L501.9985, L100.0100 #### [facility] [address] [place], [address] CO2 [Moles/Vol] 24.0 mmol/L Normal 21.0-32.0 [facility] Comment on above: Order Comment: Order Date: 12/18/23 Order Info: [id number] - CMP Order Info: [id number] - LIPID Performed By: #### L 500.4100, L500.4050, L506.1000, L501.9985, L100.0100 #### [facility] [address] [place], [address] Creatinine [Mass/Vol] 0.75 mg/dL Normal 0.70-1.30 [facility] Comment on above: Order Comment: Order Date: 12/18/23 Order Info: [id number]- - CMP Order Info: [id number] - LIPID Result Comment: The validity of the calculated GFR GFRAA in patients over 70 years has not been determined. Clinical correlation is essential. Performed By: #### L 500.4100, L500.4050, L506.1000, L501.9985, L100.0100 #### [facility] [address] [place], [address] EST GFR - AA 136 mL/min Normal >60 [facility] Comment on above: Order Comment: Order Date: 12/18/23 Order Info: [id number] - CMP Order Info: [id number] - LIPID Result Comment: Afri can [place] GFR Calc Performed By: #### L 500.4100, L500.4050, L506.1000, L501.9985, L100.0100 #### [facility] [address] [place], [address] GAP 7 Normal 5-15 [facility] Comment on above: Order Comment: Order Date: 12/18/23 Order Info: [id number] - CMP Order Info: [id number] - LIPID Performed By: #### L 500.4100, L500.4050, L506.1000, L501.9985, L100.0100 #### [facility] [address] [place], [address] GFR/1.73 sq M.predicted among non-blacks MDRD (S/P/Bld) [Vol rate/Area] 113 mL/min/{1.73_m2} Normal >60 [facility] Comment on above: Order Comment: Order Date: 12/18/23 Order Info: [id number] - CMP Order Info: [id number] - LIPID Result Comment: Non- GFR Calc Performed By: #### L 500.4100, L500.4050, L506.1000, L501.9985, L100.0100 #### [facility] [address] [place], [address] Globulin (S) [Mass/Vol] 3.9 g/dL Normal 2.2-4.[address] [facility] Comment on above: Order Comment: Order Date: 12/18/23 Order Info: [id number] - CMP Order Info: [id number] - LIPID Performed By: #### L 500.4100, L500.4050, L506.1000, L501.9985, L100.0100 #### [facility] [address] [place], [address] Glucose [Mass/Vol] 108 mg/dL High 74-106 [facility] Comment on above: Order Comment: Order Date: 12/18/23 Order Info: [id number] - CMP Order Info: [id number] - LIPID Result Comment: Fast ing Glucose result from 100 to 125 mg/dL suggests IMPAIRED HOMEOSTASIS per A.D.A. criteria. Performed By: #### L 500.4100, L500.4050, L506.1000, L501.9985, L100.0100 #### [facility] [address] [place], [address] Potassium [Moles/Vol] 4.1 mmol/L Normal 3.5-5.1 [facility] Comment on above: Order Comment: Order Date: 12/18/23 Order Info: [id number] - CMP Order Info: [id number] - LIPID Performed By: #### L 500.4100, L500.4050, L506.1000, L501.9985, L100.0100 #### [facility] [address] [place], [address] Sodium [Moles/Vol] 138 mmol/L Normal 136-145 [facility] Comment on above: Order Comment: Order Date: 12/18/23 Order Info: [id number] - CMP Order Info: [id number] - LIPID Performed By: #### L 500.4100, L500.4050, L506.1000, L501.9985, L100.0100 #### [facility] [address] [place], [address] T PROT 7.4 g/dL Normal 6.4-8.2 [facility] Comment on above: Order Comment: Order Date: 12/18/23 Order Info: [id number] - CMP Order Info: [id number] - LIPID Performed By: #### L 500.4100, L500.4050, L506.1000, L501.9985, L100.0100 #### [facility] [address] [place], [address] Urea nitrogen [Mass/Vol] 13 mg/dL Normal 7-18 [facility] Comment on above: Order Comment: Order Date: 12/18/23 Order Info: [id number] - CMP Order Info: [id number] - LIPID Performed By: #### L 500.4100, L500.4050, L506.1000, L501.9985, L100.0100 #### [facility] [address] [place], [address] Hemoglobin A1con 12-18-2023 HbA1c (Bld) [Mass fraction] 6.0 % High 3.8-5.6 [facility] Comment on above: Order Comment: Order Date: 12/18/23 Order Info: [id number] - A1C Result Comment: Norm al < 5.7 % Prediabetic 5.7 - 6.4 % Diabetic >or= 6.5 % Please note range changes. Performed By: #### L 500.4100, L500.4050, L506.1000, L501.9985, L100.0100 #### [facility] [address] [place], [address] Lipid Profileon 12-18-2023 Cholesterol [Mass/Vol] 172 mg/dL Normal 200 [facility] Comment on above: Order Comment: Order Date: 12/18/23 Order Info: [id number] - CMP Order Info: [id number] - LIPID Result Comment: <200 mg/dL Desirable 200-240 mg/dL Borderline >240 mg/dL High Risk Performed By: #### L 500.4100, L500.4050, L506.1000, L501.9985, L100.0100 #### [facility] [address] [place], [address] Cholesterol in HDL [Mass/Vol] 43 mg/dL Normal [facility] Comment on above: Order Comment: Order Date: 12/18/23 Order Info: [id number] - CMP Order Info: [id number] - LIPID Result Comment: The drugs N-Acetylcysteine and Metamizole may falsely depress this assay. Reference Range HDL <40 mg/dL Low HDL Cholesterol HDL >or= 60 mg/dL High HDL Cholesterol Performed By: #### L 500.4100, L500.4050, L506.1000, L501.9985, L100.0100 #### [facility] [address] [place], [place], [address] Cholesterol in LDL [Mass/Vol] 97 mg/dL Normal 0-130 [facility] Comment on above: Order Comment: Order Date: 12/18/23 Order Info: 0786-1 - CMP Order Info: [id number] - LIPID Performed By: #### L 500.4100, L500.4050, L506.1000, L501.9985, L100.0100 #### [facility] [address] [place], [address] Cholesterol in VLDL [Mass/Vol] 32 mg/dL Normal 5-40 [facility] Comment on above: Order Comment: Order Date: 12/18/23 Order Info: [id number] - CMP Order Info: [id number] - LIPID Performed By: #### L 500.4100, L500.4050, L506.1000, L501.9985, L100.0100 #### [facility] [address] [place], [address] Triglyceride [Mass/Vol] 162 mg/dL Normal [facility] Comment on above: Order Comment: Order Date: 12/18/23 Order Info: [id number] - CMP Order Info: [id number] - LIPID Result Comment: The drugs N-Acetylcysteine and Metamizole may falsely depress this assay. Serum Triglycerides Reference Interval Normal <150 mg/dL Borderline high 150 - 199 mg/dL High 200 - 499 mg/dL Very High > or = 500 mg/dL Performed By: #### L 500.4100, L500.4050, L506.1000, L501.9985, L100.0100 #### [facility] [address] [place], [address] Vitamin D,25 Hydroxyon 12-17 Vitamin D 25-OH 30.6 ng/mL Normal [facility] Comment on above: Order Comment: Order Date: 12/18/23 Order Info: [id number] - VITD25 Result Comment: Chelly min D 25(OH) Status Range Deficiency <20 ng/mL (50nmol/L) Insufficiency 20 - 30 ng/mL (50 - 75 nmol/L) Sufficiency 30 - 100 ng/mL (75 - 250 nmol/L) Toxicity >100 ng/mL (>250 nmol/L) Performed By: #### L 500.4100, L500.4050, L506.1000, L501.9985, L100.0100 #### [facility] [address] [place], [place], [address] Vitamin B1, Thiamineon 08-16 VIT B1 THIAMINE 147.4 nmol/L Normal 66.5-200.0 [facility] Comment on above: Order Comment: Order Date: 06/17/24 Order Info: [id number] - [facility] Result Comment: Perf ormed at: - [facility] [address] [id number] [employer]: Lazaro Arcos MD, Phone: [phone] Performed By: #### L 501.9985, L500.2940, L100.0107 #### [facility] [address] [place], [place], [id number] Absolute lymphocyte countOrd ered By: Danni Swann on 08-13-2023 Lymphocytes Auto (Unsp spec) [#/Vol] 1.93 10*3/uL 0.83-4.51 [facility] Automated lymphocyte count a s percentage of total leukocytesOrdered By: Danni Swann on 08-13-2023 Lymphocytes/100 WBC Auto (Unsp spec) 29.2 % 19-41 [facility] Basophil percentageOrdered B y: Danni Swann on 08-13-2023 Basophil percentage 3.4 mg/dL 2.5-4.9 [facility] Basophils/100 WBC (Bld) 0.9 % 0-[address] [facility] Bilirubin [Mass/Vol] 0.60 mg/dL 0.20-1.00 [facility] Comment on above: For patients on eltr ombopag therapy, use of Dimension [place] TBIL is not recommended. Chloride [Moles/Vol] 106 mmol/L 98-107 [facility] Eosinophils/100 WBC (Bld) 6.1 % 0-5 [facility] Glucose [Mass/Vol] 103 mg/dL 74-106 [facility] Comment on above: Fasting Glucose resu lt from 100 to 125 mg/dL suggests IMPAIRED HOMEOSTASIS per A.D.A. criteria. Hemoglobin (Bld) [Mass/Vol] 14.3 g/dL 13.0-16.5 [facility] Monocytes/100 WBC (Bld) 13.2 % 0-[address] [facility] Neutrophils (Bld) [#/Vol] 3.3 10*3/uL 2.0-7.7 [facility] Neutrophils/100 WBC (Bld) 50.3 % 47-70 [facility] Potassium [Moles/Vol] 4.3 mmol/L 3.5-5.1 [facility] Protein [Mass/Vol] 7.7 g/dL 6.4-8.2 [facility] Sodium [Moles/Vol] 137 mmol/L 136-145 [facility] WBC (Bld) [#/Vol] 6.6 10*3/uL 4.4-11.0 [facility] CBC W/Diff, Automatedon 04-3 0-2023 Absolute Lymph 1.93 X10 3/uL Normal 0.83-4.51 [facility] Comment on above: Order Comment: Order Date: 08/13/23 Order Info: [id number] - CBCD Performed By: #### L 100.0100, L506.1000, L501.9985, L500.4050, L503.0105 #### [facility] [address] [place], [address] Absolute Neut 3.3 X10 3/uL Normal 2.0-7.7 [facility] Comment on above: Order Comment: Order Date: 08/13/23 Order Info: 0184-1 - CBCD Performed By: #### L 100.0100, L506.1000, L501.9985, L500.4050, L503.0105 #### [facility] [address] [place], [address] Basophils/100 WBC (Bld) 0.9 % Normal 0-[address] [facility] Comment on above: Order Comment: Order Date: 08/13/23 Order Info: 0184-1 - CBCD Performed By: #### L 100.0100, L506.1000, L501.9985, L500.4050, L503.0105 #### [facility] [address] [place], [address] Eosinophils/100 WBC (Bld) 6.1 % High 0-5 [facility] Comment on above: Order Comment: Order Date: 08/13/23 Order Info: 018- - CBCD Performed By: #### L 100.0100, L506.1000, L501.9985, L500.4050, L503.0105 #### [facility] [address] [place], [address] Erythrocyte distribution width (RBC) [Ratio] 12.7 % Normal 11.6-14.6 [facility] Comment on above: Order Comment: Order Date: 08/13/23 Order Info: 018- - CBCD Performed By: #### L 100.0100, L506.1000, L501.9985, L500.4050, L503.0105 #### [facility] [address] [place], [address] Hematocrit (Bld) [Volume fraction] 43.2 % Normal 40-54 [facility] Comment on above: Order Comment: Order Date: 08/13/23 Order Info: 018- - CBCD Performed By: #### L 100.0100, L506.1000, L501.9985, L500.4050, L503.0105 #### [facility] [address] [place], [address] Hemoglobin (Bld) [Mass/Vol] 14.3 g/dL Normal 13.0-16.5 [facility] Comment on above: Order Comment: Order Date: 08/13/23 Order Info: 0184- - CBCD Performed By: #### L 100.0100, L506.1000, L501.9985, L500.4050, L503.0105 #### [facility] [address] [place], [address] IG% 0.300 Normal 0.0-0.9 [facility] Comment on above: Order Comment: Order Date: 08/13/23 Order Info: 0184- - CBCD Result Comment: IG% - Immature Granulocytes (promyelocytes, myelocytes and metamyelocytes) > 1% indicates that a LEFT SHIFT is Present. Performed By: #### L 100.0100, L506.1000, L501.9985, L500.4050, L503.0105 #### [facility] [address] [place], [address] Lymphocytes/100 WBC (Bld) 29.2 % Normal 19-41 [facility] Comment on above: Order Comment: Order Date: 08/13/23 Order Info: 0184- - CBCD Performed By: #### L 100.0100, L506.1000, L501.9985, L500.4050, L503.0105 #### [facility] [address] [place], [address] MCH (RBC) [Entitic mass] 29.4 pg Normal 27.0-32.0 [facility] Comment on above: Order Comment: Order Date: 08/13/23 Order Info: 0184- - CBCD Performed By: #### L 100.0100, L506.1000, L501.9985, L500.4050, L503.0105 #### [facility] [address] [place], [address] MCHC (RBC) [Mass/Vol] 33.1 g/dL Normal 32-36 [facility] Comment on above: Order Comment: Order Date: 08/13/23 Order Info: 0184- - CBCD Performed By: #### L 100.0100, L506.1000, L501.9985, L500.4050, L503.0105 #### [facility] [address] [place], [address] MCV (RBC) [Entitic vol] 88.7 fL Normal 80-[address] [facility] Comment on above: Order Comment: Order Date: 08/13/23 Order Info: 0184-1 - CBCD Performed By: #### L 100.0100, L506.1000, L501.9985, L500.4050, L503.0105 #### [facility] [address] [place], [address] Monocytes/100 WBC (Bld) 13.2 % High 0-[address] [facility] Comment on above: Order Comment: Order Date: 08/13/23 Order Info: 0184-1 - CBCD Performed By: #### L 100.0100, L506.1000, L501.9985, L500.4050, L503.0105 #### [facility] [address] [place], [address] Neutrophils/100 WBC (Bld) 50.3 % Normal 47-70 [facility] Comment on above: Order Comment: Order Date: 08/13/23 Order Info: 0184-1 - CBCD Performed By: #### L 100.0100, L506.1000, L501.9985, L500.4050, L503.0105 #### [facility] [address] [place], [address] Nucleated RBC (Bld) [#/Vol] 0 10*3/uL Normal 0-5 [facility] Comment on above: Order Comment: Order Date: 08/13/23 Order Info: 0184-1 - CBCD Performed By: #### L 100.0100, L506.1000, L501.9985, L500.4050, L503.0105 #### [facility] [address] [place], [address] Platelet mean volume (Bld) [Entitic vol] 8.8 fL Normal 6.2-12.0 [facility] Comment on above: Order Comment: Order Date: 08/13/23 Order Info: 0184-1 - CBCD Performed By: #### L 100.0100, L506.1000, L501.9985, L500.4050, L503.0105 #### [facility] [address] [place], [address] Platelets (Bld) [#/Vol] 270 10*3/uL Normal 150-450 [facility] Comment on above: Order Comment: Order Date: 08/13/23 Order Info: 018-1 - CBCD Performed By: #### L 100.0100, L506.1000, L501.9985, L500.4050, L503.0105 #### [facility] [address] [place], [address] RBC (Bld) [#/Vol] 4.87 10*6/uL Normal 4.6-6.2 [facility] Comment on above: Order Comment: Order Date: 08/13/23 Order Info: 0184- - CBCD Performed By: #### L 100.0100, L506.1000, L501.9985, L500.4050, L503.0105 #### [facility] [address] [place], [address] RDW SD 41.2 fl Normal 35.1-43.9 [facility] Comment on above: Order Comment: Order Date: 08/13/23 Order Info: 018- - CBCD Performed By: #### L 100.0100, L506.1000, L501.9985, L500.4050, L503.0105 #### [facility] [address] [place], [address] WBC (Bld) [#/Vol] 6.6 10*3/uL Normal 4.4-11.0 [facility] Comment on above: Order Comment: Order Date: 08/13/23 Order Info: 018-1 - CBCD Performed By: #### L 100.0100, L506.1000, L501.9985, L500.4050, L503.0105 #### [facility] [address] [place], [address] Comprehensive Metabolic Prof flon 08-13-2023 Albumin [Mass/Vol] 4.0 g/dL Normal 3.2-5.0 [facility] Comment on above: Order Comment: Order Date: 06/17/24 Order Info: 0786-1 - CMP Performed By: #### L 501.9985, L500.4050, L100.0100 #### [facility] [address] [place], [address] Albumin/Globulin [Mass ratio] 1.1 {ratio} Normal 0.9-2.4 [facility] Comment on above: Order Comment: Order Date: 06/17/24 Order Info: 0786-1 - CMP Performed By: #### L 501.9985, L500.4050, L100.0100 #### [facility] [address] [place], [address] ALK P 79 U/L Normal 45-117 [facility] Comment on above: Order Comment: Order Date: 06/17/24 Order Info: 0786-1 - CMP Performed By: #### L 501.9985, L500.4050, L100.0100 #### [facility] [address] [place], [address] ALT [Catalytic activity/Vol] 59 U/L Normal 16-61 [facility] Comment on above: Order Comment: Order Date: 06/17/24 Order Info: 0786-1 - CMP Performed By: #### L 501.9985, L500.4050, L100.0100 #### [facility] [address] [place], [address] AST [Catalytic activity/Vol] 30 U/L Normal 15-37 [facility] Comment on above: Order Comment: Order Date: 06/17/24 Order Info: 0786-1 - CMP Performed By: #### L 501.9985, L500.4050, L100.0100 #### [facility] [address] [place], [address] Bilirubin [Mass/Vol] 0.60 mg/dL Normal 0.20-1.00 [facility] Comment on above: Order Comment: Order Date: 06/17/24 Order Info: 0786-1 - CMP Result Comment: For patients on eltrombopag therapy, use of Dimension [place] TBIL is not recommended. Performed By: #### L 501.9985, L500.4050, L100.0100 #### [facility] [address] [place], [address] BUN/CRE 16.6 RATIO Normal 10-20 [facility] Comment on above: Order Comment: Order Date: 06/17/24 Order Info: 0786-1 - CMP Performed By: #### L 501.9985, L500.4050, L100.0100 #### [facility] [address] [place], [address] CA,Total 9.3 mg/dL Normal 8.5-10.1 [facility] Comment on above: Order Comment: Order Date: 06/17/24 Order Info: 0786-1 - CMP Performed By: #### L 501.9985, L500.4050, L100.0100 #### [facility] [address] [place], [address] Chloride [Moles/Vol] 106 mmol/L Normal 98-107 [facility] Comment on above: Order Comment: Order Date: 06/17/24 Order Info: 0786-1 - CMP Performed By: #### L 501.9985, L500.4050, L100.0100 #### [facility] [address] [place], [address] CO2 [Moles/Vol] 25.0 mmol/L Normal 21.0-32.0 [facility] Comment on above: Order Comment: Order Date: 06/17/24 Order Info: 0786-1 - CMP Performed By: #### L 501.9985, L500.4050, L100.0100 #### [facility] [address] [place], [address] Creatinine [Mass/Vol] 0.78 mg/dL Normal 0.70-1.30 [facility] Comment on above: Order Comment: Order Date: 06/17/24 Order Info: 0786-1 - CMP Result Comment: The validity of the calculated GFR GFRAA in patients over 70 years has not been determined. Clinical correlation is essential. Performed By: #### L 501.9985, L500.4050, L100.0100 #### [facility] [address] [place], [address] EST GFR - AA 130 mL/min Normal >60 [facility] Comment on above: Order Comment: Order Date: 06/17/24 Order Info: 0786-1 - CMP Result Comment: Afri can Senegalese GFR Calc Performed By: #### L 501.9985, L500.4050, L100.0100 #### [facility] [address] [place], [address] GAP 6 Normal 5-15 [facility] Comment on above: Order Comment: Order Date: 06/17/24 Order Info: 0786-1 - CMP Performed By: #### L 501.9985, L500.4050, L100.0100 #### [facility] [address] [place], [address] GFR/1.73 sq M.predicted among non-blacks MDRD (S/P/Bld) [Vol rate/Area] 107 mL/min/{1.73_m2} Normal >60 [facility] Comment on above: Order Comment: Order Date: 06/17/24 Order Info: 0786-1 - CMP Result Comment: Non- GFR Calc Performed By: #### L 501.9985, L500.4050, L100.0100 #### [facility] [address] [place], [address] Globulin (S) [Mass/Vol] 3.7 g/dL Normal 2.2-4.2 [facility] Comment on above: Order Comment: Order Date: 06/17/24 Order Info: 0786-1 - CMP Performed By: #### L 501.9985, L500.4050, L100.0100 #### [facility] [address] [place], [address] Glucose [Mass/Vol] 103 mg/dL Normal 74-106 [facility] Comment on above: Order Comment: Order Date: 06/17/24 Order Info: 0786-1 - CMP Result Comment: Fast ing Glucose result from 100 to 125 mg/dL suggests IMPAIRED HOMEOSTASIS per A.D.A. criteria. Performed By: #### L 501.9985, L500.4050, L100.0100 #### [facility] [address] [place], [address] Potassium [Moles/Vol] 4.3 mmol/L Normal 3.5-5.1 [facility] Comment on above: Order Comment: Order Date: 06/17/24 Order Info: 0786-1 - CMP Performed By: #### L 501.9985, L500.4050, L100.0100 #### [facility] [address] [place], [address] Sodium [Moles/Vol] 137 mmol/L Normal 136-145 [facility] Comment on above: Order Comment: Order Date: 06/17/24 Order Info: 0786-1 - CMP Performed By: #### L 501.9985, L500.4050, L100.0100 #### [facility] [address] [place], [address] T PROT 7.7 g/dL Normal 6.4-8.2 [facility] Comment on above: Order Comment: Order Date: 06/17/24 Order Info: 0786-1 - CMP Performed By: #### L 501.9985, L500.4050, L100.0100 #### [facility] [address] [place], [address] Urea nitrogen [Mass/Vol] 13 mg/dL Normal 7-18 [facility] Comment on above: Order Comment: Order Date: 06/17/24 Order Info: 0786-1 - CMP Performed By: #### L 501.9985, L500.4050, L100.0100 #### [facility] [address] [place], [address] Determination of erythrocyte mean corpuscular volume (MCV)Ordered By: Danni Swann on 08-13-2023 MCV (RBC) [Entitic vol] 88.7 fL 80-[address] [facility] Erythrocyte distribution wid th ratioOrdered By: Danni Swann on 08-13-2023 Erythrocyte distribution width (RBC) [Ratio] 12.7 % 11.6-14.6 [facility] Erythrocyte distribution wid th standard deviationOrdered By: Danni Swann on 08-13-2023 Erythrocyte distribution width (RBC) [Entitic vol] 41.2 fL 35.1-43.9 [facility] Hematocrit Auto (Bld) [Volum e fraction]Ordered By: Danni Swann on 08-13-2023 Hematocrit (Bld) [Volume fraction] 43.2 % 40-54 [facility] Hemoglobin A1con 08-13-2023 HbA1c (Bld) [Mass fraction] 5.6 % Normal 3.8-5.6 [facility] Comment on above: Order Comment: Order Date: 08/13/23 Order Info: [id number] - A1C Result Comment: Norm al < 5.7 % Prediabetic 5.7 - 6.4 % Diabetic >or= 6.5 % Please note range changes. Performed By: #### L 100.0100, L506.1000, L501.9985, L500.4050, L503.0105 #### [facility] [address] [place], [address] Immature granulocytes/100 WB C Auto (Bld)Ordered By: Danni Swann on 08-13-2023 Immature granulocytes/100 WBC (Bld) 0.300 % 0.0-0.9 [facility] Comment on above: IG% - Immature Granu locytes (promyelocytes, myelocytes and metamyelocytes) > 1% indicates that a LEFT SHIFT is Present. Laboratory - Chemistry and C hemistry - challengeOrdered By: Danni Swann on 08-13-2023 Albumin/Globulin [Mass ratio] 1.1 {ratio} 0.9-2.4 [facility] ALP [Catalytic activity/Vol] 79 U/L 45-117 [facility] ALT [Catalytic activity/Vol] 59 U/L 16-61 [facility] CO2 [Moles/Vol] 25.0 mmol/L 21.0-32.0 [facility] Cobalamin (Vitamin B12) [Mass/Vol] 625 pg/mL 211-911 [facility] Globulin (S) [Mass/Vol] 3.7 g/dL 2.2-4.[address] [facility] Urea nitrogen/Creatinine [Mass ratio] 16.6 mg/mg 10-20 [facility] - Hematology and Cell countsOrdered By: Danni Swann on 08-13-2023 MCH (RBC) [Entitic mass] 29.4 pg 27.0-32.0 [facility] MCHC (RBC) [Mass/Vol] 33.1 g/dL 32-36 [facility] Nucleated RBC/100 WBC (Bld) [Ratio] 0 % 0-5 [facility] Platelet mean volume (Bld) [Entitic vol] 8.8 fL 6.2-12.0 [facility] Platelets (Bld) [#/Vol] 270 10*3/uL 150-450 [facility] No Panel InformationOrdered By: Danni Swann on 08-13-2023 Estimated GFR (MDRD) Amer 130 mL/min >60 [facility] Comment on above: GFR Calc Estimated GFR (MDRD) Non-Af Amer 107 mL/min >60 [facility] Comment on above: Non- GFR Calc Vitamin D 25-Hydroxy 29.8 ng/mL [facility] Comment on above: Vitamin D 25(OH) Sta tus Range Deficiency <20 ng/mL (50nmol/L) Insufficiency 20 - 30 ng/mL (50 - 75 nmol/L) Sufficiency 30 - 100 ng/mL (75 - 250 nmol/L) Toxicity >100 ng/mL (>250 nmol/L) Phosphoruson 08-13-2023 Phosphate [Mass/Vol] 3.4 mg/dL Normal 2.5-4.9 [facility] Comment on above: Order Comment: Order Date: 06/17/24 Order Info: 0786-1 - CMP Performed By: #### L 501.9985, L500.4050, L100.0100 #### [facility] [address] [place], [address] RBC Auto (Bld) [#/Vol]Ordere d By: Danni Swann on 08-13-2023 RBC (Bld) [#/Vol] 4.87 10*6/uL 4.6-6.2 [facility] Serum or plasma calcium ivan urement (mass/volume)Ordered By: Danni Swann on 08-13-2023 Calcium [Mass/Vol] 9.3 mg/dL 8.5-10.1 [facility] Serum or plasma creatinine m easurement (mass/volume)Ordered By: Danni Swann on 08-13-2023 Creatinine [Mass/Vol] 0.78 mg/dL 0.70-1.30 [facility] Comment on above: The validity of the calculated GFR & GFRAA in patients over 70 years has not been determined. Clinical correlation is essential. Serum or plasma thiamine codie surement (mass/volume)Ordered By: Danni Swann on 08-13-2023 Thiamine [Mass/Vol] 147.4 nmol/L 66.5-200.0 [facility] Comment on above: Performed at: [facility] - [address] [id number] Director: Lazaro Arcos MD, Phone: [phone] Serum or plasma urea nitroge n measurement (mass/volume)Ordered By: Danni Swann on 08-13-2023 Urea nitrogen [Mass/Vol] 13 mg/dL 7-18 [facility] Thin prep Papanicolaou smear with manual screeningOrdered By: Danni Swann on 08-13-2023 Thin prep Papanicolaou smear with manual screening 4.0 g/dL 3.2-5.0 [facility] Thin prep Papanicolaou smear with manual screening 30 U/L 15-37 [facility] Thin prep Papanicolaou smear with manual screening 6 5-15 [facility] Vitamin B12on 08-13-2023 Cobalamin (Vitamin B12) [Mass/Vol] 625 pg/mL Normal 211-911 [facility] Comment on above: Order Comment: Order Date: 06/17/24 Order Info: 0786-1 - CMP Performed By: #### L 501.9985, L500.4050, L100.0100 #### [facility] [address] [place], [place], [address] Vitamin D,25 Hydroxyon 08-12 Vitamin D 25-OH 29.8 ng/mL Normal [facility] Comment on above: Order Comment: Order Date: 06/17/24 Order Info: 0786-1 - CMP Result Comment: Chelly min D 25(OH) Status Range Deficiency <20 ng/mL (50nmol/L) Insufficiency 20 - 30 ng/mL (50 - 75 nmol/L) Sufficiency 30 - 100 ng/mL (75 - 250 nmol/L) Toxicity >100 ng/mL (>250 nmol/L) Performed By: #### L 501.9985, L500.4050, L100.0100 #### [facility] [address] [place], [place], [address] Whole blood hemoglobin A1c/t otal hemoglobin ratio (mass fraction)Ordered By: Danni Swann on 08-13-2023 HbA1c (Bld) [Mass fraction] 5.6 % 3.8-5.6 [facility] Comment on above: Normal < 5.7 % Predi abetic 5.7 - 6.4 % Diabetic >or= 6.5 % Please note range changes. Cardiac echo study Procedure Ordered By: Klever Kay on 07-04-2023 3D EF 60 % [place] Work Phone: [phone] Ao ASC index 1.99 cm/m2 [facility] Work Phone: [facility]o peak allyson [facility]: [phone] Ao SOV index 2.15 cm/m2 [facility] Work Phone: [phone] Ao STJ index 1.83 cm/m2 [facility] Work Phone: [phone] [facility]o VTI 24.20 [facility] Phone: [phone] [facility]: [phone] AV LVOT peak gradient 4 mmHg [facility] Work Phone: [phone] AV mean gradient 3 mmHg [facility] Work Phone: [phone] AV peak gradient 5 mmHG [facility] Work Phone: [phone] AV valve area 3.36 cm2 [place] Work Phone: [phone] AV Velocity Ratio 0.85 [facility] Work Phone: [phone] JEANETH (continuity Vmax) 3.55 cm2 [facility] Work Phone: [phone] JEANETH (continuity VTI) 3.36 cm2 [facility] Work Phone: [phone] JEANETH index (continuity Vmax) 1.91 m/s [facility] Work Phone: [phone] JEANETH index (continuity VTI) 1.81 cm2/m2 [place] Work Phone: [phone] Avg e' pk allyson 0.05 m/s [place] Work Phone: [phone] Avg E/e' ratio 7.98 [place] Work Phone: [phone] Body surface area Derived from formula 1.86 m2 [place] Work Phone: [phone] DI (Vmax) 0.85 [place] Work Phone: [phone] DI (VTI) 0.81 m/2 [facility] Work Phone: [phone] E wave decelartion time 263.00 msec O [facility] Work Phone: [phone] e' lateral pk allyson 0.0540 m/s [facility] Work Phone: [phone] e' lateral pk allyson 0.05 m/s [facility] Work Phone: [phone] e' septal pk allyson 0.0490 m/s [facility] Work Phone: [phone] e' septal pk allyson 0.05 m/s [facility] Work Phone: [phone] [facility]: [phone] E/e' lateral ratio 7.59 [facility] Work Phone: [phone] E/e' septal [facility] 8.37 [facility] [phone] EST RAP 3.00 [facility]: [phone] FS 34 % 28 - 44 % [facility] Work Phone: [phone] IVC ostium 1.60 cm [facility] Work Phone: [phone] IVS 1.20 cm [facility] Work Phone: [phone] LA AREA 2CH 14.11 cm2 [facility] Work Phone: [phone] LA area 4CH 14.10 cm2 [facility]: [phone] LA ESV BP (MOD) 34 mL [facility] Work Phone: [phone] LA ESV BP (MOD) index 18 mL/m2 [facility] Work Phone: [phone] LA ESV SP 2CH (MOD) 34 mL [facility] Work Phone: [phone] LA ESV SP [facility] (MOD[facility]: [phone] Long Strain -21.9 % [place] Work Phone: [phone] LV EDV 3D 90 mL [place] Work Phone: [phone] LV ESV 3D 36 mL [place] Work Phone: [phone] LV mass 212.00 g [place] Work Phone: [phone] LV Mass Index 114.0 g/m2 [place] Work Phone: [phone] LV RWT 0.51 [place] Work Phone: [phone] LVIDD 4.70 cm [place] Work Phone: [phone] LVIDS 3.10 cm [place] Work Phone: [phone] LVOT area 4.15 cm2 [place] Work Phone: [phone] LVOT diameter 2.30 cm [place] Work Phone: [phone] LVOT peak allyson 0.94 m/s [place] Work Phone: [phone] LVOT peak VTI 19.60 cm [place] Work Phone: [phone] LVOT stroke volume 81 cm3 [facility] Work Phone: [phone] LVOT stroke volume index 43.76 ml/m2 [place] Work Phone: [phone] MV pk A allyson 0.52 m/s [place] Work Phone: [phone] MV pk E allyson 0.41 m/s [place] Work Phone: [phone] MV stenosis pressure 1/2 time 77.00 ms [place] Work Phone: [phone] MV valve area p 1/2 method 2.86 cm2 [place] Work Phone: [phone] [facility] AV VTI RATIO PRE STRESS 0.81 [place] Work Phone: [phone] [facility] ECHO LV EDV 3D INDEX 48.39 mL/m2 [place] Work Phone: [phone] [facility] ECHO LV ESV 3D INDEX 19.35 mL/m2 [place] Work Phone: [phone] [facility] RVOT VTI RATIO 0.76 [facility] Work Phone: [phone] PV mean gradient 2 mmHg [facility] Work Phone: [phone] PV peak gradient 4 mmHg [facility] Work Phone: [phone] PV PK ALLYSON 0.95 m/s [place] Work Phone: [phone] PV VTI 16.00 cm [place] Work Phone: [phone] PW 1.20 cm [place] Work Phone: [phone] RA vol index 4CH (MOD) 10.22 mL/m2 O [facility] Work Phone: [phone] Right atrium volume 4 chamber method of disks 19 mL [facility] Work Phone: [phone] RV Area diastolic 18.04 cm2 [facility] Work Phone: [phone] RV Area systolic 9.66 cm2 [facility] Work Phone: [phone] RV basal diam 3.17 cm [place] Work Phone: [phone] RV Fractional area change 46.5 % [place] Work Phone: [phone] RV long diam 7.77 [facility] Work Phone: [phone] RV mid diam 2.70 cm [place] Work Phone: [phone] RV S' 12.20 cm/s [place] Work Phone: [phone] RVOT peak gradient 2 mmHg [facility] Work Phone: [phone] RVOT peak allyson 0.64 m/s [place] Work Phone: [phone] RVOT peak VTI 12.10 cm [place] Work Phone: [phone] Sinus 4.00 cm [place] Work Phone: [phone] STJ 3.40 cm [place] Work Phone: [phone] Stroke Volume 81 cm/mL [place] Work Phone: [phone] Stroke volume index 44 [facility] Work Phone: [phone] TAPSE 2.38 cm [place] Work Phone: [phone] [place] Work Phone: [phone] Cardiac echo study Procedure on 07-04-2023 Left Ventricle: Chamber size is normal. Concentric remodeling is present. Abnormal septal motion consistent with left bundle branch block. Ejection fraction is normal (55 - 60%). Diastolic function is normal for age. GLS =-21.9% Right Ventricle: Chamber size is normal. Systolic function is normal. Left Atrium: Chamber size is normal. No significant valvular abnormality seen Left Ventricle Chamber size is normal. Concentric remodeling is present. Abnormal septal motion consistent with left bundle branch block. Ejection fraction is normal (55 - 60%). Diastolic function is normal for age. Right Ventricle Chamber size is normal. Systolic function is normal. Left Atrium Chamber size is normal. Right Atrium Chamber size is normal. IVC/SVC The inferior vena cava is normal in size. The inferior vena cava structure has a diameter <21 mm and decreases >50% during inspiration. Mitral Valve Normal appearing leaflets. Leaflet mobility is normal. Trace regurgitation. No valve stenosis. Tricuspid Valve Normal leaflets. Leaflet mobility is normal. Trace regurgitation. No stenosis. Aortic Valve Trileaflet valve. Leaflet mobility is normal. Trace regurgitation. No stenosis. Pulmonic Valve Normal structure. No regurgitation. No stenosis. Pericardium Appears normal. No pericardial effusion. Septum The atrial septum is normal. Aorta No dilation to extent seen. Study Details A complete echocardiography study (including 3D and left ventricular strain) was performed. 3D imaging performed for evaluation of left ventricle function. 3D rendering with interpretation and reporting of echocardiogram with image postprocessing under concurrent physician supervision, REQUIRING image postprocessing on an independent workstation was performed. Imaging system used: [employer]. Indications Indications for study: abnormal ecg, cardiomyopathy and hypertension. [facility] Radiology Study observation (narrative) [facility] HEPATIC FUNCTION PANELon Albumin [Mass/Vol] 4.3 g/dL 3.5 - 5.0 g/dL [place] ALP [Catalytic activity/Vol] 76 U/L 32 - 126 U/L [place] ALT [Catalytic activity/Vol] 24 U/L 10 - 52 U/L [place] AST [Catalytic activity/Vol] 21 U/L 10 - 39 U/L [place] Bilirubin [Mass/Vol] 0.6 mg/dL NINF - 1.5 mg/dL [place] Bilirubin.direct [Mass/Vol] mg/[facility] [place] Interpretation and review of laboratory results Normal [place] Protein [Mass/Vol] 7.6 g/dL 6.4 - 8.3 g/dL [place] LIPID PANEL W CALCULATED LDL on 01-01-2023 Cholesterol [Mass/Vol] 176 mg/dL [facility] mg/dL [place] Comment on above: [<200 mg/dL: Desirab le] [200-239 mg/dL: Borderline High] [>239 mg/dL: High] Cholesterol in HDL [Mass/Vol] 49 mg/dL 40 - PINF mg/dL [place] Comment on above: [<40 mg/dL: Low (Hig h Risk)] [>59 mg/dL: High (Low Risk)] Cholesterol in HDL [Mass/Vol] 127 mg/dL NINF - 130 mg/dL [place] Cholesterol in LDL [Mass/Vol] 110 mg/dL High 0 - 99 mg/dL [place] Comment on above: [<100 mg/dL: Optimal ] [100-129 mg/dL: Near Optimal] [130-159 mg/dL: Borderline High] [160-189 mg/dL: High] [>189 mg/dL: Very High] Cholesterol.total/Choles terol in HDL [Mass ratio] 3.6 {ratio} NINF - 4.5 [place] Interpretation and review of laboratory results Abnormal [place] Triglyceride [Mass/Vol] 87 mg/dL NINF - 150 mg/dL [place] Comment on above: [<150 mg/dL: Desirab le] [150-199 mg/dL: Borderline] [200-499 mg/dL: High] [>500 mg/dL: Very High] No Panel Informationon 01-01 [place] Absolute lymphocyte countOrd ered By: Danni Swann on 12-14-2022 Lymphocytes Auto (Unsp spec) [#/Vol] 2.00 10*3/uL 0.83-4.51 [facility] Basophil percentageOrdered B y: Danni Swann on 12-14-2022 Basophils/100 WBC (Bld) 0.8 % 0-[address] [facility] Bilirubin [Mass/Vol] 0.20 mg/dL 0.20-1.00 [facility] Comment on above: For patients on eltr ombopag therapy, use of Dimension [place] TBIL is not recommended. Chloride [Moles/Vol] 104 mmol/L 98-107 [facility] Eosinophils/100 WBC (Bld) 2.8 % 0-5 [facility] Glucose [Mass/Vol] 135 mg/dL 74-106 [facility] Comment on above: Fasting Glucose resu lt greater than or equal to 126 mg/dL suggests DIABETES MELLITUS per A.D.A. criteria. Neutrophils (Bld) [#/Vol] 6.7 10*3/uL 2.0-7.7 [facility] Neutrophils/100 WBC (Bld) 63.8 % 47-70 [facility] Potassium [Moles/Vol] 4.0 mmol/L 3.5-5.1 [facility] Protein [Mass/Vol] 7.2 g/dL 6.4-8.2 [facility] Sodium [Moles/Vol] 137 mmol/L 136-145 [facility] WBC (Bld) [#/Vol] 10.5 10*3/uL 4.4-11.0 [facility] Blood erythrocytes count (nu mber/volume)Ordered By: Danni Swann on 12-14-2022 RBC (Bld) [#/Vol] 4.05 10*6/uL 4.6-6.2 [facility] Blood hemoglobin measurement (mass/volume)Ordered By: Danni Swann on 12-14-2022 Hemoglobin (Bld) [Mass/Vol] 11.4 g/dL 13.0-16.5 [facility] Blood lymphocytes/100 leukoc ytesOrdered By: Danni Swann on 12-14-2022 Lymphocytes/100 WBC (Bld) 19.1 % 19-41 [facility] Blood monocytes/100 leukocyt esOrdered By: Danni Swann on 12-14-2022 Monocytes/100 WBC (Bld) 10.6 % 0-[address] [facility] Blood platelet mean volumeOr dered By: Danni Swann on 12-14-2022 Platelet mean volume (Bld) [Entitic vol] 8.3 fL 6.2-12.0 [facility] Determination of erythrocyte mean corpuscular volume (MCV)Ordered By: Danni Swann on 12-14-2022 MCV (RBC) [Entitic vol] 90.6 fL 80-[address] [facility] Hematocrit Auto (Bld) [Volum e fraction]Ordered By: Danni Swann on 12-14-2022 Hematocrit (Bld) [Volume fraction] 36.7 % 40-54 [facility] Laboratory - Chemistry and C hemistry - challengeOrdered By: Danni Swann on 12-14-2022 ALP [Catalytic activity/Vol] 104 U/L 45-117 [facility] ALT [Catalytic activity/Vol] 110 U/L 16-61 [facility] CO2 [Moles/Vol] 27.0 mmol/L 21.0-32.0 [facility] Globulin (S) [Mass/Vol] 4.4 g/dL 2.2-4.[address] [facility] Urea nitrogen/Creatinine [Mass ratio] 12.4 mg/mg 10-20 [facility] Laboratory - Hematology and Cell countsOrdered By: Danni Swann on 12-14-2022 Erythrocyte distribution width (RBC) [Entitic vol] 46.8 fL 35.1-43.9 [facility] Erythrocyte distribution width (RBC) [Ratio] 14.0 % 11.6-14.6 [facility] Immature granulocytes/100 WBC (Bld) 2.900 % 0.0-0.9 [facility] Comment on above: IG% - Immature Granu locytes (promyelocytes, myelocytes and metamyelocytes) > 1% indicates that a LEFT SHIFT is Present. MCH (RBC) [Entitic mass] 28.1 pg 27.0-32.0 [facility] Nucleated RBC/100 WBC (Bld) [Ratio] 0 % 0-5 [facility] MCHC Auto (RBC) [Mass/Vol]Or dered By: Danni Swann on 12-14-2022 MCHC (RBC) [Mass/Vol] 31.1 g/dL 32-36 [facility] No Panel InformationOrdered By: Danni Swann on 12-14-2022 Estimated GFR (MDRD) Amer 113 mL/min >60 [facility] Comment on above: GFR Calc Estimated GFR (MDRD) Non-Af Amer 93 mL/min >60 [facility] Comment on above: Non- GFR Calc Platelets bldOrdered By: Hugo Swann on 12-14-2022 Platelets (Bld) [#/Vol] 548 10*3/uL 150-450 [facility] Serum or plasma albumin ivan urement (mass/volume)Ordered By: Danni Swann on 12-14-2022 Albumin [Mass/Vol] 2.8 g/dL 3.2-5.0 [facility] Serum or plasma albumin/glob ulin mass ratioOrdered By: Danni Swann on 12-14-2022 Albumin/Globulin [Mass ratio] 0.6 {ratio} 0.9-2.4 [facility] Serum or plasma calcium ivan urement (mass/volume)Ordered By: Danni Swann on 12-14-2022 Calcium [Mass/Vol] 8.9 mg/dL 8.5-10.1 [facility] Serum or plasma creatinine m easurement (mass/volume)Ordered By: Danni Swann on 12-14-2022 Creatinine [Mass/Vol] 0.89 mg/dL 0.70-1.30 [facility] Comment on above: The validity of the calculated GFR & GFRAA in patients over 70 years has not been determined. Clinical correlation is essential. Serum or plasma urea nitroge n measurement (mass/volume)Ordered By: Danni Swann on 12-14-2022 Urea nitrogen [Mass/Vol] 11 mg/dL 7-18 [facility] Thin prep Papanicolaou smear with manual screeningOrdered By: Danni Swnan on 12-14-2022 Thin prep Papanicolaou smear with manual screening 56 U/L 15-37 [facility] Thin prep Papanicolaou smear with manual screening 6 5-15 [facility] Absolute lymphocyte countOrd ered By: Linda Fabiola on 12-08-2022 Lymphocytes Auto (Unsp spec) [#/Vol] 0.94 10*3/uL 0.83-4.51 [facility] Basophil percentageOrdered B y: Linda Hicks on 12-08-2022 Basophils/100 WBC (Bld) 0.2 % 0-1 [facility] Bilirubin [Mass/Vol] 0.70 mg/dL 0.20-1.00 [facility] Comment on above: For patients on eltr ombopag therapy, use of Dimension [place] TBIL is not recommended. Chloride [Moles/Vol] 103 mmol/L 98-107 [facility] Eosinophils/100 WBC (Bld) 1.1 % 0-5 [facility] Glucose [Mass/Vol] 119 mg/dL 74-106 [facility] Comment on above: Fasting Glucose resu lt from 100 to 125 mg/dL suggests IMPAIRED HOMEOSTASIS per A.D.A. criteria. Neutrophils (Bld) [#/Vol] 13.6 10*3/uL 2.0-7.7 [facility] Neutrophils/100 WBC (Bld) 82.9 % 47-70 [facility] Potassium [Moles/Vol] 3.1 mmol/L 3.5-5.1 [facility] Protein [Mass/Vol] 6.0 g/dL 6.4-8.2 [facility] Sodium [Moles/Vol] 136 mmol/L 136-145 [facility] WBC (Bld) [#/Vol] 16.4 10*3/uL 4.4-11.0 [facility] Blood erythrocytes count (nu mber/volume)Ordered By: Linda Hicks on 12-08-2022 RBC (Bld) [#/Vol] 4.00 10*6/uL 4.6-6.2 [facility] Blood hemoglobin measurement (mass/volume)Ordered By: Linda Hicks on 12-08-2022 Hemoglobin (Bld) [Mass/Vol] 11.5 g/dL 13.0-16.5 [facility] Blood lymphocytes/100 leukoc ytesOrdered By: Linda Hicks on 12-08-2022 Lymphocytes/100 WBC (Bld) 5.7 % 19-41 [facility] Blood manual differential co mment interpretation (narrative result)Ordered By: Linda Hicks on 12-08-2022 Manual differential comment Vineet (Bld) [Interp] SCANNED [facility] Blood monocytes/100 leukocyt esOrdered By: Linda Hicks on 12-08-2022 Monocytes/100 WBC (Bld) 9.5 % 0-[address] [facility] Blood platelet mean volumeOr dered By: Linda Hicks on 12-08-2022 Platelet mean volume (Bld) [Entitic vol] 8.9 fL 6.2-12.0 [facility] Determination of erythrocyte mean corpuscular volume (MCV)Ordered By: Linda Hicks on 12-08-2022 MCV (RBC) [Entitic vol] 86.3 fL 80-[address] [facility] Erythrocyte sedimentation ra teOrdered By: Linda Hicks on 12-08-2022 ESR (Bld) [Velocity] 56 mm/h 0-20 [facility] Hematocrit Auto (Bld) [Volum e fraction]Ordered By: Linda Hicks on 12-08-2022 Hematocrit (Bld) [Volume fraction] 34.5 % 40-54 [facility] Laboratory - Chemistry and C hemistry - challengeOrdered By: Linda Hicks on 12-08-2022 ALP [Catalytic activity/Vol] 79 U/L 45-117 [facility] ALT [Catalytic activity/Vol] 76 U/L 16-61 [facility] CO2 [Moles/Vol] 27.0 mmol/L 21.0-32.0 [facility] Globulin (S) [Mass/Vol] 3.7 g/dL 2.2-4.[address] [facility] Lipase [Catalytic activity/Vol] 39 U/L 13-75 [facility] Comment on above: Please note:LIPASE r evised reference range effective 22. New Lipase methodology. Expected to produce lower values than the previous assay method. NEW Reference Range: 13 - 75 U/L Urea nitrogen/Creatinine [Mass ratio] 12.9 mg/mg 10-20 [facility] Laboratory - Hematology and Cell countsOrdered By: Linda Hicks on 12-08-2022 Erythrocyte distribution width (RBC) [Entitic vol] 42.5 fL 35.1-43.9 [facility] Erythrocyte distribution width (RBC) [Ratio] 13.3 % 11.6-14.6 [facility] Immature granulocytes/100 WBC (Bld) 0.600 % 0.0-0.9 [facility] Comment on above: IG% - Immature Granu locytes (promyelocytes, myelocytes and metamyelocytes) > 1% indicates that a LEFT SHIFT is Present. MCH (RBC) [Entitic mass] 28.8 pg 27.0-32.0 [facility] Nucleated RBC/100 WBC (Bld) [Ratio] 0 % 0-5 [facility] MCHC Auto (RBC) [Mass/Vol]Or dered By: Linda Hicks on 12-08-2022 MCHC (RBC) [Mass/Vol] 33.3 g/dL 32-36 [facility] No Panel InformationOrdered By: Linda Hicks on 12-08-2022 Estimated Creatinine Clearance Calc 134.56 ml/min [facility] Estimated GFR (MDRD) Amer 199 mL/min >60 [facility] Comment on above: GFR Calc Estimated GFR (MDRD) Non-Af Amer 164 mL/min >60 [facility] Comment on above: Non- GFR Calc Platelets bldOrdered By: Ryan Hicks on 12-08-2022 Platelets (Bld) [#/Vol] 257 10*3/uL 150-450 [facility] Review by pathologistOrdered By: Linda Hicsk on 12-08-2022 Pathologist review Vineet (Unsp spec) [Interp] Giulia merchant [facility] Pathologist review Vineet (Unsp spec) [Interp] Reviewed [facility] Comment on above: Previous reported re sult: Giulia merchant Edited by: RGOOD on 12/11/22:1227Neutrophilic leukocytosis.Normocytic anemia.Clinical correlation necessary.Matteo Olivera M.D. 12/11/22 AMENDED REPORT 12/11/22 1227 PATH REV previously reported as: Giulia merchant Serum or plasma C reactive p rotein measurement (mass/volume)Ordered By: Lidna Hicks on 12-08-2022 CRP [Mass/Vol] 186.00 mg/L 0.0-3.0 [facility] Comment on above: C-Reactive Protein ( CRP) provides useful information for thediagnosis, therapy and monitoring of inflammatory processesand associated diseases. For the evaluation of Relative Riskfor Cardiovascular Disease, a High Sensitivity CRP (HSCRP)should be ordered. Serum or plasma albumin ivan urement (mass/volume)Ordered By: Linda Hicks on 12-08-2022 Albumin [Mass/Vol] 2.3 g/dL 3.2-5.0 [facility] Serum or plasma albumin/glob ulin mass ratioOrdered By: Linad Hicks on 12-08-2022 Albumin/Globulin [Mass ratio] 0.6 {ratio} 0.9-2.4 [facility] Serum or plasma calcium ivan urement (mass/volume)Ordered By: Linda Hicks on 12-08-2022 Calcium [Mass/Vol] 8.1 mg/dL 8.5-10.1 [facility] Serum or plasma creatinine m easurement (mass/volume)Ordered By: Linda Hicks on 12-08-2022 Creatinine [Mass/Vol] 0.54 mg/dL 0.70-1.30 [facility] Comment on above: The validity of the calculated GFR & GFRAA in patients over 70 years has not been determined. Clinical correlation is essential. Serum or plasma urea nitroge n measurement (mass/volume)Ordered By: Linda Hicks on 12-08-2022 Urea nitrogen [Mass/Vol] 7 mg/dL 7-18 [facility] Thin prep Papanicolaou smear with manual screeningOrdered By: Linda Hicks on 12-08-2022 Thin prep Papanicolaou smear with manual screening 23 U/L 15-37 [facility] Thin prep Papanicolaou smear with manual screening 6 5-15 [facility] Laboratory - Chemistry and C hemistry - challengeOrdered By: Linda Hicks on 12-07-2022 Magnesium [Mass/Vol] 2.1 mg/dL 1.6-2.6 [facility] Absolute lymphocyte countOrd ered By: Lisa Barger on 12-03-2022 Lymphocytes Auto (Unsp spec) [#/Vol] 0.88 10*3/uL 0.83-4.51 [facility] Basophil percentageOrdered B y: Lisa Barger on 12-03-2022 Basophils/100 WBC (Bld) 0.3 % 0-1 [facility] Bilirubin [Mass/Vol] 2.10 mg/dL 0.20-1.00 [facility] Comment on above: For patients on eltr ombopag therapy, use of Dimension [place] TBIL is not recommended. Chloride [Moles/Vol] 103 mmol/L 98-107 [facility] Eosinophils/100 WBC (Bld) 1.1 % 0-5 [facility] Glucose [Mass/Vol] 149 mg/dL 74-106 [facility] Comment on above: Fasting Glucose resu lt greater than or equal to 126 mg/dL suggests DIABETES MELLITUS per A.D.A. criteria. Neutrophils (Bld) [#/Vol] 10.3 10*3/uL 2.0-7.7 [facility] Neutrophils/100 WBC (Bld) 83.3 % 47-70 [facility] Potassium [Moles/Vol] 3.8 mmol/L 3.5-5.1 [facility] Protein [Mass/Vol] 7.1 g/dL 6.4-8.2 [facility] Sodium [Moles/Vol] 137 mmol/L 136-145 [facility] WBC (Bld) [#/Vol] 12.4 10*3/uL 4.4-11.0 [facility] Blood erythrocytes count (nu mber/volume)Ordered By: Lisa Barger on 12-03-2022 RBC (Bld) [#/Vol] 4.83 10*6/uL 4.6-6.2 [facility] Blood hemoglobin measurement (mass/volume)Ordered By: Lisa Barger on 12-03-2022 Hemoglobin (Bld) [Mass/Vol] 14.1 g/dL 13.0-16.5 [facility] Blood lymphocytes/100 leukoc ytesOrdered By: Lisa Barger on 12-03-2022 Lymphocytes/100 WBC (Bld) 7.1 % 19-41 [facility] Blood monocytes/100 leukocyt esOrdered By: Lisa Barger on 12-03-2022 Monocytes/100 WBC (Bld) 7.7 % 0-[address] [facility] Blood platelet mean volumeOr dered By: Lisa Barger on 12-03-2022 Platelet mean volume (Bld) [Entitic vol] 8.6 fL 6.2-12.0 [facility] Determination of erythrocyte mean corpuscular volume (MCV)Ordered By: Lisa Barger on 12-03-2022 MCV (RBC) [Entitic vol] 88.0 fL 80-[address] [facility] Direct bilirubinOrdered By: Lisa Barger on 12-03-2022 Bilirubin.direct [Mass/Vol] 1.48 mg/dL 0.00-0.30 [facility] Hematocrit Auto (Bld) [Volum e fraction]Ordered By: Lisa Barger on 12-03-2022 Hematocrit (Bld) [Volume fraction] 42.5 % 40-54 [facility] Laboratory - Chemistry and C hemistry - challengeOrdered By: Lisa Barger on 12-03-2022 ALP [Catalytic activity/Vol] 163 U/L 45-117 [facility] ALT [Catalytic activity/Vol] 605 U/L 16-61 [facility] CO2 [Moles/Vol] 28.0 mmol/L 21.0-32.0 [facility] Globulin (S) [Mass/Vol] 3.4 g/dL 2.2-4.[address] [facility] Lipase [Catalytic activity/Vol] U/L 13-75 [facility] Comment on above: Please note:LIPASE r evised reference range effective 22. New Lipase methodology. Expected to produce lower values than the previous assay method. NEW Reference Range: 13 - 75 U/L Urea nitrogen/Creatinine [Mass ratio] 19.6 mg/mg 10-20 [facility] Laboratory - Hematology and Cell countsOrdered By: Lisa Barger on 12-03-2022 Erythrocyte distribution width (RBC) [Entitic vol] 41.1 fL 35.1-43.9 [facility] Erythrocyte distribution width (RBC) [Ratio] 12.8 % 11.6-14.6 [facility] Immature granulocytes/100 WBC (Bld) 0.500 % 0.0-0.9 [facility] Comment on above: IG% - Immature Granu locytes (promyelocytes, myelocytes and metamyelocytes) > 1% indicates that a LEFT SHIFT is Present. MCH (RBC) [Entitic mass] 29.2 pg 27.0-32.0 [facility] Nucleated RBC/100 WBC (Bld) [Ratio] 0 % 0-5 [facility] MCHC Auto (RBC) [Mass/Vol]Or dered By: Lisa Barger on 12-03-2022 MCHC (RBC) [Mass/Vol] 33.2 g/dL 32-36 [facility] No Panel InformationOrdered By: Lisa Barger on 12-03-2022 Estimated Creatinine Clearance Calc 78.98 ml/min [facility] Estimated GFR (MDRD) Amer 109 mL/min >60 [facility] Comment on above: GFR Calc Estimated GFR (MDRD) Non-Af Amer 90 mL/min >60 [facility] Comment on above: Non- GFR Calc Platelets bldOrdered By: Abigail Barger on 12-03-2022 Platelets (Bld) [#/Vol] 218 10*3/uL 150-450 [facility] Serum or plasma albumin ivan urement (mass/volume)Ordered By: Lisa Barger on 12-03-2022 Albumin [Mass/Vol] 3.7 g/dL 3.2-5.0 [facility] Serum or plasma calcium ivan urement (mass/volume)Ordered By: Lisa Barger on 12-03-2022 Calcium [Mass/Vol] 9.3 mg/dL 8.5-10.1 [facility] Serum or plasma creatinine m easurement (mass/volume)Ordered By: Lisa Barger on 12-03-2022 Creatinine [Mass/Vol] 0.92 mg/dL 0.70-1.30 [facility] Comment on above: The validity of the calculated GFR & GFRAA in patients over 70 years has not been determined. Clinical correlation is essential. Serum or plasma urea nitroge n measurement (mass/volume)Ordered By: Lisa Barger on 12-03-2022 Urea nitrogen [Mass/Vol] 18 mg/dL 7-18 [facility] Thin prep Papanicolaou smear with manual screeningOrdered By: Lisa Barger on 12-03-2022 Thin prep Papanicolaou smear with manual screening 616 U/L 15 [facility] Thin prep Papanicolaou smear with manual screening 6 5-15 [facility] No Panel InformationOrdered By: Danni Swann on 10-31-2022 Hepatitis A IgM Antibody Negative Negative [facility] Hepatitis B Core IgM Antibody Negative Negative [facility] Hepatitis C Antibody (EIA) Non-Reactive Non Reactive [facility] Hepatitis C Antibody Comment Comment . [facility] Comment on above: Not infected with HC V unless early or acute infection issuspected (which may be delayed in an immunocompromisedindividual), or other evidence exists to indicate HCVinfection.Performed at: [employer] [id number] Director: Yung Allen PhD, Phone: [phone] Serum or plasma hepatitis B virus surface antigen detection by immunoassayOrdered By: Danni Swann on 10-31-2022 HBV surface Ag IA Ql Negative Negative [facility] Absolute lymphocyte countOrd ered By: Danni Swann on 10-24-2022 Lymphocytes Auto (Unsp spec) [#/Vol] 2.11 10*3/uL 0.83-4.51 [facility] Basophil percentageOrdered B y: Danni Swann on 10-24-2022 Basophils/100 WBC (Bld) 0.6 % 0-[address] [facility] Bilirubin [Mass/Vol] 0.40 mg/dL 0.20-1.00 [facility] Comment on above: For patients on eltr ombopag therapy, use of Dimension [place] TBIL is not recommended. Chloride [Moles/Vol] 108 mmol/L 98-107 [facility] Eosinophils/100 WBC (Bld) 4.3 % 0-5 [facility] Glucose [Mass/Vol] 90 mg/dL 74-106 [facility] Neutrophils (Bld) [#/Vol] 3.5 10*3/uL 2.0-7.7 [facility] Neutrophils/100 WBC (Bld) 51.6 % 47-70 [facility] Potassium [Moles/Vol] 4.4 mmol/L 3.5-5.1 [facility] Protein [Mass/Vol] 7.1 g/dL 6.4-8.2 [facility] Sodium [Moles/Vol] 140 mmol/L 136-145 [facility] WBC (Bld) [#/Vol] 6.8 10*3/uL 4.4-11.0 [facility] Blood erythrocytes count (nu mber/volume)Ordered By: Danni Swann on 10-24-2022 RBC (Bld) [#/Vol] 4.71 10*6/uL 4.6-6.2 [facility] Blood hemoglobin measurement (mass/volume)Ordered By: Danni Swann on 10-24-2022 Hemoglobin (Bld) [Mass/Vol] 13.7 g/dL 13.0-16.5 [facility] Blood lymphocytes/100 leukoc ytesOrdered By: Danni Swann on 10-24-2022 Lymphocytes/100 WBC (Bld) 31.3 % 19-41 [facility] Blood monocytes/100 leukocyt esOrdered By: Danni Swann on 10-24-2022 Monocytes/100 WBC (Bld) 11.9 % 0-10 [facility] Blood platelet mean volumeOr dered By: Danni Swann on 10-24-2022 Platelet mean volume (Bld) [Entitic vol] 9.0 fL 6.2-12.0 [facility] Determination of erythrocyte mean corpuscular volume (MCV)Ordered By: Danni Swann on 10-24-2022 MCV (RBC) [Entitic vol] 89.8 fL 80-[address] [facility] Hematocrit Auto (Bld) [Volum e fraction]Ordered By: Danni Swann on 10-24-2022 Hematocrit (Bld) [Volume fraction] 42.3 % 40-54 [facility] Laboratory - Chemistry and C hemistry - challengeOrdered By: Danni Swann on 10-24-2022 ALP [Catalytic activity/Vol] 99 U/L 45-117 [facility] ALT [Catalytic activity/Vol] 130 U/L 16-61 [facility] CO2 [Moles/Vol] 26.0 mmol/L 21.0-32.0 [facility] Globulin (S) [Mass/Vol] 3.4 g/dL 2.2-4.[address] [facility] Lipase [Catalytic activity/Vol] 92 U/L 13-75 [facility] Comment on above: Please note:LIPASE r evised reference range effective 22. New Lipase methodology. Expected to produce lower values than the previous assay method. NEW Reference Range: 13 - 75 U/L Urea nitrogen/Creatinine [Mass ratio] 15.1 mg/mg 10-20 [facility] Laboratory - Hematology and Cell countsOrdered By: Danni Swann on 10-24-2022 Erythrocyte distribution width (RBC) [Entitic vol] 43.4 fL 35.1-43.9 [facility] Erythrocyte distribution width (RBC) [Ratio] 13.2 % 11.6-14.6 [facility] Immature granulocytes/100 WBC (Bld) 0.300 % 0.0-0.9 [facility] Comment on above: IG% - Immature Granu locytes (promyelocytes, myelocytes and metamyelocytes) > 1% indicates that a LEFT SHIFT is Present. MCH (RBC) [Entitic mass] 29.1 pg 27.0-32.0 [facility] Nucleated RBC/100 WBC (Bld) [Ratio] 0 % 0-5 [facility] MCHC Auto (RBC) [Mass/Vol]Or dered By: Danni Swann on 10-24-2022 MCHC (RBC) [Mass/Vol] 32.4 g/dL 32-36 [facility] No Panel InformationOrdered By: Danni Swann on 10-24-2022 Estimated GFR (MDRD) Amer 117 mL/min >60 [facility] Comment on above: GFR Calc Estimated GFR (MDRD) Non-Af Amer 97 mL/min >60 [facility] Comment on above: Non- GFR Calc Hepatitis A IgM Antibody Negative Negative [facility] Hepatitis B Core IgM Antibody Negative Negative [facility] Hepatitis C Antibody (EIA) Non-Reactive Non Reactive [facility] Hepatitis C Antibody Comment Comment . [facility] Comment on above: Not infected with HC V unless early or acute infection issuspected (which may be delayed in an immunocompromisedindividual), or other evidence exists to indicate HCVinfection.Performed at: [employer] [id number] Director: Yung Allen PhD, Phone: [phone] Platelets bldOrdered By: Hugo Swann on 10-24-2022 Platelets (Bld) [#/Vol] 278 10*3/uL 150-450 [facility] Serum or plasma albumin ivan urement (mass/volume)Ordered By: Danni Swann on 10-24-2022 Albumin [Mass/Vol] 3.7 g/dL 3.2-5.0 [facility] Serum or plasma albumin/glob ulin mass ratioOrdered By: Danni Swann on 10-24-2022 Albumin/Globulin [Mass ratio] 1.1 {ratio} 0.9-2.4 [facility] Serum or plasma calcium ivan urement (mass/volume)Ordered By: Danni Swann on 10-24-2022 Calcium [Mass/Vol] 9.1 mg/dL 8.5-10.1 [facility] Serum or plasma creatinine m easurement (mass/volume)Ordered By: Danni Swann on 10-24-2022 Creatinine [Mass/Vol] 0.86 mg/dL 0.70-1.30 [facility] Comment on above: The validity of the calculated GFR & GFRAA in patients over 70 years has not been determined. Clinical correlation is essential. Serum or plasma hepatitis B virus surface antigen detection by immunoassayOrdered By: Danni Swann on 10-24-2022 HBV surface Ag IA Ql Negative Negative [facility] Serum or plasma urea nitroge n measurement (mass/volume)Ordered By: Danni Swann on 10-24-2022 Urea nitrogen [Mass/Vol] 13 mg/dL 7-18 [facility] Thin prep Papanicolaou smear with manual screeningOrdered By: Danni Swann on 10-24-2022 Thin prep Papanicolaou smear with manual screening 32 U/L 15-37 [facility] Thin prep Papanicolaou smear with manual screening 6 5-15 [facility] Absolute lymphocyte countOrd ered By: Dr. Swann on 07-10-2022 Lymphocytes Auto (Unsp spec) [#/Vol] 1.73 10*3/uL 0.83-4.51 [facility] Basophil percentageOrdered B y: Dr. Swann on 07-10-2022 Basophils/100 WBC (Bld) 0.5 % 0-1 [facility] Bilirubin [Mass/Vol] 0.30 mg/dL 0.20-1.00 [facility] Comment on above: For patients on eltr ombopag therapy, use of Dimension [place] TBIL is not recommended. Chloride [Moles/Vol] 106 mmol/L 98-107 [facility] Eosinophils/100 WBC (Bld) 3.0 % 0-5 [facility] Glucose [Mass/Vol] 142 mg/dL 74-106 [facility] Comment on above: Fasting Glucose resu lt greater than or equal to 126 mg/dL suggests DIABETES MELLITUS per A.D.A. criteria. Neutrophils (Bld) [#/Vol] 5.3 10*3/uL 2.0-7.7 [facility] Neutrophils/100 WBC (Bld) 63.5 % 47-70 [facility] Potassium [Moles/Vol] 4.0 mmol/L 3.5-5.1 [facility] Protein [Mass/Vol] 7.6 g/dL 6.4-8.2 [facility] Sodium [Moles/Vol] 137 mmol/L 136-145 [facility] WBC (Bld) [#/Vol] 8.3 10*3/uL 4.4-11.0 [facility] Blood erythrocytes count (nu mber/volume)Ordered By: Dr. Swann on 07-10-2022 RBC (Bld) [#/Vol] 4.62 10*6/uL 4.6-6.2 [facility] Blood hemoglobin measurement (mass/volume)Ordered By: Dr. Swann on 07-10-2022 Hemoglobin (Bld) [Mass/Vol] 13.6 g/dL 13.0-16.5 [facility] Blood lymphocytes/100 leukoc ytesOrdered By: Dr. Swann on 07-10-2022 Lymphocytes/100 WBC (Bld) 20.8 % 19-41 [facility] Blood monocytes/100 leukocyt esOrdered By: Dr. Swann on 07-10-2022 Monocytes/100 WBC (Bld) 11.7 % 0-[address] [facility] Blood platelet mean volumeOr dered By: Dr. Swann on 07-10-2022 Platelet mean volume (Bld) [Entitic vol] 8.3 fL 6.2-12.0 [facility] Determination of erythrocyte mean corpuscular volume (MCV)Ordered By: Dr. Swann on 07-10-2022 MCV (RBC) [Entitic vol] 88.3 fL 80-[address] [facility] Hematocrit Auto (Bld) [Volum e fraction]Ordered By: Dr. Swann on 07-10-2022 Hematocrit (Bld) [Volume fraction] 40.8 % 40-54 [facility] Laboratory - Chemistry and C hemistry - challengeOrdered By: Dr. Swann on 07-10-2022 ALP [Catalytic activity/Vol] 65 U/L 45-117 [facility] ALT [Catalytic activity/Vol] 31 U/L 16-61 [facility] CO2 [Moles/Vol] 26.0 mmol/L 21.0-32.0 [facility] Globulin (S) [Mass/Vol] 4.1 g/dL 2.2-4.[address] [facility] Urea nitrogen/Creatinine [Mass ratio] 16.2 mg/mg 10-20 [facility] Laboratory - Hematology and Cell countsOrdered By: Dr. Swann on 07-10-2022 Erythrocyte distribution width (RBC) [Entitic vol] 41.5 fL 35.1-43.9 [facility] Erythrocyte distribution width (RBC) [Ratio] 12.9 % 11.6-14.6 [facility] Immature granulocytes/100 WBC (Bld) 0.500 % 0.0-0.9 [facility] Comment on above: IG% - Immature Granu locytes (promyelocytes, myelocytes and metamyelocytes) > 1% indicates that a LEFT SHIFT is Present. MCH (RBC) [Entitic mass] 29.4 pg 27.0-32.0 [facility] Nucleated RBC/100 WBC (Bld) [Ratio] 0 % 0-5 [facility] MCHC Auto (RBC) [Mass/Vol]Or dered By: Dr. Swann on 07-10-2022 MCHC (RBC) [Mass/Vol] 33.3 g/dL 32-36 [facility] No Panel InformationOrdered By: Dr. Swann on 07-10-2022 Estimated GFR (MDRD) Amer 108 mL/min >60 [facility] Comment on above: GFR Calc Estimated GFR (MDRD) Non-Af Amer 89 mL/min >60 [facility] Comment on above: Non- GFR Calc Platelets bldOrdered By: Dr. Swann on 07-10-2022 Platelets (Bld) [#/Vol] 335 10*3/uL 150-450 [facility] Serum or plasma albumin ivan urement (mass/volume)Ordered By: Dr. Swann on 07-10-2022 Albumin [Mass/Vol] 3.5 g/dL 3.2-5.0 [facility] Serum or plasma albumin/glob ulin mass ratioOrdered By: Dr. Swann on 07-10-2022 Albumin/Globulin [Mass ratio] 0.9 {ratio} 0.9-2.4 [facility] Serum or plasma calcium ivan urement (mass/volume)Ordered By: Dr. Swann on 07-10-2022 Calcium [Mass/Vol] 8.9 mg/dL 8.5-10.1 [facility] Serum or plasma creatinine m easurement (mass/volume)Ordered By: Dr. Swann on 07-10-2022 Creatinine [Mass/Vol] 0.92 mg/dL 0.70-1.30 [facility] Comment on above: The validity of the calculated GFR & GFRAA in patients over 70 years has not been determined. Clinical correlation is essential. Serum or plasma urea nitroge n measurement (mass/volume)Ordered By: Dr. Swann on 07-10-2022 Urea nitrogen [Mass/Vol] 15 mg/dL 7-18 [facility] Thin prep Papanicolaou smear with manual screeningOrdered By: Dr. Swann on 07-10-2022 Thin prep Papanicolaou smear with manual screening 14 U/L 15-37 [facility] Thin prep Papanicolaou smear with manual screening 5 5-15 [facility] Absolute lymphocyte counton 02-20-2022 Lymphocytes Auto (Unsp spec) [#/Vol] 2.00 10*3/uL 0.83-4.51 [facility] Work Phone: Basophil percentageon 2021 Basophils/100 WBC (Bld) 0.3 % 0-[address] [facility] Work Phone: Bilirubin [Mass/Vol] 0.30 mg/dL 0.20-1.00 [facility] Work Phone: Comment on above: For patients on eltr ombopag therapy, use of Dimension [place] TBIL is not recommended. Chloride [Moles/Vol] 106 mmol/L 98-107 [facility] Work Phone: Eosinophils/100 WBC (Bld) 2.7 % 0-5 [facility] Work Phone: Glucose [Mass/Vol] 112 mg/dL 74-106 [facility] Work Phone: Comment on above: Fasting Glucose resu lt from 100 to 125 mg/dL suggests IMPAIRED HOMEOSTASIS per A.D.A. criteria. Neutrophils (Bld) [#/Vol] 3.6 10*3/uL 2.0-7.7 [facility] Work Phone: Neutrophils/100 WBC (Bld) 54.1 % 47-70 [facility] Work Phone: Potassium [Moles/Vol] 3.9 mmol/L 3.5-5.1 [facility] Work Phone: Protein [Mass/Vol] 7.4 g/dL 6.4-8.2 [facility] Work Phone: [phone] Sodium [Moles/Vol] 140 mmol/L 136-145 [facility] Work Phone: [phone] WBC (Bld) [#/Vol] 6.6 10*3/uL 4.4-11.0 [facility] Work Phone: [phone] Blood erythrocytes count (nu mber/volume)on 02-20-2022 RBC (Bld) [#/Vol] 4.77 10*6/uL 4.6-6.2 [facility] Work Phone: [phone] Blood hemoglobin measurement (mass/volume)on 02-20-2022 Hemoglobin (Bld) [Mass/Vol] 14.1 g/dL 13.0-16.5 [facility] Work Phone: [phone] Blood lymphocytes/100 leukoc yteson 02-20-2022 Lymphocytes/100 WBC (Bld) 30.3 % 19-41 [facility] Work Phone: [phone] Blood monocytes/100 leukocyt eson 02-20-2022 Monocytes/100 WBC (Bld) 12.4 % 0-[address] [facility] Work Phone: [phone] Blood platelet mean volumeon 02-20-2022 Platelet mean volume (Bld) [Entitic vol] 8.6 fL 6.2-12.0 [facility] Work Phone: [phone] Determination of erythrocyte mean corpuscular volume (MCV)on 02-20-2022 MCV (RBC) [Entitic vol] 88.9 fL 80-[address] [facility] Work Phone: [phone] Hematocrit Auto (Bld) [Volum e fraction]on 02-20-2022 Hematocrit (Bld) [Volume fraction] 42.4 % 40-54 [facility] Work Phone: [phone] Laboratory - Chemistry and C hemistry - challengeon 02-20-2022 ALP [Catalytic activity/Vol] 70 U/L 45-117 [facility] Work Phone: [phone] ALT [Catalytic activity/Vol] 46 U/L 16-61 [facility] Work Phone: [phone] CO2 [Moles/Vol] 28.0 mmol/L 21.0-32.0 [facility] Work Phone: [phone] Cobalamin (Vitamin B12) [Mass/Vol] 573 pg/mL 211-911 [facility] Work Phone: [phone] Free T4 [Mass/Vol] 0.88 ng/dL 0.76-1.46 [facility] Work Phone: [phone] Globulin (S) [Mass/Vol] 3.8 g/dL 2.2-4.[address] [facility] Work Phone: [phone] Urea nitrogen/Creatinine [Mass ratio] 17.7 mg/mg 10-20 [facility] Work Phone: [phone] Laboratory - Hematology and Cell countson 02-20-2022 Erythrocyte distribution width (RBC) [Entitic vol] 43.3 fL 35.1-43.9 [facility] Work Phone: [phone] Erythrocyte distribution width (RBC) [Ratio] 13.3 % 11.6-14.6 [facility] Work Phone: [phone] Immature granulocytes/100 WBC (Bld) 0.200 % 0.0-0.9 [facility] Work Phone: [phone] Comment on above: IG% - Immature Granu locytes (promyelocytes, myelocytes and metamyelocytes) > 1% indicates that a LEFT SHIFT is Present. MCH (RBC) [Entitic mass] 29.6 pg 27.0-32.0 [facility] Work Phone: [phone] Nucleated RBC/100 WBC (Bld) [Ratio] 0 % 0-5 [facility] Work Phone: [phone] MCHC Auto (RBC) [Mass/Vol]on 02-20-2022 MCHC (RBC) [Mass/Vol] 33.3 g/dL 32-36 [facility] Work Phone: [phone] Panel Informationon 11-08 -2022 Estimated GFR (MDRD) Amer 111 mL/min >60 [facility] Work Phone: Comment on above: GFR Calc Estimated GFR (MDRD) Non-Af Amer 92 mL/min >60 [facility] Work Phone: Comment on above: Non- GFR Calc Prostate Specific Antigen Screen 0.42 ng/mL 0.00-4.00 [facility] Work Phone: Comment on above: This test was perfor med using the TPSA assay method for [employer] chemistry system. Values obtained with differentassay methods cannot be used interchangably.When changing PSA assays in the course of monitoring apatient, additional sequential testing should be carriedout to confirm baseline values. Thyroid Stimulating Hormone (TSH) 1.01 uIU/mL 0.358-3.74 [facility] Work Phone: Vitamin D 25-Hydroxy 30.4 ng/mL [facility] Work Phone: Comment on above: Vitamin D 25(OH) Sta tus Range Deficiency <20 ng/mL (50nmol/L) Insufficiency 20 - 30 ng/mL (50 - 75 nmol/L) Sufficiency 30 - 100 ng/mL (75 - 250 nmol/L) Toxicity >100 ng/mL (>250 nmol/L) Platelets bldon 02-20-2022 Platelets (Bld) [#/Vol] 316 10*3/uL 150-450 [facility] Work Phone: [phone] Serum or plasma albumin ivan urement (mass/volume)on 02-20-2022 Albumin [Mass/Vol] 3.6 g/dL 3.2-5.0 [facility] Work Phone: [phone] Serum or plasma albumin/glob ulin mass ratioon 02-20-2022 Albumin/Globulin [Mass ratio] 0.9 {ratio} 0.9-2.4 [facility] Work Phone: [phone] Serum or plasma calcium ivan urement (mass/volume)on 02-20-2022 Calcium [Mass/Vol] 9.1 mg/dL 8.5-10.1 [facility] Work Phone: Serum or plasma creatinine m easurement (mass/volume)on 02-20-2022 Creatinine [Mass/Vol] 0.90 mg/dL 0.70-1.30 [facility] Work Phone: Comment on above: The validity of the calculated GFR & GFRAA in patients over 70 years has not been determined. Clinical correlation is essential. Serum or plasma urea nitroge n measurement (mass/volume)on 02-20-2022 Urea nitrogen [Mass/Vol] 16 mg/dL 7-18 [facility] Work Phone: Thin prep Papanicolaou smear with manual screeningon 02-20-2022 Thin prep Papanicolaou smear with manual screening 18 U/L 15-37 [facility] Work Phone: Thin prep Papanicolaou smear with manual screening 6 5-15 [facility] Work Phone: Whole blood hemoglobin A1c/t otal hemoglobin ratio (mass fraction)on 02-20-2022 HbA1c (Bld) [Mass fraction] 6.0 % 3.8-5.6 [facility] Work Phone: Comment on above: Normal < 5.7 % Predi abetic 5.7 - 6.4 % Diabetic >or= 6.5 % Please note range changes. Lab Report: Lipid Profileon 06-07-2017 Cholesterol 174 mg/dL Invalid Interpretation Code 200 [facility] Work Phone: [phone] HDL Cholesterol 51 mg/dL Invalid Interpretation Code [facility] Work Phone: [phone] LDL Cholesterol 103 mg/dL Invalid Interpretation Code 0-130 [facility] Work Phone: [phone] Triglyceride 100 mg/dL Invalid Interpretation Code [facility] Work Phone: [phone] very low density lipoproteins 20 mg/dL Invalid Interpretation Code 5-40 [facility] Work Phone: [phone] Lab Report: Liver Profileon 06-07-2017 Alanine aminotransferase (ALT) 52 U/L Invalid Interpretation Code 16-61 [facility] Work Phone: [phone] Albumin 4.2 g/dL Invalid Interpretation Code 3.2-5.0 [employer] Work Phone: [phone] Alkaline phosphatase (ALP) 71 U/L Invalid Interpretation Code 45-117 [employer] Work Phone: [phone] Aspartate aminotransferase (AST) 23 U/L Invalid Interpretation Code 15-37 [employer] Phone: [phone] Bilirubin (direct) 0.13 mg/dL Invalid Interpretation Code 0.00-0.30 [employer] Work Phone: [phone] Bilirubin (total) 0.70 mg/dL Invalid Interpretation Code 0.20-1.00 [employer] Work Phone: [phone] Globulin 3.7 g/dL Invalid Interpretation Code 2.2-4.2 [employer] Phone: [phone] Protein 7.9 g/dL Invalid Interpretation Code 6.4-8.2 [employer] Phone: [phone] Office Visiton 05-23-2016 Dietary management education, guidance, and counseling (procedure) yes Invalid Interpretation Code [employer] Work Phone: [phone] Documentation of current medications (procedure) T Invalid Interpretation Code [employer] Phone: [phone] Documentation of current medications (procedure) Done Invalid Interpretation Code [employer] Phone: [phone] Clinical Lists Updateon Left ventricular Ejection fraction 55 % Invalid Interpretation Code [employer] Phone: [phone] Office Visiton 06-08-2015 Tobacco smoking status COIS Tobacco smoking status [facility] Invalid Interpretation Code [employer] Phone: [phone] Clinical Lists Update: Prelo wheat inspector 02-22-2015 Cholesterol to HDL Ratio 3.7 {ratio} Invalid Interpretation Code [employer] Phone: [phone] Creatinine 0.9 mg/dL Invalid Interpretation Code [employer] Phone: [phone] Globulin 2.8 g/dL Invalid Interpretation Code [employer] Phone: [phone] LDL/HDL ratio, serum 2.32 Invalid Interpretation Code [employer] Work Phone: [phone] Urea nitrogen 11 mg/dL Invalid Interpretation Code [employer] Phone: [phone] Office Visiton 07-09-2014 cardiac risk group C Invalid Interpretation Code [employer] Work Phone: [phone] General cardiovascular disease 10Y risk [#] Christmas.Channing'Gregg 4 % Invalid Interpretation Code [employer] Phone: [phone] Clinical Lists Update: Prelo wheat inspector 09-08-2013 Anion gap 8 mmol/L Invalid Interpretation Code [employer] Work Phone: [phone] basophils as percent of blood leukocytes, manual count 0.4 % Invalid Interpretation Code [employer] Work Phone: [phone] BUN/Creatinine Ratio 10.8 mg/mg Invalid Interpretation Code [employer] Work Phone: [phone] Calcium 9.5 mg/dL Invalid Interpretation Code [employer] Phone: [phone] Chloride 103 mmol/L Invalid Interpretation Code [employer] Work Phone: [phone] CO2 26.0 mmol/L Invalid Interpretation Code [employer] Work Phone: [phone] eGFR (non-black) 75 mL/min/{1.73_m2} Invalid Interpretation Code [employer] Work Phone: [phone] eGFR (non-black) 62 mL/min/{1.73_m2} Invalid Interpretation Code [employer] Phone: [phone] eosinophils as percent of blood leukocytes, manual count 0.6 % Invalid Interpretation Code [employer] Phone: [phone] Erythrocytes (RBC) 4.92 10*6/uL Invalid Interpretation Code [employer] Work Phone: [phone] Glucose 132 mg/dL High [employer] Work Phone: [phone] Hematocrit (HCT) 42.1 % Invalid Interpretation Code [employer] Phone: [phone] Hemoglobin (HGB) 14.6 g/dL Invalid Interpretation Code [employer] Phone: [phone] Lymphocytes/100 leukocytes 10.8 % Low [employer] Work Phone: [phone] MCH 29.7 pg Invalid Interpretation Code [employer] Work Phone: [phone] MCHC 34.7 g/dL Invalid Interpretation Code [facility] Work Phone: [phone] MCV 85.6 fL Invalid Interpretation Code [facility] Work Phone: [phone] Monocytes/100 leukocytes 5.5 % Invalid Interpretation Code [facility] Work Phone: [phone] neutrophils, band form as percent of blood leukocytes, manual count 82.4 % High [facility] Work Phone: [phone] Platelets 221 10*3/mm3 Invalid Interpretation Code [facility] Work Phone: [phone] PMV by Calin 8.4 fL Invalid Interpretation Code [facility] Work Phone: [phone] Potassium 4.1 mmol/L Invalid Interpretation Code [facility] Work Phone: [phone] RDW-CA 12.8 % Invalid Interpretation Code [facility] Work Phone: [phone] Sodium 137 mmol/L Invalid Interpretation Code [facility] Work Phone: [phone] WBC (Leukocytes) 11.1 10*3/uL High [facility] Work Phone: [phone] EKG Report: [facility] ECG Obse rvationson 05-21-2012 GE use only - for [employer] import when terms are not otherwise specified 440 ms Invalid Interpretation Code [facility] Work Phone: [phone] Replaced Document: [facility] E CG Observationson 05-21-2012 BUN (urea nitrogen) Sinus Rhythm -Left bundle branch block . ABNORMAL Invalid Interpretation Code [facility] Work Phone: [phone] P wave axis, electrocardiogram 52 deg Invalid Interpretation Code [facility] Work Phone: [phone] KS interval, electrocardiogram 184 ms Invalid Interpretation Code [facility] Work Phone: [phone] Pulse (Heart Rate) 76 /min Invalid Interpretation Code [facility] Work Phone: [phone] Pulse (Heart Rate) 440 ms Invalid Interpretation Code [facility] Work Phone: [phone] QRS axis, electrocardiogram 25 deg Invalid Interpretation Code [facility] Work Phone: [phone] QRS duration, electrocardiogram 138 ms Invalid Interpretation Code [facility] Work Phone: [phone] QT interval, electrocardiogram new path ms Invalid Interpretation Code [facility] Work Phone: [phone] T wave axis, electrocardiogram 33 deg Invalid Interpretation Code [facility] Work Phone: [phone] Vital Signs Date Time Vital Sign Value Performing Clinician Facility 12-31-2024 14:59-0400 Body height 167.6 cm Se Cote MD Work Phone: [place] 12-31-2024 14:59-0400 Body mass index (BMI) [Ratio] 27.96 kg/m2 Se Cote MD Work Phone: [phone] [address] 12-31-2024 14:59-0400 Body weight 78.56 kg Se Cote MD Work Phone: [phone] [address] 12-31-2024 14:59-0400 Diastolic blood pressure 60 mm[Hg] Se Cote MD Work Phone: [phone] [address] 12-31-2024 14:59-0400 Heart rate 66 /min Se Cote MD Work Phone: [phone] [address] 12-31-2024 14:59-0400 Systolic blood pressure 108 mm[Hg] Se Cote MD Work Phone: [place] 06-30-2024 14:47-0400 Body height 167.6 cm Se Cote MD Work Phone: [place] 06-30-2024 14:47-0400 Body mass index (BMI) [Ratio] 28.73 kg/m2 Se Cote MD Work Phone: [place] 06-30-2024 14:47-0400 Body weight 80.74 kg Se Cote MD Work Phone: [place] 06-30-2024 14:47-0400 Diastolic blood pressure 62 mm[Hg] Se Cote MD Work Phone: [place] 06-30-2024 14:47-0400 Heart rate 68 /min Se Cote MD Work Phone: [place] 06-30-2024 14:47-0400 Systolic blood pressure 122 mm[Hg] Se Cote MD Work Phone: [place] 12-31-2023 14:54-0400 Body height 167.6 cm Se Cote MD Work Phone: [place] 12-31-2023 14:54-0400 Body mass index (BMI) [Ratio] 27.76 kg/m2 Se Cote MD Work Phone: [place] 12-31-2023 14:54-0400 Body weight 78.02 kg Se Cote MD Work Phone: [place] 12-31-2023 14:54-0400 Diastolic blood pressure 78 mm[Hg] Se Cote MD Work Phone: [place] 12-31-2023 14:54-0400 Heart rate 72 /min Se Cote MD Work Phone: [place] 12-31-2023 14:54-0400 Systolic blood pressure 158 mm[Hg] Se Cote MD Work Phone: [place] 07-04-2023 14:23-0400 Body height 167.6 cm Se Cote MD Work Phone: [place] 07-04-2023 14:23-0400 Body mass index (BMI) [Ratio] 27.1 kg/m2 Se Cote MD Work Phone: [place] 07-04-2023 14:23-0400 Body weight 76.16 kg Se Cote MD Work Phone: [place] 07-04-2023 14:23-0400 Diastolic blood pressure 82 mm[Hg] Se Cote MD Work Phone: [place] 07-04-2023 14:23-0400 Heart rate 82 /min Se Cote MD Work Phone: [place] 07-04-2023 14:23-0400 Systolic blood pressure 130 mm[Hg] Se Cote MD Work Phone: [place] 07-04-2023 14:16-0400 Body height 167.6 cm Se Cote MD Work Phone: [place] 07-04-2023 14:16-0400 Body mass index (BMI) [Ratio] 25.82 kg/m2 Se Cote MD Work Phone: [place] 07-04-2023 14:16-0400 Body weight 72.58 kg Se Cote MD Work Phone: [place] 07-04-2023 14:16-0400 Diastolic blood pressure 82 mm[Hg] Se Cote MD Work Phone: [place] 07-04-2023 14:16-0400 Heart rate 72 /min Se Cote MD Work Phone: [place] 07-04-2023 14:16-0400 Systolic blood pressure 130 mm[Hg] Se Cote MD Work Phone: [place] 01-01-2023 12:42-0400 Body height 167.6 cm Se Cote MD Work Phone: [place] 01-01-2023 12:42-0400 Body mass index (BMI) [Ratio] 25.82 kg/m2 Se Cote MD Work Phone: [place] 01-01-2023 12:42-0400 Body weight 72.58 kg Se Cote MD Work Phone: [place] 01-01-2023 12:42-0400 Diastolic blood pressure 80 mm[Hg] Se Cote MD Work Phone: [place] 01-01-2023 12:42-0400 Heart rate 59 /min Se Cote MD Work Phone: [place] 01-01-2023 12:42-0400 Systolic blood pressure 134 mm[Hg] Se Cote MD Work Phone: [place] 12-08-2022 15:00-0400 Body temperature 98.5 [degF] Dr. Danni Swann Work Phone: [facility] 12-08-2022 15:00-0400 Diastolic blood pressure 80 mm[Hg] Dr. Danni Swann Work Phone: [facility] 12-08-2022 15:00-0400 Heart rate 65 /min Dr. Danni Swann Work Phone: [facility] 12-08-2022 15:00-0400 Respiratory rate 16 /min Dr. Danni Swann Work Phone: [facility] 12-08-2022 15:00-0400 SaO2% (BldA) [Mass fraction] 98 % Dr. Danni Swann Work Phone: [facility] 12-08-2022 15:00-0400 Systolic blood pressure 125 mm[Hg] Dr. Danni Swann Work Phone: [facility] 12-05-2022 12:26-0400 Body height 167.[address] Danni Swann Work Phone: [facility] 12-05-2022 12:26-0400 Body weight 73.[address] Danni Swann Work Phone: [facility] 12-05-2022 05:00-0400 Inhaled oxygen flow rate 1 L/min Dr. Danni Swann Work Phone: [facility] 12-04-2022 01:30-0400 Inhaled oxygen concentration 21 % Dr. Danni Swann Work Phone: [facility] 12-03-2022 14:59-0400 Body mass index (BMI) [Ratio] 25.9 kg/m2 Dr. Danni Swann Work Phone: [facility] 12-03-2022 04:59-0400 Body height 167.[address] Danni Swann Work Phone: [facility] 12-03-2022 04:59-0400 Body mass index (BMI) [Ratio] 25.9 kg/m2 Dr. Danni Swann Work Phone: [facility] 12-03-2022 04:59-0400 Body weight 73.[address] Danni Swann Work Phone: [facility] 12-03-2022 04:43-0400 Body temperature 98 [degF] Dr. Danni Swann Work Phone: [facility] 12-03-2022 04:43-0400 Diastolic blood pressure 68 mm[Hg] Dr. Danni Swann Work Phone: [facility] 12-03-2022 04:43-0400 Heart rate 72 /min Dr. Danni Swann Work Phone: [facility] 12-03-2022 04:43-0400 Respiratory rate 16 /min Dr. Danni Swann Work Phone: [facility] 12-03-2022 04:43-0400 SaO2% (BldA) [Mass fraction] 96 % Dr. Danni Swann Work Phone: [facility] 12-03-2022 04:43-0400 Systolic blood pressure 104 mm[Hg] Dr. Danni Swann Work Phone: [facility] 11-09-2022 14:00-0400 Body mass index (BMI) [Ratio] 26.8 kg/m2 Dr. Danni Swann Work Phone: [facility] 11-09-2022 14:00-0400 Body weight 75.[address] Danni Swann Work Phone: [facility] 11-09-2022 14:00-0400 Diastolic blood pressure 57 mm[Hg] Dr. Danni Swann Work Phone: [facility] 11-09-2022 14:00-0400 Heart rate 86 /min Dr. Danni Swann Work Phone: [facility] 11-09-2022 14:00-0400 Respiratory rate 18 /min Dr. Danni Swann Work Phone: [phone] [place] [address] 11-09-2022 14:00-0400 SaO2% (BldA) [Mass fraction] 96 % Dr. Danni Swann Work Phone: [facility] 11-09-2022 14:00-0400 Systolic blood pressure 107 mm[Hg] Dr. Danni Swann Work Phone: [facility] 05-31-2022 14:24-0500 Body height 167.[address] Danni Swann Work Phone: [facility] 05-31-2022 14:24-0500 Body mass index (BMI) [Ratio] 29.8 kg/m2 Dr. Danni Swann Work Phone: [facility] 05-31-2022 14:24-0500 Body weight 83.[address] Danni Swann Work Phone: [facility] 05-31-2022 14:24-0500 Diastolic blood pressure 62 mm[Hg] Dr. Danni Swann Work Phone: [facility] 05-31-2022 14:24-0500 Heart rate 68 /min Dr. Danni Swann Work Phone: [facility] 05-31-2022 14:24-0500 Respiratory rate 16 /min Dr. Danni Swann Work Phone: [facility] 05-31-2022 14:24-0500 Systolic blood pressure 110 mm[Hg] Dr. Danni Swann Work Phone: [facility] 04-24-2022 07:05-0500 Body temperature 98.4 [degF] Dr. Danni Swann Work Phone: [facility] 04-24-2022 07:05-0500 Diastolic blood pressure 79 mm[Hg] Dr. Danni Swann Work Phone: [facility] 04-24-2022 07:05-0500 Heart rate 63 /min Dr. Danni Swann Work Phone: [facility] 04-24-2022 07:05-0500 Respiratory rate 16 /min Dr. Danni Swann Work Phone: [facility] 04-24-2022 07:05-0500 SaO2% (BldA) [Mass fraction] 95 % Dr. Danni Swann Work Phone: [facility] 04-24-2022 07:05-0500 Systolic blood pressure 108 mm[Hg] Dr. Danni Swann Work Phone: [facility] 04-24-2022 05:55-0500 Body height 167.[address] Danni Swann Work Phone: [facility] Work Phone: 04-24-2022 05:55-0500 Body mass index (BMI) [Ratio] 28.9 kg/m2 Dr. Danni Swann Work Phone: [facility] 04-24-2022 05:55-0500 Body weight 81.[address] Danni Swann Work Phone: [facility] 03-15-2022 09:34-0500 Body mass index (BMI) [Ratio] 29.8 kg/m2 Dr. Danni Swann Work Phone: [facility] Work Phone: 03-15-2022 09:34-0500 Body weight 83.[address] Danni Swann Work Phone: [facility] Work Phone: 11-15-2021 15:31-0400 Body height 167.[address] Danni Swann Work Phone: [facility] Work Phone: 11-15-2021 15:31-0400 Body mass index (BMI) [Ratio] 29.4 kg/m2 Dr. Danni Swann Work Phone: [facility] Work Phone: 11-15-2021 15:31-0400 Body weight 82.[address] Danni Swann Work Phone: [facility] Work Phone: 11-15-2021 15:31-0400 Diastolic blood pressure 80 mm[Hg] Dr. Danni Swann Work Phone: [facility] Work Phone: 11-15-2021 15:31-0400 Heart rate 64 /min Dr. Danni Swann Work Phone: [facility] Work Phone: 11-15-2021 15:31-0400 Respiratory rate 16 /min Dr. Danni Swann Work Phone: [facility] Work Phone: 11-15-2021 15:31-0400 Systolic blood pressure 130 mm[Hg] Dr. Danni Swann Work Phone: [facility] Work Phone: 05-23-2016 14:58-0500 BMI (Body Mass Index) 29.37 kg/m2 Dulce Reyna RN [facility] Work Phone: 05-23-2016 14:58-0500 BP Diastolic 88 mm[Hg] [facility] Work Phone: 05-23-2016 14:58-0500 BP Systolic 122 mm[Hg] [facility] Work Phone: 05-23-2016 14:58-0500 BSA (Body Surface Area) 1.92 m2 Dulce Lodelaney [employer] [facility] Work Phone: 05-23-2016 14:58-0500 Pulse (Heart Rate) 88 /min [facility] Work Phone: 05-23-2016 14:58-0500 Respiratory Rate 14 /min Dulce Lodelaney [employer] [facility] Work Phone: 05-23-2016 14:58-0500 Weight 82.56 kg [facility] Work Phone: 05-21-2012 11:14-0500 Height 167.64 cm Dulce Loy JATIN [facility] Work Phone: Encounters Encounter Date Encounter Type Care Provider Facility Start: 12-31-2024 End: 12-31-2024 Office outpatient visit 25 minutes Se Cote MD Work Phone: [facility] [place] Comment on above: Other cardiomyopathy (Primary Dx); Left bundle-branch block; 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; Essential hypertension Start: 12-31-2024 ambulatory SE COTE Facili ty:[facility] Start: 06-30-2024 End: 06-30-2024 Office outpatient visit 25 minutes Se Cote MD Work Phone: [facility] [place] Comment on above: Atherosclerosis of n ative coronary artery of iroquois heart without angina pectoris (Primary Dx); Other cardiomyopathy; Left bundle-branch block; Essential hypertension; Hyperlipidemia, unspecified hyperlipidemia type Start: 06-30-2024 ambulatory OTHER [facility] Facility:[facility] Start: 06-17-2024 End: 06-17-[address] Danni Swann MD Work Phone: [facility] Work Phone: Start: 06-17-2024 End: 06-17-[address] Danni Swann MD -[facility] Start: 06-17-2024 End: 06-17-2024 ambulatory Danni Swann Facility:[facility] Start: 12-31-2023 End: 12-31-2023 Office outpatient visit 25 minutes Se Cote MD Work Phone: [facility] [place] Comment on above: Other cardiomyopathy (Primary Dx); Left bundle-branch block; Essential hypertension; Hyperlipidemia, unspecified hyperlipidemia type Start: 12-18-2023 End: 12-18-2023 ambulatory Danni Swann Facility:[facility] Start: 08-13-2023 End: 08-13-2023 ambulatory [facility] Work Phone: Start: 08-13-2023 End: 08-13-2023 Patient encounter procedure [facility] Start: 08-13-2023 End: 08-13-[facility] Start: 07-04-2023 End: 07-04-2023 Office outpatient visit 25 minutes Se Cote MD Work Phone: [facility] Comment on above: Left bundle-branch b lock (Primary Dx); Essential hypertension; Other cardiomyopathy; 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; Hyperlipidemia, unspecified hyperlipidemia type Start: 07-04-2023 End: 07-04-2023 Subsequent hospital visit by physician Se Cote MD Work Phone: [facility] [place] Start: 01-01-2023 End: 01-01-2023 Office outpatient new 45 minutes Se Cote MD Work Phone: [facility] [place] Comment on above: Left bundle-branch b lock (Primary Dx); Cardiomyopathy, unspecified type; 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 Danni Swann Work Phone: [facility] Work Phone: Start: 12-14-2022 End: 12-14-[address] Danni Swann Work Phone: [facility] Work Phone: Start: 12-08-2022 Non-patient / Non-visit Dr. Farida Swann Work Phone: [facility] Start: 12-08-2022 Non-patient / Non-visit Dr. Farida Swann Work Phone: [facility] Start: 12-08-2022 Non-patient / Non-visit Dr. Farida Swann Work Phone: [facility] Work Phone: Start: 12-07-2022 Non-patient / Non-visit [facility] Far[facility] Start: 12-07-2022 Non-patient / Non-visit Dr. Farida Swann Work Phone: [facility] Start: 12-06-2022 Non-patient / Non-visit Dr. Farida Swann Work Phone: [facility] Start: 12-06-2022 Non-patient / Non-visit Dr. Farida Swann Work Phone: [facility] Start: 12-05-2022 Non-patient / Non-visit [facility]. Farida Swann [facility] Start: 12-05-2022 Non-patient / Non-visit Dr. Farida Swann Work Phone: [facility] Work Phone: Start: 12-04-2022 Non-patient / Non-visit Dr. Farida Swann Work Phone: [facility] Start: 12-03-2022 End: 12-03-2022 Non-patient / Non-visit Dr. Danni Swann Work Phone: [facility] Start: 12-03-2022 Non-patient / Non-visit Dr. Farida Swann Work Phone: [facility] Start: 12-03-2022 Non-patient / Non-visit Dr. Farida Swann Work Phone: [facility] Work Phone: Start: 12-03-2022 End: 12-08-2022 Evaluation and management of inpatient Dr. Danni Swann Work Phone: [facility] Work Phone: Start: 11-09-2022 End: 11-09-[address] Danni Swann Work Phone: [facility] Work Phone: Start: 10-31-2022 End: 10-31-2022 ambulatory [facility] Work Phone: Start: 10-31-2022 End: 10-31-2022 Patient encounter procedure [facility] Start: 10-27-2022 End: 10-27-2022 ambulatory [facility] Work Phone: Start: 10-27-2022 End: 10-27-2022 Patient encounter procedure [facility] Work Phone: Start: 10-24-2022 End: 10-24-2022 ambulatory [facility] Work Phone: Start: 10-24-2022 End: 10-24-2022 Patient encounter procedure [facility] Start: 07-10-2022 End: 07-10-[address] Danni Swann Work Phone: [facility] Work Phone: Start: 07-10-2022 End: 07-10-[address] Danni Swann Work Phone: [facility] Start: 05-31-2022 End: 05-31-[address] Danni Swann Work Phone: [facility] Start: 04-24-2022 Non-patient / Non-visit Dr. Farida Swann Work Phone: [facility] Start: 04-24-2022 End: 04-24-2022 Admission to same day surgery center Dr. Danni Swann Work Phone: [facility]End[facility] Start: 04-24-2022 End: 04-24-[address] Danni Swann Work Phone: [facility] Work Phone: Start: 04-19-2022 Non-patient / Non-visit Dr. Farida Swann Work Phone: [facility] Start: 04-19-2022 End: 04-19-[address] Danni Swann Work Phone: [facility] Start: 03-15-2022 Non-patient / Non-visit Dr. Farida Swann Work Phone: [facility] Start: 02-20-2022 End: 02-20-[address] Danni Swann Work Phone: [facility] Work Phone: Start: 02-20-2022 End: 02-20-[address] Danni Swann Work Phone: [facility] Start: 11-15-2021 End: 11-15-[address] Danni Swann Work Phone: [facility] Procedures Date Procedure Procedure Detail Performing Clinician Start: 07-04-2023 Echo tthrc r-t 2d w/wom-mode compl spec&colr d Se Cote MD Work Phone: Start: 01-01-2023 Lipid 1996 panel - Serum or Plasma Lisa Mobley RN Start: 12-06-2022 CT of abdomen with contrast Dr. Danni hudson Work Phone: Start: 12-04-[address] Danni Swann Work Phone: Start: 12-04-[address] Danni Swann Work Phone: Start: 12-04-2022 Total cholecystectomy and exploration of common bile duct Dr. Danni Swann Work Phone: Start: 12-04-2022 Plain chest X-ray Dr. Danni Swann Work Phone: Start: 12-03-2022 End: 12-03-[address] Danni Swann Work Phone: Start: 12-03-[address] Danni Swann Work Phone: Start: 12-03-2022 US scan of gallbladder Dr. Danni Swann Work Phone: Start: 12-03-2022 Computed tomography of abdomen and pelvis with intravenous contrast Dr. Danni Swann Work Phone: Start: 10-27-2022 Ultrasonography of abdomen Start: 07-10-2022 Computed tomography of abdomen and pelvis with contrast Dr. Danni Swann Work Phone: Start: 04-24-2022 [facility] Dr[facility] Danni Swann Work Phone: Start: 05-23-2016 End: 05-23-2016 Follow Up Appt 1 year Se Cote MD Start: 05-23-2016 End: 05-23-2016 PFM Se Cote MD Start: 06-08-2015 End: 06-08-2015 Follow Up Appt 1 year Se Cote MD Start: 06-08-2015 End: 06-08-2015 PFM Se Cote MD Start: 07-09-2014 End: 07-10-2014 Documentation of current medications Se Cote MD Start: 09-14-2013 End: 09-14-2013 Follow Up Appt Other Se Cote MD Start: 09-14-2013 End: 09-14-2013 PFM Se Cote MD Start: 05-25-2013 End: 05-25-2013 Follow Up Appt 1 year Se Cote MD Start: 05-25-2013 End: 05-25-2013 PFM Se Cote MD Start: 05-21-2012 End: 06-09-2015 *Hepatic Function Panel Se Cote MD Start: 05-21-2012 End: 05-21-2012 Electrocardiogram, complete Se smith MD Start: 05-21-2012 End: 05-21-2012 Follow Up Appt 1 year Se Cote MD Start: 05-21-2012 End: 06-09-2015 Lipid panel [AGGREGATE] Se Cote MD Start: 05-21-2012 End: 05-21-2012 PFM Se Cote MD History of cholecystectomy S/P l aparoscopic cholecystectomy Dr. Danni Swann Work Phone: Plan of Treatment Date Care Activity Detail Author Start: 02-18-2039 RSV VACCINE (1 - 1-dose 75+ series) RSV VACCINE (1 - 1-dose 75+ series) [place] Start: 11-09-2031 Tetanus vaccination TETANUS [place] Start: 01-02-2028 Lipid panel LIPID SCREENING [place] Start: 09-07-2025 End: 09-07-2025 Patient encounter procedure [facility] [place] Start: 06-30-2025 End: 12-31-2025 Echocardiography ECHOCARDIOGRAM Echocardiography Routine Other cardiomyopathy Left bundle-branch block 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 Essential hypertension Expected: 06/30/2025, Expires: 12/31/2025 [place] Comment on above: Expected: 06/30/2025, Expires: Start: 12-31-2024 End: 12-31-2024 Patient encounter procedure 12/31/2024 3:00 PM EDT Office Visit [facility] [place] [address] Se Cote MD [address] [place] [id number] [facility] [place] Start: 12-14-2024 COVID-19 VACCINE ( season) COVID-19 VACCINE () [place] Start: 12-14-2024 Influenza vaccination INFLUENZA VACCINE (#1) [facility] Start: 06-30-2024 End: 06-30-2024 Patient encounter procedure 06/30/2024 3:00 PM EDT [facility] [address] [address] Se Cote MD [address] [place] [address] [place] [id number] [facility] [place] Start: 01-04-2024 End: 07-03-2024 LIPID PANEL W CALCULATED LDL LIPID PANEL W CALCULATED LDL Lab Routine Left bundle-branch block Essential hypertension Other cardiomyopathy 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 Expected: 01/04/2024, Expires: 07/03/2024 [place] Comment on above: Expected: 01/04/2024, Expires: Start: 12-31-2023 End: 12-31-2023 Patient encounter procedure 12/31/2023 3:00 PM EDT Office Visit [facility] [place] [id number] [address] Se Cote MD [address] [address] [facility] [place] Start: 12-15-2023 COVID-19 VACCINE () COVID-19 VACCINE () [place] Start: 12-15-2023 COVID-19 VACCINE () COVID-19 VACCINE () [place] Start: 12-15-2023 Influenza vaccination INFLUENZA VACCINE (#1) [facility] Start: 07-02-2023 End: 01-02-2024 Echocardiography ECHOCARDIOGRAM Echocardiography Routine Left bundle-branch block Essential hypertension Hyperlipidemia, unspecified hyperlipidemia type Cardiomyopathy, unspecified type Expected: 07/02/2023, Expires: 01/02/2024 [place] Comment on above: Expected: 07/02/2023, Expires: Start: 07-02-2023 End: 07-02-2023 Patient encounter procedure [facility] [place] Start: 12-14-2022 COVID-19 VACCINE () COVID-19 VACCINE () [place] Start: 12-14-2022 Influenza vaccination INFLUENZA VACCINE (#1) [facility] Start: 12-08-2022 Catheterization of vein [facility] Start: 12-08-2022 [facility] Start: 12-08-2022 Patient discharge [facility] Start: 12-07-2022 Inhalation therapy procedure [facility] Start: 12-06-2022 Following clinical pathway protocol [facility] Start: 12-04-2022 [facility] Start: 12-04-2022 [facility] Start: 12-04-2022 [facility] Start: 12-04-2022 Application of intermittent pneumatic compression device [facility] Start: 12-04-2022 Preoperative care [facility] Start: 12-03-2022 Application of intermittent pneumatic compression device [facility] Start: 12-03-2022 Continuous positive airway pressure ventilation treatment [facility] Start: 12-03-2022 End: 12-03-2022 Following clinical pathway protocol [facility] Start: 12-03-2022 Assessment of risk of venous thromboembolism [facility] Start: 12-03-2022 Catheterization of vein [facility] Start: 12-03-2022 Insertion of catheter into peripheral vein [facility] Start: 12-03-2022 Oxygen therapy [facility] Start: 12-03-2022 Providing care according to standard [facility] Start: 12-03-2022 Provision of activity privileges [facility] Start: 12-03-2022 Referral to gastroenterology service [facility] Start: 12-03-2022 Referral to general surgeon [facility] Start: 12-03-2022 Referral to service [facility] Start: 12-03-2022 [facility] Start: 12-03-2022 Verification routine [facility] Start: 12-03-2022 Admission procedure [facility] Start: 12-03-2022 US scan of gallbladder Gallbladder [facility] Start: 04-24-2022 Colonoscopy w/biopsy single/multiple COLONOSCOPY AND BIOPSY [facility] Start: 04-24-2022 Patient discharge [facility] Start: 02-18-2019 Prostate specific antigen measurement PROSTATE CANCER SCREENING DISCUSSION [place] Start: 02-12-2017 Screening for malignant neoplasm of colon COLORECTAL CANCER SCREENING DISCUSSION [place] Start: 05-23-2016 End: 05-23-2016 Follow Up Appt 1 year Follow Up Appt 1 year [facility] Work Phone: Start: 05-23-2016 End: 05-23-2016 PFM PFM [facility] Work Phone: Start: 06-08-2015 End: 06-08-2015 Follow Up Appt 1 year Follow Up Appt 1 year [facility] Work Phone: Start: 06-08-2015 End: 06-08-2015 PFM PFM [facility] Work Phone: Start: 07-09-2014 End: 07-09-2014 Follow Up Appt 1 year Follow Up Appt 1 year [facility] Work Phone: Start: 07-09-2014 End: 07-09-2014 PFM PFM [facility] Work Phone: Start: 02-18-2014 Pneumococcal vaccination PNEUMOCOCCAL VACCINE SERIES (1 of 1 - PCV) [place] Start: 02-18-2014 Prostate specific antigen measurement PROSTATE CANCER SCREENING DISCUSSION [place] Start: 02-18-2014 Zoster vaccine hzv live for subcutaneous use ZOSTER (SHINGLES) VACCINE (1 of 2) [place] Start: 09-14-2013 End: 09-14-2013 Follow Up Appt Other Follow Up Appt Other [facility] Work Phone: Start: 09-14-2013 End: 09-14-2013 PFM PFM [facility] Work Phone: Start: 05-25-2013 End: 05-25-2013 Follow Up Appt 1 year Follow Up Appt 1 year [facility] Work Phone: Start: 05-25-2013 End: 05-25-2013 PFM PFM [facility] Work Phone: Start: 05-21-2012 End: 06-09-2015 *Hepatic Function Panel *Hepatic Function Panel [facility] Work Phone: Start: 05-21-2012 End: 05-21-2012 Electrocardiogram, complete EKG (In office) [facility] Work Phone: Start: 05-21-2012 End: 05-21-2012 Follow Up Appt 1 year Follow Up Appt 1 year [facility] Work Phone: Start: 05-21-2012 End: 06-09-2015 Lipid panel [AGGREGATE] *Lipid Profile [facility] Work Phone: Start: 05-21-2012 End: 05-21-2012 PFM PFM [facility] Work Phone: Start: 02-18-2009 Screening for malignant neoplasm of colon COLORECTAL CANCER SCREENING DISCUSSION [place] Start: 02-18-1983 Hepatitis B vaccination HEP B VACCINE (1 of 3 - 19+ 3-dose series) [place] Start: 02-18-1979 HIV screening HIV SCREENING DISCUSSION [facility] Start: 1965 COVID-19 VACCINE (#1) COVID-19 VACCINE (#1) [facility] Start: 1965 Hepatitis C screening HEPATITIS C VIRUS SCREENING [place] Alanine aminotransfe rase [Enzymatic activity/volume] in Serum or Plasma [facility] Albumin [Mass/volume ] in Serum or Plasma [facility] Alkaline phosphatase [Enzymatic activity/volume] in Serum or Plasma [facility] Anion gap measurement [facility] Aspartate aminotransferase [Enzymatic activity/volume] in Serum or Plasma [facility] Bilirubin, total measurement [facility] BUN/Creatinine ratio [facility] Calcium [Mass/volume ] in Serum or Plasma [facility] Carbon dioxide, tota l [Moles/volume] in Serum or Plasma [facility] Chloride [Moles/volu me] in Serum or Plasma [facility] Creatinine [Moles/vo lume] in Serum or Plasma [facility] Ecg routine ecg w/le ast 12 lds w/i&r KS ELECTROCARDIOGRAM, COMPLETE KS - OFFICE PERFORMED Routine Left bundle-branch block Essential hypertension Hyperlipidemia, unspecified hyperlipidemia type Cardiomyopathy, unspecified type Ordered: 01/01/2023 [place] Comment on above: Ordered: 01/01/2023 Ecg routine ecg w/le ast 12 lds w/i&r KS ECG ROUTINE ECG W/LEAST 12 LDS W/I&R KS - OFFICE PERFORMED Routine Other cardiomyopathy Left bundle-branch block 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 Essential hypertension Ordered: 12/31/2024 [place] Comment on above: Ordered: 12/31/2024 Glucose [Mass/volume ] in Serum or Plasma [facility] Hematocrit [Volume Fraction] of Blood [facility] Hemoglobin [Mass/vol ume] in Blood [facility] Leukocytes [#/volume ] in Blood [facility] Mean corpuscular hemoglobin concentration determination [facility] Mean corpuscular hemoglobin determination [facility] Measurement of renal function [facility] Neutrophil count [facility] Neutrophil percent differential count [facility] Patient Education After [facility] Understanding Pancreatitis Pancreatitis Acute Dc Cholecystectomy Dc [facility] Work Phone: Patient referral [facility] Work Phone: Platelets [#/volume] in Blood [facility] Potassium [Moles/vol ume] in Serum or Plasma [facility] Red blood cell count [facility] Red cell distributio n width determination [facility] Sodium [Moles/volume ] in Serum or Plasma [facility] Total protein measurement [facility] Urea nitrogen [Mass/volume] in Serum or Plasma [facility] US Heart [facility] Work Phone: Immunizations Immunization Date Immunization Notes Care Provider [facility] 01-24-2024 influenza virus vaccine, unspecified formulation Se Cote MD Work Phone: [place] 02-22-2021 influenza virus vaccine, unspecified formulation Lsia Mobley RN [place] Payers Date Payer Category Payer Self-pay [id number] 2022 Managed Care (unspecified) MMO [id number] 2022 Unknown [employer] [id number] 2022-Present [address] [place] [address] [id number] 2022 Unknown [id number] 1965 Unknown [id number] 1965 Unknown [id number] Unknown [place] [id number] [facility] [employer] [id number] Unknown [id number] Unknown [id number] Unknown [id number] Social History Date Type Detail Facility Start: 11-15-2021 End: 04-02-2023 Tobacco smoking status COIS Unknown if ever smoked [facility] Start: 1965 Sex Assigned At Male [facility] Start: 01-01-2023 End: 12-31-2024 History of Social function [place] Start: 01-01-2023 End: 12-31-2024 Tobacco use panel [place] Start: 1965 Sex Assigned At Not on file [facility] Start: 01-01-2023 End: 06-30-2024 Tobacco smoking status NHIS Ex-smoker [place] End: 04-15-1992 History of tobacco use Current smoker [facility] End: 04-15-1992 History of tobacco use Cigarette Smoker [facility] Start: 01-01-2023 End: 06-30-2024 Tobacco use and exposure Smokeless tobacco non-user [place] Start: 01-01-2023 End: 12-31-2024 Alcohol intake Current drinker of alcohol (finding) [place] Start: 11-26-2022 End: 06-29-2024 Sex Male (finding) [place] Start: 06-29-2024 Gender identity Identifies as male gender (finding) [place] Start: 06-29-2024 Sexual orientation Heterosexual (fin ding) [place] Medical Equipment Procedure Code Equipment Code Equipment Origin al Text Equipment Identifier Dates Total cholecystectomy with exploration of common bile duct Plant polysaccharide haemostatic agent, bioabsorbable ()[id number] FDA Start: 12-04-2022 Total cholecystectomy with exploration of common bile duct Ligation clip, synthetic polymer, non-bioabsorbable ()[id number] FDA Start: 12-04-2022 Total cholecystectomy with exploration of common bile duct Ligation clip, synthetic polymer, non-bioabsorbable ()[id number] FDA Start: 12-04-2022 Total cholecystectomy with exploration of common bile duct Ligation clip, synthetic polymer, non-bioabsorbable ()[id number] FDA Start: 12-04-2022 ERCP (endoscopic retrograde cholangiopancreatograp hy) ([id number]) Polymeric biliary stent, non-bioabsorbable ()[id number] FDA Start: 12-03-2022 Appendectomy, laparoscopic RELOAD,STANDARD 45 [id number] ETH FDA Start: 05-31-2019 Appendectomy, laparoscopic SURGICEL SNOW ABS 1X2 FDA Start: 05-31-2019 Appendectomy, laparoscopic RELOAD,STANDARD 45 [id number] ETH FDA Start: 05-31-2019 Appendectomy, laparoscopic SURGICEL SNOW ABS 1X2 FDA Start: 05-31-2019 Appendectomy, laparoscopic RELOAD,STANDARD 45 [id number] ETH FDA Start: 05-31-2019 Appendectomy, laparoscopic SURGICEL SNOW ABS 1X2 FDA Start: 05-31-2019 Appendectomy, laparoscopic RELOAD,STANDARD 45 [id number] ETH FDA Start: 05-31-2019 Appendectomy, laparoscopic SURGICEL SNOW ABS 1X2 FDA Start: 05-31-2019 Appendectomy, laparoscopic RELOAD,STANDARD 45 [id number] ETH FDA Start: 05-31-2019 Appendectomy, laparoscopic SURGICEL SNOW ABS 1X2 FDA Start: 05-31-2019 Appendectomy, laparoscopic RELOAD,STANDARD 45 [id number] ETH FDA Start: 05-31-2019 Appendectomy, laparoscopic SURGICEL SNOW ABS 1X2 FDA Start: 05-31-2019 Appendectomy, laparoscopic RELOAD,STANDARD 45 [id number] ETH FDA Start: 05-31-2019 Appendectomy, laparoscopic SURGICEL SNOW ABS 1X2 FDA Start: 05-31-2019 Appendectomy, laparoscopic RELOAD,STANDARD 45 [id number] ETH FDA Start: 05-31-2019 Appendectomy, laparoscopic SURGICEL SNOW ABS 1X2 FDA Start: 05-31-2019 Appendectomy, laparoscopic RELOAD,STANDARD 45 [id number] ETH FDA Start: 05-31-2019 Appendectomy, laparoscopic SURGICEL SNOW ABS 1X2 FDA Start: 05-31-2019 Appendectomy, laparoscopic RELOAD,STANDARD 45 [id number] ETH FDA Start: 05-31-2019 Appendectomy, laparoscopic SURGICEL SNOW ABS 1X2 FDA Start: 05-31-2019 Appendectomy, laparoscopic RELOAD,STANDARD 45 [id number] ETH FDA Start: 05-31-2019 Appendectomy, laparoscopic SURGICEL SNOW ABS 1X2 FDA Start: 05-31-2019 Goals Date Patient Goal Desired Activity /State Functional Status Date Assessment Result Facility 12-08-2022 Functional status Ambulates [facility] Work Phone: Mental Status Date Assessment Result Facility 12-08-2022 Cognitive function Voice/Name [facility] Work Phone: 04-24-2022 Cognitive function Voice/Name [facility] Work Phone: Clinical Notes 12-08-2020 to 12-31-2024 Assessment & Plan Note - Se Cote MD - 12/31/2024 3:49 PM EDTAssessment & Plan Note - Se Cote MD - 12/31/2024 3:49 PM EDTPwes Cote MD - 12/31/2024 3:00 PM EDT Note Date & Type Note Facility 12-31-2024 Evaluation + Plan note Associated Problem(s): Essential hypertension His blood pressure remains under good control today. 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 [place] 12-31-2024 Evaluation + Plan note Associated Problem(s): 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 He has a history of nonobstructive CAD as per his previous diagnostic cardiac catheterization. He has continued to modify his risks with diet and activity. He has wanted to remain off of lipid-lowering therapy. [place] 12-31-2024 Miscellaneous Notes Associated Problem(s): Essential hypertension His blood pressure remains under good control today. 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 Associated Problem(s): 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 He has a history of nonobstructive CAD as per his previous diagnostic cardiac catheterization. He has continued to modify his risks with diet and activity. He has wanted to remain off of lipid-lowering therapy. Associated Problem(s): Left bundle-branch block He does demonstrate the left bundle branch block today on electrocardiogram. He is without acute symptoms or compromise. He will continue follow-up in the future as noted. Associated Problem(s): Cardiomyopathy At the present time he appears to be doing well overall. He will continue his current medical therapy which includes his beta-blockers. He had been on EDUARDA inhibitors in the past however based upon a history of somewhat lower blood pressures at the time this was discontinued. He will continue to be followed over time. It will include a future follow-up echocardiogram to continue to monitor his LV systolic function/LVEF. documented in this encounter [place] 12-31-2024 Evaluation + Plan note Associated Problem(s): Left bundle-branch block He does demonstrate the left bundle branch block today on electrocardiogram. He is without acute symptoms or compromise. He will continue follow-up in the future as noted. [place] 12-31-2024 Evaluation + Plan note Associated Problem(s): Cardiomyopathy At the present time he appears to be doing well overall. He will continue his current medical therapy which includes his beta-blockers. He had been on EDUARDA inhibitors in the past however based upon a history of somewhat lower blood pressures at the time this was discontinued. He will continue to be followed over time. It will include a future follow-up echocardiogram to continue to monitor his LV systolic function/LVEF. [place] 12-31-2024 History of Presen t illness Narrative Primary care provider: Danni Swann MD (General) Dear Dr. Swann, I had the pleasure of seeing your patient, Trip Myers, at the [facility] on 12/31/2024 in follow-up. I have reviewed pertinent outside medical records available at this time regarding this patient. As you recall, this 59 y.o. male is managed by our group for a history of a LBBB and LV systolic dysfunction. Chief Complaint Patient presents with Follow-up No cardiac symptoms states by PT HPI: Initial HPI from: 01/01/2023 This is a 57-year-old white male who presents for a new U Cardiovascular follow-up visit who has previously been followed by the [facility] in [place], [place] for concerns of an underlying rate related left bundle branch block pattern with a history of decreased LV systolic function/cardiomyopathy (improved/resolved), hypertension, and hyperlipidemia. His last outpatient cardiovascular visit was on 05/31/2022. At that time he appeared to be doing well from a cardiovascular standpoint with no obvious concerns of ongoing angina pectoris, CHF, palpitations, near-syncope, or syncope. He was continuing medical therapy which included aspirin 81 mg p.o. q.day and carvedilol 12.5 mg p.o. b.i.d.. Since that time he has undergone subsequent evaluation for concerns of gallstone related pancreatitis. He states he was diagnosed with underlying gallbladder related disease/cholelithiasis. He placed an [place] trip on hold based on this issue. He states the day he would have arrived in [place] he developed abdominal discomfort. He states he was subsequently evaluated at [facility] and was diagnosed with gallstone related pancreatitis. He notes he spent approximately 1 week in the hospital. He underwent an ERCP/stenting procedure and subsequently a laparoscopic cholecystectomy. He states he is due for future follow-up with gastroenterology. He has also modified his lifestyle. He notes by modifying his diet he has lost approximately 42 lb since his last visit. Overall he is feeling better. During his hospitalization he states there were no concerns about his heart. He had no and continues to have no concerning chest discomfort. There was no report of CHF or pulmonary edema and he continues without orthopnea, PND, peripheral pitting edema. He has not had any ongoing palpitations and has no episodes of near-syncope or syncope. He does admit he is not sure when his last lipid profile was performed. In the office today he did have an ECG. He was noted to have evidence of his sinus bradycardia with a left bundle branch block pattern. Interval History: 07/04/2023 This is a 58-year-old white male who presents today for an outpatient cardiovascular follow-up based upon concerns of a history of left bundle branch block, LV systolic dysfunction/cardiomyopathy (previously improved/resolved), hypertension, and hyperlipidemia. Since his last visit he states overall he has done well. He states he feels well. He has not describing any concerning symptoms of ongoing resting or exertional chest discomfort suspicious for angina pectoris. There has been no evidence of CHF or pulmonary edema. He has had no near-syncope or syncope. He has continued his medical therapy. He states he does monitor his blood pressures at home. He notes they are usually much better than they are in the office today with his systolic blood pressure between 100 and 120 mm Hg and rarely above that. He did have a transthoracic echocardiogram performed today immediately prior to his outpatient visit. At the time of his visit the official report was unavailable. The preliminary images were reviewed with him. On preliminary review it appeared that he had overall preserved LV systolic function. Interval History: 12/31/2023 History of Present Illness The patient is a 58-year-old male who presents today for an outpatient cardiovascular medicine visit based upon a history of an underlying left bundle branch block and decreased LV systolic function. He is accompanied today by his niece. He does not describe any ongoing concerning symptoms of angina pectoris at rest or with exertion. There has been no evidence of obvious CHF or pulmonary edema. He has had no ongoing peripheral pitting edema. There has been no complaints of palpitations. There has been no near-syncope or syncope. States he recently returned from trips during the past month to [place] where he was buying a new horse. He was also in [place] where he was on a fishing expedition. He notes that with both these trips there were no concerns, especially at higher altitudes, of any cardiovascular complaints. He states he has been evaluated by his primary care physician. He believes that he had his lipid labs checked recently. A request will be made to retrieve them for continuity of care. He has undergone additional evaluation. He had a transthoracic echocardiogram performed in June of this year. The overall LV systolic function/LVEF appeared to be in normal range. The report is noted below. It was reviewed with him. Interval History: 06/30/2024 This is a 59-year-old male who presents for an outpatient cardiovascular follow-up visit for history of an underlying left bundle branch block, diminished LV systolic function, atherosclerotic coronary disease (nonobstructive), hypertension, and hyperlipidemia. He is accompanied by his niece. 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 He states he gets proximally 15,000 steps per day. He feels good being active. He has no concerning chest discomfort or difficulty breathing. There has been no orthopnea, PND, or peripheral pitting edema. He has had no palpitations, near-syncope, or syncope. He did have laboratory studies performed in December of last year by his PCP. This included lipid labs. His total cholesterol, LDL cholesterol, HDL cholesterol appeared to be under reasonably good control. He states he has had recent labs performed but does not know whether that included lipid labs. He states that he has decreased his alcohol/burden intake. He feels better doing so and his hoping to avoid any potential recurrent episodes of pancreatitis. Interval History: 12/31/2024 This is a 59-year-old male who presents today for an outpatient cardiovascular follow-up visit based upon a history of an underlying left bundle branch block, diminished LV systolic function/cardiomyopathy, nonobstructive CAD, and hypertension. Overall, since his last visit of 06/30/2024 he states he is feeling good and doing well. He denies any obvious ongoing cardiac related symptoms at rest or with exertion. There has been no concerning chest discomfort, difficulty breathing, palpitations, near-syncope, or syncope. 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 He states he gets in excess of 15,000 steps per day with his activities. He did have a follow-up ECG in the office today. He was in sinus rhythm. He did have a left bundle branch block. His left bundle branch block has been known to be intermittent in the past potentially compatible with a rate-related left bundle branch block. His previous cardiovascular studies are noted. They have been reviewed with him. 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 He is hopeful that this is temporary while his professional business concerns calm down. Historical information was reviewed in the medical record. The following historical elements were reviewed by a provider in the specific [facility] and updated as appropriate: Allergies[1] Encounter Medications[2] Past Medical History[3] Past Surgical History[4] Family History Problem Relation Age of Onset Diabetes Mother Arthritis - Rheumatoid Mother Coronary Artery Disease Father Myocardial Infarction Father Heart Surgery Father Pacemaker Paternal Grandmother Social History Socioeconomic History Marital status: Spouse name: Not on file Number of children: Not on file Years of education: Not on file Highest education level: Not on file Occupational History Not on file Tobacco Use Smoking status: Former Current packs/day: 0.00 Types: Cigarettes Quit date: 1992 Years since quittin.7 Smokeless tobacco: Never Vaping Use Vaping status: Never Used Substance and Sexual Activity Alcohol use: Yes Alcohol/week: 3.0 standard drinks of alcohol Types: 3 Standard drinks or equivalent per week Drug use: Never Sexual activity: Yes Partners: Female Other Topics Concern Not on file Social History Narrative Not on file Social Drivers of Health Financial Resource Strain: Not on file Food Insecurity: Not on file Transportation Needs: Not on file Physical Activity: Not on file Stress: Not on file Social Connections: Not on file Personal Safety: Not on file Housing Stability: Not on file Review of Systems Cardiovascular: Negative for chest pain, claudication, cyanosis, dyspnea on exertion, irregular heartbeat, leg swelling, near-syncope, orthopnea, palpitations, paroxysmal nocturnal dyspnea and syncope. On physcial exam today, the vital signs are as follows: Vitals: 12/31/24 1459 BP: 108/60 Pulse: 66 Weight: 78.6 kg (173 lb 3.2 oz) Height: 1.676 m (5' 6) Body mass index is 27.96 kg/m . Physical Exam Vitals and nursing note reviewed. Constitutional: Appearance: Normal appearance. He is well-developed, well-groomed and overweight. HENT: Head: Normocephalic and atraumatic. Cardiovascular: Rate and Rhythm: Normal rate and regular rhythm. No extrasystoles are present. Chest Wall: PMI is not displaced. No thrill. Pulses: Carotid pulses are 2+ on the right side and 2+ on the left side. Radial pulses are 2+ on the right side and 2+ on the left side. Posterior tibial pulses are 2+ on the right side and 2+ on the left side. Heart sounds: S1 normal. Comments: Paradoxically split S2 Pulmonary: Effort: Pulmonary effort is normal. Breath sounds: Normal breath sounds. Abdominal: General: Abdomen is flat. Bowel sounds are normal. Palpations: Abdomen is soft. Musculoskeletal: General: Normal range of motion. Cervical back: Normal range of motion and neck supple. Right lower leg: No edema. Left lower leg: No edema. Skin: General: Skin is warm and dry. Neurological: General: No focal deficit present. Mental Status: He is alert. Psychiatric: Mood and Affect: Mood normal. Relevant diagnostic data includes the following: Lab Results Component Value Date CHOLESTEROL 176 01/01/2023 TRIG 87 01/01/2023 HDL 49 01/01/2023 LDLCALC 110 (H) 01/01/2023 NHCHOL 127 01/01/2023 I have independently reviewed the following images/tracings: as noted below. Supplemental Information: ELECTROCARDIOGRAM 01/01/2023 [facility] Sinus bradycardia LBBB HOLTER 04/09/2019 [place], [place] This is a 48 hour Holter monitor in normal sinus rhythm with bundle branch block and periods of sinus arrhythmia with bundle branch block. Minimal heart rate was 41 beats per minute at 6:38:24 AM D2, no activity or symptoms recorded. Maximal heart rate was 120 beats per minute at 2:37:01 P D2, no activity or symptoms recorded. Average heart rate noted to be 84 beats per minute Rare PACs. No runs noted. Occasional PVCs. One ventricular couplet. No runs Noted. The patient kept a 48 hour diary and noted skipped beats and pain the middle of back which did not correlate with the scan. ECHOCARDIOGRAM 04/13/2019 [place], [place] Left ventricular systolic function is normal. The estimated ejection fraction is 55%. Septal motion consistent with IVCD. Apical false tendon noted. Trivial mitral valve insufficiency. Mild focal aortic valve thickening. Mild focal aortic valve calcification. Trivial pulmonic valve insufficiency. Diastolic function is indeterminate. 11/17/2019 [place], [place] Moderate segmental systolic dysfunction (see wall motion) The estimated ejection fraction is 35% Septal motion consistent with IVCD Apical false tendon noted Trivial mitral valve insufficiency Trivial tricuspid valve insufficiency Mild focal aortic valve thickening Mild focal aortic valve calcification Trivial pulmonic valve insufficiency No evidence for diastolic dysfunction 04/12/2020 [place], [place] The study was technically difficult Limited views were obtained Left ventricular systolic function is lower limits of normal The estimated ejection fraction is 50% Septal motion consistent with IVCD Apical false tendon noted Unable to assess diastolic dysfunction 03/21/2021 [place], [place] The study was technically difficult Based upon the 2D echocardiographic and contrast-enhanced images obtained there appears to be grossly normal left ventricular size, wall motion, and systolic function The estimated ejection fraction is 55% Septal motion consistent with IVCD Trivial mitral valve insufficiency Trivial tricuspid valve insufficiency Trivial pulmonic valve insufficiency Unable to estimate RV systolic pressure due to insufficient tricuspid regurgitant envelope Unable to assess diastolic dysfunction 04/19/2022 [place], [place] The study was technically difficult Left ventricular systolic function is normal The estimated ejection fraction is 55% Septal motion consistent with IVCD Trivial mitral valve insufficiency Trivial tricuspid valve insufficiency Trivial aortic valve insufficiency Trivial pulmonic valve insufficiency Unable to estimate RV systolic pressure/pulmonary artery pressure due to technically difficult study Diastolic function is indeterminate ECHOCARDIOGRAM 07/04/2023 (Final) [facility] Interpretation Summary Left Ventricle: Chamber size is normal. Concentric remodeling is present. Abnormal septal motion consistent with left bundle branch block. Ejection fraction is normal (55 - 60%). Diastolic function is normal for age. GLS =-21.9% Right Ventricle: Chamber size is normal. Systolic function is normal. Left Atrium: Chamber size is normal. No significant valvular abnormality seen MYOCARDIAL PERFUSION STUDY 11/03/2019 [place], [place] The patient exercised on a Amol protocol for 10 minutes completing stage III and 1 minute of stage IV achieving a peak heart rate of 173 beats per minute (104% predicted maximal heart rate) with a peak blood pressure 164/100 mm Hg and a peak met capacity of 11 Mets. The baseline ECG demonstrated sinus rhythm; left bundle branch block. Peak exercise ECG demonstrated continued left bundle branch block pattern. There was a rare PAC during exercise and recovery. The functional capacity was considered good. There was no complain of chest discomfort during exercise or recovery. The examination was discontinued secondary to leg discomfort. Impression: 1. Technically adequate (% predicted maximal heart rate greater than 85%) exercise tolerance test 2. Peak exercise ECG with continued left bundle branch block pattern 3. There was a rare PAC during exercise and recovery 4. Nuclear images pending Myocardial perfusion imaging study: Impression: 1. Rest and stress SPECT Cardiolite nuclear imaging demonstrate myocardial perfusion changes appearing compatible with the affects of the underlying left bundle branch block with no myocardial perfusion changes considered diagnostic for associated stress-induced myocardial ischemia. 2. The gated Cardiolite study reports an LVEF of 38%. CARDIAC CATHETERIZATION 12/11/2019 [place], [place] Dominance: Right dominant Left heart assessment Left ventricular ejection fraction: By LV-gram 40% Anterior hypokinesis. Inferior mid hypokinesis. Apical hypokinesis. Elevated left ventricular end-diastolic pressure LVEDP: 19 mm Hg Left main: Mild luminal irregularities Left anterior descending artery: Diagonal 1.: Proximal-small caliber vessel: Smooth: 50% stenosis Circumflex artery: Proximal circumflex: Mild luminal irregularities Right coronary artery: Proximal RCA: Mild luminal irregularities Aortic root: Angiographically normal In summary, Mr. Myers is managed today for the following issues: Cardiomyopathy At the present time he appears to be doing well overall. He will continue his current medical therapy which includes his beta-blockers. He had been on EDUARDA inhibitors in the past however based upon a history of somewhat lower blood pressures at the time this was discontinued. He will continue to be followed over time. It will include a future follow-up echocardiogram to continue to monitor his LV systolic function/LVEF. Left bundle-branch block He does demonstrate the left bundle branch block today on electrocardiogram. He is without acute symptoms or compromise. He will continue follow-up in the future as noted. 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 He has a history of nonobstructive CAD as per his previous diagnostic cardiac catheterization. He has continued to modify his risks with diet and activity. He has wanted to remain off of lipid-lowering therapy. Essential hypertension His blood pressure remains under good control today. 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 I have ordered the following: Diagnoses and all orders for this visit: Other cardiomyopathy - [place] ECG ROUTINE ECG W/LEAST 12 LDS W/I&R - ECHOCARDIOGRAM; Future Left bundle-branch block - KS ECG ROUTINE ECG W/LEAST 12 LDS W/I&R - ECHOCARDIOGRAM; Future 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 - KS ECG ROUTINE ECG W/LEAST 12 LDS W/I&R Essential hypertension - [place] ECG ROUTINE ECG W/LEAST 12 LDS W/I&R - ECHOCARDIOGRAM; Future The above was discussed and reviewed with him. He was agreeable to this approach. We will plan on No follow-ups on file.. If I can be of any further assistance, please do not hesitate to contact me. Sincerely, Se Cote MD, [facility] - Clinical Division of Cardiovascular Medicine Department of Internal Medicine [facility] Please be aware that portions of this note may have been completed with a voice recognition software system and an artificial intelligence system with the knowledge and approval of the patient. Despite efforts to edit the note mis-transcribed words may still be present. [1] No Known Allergies [2] Outpatient Encounter Medications as of 12/31/2024 Medication Sig Dispense Refill ASPIRIN PO Take 81 mg by mouth daily. busPIRone HCl 7.5 MG tablet Take 1 tablet by mouth 2 times daily. carveDILOL 12.5 MG tablet TAKE 1 TABLET TWICE A DAY 180 tablet 3 Ferrous Sulfate (IRON PO) Take by mouth daily. Montelukast 10 MG tablet Take 1 tablet by mouth daily. Multiple Vitamin (multivitamin) capsule Take 1 capsule by mouth daily. Sertraline 100 MG tablet Take 1 tablet by mouth daily. [DISCONTINUED] carveDILOL 12.5 MG tablet Take 1 tablet by mouth 2 times daily. 180 tablet 3 No facility-administered encounter medications on file as of 12/31/2024. [3] Past Medical History: Diagnosis Date CAD (coronary artery disease) Cardiomyopathy non-cad related Essential hypertension, benign Hyperlipidemia Left bundle branch block (LBBB) Pancreatitis [4] Past Surgical History: Procedure Laterality Date LEFT HEART CATHETERIZATION (LHC) WITH LEFT VENTRICULOGRAPHY 11/2019 CHOLECYSTECTOMY HIP REPLACEMENT Left SEPTOPLASTY Patient has verified full name and . ARTHUR documentation tool explained to patient. Patient accepted the use of ARTHUR documentation tool during today's visit. Trip Myers was offered and declined a Medical Hand Outside Cutter for this exam/procedure/test 12/31/2024. 12 Lead EKG performed per provider's order, per policy, and given to wendy for interpretation. Medical junior network engineer offered to patient prior to sensitive procedure and patient declined documented in this encounter [place] 06-30-2024 Evaluation + Plan note Associated Problem(s): Hyperlipidemia His most recent lipid labs available for review were noted. They appeared to be under reasonably good control. He is continuing his dietary therapy in his activity. A copy of his more recent lipid labs will be requested for continuity of care. [place] 06-30-2024 Miscellaneous Notes Associated Problem(s): Hyperlipidemia His most recent lipid labs available for review were noted. They appeared to be under reasonably good control. He is continuing his dietary therapy in his activity. A copy of his more recent lipid labs will be requested for continuity of care. Associated Problem(s): Essential hypertension His blood pressure appears to be well controlled today. He states at times his systolic blood pressure as even lower. He will continue his current therapy which includes his carvedilol 12.5 mg p.o. b.i.d.. Associated Problem(s): Left bundle-branch block He does have a history of a left bundle branch block phenomena. He has been evaluated for this in the past with both noninvasive and invasive studies. Associated Problem(s): Cardiomyopathy He has a history of LV dysfunction/cardiomyopathy thought related to his history of left bundle branch block. His most recent studies are noted. His overall LV systolic function/LVEF appears to be maintaining within the normal range. He is continuing his beta-nena therapy. He has not wanted to pursue additional medical therapy as he has been doing well and his LV systolic function is holding in the normal range. Associated Problem(s): 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 At the present time he appears to be doing well overall. He will continue his aspirin therapy. He has wanted to maintain his cardiovascular risks with diet and activity as best as possible without additional medical therapy. documented in this encounter [place] 06-30-2024 Evaluation + Plan note Associated Problem(s): Essential hypertension His blood pressure appears to be well controlled today. He states at times his systolic blood pressure as even lower. He will continue his current therapy which includes his carvedilol 12.5 mg p.o. b.i.d.. [place] 06-30-2024 Evaluation + Plan note Associated Problem(s): Left bundle-branch block He does have a history of a left bundle branch block phenomena. He has been evaluated for this in the past with both noninvasive and invasive studies. [place] 06-30-2024 Evaluation + Plan note Associated Problem(s): Cardiomyopathy He has a history of LV dysfunction/cardiomyopathy thought related to his history of left bundle branch block. His most recent studies are noted. His overall LV systolic function/LVEF appears to be maintaining within the normal range. He is continuing his beta-nena therapy. He has not wanted to pursue additional medical therapy as he has been doing well and his LV systolic function is holding in the normal range. [place] 06-30-2024 Evaluation + Plan note Associated Problem(s): 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 At the present time he appears to be doing well overall. He will continue his aspirin therapy. He has wanted to maintain his cardiovascular risks with diet and activity as best as possible without additional medical therapy. [place] 06-30-2024 History of Presen t illness Narrative Images from the original note were not included. Primary care provider: Danni Swann MD (General) Dear Dr. Swann, I had the pleasure of seeing your patient, Trip Myers, at the [facility] on 06/30/2024 in follow-up. I have reviewed pertinent outside medical records available at this time regarding this patient. As you recall, this 59 y.o. male is managed by our group for a history of CAD (nonobstructive), non CAD related cardiomyopathy, left bundle branch block, hypertension, and hyperlipidemia. Chief Complaint Patient presents with Follow-up Pt states they are having no cardiac symptoms, feeling good. No complaints. HPI: Initial HPI from: 01/01/2023 This is a 57-year-old white male who presents for a new [facility] Cardiovascular follow-up visit who has previously been followed by the [facility] in [place], [place] for concerns of an underlying rate related left bundle branch block pattern with a history of decreased LV systolic function/cardiomyopathy (improved/resolved), hypertension, and hyperlipidemia. His last outpatient cardiovascular visit was on 05/31/2022. At that time he appeared to be doing well from a cardiovascular standpoint with no obvious concerns of ongoing angina pectoris, CHF, palpitations, near-syncope, or syncope. He was continuing medical therapy which included aspirin 81 mg p.o. q.day and carvedilol 12.5 mg p.o. b.i.d.. Since that time he has undergone subsequent evaluation for concerns of gallstone related pancreatitis. He states he was diagnosed with underlying gallbladder related disease/cholelithiasis. He placed an [facility] fishing trip on hold based on this issue. He states the day he would have arrived in [place] he developed abdominal discomfort. He states he was subsequently evaluated at [facility] and was diagnosed with gallstone related pancreatitis. He notes he spent approximately 1 week in the hospital. He underwent an ERCP/stenting procedure and subsequently a laparoscopic cholecystectomy. He states he is due for future follow-up with gastroenterology. He has also modified his lifestyle. He notes by modifying his diet he has lost approximately 42 lb since his last visit. Overall he is feeling better. During his hospitalization he states there were no concerns about his heart. He had no and continues to have no concerning chest discomfort. There was no report of CHF or pulmonary edema and he continues without orthopnea, PND, peripheral pitting edema. He has not had any ongoing palpitations and has no episodes of near-syncope or syncope. He does admit he is not sure when his last lipid profile was performed. In the office today he did have an ECG. He was noted to have evidence of his sinus bradycardia with a left bundle branch block pattern. Interval History: 07/04/2023 This is a 58-year-old white male who presents today for an outpatient cardiovascular follow-up based upon concerns of a history of left bundle branch block, LV systolic dysfunction/cardiomyopathy (previously improved/resolved), hypertension, and hyperlipidemia. Since his last visit he states overall he has done well. He states he feels well. He has not describing any concerning symptoms of ongoing resting or exertional chest discomfort suspicious for angina pectoris. There has been no evidence of CHF or pulmonary edema. He has had no near-syncope or syncope. He has continued his medical therapy. He states he does monitor his blood pressures at home. He notes they are usually much better than they are in the office today with his systolic blood pressure between 100 and 120 mm Hg and rarely above that. He did have a transthoracic echocardiogram performed today immediately prior to his outpatient visit. At the time of his visit the official report was unavailable. The preliminary images were reviewed with him. On preliminary review it appeared that he had overall preserved LV systolic function. Interval History: 12/31/2023 History of Present Illness The patient is a 58-year-old male who presents today for an outpatient cardiovascular medicine visit based upon a history of an underlying left bundle branch block and decreased LV systolic function. He is accompanied today by his niece. He does not describe any ongoing concerning symptoms of angina pectoris at rest or with exertion. There has been no evidence of obvious CHF or pulmonary edema. He has had no ongoing peripheral pitting edema. There has been no complaints of palpitations. There has been no near-syncope or syncope. States he recently returned from trips during the past month to [place] where he was buying a new horse. He was also in [place] where he was on a fishing expedition. He notes that with both these trips there were no concerns, especially at higher altitudes, of any cardiovascular complaints. He states he has been evaluated by his primary care physician. He believes that he had his lipid labs checked recently. A request will be made to retrieve them for continuity of care. He has undergone additional evaluation. He had a transthoracic echocardiogram performed in June of this year. The overall LV systolic function/LVEF appeared to be in normal range. The report is noted below. It was reviewed with him. Interval History: 06/30/2024 This is a 59-year-old male who presents for an outpatient cardiovascular follow-up visit for history of an underlying left bundle branch block, diminished LV systolic function, atherosclerotic coronary disease (nonobstructive), hypertension, and hyperlipidemia. He is accompanied by his niece. 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 He states he gets proximally 15,000 steps per day. He feels good being active. He has no concerning chest discomfort or difficulty breathing. There has been no orthopnea, PND, or peripheral pitting edema. He has had no palpitations, near-syncope, or syncope. He did have laboratory studies performed in December of last year by his PCP. This included lipid labs. His total cholesterol, LDL cholesterol, HDL cholesterol appeared to be under reasonably good control. He states he has had recent labs performed but does not know whether that included lipid labs. He states that he has decreased his alcohol/burden intake. He feels better doing so and his hoping to avoid any potential recurrent episodes of pancreatitis. Historical information was reviewed in the medical record. The following historical elements were reviewed by a provider in the specific [facility] and updated as appropriate: No Known Allergies Outpatient Encounter Medications as of 06/30/2024 Medication Sig Dispense Refill ASPIRIN PO Take 81 mg by mouth daily. carveDILOL 12.5 MG tablet Take 1 tablet by mouth 2 times daily. 180 tablet 3 Ferrous Sulfate (IRON PO) Take by mouth daily. Montelukast 10 MG tablet Take 1 tablet by mouth daily. Multiple Vitamin (multivitamin) capsule Take 1 capsule by mouth daily. No facility-administered encounter medications on file as of 06/30/2024. Past Medical History: Diagnosis Date CAD (coronary artery disease) Cardiomyopathy non-cad related Essential hypertension, benign Hyperlipidemia Left bundle branch block (LBBB) Pancreatitis Past Surgical History: Procedure Laterality Date LEFT HEART CATHETERIZATION (LHC) WITH LEFT VENTRICULOGRAPHY 11/2019 CHOLECYSTECTOMY HIP REPLACEMENT Left SEPTOPLASTY Family History Problem Relation Age of Onset Diabetes Mother Arthritis - Rheumatoid Mother Coronary Artery Disease Father Myocardial Infarction Father Heart Surgery Father Pacemaker Paternal Grandmother Social History Socioeconomic History Marital status: Spouse name: Not on file Number of children: Not on file Years of education: Not on file Highest education level: Not on file Occupational History Not on file Tobacco Use Smoking status: Former Current packs/day: 0.00 Types: Cigarettes Quit date: 1992 Years since quittin.2 Smokeless tobacco: Never Vaping Use Vaping status: Never Used Substance and Sexual Activity Alcohol use: Yes Alcohol/week: 1.0 standard drink of alcohol Types: 1 Standard drinks or equivalent per week Drug use: Never Sexual activity: Yes Partners: Female Other Topics Concern Not on file Social History Narrative Not on file Social Drivers of Health Financial Resource Strain: Not on file Food Insecurity: Not on file Transportation Needs: Not on file Physical Activity: Not on file Stress: Not on file Social Connections: Not on file Personal Safety: Not on file Housing Stability: Not on file Review of Systems Cardiovascular: Negative for chest pain, claudication, cyanosis, dyspnea on exertion, irregular heartbeat, leg swelling, near-syncope, orthopnea, palpitations, paroxysmal nocturnal dyspnea and syncope. On physcial exam today, the vital signs are as follows: Vitals: 06/30/24 1447 BP: 122/62 Pulse: 68 Weight: 80.7 kg (178 lb) Height: 1.676 m (5' 6) Body mass index is 28.73 kg/m . Physical Exam Vitals and nursing note reviewed. Constitutional: Appearance: Normal appearance. He is well-developed, well-groomed and overweight. HENT: Head: Normocephalic and atraumatic. Cardiovascular: Rate and Rhythm: Normal rate and regular rhythm. No extrasystoles are present. Chest Wall: PMI is not displaced. No thrill. Pulses: Carotid pulses are 2+ on the right side and 2+ on the left side. Radial pulses are 2+ on the right side and 2+ on the left side. Posterior tibial pulses are 2+ on the right side and 2+ on the left side. Heart sounds: S1 normal. Comments: Paradoxically split S2 Pulmonary: Effort: Pulmonary effort is normal. Breath sounds: Normal breath sounds. Abdominal: General: Abdomen is flat. Bowel sounds are normal. Palpations: Abdomen is soft. Musculoskeletal: General: Normal range of motion. Cervical back: Normal range of motion and neck supple. Right lower leg: No edema. Left lower leg: No edema. Skin: General: Skin is warm and dry. Neurological: General: No focal deficit present. Mental Status: He is alert. Psychiatric: Mood and Affect: Mood normal. Relevant diagnostic data includes the following: Lab Results Component Value Date CHOLESTEROL 176 01/01/2023 TRIG 87 01/01/2023 HDL 49 01/01/2023 LDLCALC 110 (H) 01/01/2023 NHCHOL 127 01/01/2023 I have independently reviewed the following images/tracings: as noted below. Supplemental Information: ELECTROCARDIOGRAM 01/01/2023 [facility] Sinus bradycardia LBBB HOLTER 04/09/2019 [place], [place] This is a 48 hour Holter monitor in normal sinus rhythm with bundle branch block and periods of sinus arrhythmia with bundle branch block. Minimal heart rate was 41 beats per minute at 6:38:24 AM D2, no activity or symptoms recorded. Maximal heart rate was 120 beats per minute at 2:37:01 P D2, no activity or symptoms recorded. Average heart rate noted to be 84 beats per minute Rare PACs. No runs noted. Occasional PVCs. One ventricular couplet. No runs Noted. The patient kept a 48 hour diary and noted skipped beats and pain the middle of back which did not correlate with the scan. ECHOCARDIOGRAM 04/13/2019 [place], [place] Left ventricular systolic function is normal. The estimated ejection fraction is 55%. Septal motion consistent with IVCD. Apical false tendon noted. Trivial mitral valve insufficiency. Mild focal aortic valve thickening. Mild focal aortic valve calcification. Trivial pulmonic valve insufficiency. Diastolic function is indeterminate. 11/17/2019 [place], [place] Moderate segmental systolic dysfunction (see wall motion) The estimated ejection fraction is 35% Septal motion consistent with IVCD Apical false tendon noted Trivial mitral valve insufficiency Trivial tricuspid valve insufficiency Mild focal aortic valve thickening Mild focal aortic valve calcification Trivial pulmonic valve insufficiency No evidence for diastolic dysfunction 04/12/2020 [place], [place] The study was technically difficult Limited views were obtained Left ventricular systolic function is lower limits of normal The estimated ejection fraction is 50% Septal motion consistent with IVCD Apical false tendon noted Unable to assess diastolic dysfunction 03/21/2021 [place], [place] The study was technically difficult Based upon the 2D echocardiographic and contrast-enhanced images obtained there appears to be grossly normal left ventricular size, wall motion, and systolic function The estimated ejection fraction is 55% Septal motion consistent with IVCD Trivial mitral valve insufficiency Trivial tricuspid valve insufficiency Trivial pulmonic valve insufficiency Unable to estimate RV systolic pressure due to insufficient tricuspid regurgitant envelope Unable to assess diastolic dysfunction 04/19/2022 [place], [place] The study was technically difficult Left ventricular systolic function is normal The estimated ejection fraction is 55% Septal motion consistent with IVCD Trivial mitral valve insufficiency Trivial tricuspid valve insufficiency Trivial aortic valve insufficiency Trivial pulmonic valve insufficiency Unable to estimate RV systolic pressure/pulmonary artery pressure due to technically difficult study Diastolic function is indeterminate ECHOCARDIOGRAM 07/04/2023 (Final) [facility] Interpretation Summary Left Ventricle: Chamber size is normal. Concentric remodeling is present. Abnormal septal motion consistent with left bundle branch block. Ejection fraction is normal (55 - 60%). Diastolic function is normal for age. GLS =-21.9% Right Ventricle: Chamber size is normal. Systolic function is normal. Left Atrium: Chamber size is normal. No significant valvular abnormality seen MYOCARDIAL PERFUSION STUDY 11/03/2019 [place], [place] The patient exercised on a Amol protocol for 10 minutes completing stage III and 1 minute of stage IV achieving a peak heart rate of 173 beats per minute (104% predicted maximal heart rate) with a peak blood pressure 164/100 mm Hg and a peak met capacity of 11 Mets. The baseline ECG demonstrated sinus rhythm; left bundle branch block. Peak exercise ECG demonstrated continued left bundle branch block pattern. There was a rare PAC during exercise and recovery. The functional capacity was considered good. There was no complain of chest discomfort during exercise or recovery. The examination was discontinued secondary to leg discomfort. Impression: 1. Technically adequate (% predicted maximal heart rate greater than 85%) exercise tolerance test 2. Peak exercise ECG with continued left bundle branch block pattern 3. There was a rare PAC during exercise and recovery 4. Nuclear images pending Myocardial perfusion imaging study: Impression: 1. Rest and stress SPECT Cardiolite nuclear imaging demonstrate myocardial perfusion changes appearing compatible with the affects of the underlying left bundle branch block with no myocardial perfusion changes considered diagnostic for associated stress-induced myocardial ischemia. 2. The gated Cardiolite study reports an LVEF of 38%. CARDIAC CATHETERIZATION 12/11/2019 [place], [place] Dominance: Right dominant Left heart assessment Left ventricular ejection fraction: By LV-gram 40% Anterior hypokinesis. Inferior mid hypokinesis. Apical hypokinesis. Elevated left ventricular end-diastolic pressure LVEDP: 19 mm Hg Left main: Mild luminal irregularities Left anterior descending artery: Diagonal 1.: Proximal-small caliber vessel: Smooth: 50% stenosis Circumflex artery: Proximal circumflex: Mild luminal irregularities Right coronary artery: Proximal RCA: Mild luminal irregularities Aortic root: Angiographically normal In summary, Mr. Myers is managed today for the following issues: 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 At the present time he appears to be doing well overall. He will continue his aspirin therapy. He has wanted to maintain his cardiovascular risks with diet and activity as best as possible without additional medical therapy. Cardiomyopathy He has a history of LV dysfunction/cardiomyopathy thought related to his history of left bundle branch block. His most recent studies are noted. His overall LV systolic function/LVEF appears to be maintaining within the normal range. He is continuing his beta-nena therapy. He has not wanted to pursue additional medical therapy as he has been doing well and his LV systolic function is holding in the normal range. Left bundle-branch block He does have a history of a left bundle branch block phenomena. He has been evaluated for this in the past with both noninvasive and invasive studies. Essential hypertension His blood pressure appears to be well controlled today. He states at times his systolic blood pressure as even lower. He will continue his current therapy which includes his carvedilol 12.5 mg p.o. b.i.d.. Hyperlipidemia His most recent lipid labs available for review were noted. They appeared to be under reasonably good control. He is continuing his dietary therapy in his activity. A copy of his more recent lipid labs will be requested for continuity of care. I have ordered the following: Diagnoses and all orders for this visit: 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 Other cardiomyopathy Left bundle-branch block Essential hypertension Hyperlipidemia, unspecified hyperlipidemia type He will continue with outpatient follow-up. Over time consideration will be given as to a future follow-up echocardiogram. The above was discussed and reviewed with him. He was agreeable to this approach. We will plan on Return in about 6 months (around 12/31/2024).. If I can be of any further assistance, please do not hesitate to contact me. Sincerely, Se Cote MD, [facility] - Clinical Division of Cardiovascular Medicine Department of Internal Medicine [facility] Please be aware that portions of this note may have been completed with a voice recognition software system and an artificial intelligence system with the knowledge and approval of the patient. Despite efforts to edit the note mis-transcribed words may still be present. ARTHUR documentation tool explained to patient. Patient accepted the use of ARTHUR documentation tool during today's visit. Trip Myers was offered and declined a Medical Hand Outside Cutter for this exam/procedure/test 06/30/2024. documented in this encounter [place] 12-31-2023 Evaluation + Plan note Associated Problem(s): Hyperlipidemia A request will be made to retrieve his recent lipid profile from his PCP. This will help with continuity of care and consideration as to whether or not he needs to consider medical management. [place] 12-31-2023 Evaluation + Plan note Associated Problem(s): Essential hypertension His blood pressure was re-evaluated in the office today. Upon re-evaluation it was 118/72 mm Hg. He will continue his current medical therapy and he was asked to monitor his blood pressures at home. [place] 12-31-2023 Miscellaneous Notes Associated Problem(s): Hyperlipidemia A request will be made to retrieve his recent lipid profile from his PCP. This will help with continuity of care and consideration as to whether or not he needs to consider medical management. Associated Problem(s): Essential hypertension His blood pressure was re-evaluated in the office today. Upon re-evaluation it was 118/72 mm Hg. He will continue his current medical therapy and he was asked to monitor his blood pressures at home. Associated Problem(s): Left bundle-branch block He does have a history of a left bundle branch block pattern. It appears this is compatible with his previous history of LV systolic dysfunction. As noted above, on medical management, his overall LV systolic function has improved/his LVEF has improved. Thus, he will continue his current therapy. Associated Problem(s): Cardiomyopathy At the present time he appears without acute symptoms. His most recent transthoracic echocardiogram as noted. He will continue medical therapy with his carvedilol 12.5 mg p.o. b.i.d.. He was given a renewal prescription for this today. documented in this encounter [place] 12-31-2023 Evaluation + Plan note Associated Problem(s): Left bundle-branch block He does have a history of a left bundle branch block pattern. It appears this is compatible with his previous history of LV systolic dysfunction. As noted above, on medical management, his overall LV systolic function has improved/his LVEF has improved. Thus, he will continue his current therapy. [place] 12-31-2023 Evaluation + Plan note Associated Problem(s): Cardiomyopathy At the present time he appears without acute symptoms. His most recent transthoracic echocardiogram as noted. He will continue medical therapy with his carvedilol 12.5 mg p.o. b.i.d.. He was given a renewal prescription for this today. [place] 12-31-2023 History of Presen t illness Narrative Primary care provider: Other [facility] (General) Dear [facility], I had the pleasure of seeing your patient, Trip Myers, at the [facility] on 12/31/2023 in follow-up. I have reviewed pertinent outside medical records available at this time regarding this patient. As you recall, this 58 y.o. male is managed by our group for a history of LBBB and decreased LV systolic function. Chief Complaint Patient presents with Follow-up 6 month follow up. No complaints at this time. HPI: Initial HPI from: 01/01/2023 This is a 57-year-old white male who presents for a new [facility] follow-up visit who has previously been followed by the [facility] in [place], [place] for concerns of an underlying rate related left bundle branch block pattern with a history of decreased LV systolic function/cardiomyopathy (improved/resolved), hypertension, and hyperlipidemia. His last outpatient cardiovascular visit was on 05/31/2022. At that time he appeared to be doing well from a cardiovascular standpoint with no obvious concerns of ongoing angina pectoris, CHF, palpitations, near-syncope, or syncope. He was continuing medical therapy which included aspirin 81 mg p.o. q.day and carvedilol 12.5 mg p.o. b.i.d.. Since that time he has undergone subsequent evaluation for concerns of gallstone related pancreatitis. He states he was diagnosed with underlying gallbladder related disease/cholelithiasis. He placed an [facility] fishing trip on hold based on this issue. He states the day he would have arrived in [place] he developed abdominal discomfort. He states he was subsequently evaluated at [facility] and was diagnosed with gallstone related pancreatitis. He notes he spent approximately 1 week in the hospital. He underwent an ERCP/stenting procedure and subsequently a laparoscopic cholecystectomy. He states he is due for future follow-up with gastroenterology. He has also modified his lifestyle. He notes by modifying his diet he has lost approximately 42 lb since his last visit. Overall he is feeling better. During his hospitalization he states there were no concerns about his heart. He had no and continues to have no concerning chest discomfort. There was no report of CHF or pulmonary edema and he continues without orthopnea, PND, peripheral pitting edema. He has not had any ongoing palpitations and has no episodes of near-syncope or syncope. He does admit he is not sure when his last lipid profile was performed. In the office today he did have an ECG. He was noted to have evidence of his sinus bradycardia with a left bundle branch block pattern. Interval History: 07/04/2023 This is a 58-year-old white male who presents today for an outpatient cardiovascular follow-up based upon concerns of a history of left bundle branch block, LV systolic dysfunction/cardiomyopathy (previously improved/resolved), hypertension, and hyperlipidemia. Since his last visit he states overall he has done well. He states he feels well. He has not describing any concerning symptoms of ongoing resting or exertional chest discomfort suspicious for angina pectoris. There has been no evidence of CHF or pulmonary edema. He has had no near-syncope or syncope. He has continued his medical therapy. He states he does monitor his blood pressures at home. He notes they are usually much better than they are in the office today with his systolic blood pressure between 100 and 120 mm Hg and rarely above that. He did have a transthoracic echocardiogram performed today immediately prior to his outpatient visit. At the time of his visit the official report was unavailable. The preliminary images were reviewed with him. On preliminary review it appeared that he had overall preserved LV systolic function. Interval History: 12/31/2023 History of Present Illness The patient is a 58-year-old male who presents today for an outpatient cardiovascular medicine visit based upon a history of an underlying left bundle branch block and decreased LV systolic function. He is accompanied today by his niece. He does not describe any ongoing concerning symptoms of angina pectoris at rest or with exertion. There has been no evidence of obvious CHF or pulmonary edema. He has had no ongoing peripheral pitting edema. There has been no complaints of palpitations. There has been no near-syncope or syncope. States he recently returned from trips during the past month to [place] where he was buying a new horse. He was also in [place] where he was on a fishing expedition. He notes that with both these trips there were no concerns, especially at higher altitudes, of any cardiovascular complaints. He states he has been evaluated by his primary care physician. He believes that he had his lipid labs checked recently. A request will be made to retrieve them for continuity of care. He has undergone additional evaluation. He had a transthoracic echocardiogram performed in June of this year. The overall LV systolic function/LVEF appeared to be in normal range. The report is noted below. It was reviewed with him. Historical information was reviewed in the medical record. The following historical elements were reviewed by a provider in the specific [facility] and updated as appropriate: No Known Allergies Outpatient Encounter Medications as of 12/31/2023 Medication Sig Dispense Refill ASPIRIN PO Take 81 mg by mouth daily. carveDILOL 12.5 MG tablet Take 1 tablet by mouth 2 times daily. 180 tablet 3 Ferrous Sulfate (IRON PO) Take by mouth daily. Montelukast 10 MG tablet Take 1 tablet by mouth daily. Multiple Vitamin (multivitamin) capsule Take 1 capsule by mouth daily. [DISCONTINUED] carveDILOL 12.5 MG tablet Take 1 tablet by mouth 2 times daily. No facility-administered encounter medications on file as of 12/31/2023. Past Medical History: Diagnosis Date CAD (coronary artery disease) Cardiomyopathy non-cad related Essential hypertension, benign Hyperlipidemia Left bundle branch block (LBBB) Pancreatitis Past Surgical History: Procedure Laterality Date LEFT HEART CATHETERIZATION (LHC) WITH LEFT VENTRICULOGRAPHY 11/2019 CHOLECYSTECTOMY HIP REPLACEMENT Left SEPTOPLASTY Family History Problem Relation Age of Onset Diabetes Mother Arthritis - Rheumatoid Mother Coronary Artery Disease Father Myocardial Infarction Father Heart Surgery Father Pacemaker Paternal Grandmother Social History Socioeconomic History Marital status: Spouse name: Not on file Number of children: Not on file Years of education: Not on file Highest education level: Not on file Occupational History Not on file Tobacco Use Smoking status: Former Current packs/day: 0.00 Types: Cigarettes Quit date: 1992 Years since quittin.7 Smokeless tobacco: Never Vaping Use Vaping status: Never Used Substance and Sexual Activity Alcohol use: Yes Alcohol/week: 3.0 standard drinks of alcohol Types: 3 Standard drinks or equivalent per week Drug use: Never Sexual activity: Not on file Other Topics Concern Not on file Social History Narrative Not on file Social Determinants of Health Financial Resource Strain: Not on file Food Insecurity: Not on file Transportation Needs: Not on file Physical Activity: Not on file Stress: Not on file Social Connections: Not on file Intimate Partner Violence: Not on file Housing Stability: Not on file Review of Systems Cardiovascular: Negative for chest pain, claudication, cyanosis, dyspnea on exertion, irregular heartbeat, leg swelling, near-syncope, orthopnea, palpitations, paroxysmal nocturnal dyspnea and syncope. On physcial exam today, the vital signs are as follows: Physical Exam Vitals and nursing note reviewed. Constitutional: Appearance: Normal appearance. He is overweight. HENT: Head: Normocephalic and atraumatic. Cardiovascular: Rate and Rhythm: Normal rate and regular rhythm. No extrasystoles are present. Chest Wall: PMI is not displaced. No thrill. Pulses: Carotid pulses are 2+ on the right side and 2+ on the left side. Radial pulses are 2+ on the right side and 2+ on the left side. Posterior tibial pulses are 2+ on the right side and 2+ on the left side. Heart sounds: S1 normal. Comments: Paradoxically split S2 Pulmonary: Effort: Pulmonary effort is normal. Breath sounds: Normal breath sounds. Abdominal: General: Abdomen is flat. Bowel sounds are normal. Palpations: Abdomen is soft. Musculoskeletal: General: Normal range of motion. Cervical back: Normal range of motion and neck supple. Right lower leg: No edema. Left lower leg: No edema. Skin: General: Skin is warm and dry. Neurological: General: No focal deficit present. Mental Status: He is alert. Psychiatric: Mood and Affect: Mood normal. Relevant diagnostic data includes the following: Lab Results Component Value Date CHOLESTEROL 176 01/01/2023 TRIG 87 01/01/2023 HDL 49 01/01/2023 LDLCALC 110 (H) 01/01/2023 NHCHOL 127 01/01/2023 No results found for: WBC, WBCCOUNT, WBCFETAL, HGB, HCT, PLATELET, MCV No results found for: SODIUM, POTASSIUM, CHLORIDE, CO2, BUN, CREATSERUM, GLUCOSE No results found for: TSH, RRG04LFS, CWU92WOA, TSHBASELINE, TSHULTRASEN, TSHRFT4 No results found for: HGBA1C I have independently reviewed the following images/tracings: as noted below. Supplemental Information: ELECTROCARDIOGRAM 01/01/2023 [facility] Sinus bradycardia LBBB HOLTER 04/09/2019 [place], [place] This is a 48 hour Holter monitor in normal sinus rhythm with bundle branch block and periods of sinus arrhythmia with bundle branch block. Minimal heart rate was 41 beats per minute at 6:38:24 AM D2, no activity or symptoms recorded. Maximal heart rate was 120 beats per minute at 2:37:01 P D2, no activity or symptoms recorded. Average heart rate noted to be 84 beats per minute Rare PACs. No runs noted. Occasional PVCs. One ventricular couplet. No runs Noted. The patient kept a 48 hour diary and noted skipped beats and pain the middle of back which did not correlate with the scan. ECHOCARDIOGRAM 04/13/2019 [place], [place] Left ventricular systolic function is normal. The estimated ejection fraction is 55%. Septal motion consistent with IVCD. Apical false tendon noted. Trivial mitral valve insufficiency. Mild focal aortic valve thickening. Mild focal aortic valve calcification. Trivial pulmonic valve insufficiency. Diastolic function is indeterminate. 11/17/2019 [place], [place] Moderate segmental systolic dysfunction (see wall motion) The estimated ejection fraction is 35% Septal motion consistent with IVCD Apical false tendon noted Trivial mitral valve insufficiency Trivial tricuspid valve insufficiency Mild focal aortic valve thickening Mild focal aortic valve calcification Trivial pulmonic valve insufficiency No evidence for diastolic dysfunction 04/12/2020 [place], [place] The study was technically difficult Limited views were obtained Left ventricular systolic function is lower limits of normal The estimated ejection fraction is 50% Septal motion consistent with IVCD Apical false tendon noted Unable to assess diastolic dysfunction 03/21/2021 [place], [place] The study was technically difficult Based upon the 2D echocardiographic and contrast-enhanced images obtained there appears to be grossly normal left ventricular size, wall motion, and systolic function The estimated ejection fraction is 55% Septal motion consistent with IVCD Trivial mitral valve insufficiency Trivial tricuspid valve insufficiency Trivial pulmonic valve insufficiency Unable to estimate RV systolic pressure due to insufficient tricuspid regurgitant envelope Unable to assess diastolic dysfunction 04/19/2022 [place], [place] The study was technically difficult Left ventricular systolic function is normal The estimated ejection fraction is 55% Septal motion consistent with IVCD Trivial mitral valve insufficiency Trivial tricuspid valve insufficiency Trivial aortic valve insufficiency Trivial pulmonic valve insufficiency Unable to estimate RV systolic pressure/pulmonary artery pressure due to technically difficult study Diastolic function is indeterminate ECHOCARDIOGRAM 07/04/2023 (Final) [facility] Interpretation Summary Left Ventricle: Chamber size is normal. Concentric remodeling is present. Abnormal septal motion consistent with left bundle branch block. Ejection fraction is normal (55 - 60%). Diastolic function is normal for age. GLS =-21.9% Right Ventricle: Chamber size is normal. Systolic function is normal. Left Atrium: Chamber size is normal. No significant valvular abnormality seen MYOCARDIAL PERFUSION STUDY 11/03/2019 [place], [place] The patient exercised on a Amol protocol for 10 minutes completing stage III and 1 minute of stage IV achieving a peak heart rate of 173 beats per minute (104% predicted maximal heart rate) with a peak blood pressure 164/100 mm Hg and a peak met capacity of 11 Mets. The baseline ECG demonstrated sinus rhythm; left bundle branch block. Peak exercise ECG demonstrated continued left bundle branch block pattern. There was a rare PAC during exercise and recovery. The functional capacity was considered good. There was no complain of chest discomfort during exercise or recovery. The examination was discontinued secondary to leg discomfort. Impression: 1. Technically adequate (% predicted maximal heart rate greater than 85%) exercise tolerance test 2. Peak exercise ECG with continued left bundle branch block pattern 3. There was a rare PAC during exercise and recovery 4. Nuclear images pending Myocardial perfusion imaging study: Impression: 1. Rest and stress SPECT Cardiolite nuclear imaging demonstrate myocardial perfusion changes appearing compatible with the affects of the underlying left bundle branch block with no myocardial perfusion changes considered diagnostic for associated stress-induced myocardial ischemia. 2. The gated Cardiolite study reports an LVEF of 38%. CARDIAC CATHETERIZATION 12/11/2019 [place], [place] Dominance: Right dominant Left heart assessment Left ventricular ejection fraction: By LV-gram 40% Anterior hypokinesis. Inferior mid hypokinesis. Apical hypokinesis. Elevated left ventricular end-diastolic pressure LVEDP: 19 mm Hg Left main: Mild luminal irregularities Left anterior descending artery: Diagonal 1.: Proximal-small caliber vessel: Smooth: 50% stenosis Circumflex artery: Proximal circumflex: Mild luminal irregularities Right coronary artery: Proximal RCA: Mild luminal irregularities Aortic root: Angiographically normal In summary, Mr. Myers is managed today for the following issues: Cardiomyopathy At the present time he appears without acute symptoms. His most recent transthoracic echocardiogram as noted. He will continue medical therapy with his carvedilol 12.5 mg p.o. b.i.d.. He was given a renewal prescription for this today. Left bundle-branch block He does have a history of a left bundle branch block pattern. It appears this is compatible with his previous history of LV systolic dysfunction. As noted above, on medical management, his overall LV systolic function has improved/his LVEF has improved. Thus, he will continue his current therapy. Essential hypertension His blood pressure was re-evaluated in the office today. Upon re-evaluation it was 118/72 mm Hg. He will continue his current medical therapy and he was asked to monitor his blood pressures at home. Hyperlipidemia A request will be made to retrieve his recent lipid profile from his PCP. This will help with continuity of care and consideration as to whether or not he needs to consider medical management. I have ordered the following: Diagnoses and all orders for this visit: Other cardiomyopathy - carveDILOL 12.5 MG tablet; Take 1 tablet by mouth 2 times daily. Left bundle-branch block Essential hypertension - carveDILOL 12.5 MG tablet; Take 1 tablet by mouth 2 times daily. Hyperlipidemia, unspecified hyperlipidemia type The above was discussed and reviewed with the patient. He was agreeable to this approach. We will plan on Return in about 6 months (around 06/29/2024).. If I can be of any further assistance, please do not hesitate to contact me. Sincerely, Se Cote MD, [facility] - Clinical Division of Cardiovascular Medicine Department of Internal Medicine [facility] Please be aware that portions of this note may have been completed with a voice recognition software system and an artificial intelligence system with the knowledge and approval of the patient. Despite efforts to edit the note mis-transcribed words may still be present. documented in this encounter [place] 07-04-2023 Evaluation + Plan note Associated Problem(s): Hyperlipidemia His previous lipid labs were reviewed. He will be asked to have future lipid labs prior to his next appointment to monitor his cardiovascular risks. In the interim he states since his episode of pancreatitis he has adjusted his diet. He states that he has minimal red meat intake. He eats more chicken and fish than he has in the past. [place] 07-04-2023 Miscellaneous Notes Associated Problem(s): Hyperlipidemia His previous lipid labs were reviewed. He will be asked to have future lipid labs prior to his next appointment to monitor his cardiovascular risks. In the interim he states since his episode of pancreatitis he has adjusted his diet. He states that he has minimal red meat intake. He eats more chicken and fish than he has in the past. Associated Problem(s): Essential hypertension He notes his blood pressure at home, which he checks, is traditionally much better than it is in the office. At the moment he will continue his current medical therapy and monitor his blood pressure for any significant changes. Associated Problem(s): Cardiomyopathy He did have at 1 time what appeared to be diminished LV systolic function. He has been treated medically over time. This included his beta-nena therapy. He has done well with it and in the past his LV systolic function/LVEF improved/normalized. He had an echocardiogram performed immediately prior to his outpatient visit. The preliminary images were still being processed. However upon preliminary review it appeared his overall LV systolic function remained preserved. The final images/measurements/report are still pending. Associated Problem(s): Left bundle-branch block He does have a history of an underlying left bundle branch block. He has been followed for this and evaluated for this in the past both noninvasively and invasively. documented in this encounter [place] 07-04-2023 Evaluation + Plan note Associated Problem(s): Essential hypertension He notes his blood pressure at home, which he checks, is traditionally much better than it is in the office. At the moment he will continue his current medical therapy and monitor his blood pressure for any significant changes. [place] 07-04-2023 Evaluation + Plan note Associated Problem(s): Cardiomyopathy He did have at 1 time what appeared to be diminished LV systolic function. He has been treated medically over time. This included his beta-nena therapy. He has done well with it and in the past his LV systolic function/LVEF improved/normalized. He had an echocardiogram performed immediately prior to his outpatient visit. The preliminary images were still being processed. However upon preliminary review it appeared his overall LV systolic function remained preserved. The final images/measurements/report are still pending. [place] 07-04-2023 Evaluation + Plan note Associated Problem(s): Left bundle-branch block He does have a history of an underlying left bundle branch block. He has been followed for this and evaluated for this in the past both noninvasively and invasively. [place] 07-04-2023 History of Presen t illness Narrative Primary care provider: Other [facility] (General) Dear Dr. [place] [facility], I had the pleasure of seeing your patient, Trip Myers, at the [facility] on 07/04/2023 in follow-up. I have reviewed pertinent outside medical records available at this time regarding this patient. As you recall, this 58 y.o. male is managed by our group for a history of left bundle branch block and decreased LV systolic function/cardiomyopathy (previously improved/resolved), hypertension, and hyperlipidemia. Chief Complaint Patient presents with Follow-up Pt is here for a six month follow up. Pt has no concerns. HPI: Initial HPI from: 01/01/2023 This is a 57-year-old white male who presents for a new [facility] follow-up visit who has previously been followed by the [facility] in [place], [place] for concerns of an underlying rate related left bundle branch block pattern with a history of decreased LV systolic function/cardiomyopathy (improved/resolved), hypertension, and hyperlipidemia. His last outpatient cardiovascular visit was on 05/31/2022. At that time he appeared to be doing well from a cardiovascular standpoint with no obvious concerns of ongoing angina pectoris, CHF, palpitations, near-syncope, or syncope. He was continuing medical therapy which included aspirin 81 mg p.o. q.day and carvedilol 12.5 mg p.o. b.i.d.. Since that time he has undergone subsequent evaluation for concerns of gallstone related pancreatitis. He states he was diagnosed with underlying gallbladder related disease/cholelithiasis. He placed an [place] trip on hold based on this issue. He states the day he would have arrived in [place] he developed abdominal discomfort. He states he was subsequently evaluated at [facility] and was diagnosed with gallstone related pancreatitis. He notes he spent approximately 1 week in the hospital. He underwent an ERCP/stenting procedure and subsequently a laparoscopic cholecystectomy. He states he is due for future follow-up with gastroenterology. He has also modified his lifestyle. He notes by modifying his diet he has lost approximately 42 lb since his last visit. Overall he is feeling better. During his hospitalization he states there were no concerns about his heart. He had no and continues to have no concerning chest discomfort. There was no report of CHF or pulmonary edema and he continues without orthopnea, PND, peripheral pitting edema. He has not had any ongoing palpitations and has no episodes of near-syncope or syncope. He does admit he is not sure when his last lipid profile was performed. In the office today he did have an ECG. He was noted to have evidence of his sinus bradycardia with a left bundle branch block pattern. Interval History: 07/04/2023 This is a 58-year-old white male who presents today for an outpatient cardiovascular follow-up based upon concerns of a history of left bundle branch block, LV systolic dysfunction/cardiomyopathy (previously improved/resolved), hypertension, and hyperlipidemia. Since his last visit he states overall he has done well. He states he feels well. He has not describing any concerning symptoms of ongoing resting or exertional chest discomfort suspicious for angina pectoris. There has been no evidence of CHF or pulmonary edema. He has had no near-syncope or syncope. He has continued his medical therapy. He states he does monitor his blood pressures at home. He notes they are usually much better than they are in the office today with his systolic blood pressure between 100 and 120 mm Hg and rarely above that. He did have a transthoracic echocardiogram performed today immediately prior to his outpatient visit. At the time of his visit the official report was unavailable. The preliminary images were reviewed with him. On preliminary review it appeared that he had overall preserved LV systolic function. Historical information was reviewed in the medical record. The following historical elements were reviewed by a provider in the specific [facility] and updated as appropriate: No Known Allergies Outpatient Encounter Medications as of 07/04/2023 Medication Sig Dispense Refill ASPIRIN PO Take 81 mg by mouth daily. carveDILOL 12.5 MG tablet Take 1 tablet by mouth 2 times daily. Ferrous Sulfate (IRON PO) Take by mouth daily. Montelukast 10 MG tablet Take 1 tablet by mouth daily. Multiple Vitamin (multivitamin) capsule Take 1 capsule by mouth daily. [DISCONTINUED] Docusate 100 MG capsule Take 1 capsule by mouth 2 times daily. (Patient not taking: Reported on 07/04/2023) [DISCONTINUED] Pantoprazole [address] tablet DR Take 1 tablet by mouth daily. (Patient not taking: Reported on 07/04/2023) No facility-administered encounter medications on file as of 07/04/2023. Past Medical History: Diagnosis Date CAD (coronary artery disease) Cardiomyopathy non-cad related Essential hypertension, benign Hyperlipidemia Left bundle branch block (LBBB) Pancreatitis Past Surgical History: Procedure Laterality Date LEFT HEART CATHETERIZATION (LHC) WITH LEFT VENTRICULOGRAPHY 11/2019 CHOLECYSTECTOMY HIP REPLACEMENT Left SEPTOPLASTY Family History Problem Relation Age of Onset Diabetes Mother Arthritis - Rheumatoid Mother Coronary Artery Disease Father Myocardial Infarction Father Heart Surgery Father Pacemaker Paternal Grandmother Social History Socioeconomic History Marital status: Spouse name: Not on file Number of children: Not on file Years of education: Not on file Highest education level: Not on file Occupational History Not on file Tobacco Use Smoking status: Former Current packs/day: 0.00 Types: Cigarettes Quit date: 1992 Years since quittin.2 Smokeless tobacco: Never Vaping Use Vaping status: Never Used Substance and Sexual Activity Alcohol use: Yes Alcohol/week: 3.0 standard drinks of alcohol Types: 3 Standard drinks or equivalent per week Drug use: Never Sexual activity: Not on file Other Topics Concern Not on file Social History Narrative Not on file Social Determinants of Health Financial Resource Strain: Not on file Food Insecurity: Not on file Transportation Needs: Not on file Physical Activity: Not on file Stress: Not on file Social Connections: Not on file Intimate Partner Violence: Not on file Housing Stability: Not on file Review of Systems Cardiovascular: Negative for chest pain, claudication, cyanosis, dyspnea on exertion, irregular heartbeat, leg swelling, near-syncope, orthopnea, palpitations, paroxysmal nocturnal dyspnea and syncope. On physcial exam today, the vital signs are as follows: BP 130/82 (BP Location: Left arm, BP Position: Sitting) Pulse 82 Ht 1.676 m (5' 6) Wt 76.2 kg (167 lb 14.4 oz) BMI 27.10 kg/m Smoking Status Former Body mass index is 27.1 kg/m .. Physical Exam Vitals and nursing note reviewed. Constitutional: Appearance: Normal appearance. He is overweight. HENT: Head: Normocephalic and atraumatic. Cardiovascular: Rate and Rhythm: Normal rate and regular rhythm. No extrasystoles are present. Chest Wall: PMI is not displaced. No thrill. Pulses: Carotid pulses are 2+ on the right side and 2+ on the left side. Radial pulses are 2+ on the right side and 2+ on the left side. Posterior tibial pulses are 2+ on the right side and 2+ on the left side. Heart sounds: S1 normal. Comments: Paradoxically split S2 Pulmonary: Effort: Pulmonary effort is normal. Breath sounds: Normal breath sounds. Abdominal: General: Abdomen is flat. Bowel sounds are normal. Palpations: Abdomen is soft. Musculoskeletal: General: Normal range of motion. Cervical back: Normal range of motion and neck supple. Right lower leg: No edema. Left lower leg: No edema. Skin: General: Skin is warm and dry. Neurological: General: No focal deficit present. Mental Status: He is alert. Psychiatric: Mood and Affect: Mood normal. Relevant diagnostic data includes the following: Lab Results Component Value Date CHOLESTEROL 176 01/01/2023 TRIG 87 01/01/2023 HDL 49 01/01/2023 LDLCALC 110 (H) 01/01/2023 NHCHOL 127 01/01/2023 I have independently reviewed the following images/tracings: as noted below. Supplemental Information: ELECTROCARDIOGRAM 01/01/2023 [facility] Sinus bradycardia LBBB HOLTER 04/09/2019 [place], [place] This is a 48 hour Holter monitor in normal sinus rhythm with bundle branch block and periods of sinus arrhythmia with bundle branch block. Minimal heart rate was 41 beats per minute at 6:38:24 AM D2, no activity or symptoms recorded. Maximal heart rate was 120 beats per minute at 2:37:01 P D2, no activity or symptoms recorded. Average heart rate noted to be 84 beats per minute Rare PACs. No runs noted. Occasional PVCs. One ventricular couplet. No runs Noted. The patient kept a 48 hour diary and noted skipped beats and pain the middle of back which did not correlate with the scan. ECHOCARDIOGRAM 04/13/2019 [place], [place] Left ventricular systolic function is normal. The estimated ejection fraction is 55%. Septal motion consistent with IVCD. Apical false tendon noted. Trivial mitral valve insufficiency. Mild focal aortic valve thickening. Mild focal aortic valve calcification. Trivial pulmonic valve insufficiency. Diastolic function is indeterminate. 11/17/2019 [place], [place] Moderate segmental systolic dysfunction (see wall motion) The estimated ejection fraction is 35% Septal motion consistent with IVCD Apical false tendon noted Trivial mitral valve insufficiency Trivial tricuspid valve insufficiency Mild focal aortic valve thickening Mild focal aortic valve calcification Trivial pulmonic valve insufficiency No evidence for diastolic dysfunction 04/12/2020 [place], [place] The study was technically difficult Limited views were obtained Left ventricular systolic function is lower limits of normal The estimated ejection fraction is 50% Septal motion consistent with IVCD Apical false tendon noted Unable to assess diastolic dysfunction 03/21/2021 [place], [place] The study was technically difficult Based upon the 2D echocardiographic and contrast-enhanced images obtained there appears to be grossly normal left ventricular size, wall motion, and systolic function The estimated ejection fraction is 55% Septal motion consistent with IVCD Trivial mitral valve insufficiency Trivial tricuspid valve insufficiency Trivial pulmonic valve insufficiency Unable to estimate RV systolic pressure due to insufficient tricuspid regurgitant envelope Unable to assess diastolic dysfunction 04/19/2022 [place], [place] The study was technically difficult Left ventricular systolic function is normal The estimated ejection fraction is 55% Septal motion consistent with IVCD Trivial mitral valve insufficiency Trivial tricuspid valve insufficiency Trivial aortic valve insufficiency Trivial pulmonic valve insufficiency Unable to estimate RV systolic pressure/pulmonary artery pressure due to technically difficult study Diastolic function is indeterminate MYOCARDIAL PERFUSION STUDY 11/03/2019 [place], [place] The patient exercised on a Amol protocol for 10 minutes completing stage III and 1 minute of stage IV achieving a peak heart rate of 173 beats per minute (104% predicted maximal heart rate) with a peak blood pressure 164/100 mm Hg and a peak met capacity of 11 Mets. The baseline ECG demonstrated sinus rhythm; left bundle branch block. Peak exercise ECG demonstrated continued left bundle branch block pattern. There was a rare PAC during exercise and recovery. The functional capacity was considered good. There was no complain of chest discomfort during exercise or recovery. The examination was discontinued secondary to leg discomfort. Impression: 1. Technically adequate (% predicted maximal heart rate greater than 85%) exercise tolerance test 2. Peak exercise ECG with continued left bundle branch block pattern 3. There was a rare PAC during exercise and recovery 4. Nuclear images pending Myocardial perfusion imaging study: Impression: 1. Rest and stress SPECT Cardiolite nuclear imaging demonstrate myocardial perfusion changes appearing compatible with the affects of the underlying left bundle branch block with no myocardial perfusion changes considered diagnostic for associated stress-induced myocardial ischemia. 2. The gated Cardiolite study reports an LVEF of 38%. CARDIAC CATHETERIZATION 12/11/2019 [place], [place] Dominance: Right dominant Left heart assessment Left ventricular ejection fraction: By LV-gram 40% Anterior hypokinesis. Inferior mid hypokinesis. Apical hypokinesis. Elevated left ventricular end-diastolic pressure LVEDP: 19 mm Hg Left main: Mild luminal irregularities Left anterior descending artery: Diagonal 1.: Proximal-small caliber vessel: Smooth: 50% stenosis Circumflex artery: Proximal circumflex: Mild luminal irregularities Right coronary artery: Proximal RCA: Mild luminal irregularities Aortic root: Angiographically normal In summary, Mr. Myers is managed today for the following issues: Left bundle-branch block He does have a history of an underlying left bundle branch block. He has been followed for this and evaluated for this in the past both noninvasively and invasively. Cardiomyopathy He did have at 1 time what appeared to be diminished LV systolic function. He has been treated medically over time. This included his beta-nena therapy. He has done well with it and in the past his LV systolic function/LVEF improved/normalized. He had an echocardiogram performed immediately prior to his outpatient visit. The preliminary images were still being processed. However upon preliminary review it appeared his overall LV systolic function remained preserved. The final images/measurements/report are still pending. Essential hypertension He notes his blood pressure at home, which he checks, is traditionally much better than it is in the office. At the moment he will continue his current medical therapy and monitor his blood pressure for any significant changes. Hyperlipidemia His previous lipid labs were reviewed. He will be asked to have future lipid labs prior to his next appointment to monitor his cardiovascular risks. In the interim he states since his episode of pancreatitis he has adjusted his diet. He states that he has minimal red meat intake. He eats more chicken and fish than he has in the past. I have ordered the following: Orders Placed This Encounter LIPID PANEL W CALCULATED LDL At the present time he will continue his current medical therapy. He will have a future follow-up lipid profile. His echocardiogram, once complete, will be reviewed. He knows that information will help guide further evaluation and care. Otherwise, he will be scheduled for future outpatient follow-up in approximately 6 months to monitor his condition. He was agreeable to this approach. We will plan on Return in about 6 months (around 01/04/2024).. If I can be of any further assistance, please do not hesitate to contact me. Sincerely, Se Cote MD, [facility] - Clinical Division of Cardiovascular Medicine Department of Internal Medicine [facility] Please be aware that portions of this note may have been completed with a voice recognition software system. Despite efforts to edit the note mis-transcribed words may still be present. documented in this encounter [place] 01-01-2023 Evaluation + Plan note Associated Problem(s): Hyperlipidemia Based upon his previous office visit note there was comment that his LDL cholesterol was 105 with an HDL of 50 and a triglyceride level of 86. Again he will be asked to have a lipid labs performed to help guide further evaluation and care. [place] 01-01-2023 Miscellaneous Notes Associated Problem(s): Hyperlipidemia Based upon his previous office visit note there was comment that his LDL cholesterol was 105 with an HDL of 50 and a triglyceride level of 86. Again he will be asked to have a lipid labs performed to help guide further evaluation and care. Associated Problem(s): Essential hypertension He has been tracking his blood pressures at home. He notes for the most part, especially since his weight loss, his systolic blood pressure has been approximately 110 mm Hg to 120 mm Hg. It is somewhat more elevated today. He will continue to track his blood pressures at home. In the meantime he will continue his carvedilol 12.5 mg p.o. b.i.d.. Associated Problem(s): 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 The patient has a history of underlying atherosclerotic coronary disease as noted above based upon his diagnostic cardiac catheterization. He is continuing medical therapy with aspirin 81 mg p.o. q.day as well as his beta-nena. He will be asked to have his lipid labs performed. Depending upon the findings he may need to consider lipid-lowering therapy. Associated Problem(s): Cardiomyopathy The patient was noted for period of time to have diminished LV systolic function/LVEF. His medications were adjusted. His LV systolic function and LVEF improved/normalized. Thus, he will continue his current medical therapy and follow-up. Associated Problem(s): Left bundle-branch block The patient has a history of a left bundle branch block. He has been evaluated for this both noninvasively and invasively. If persist at this time. He is going to continue his current cardiovascular medical therapy and follow-up. documented in this encounter [place] 01-01-2023 Evaluation + Plan note Associated Problem(s): Essential hypertension He has been tracking his blood pressures at home. He notes for the most part, especially since his weight loss, his systolic blood pressure has been approximately 110 mm Hg to 120 mm Hg. It is somewhat more elevated today. He will continue to track his blood pressures at home. In the meantime he will continue his carvedilol 12.5 mg p.o. b.i.d.. [place] 01-01-2023 Evaluation + Plan note Associated Problem(s): 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 The patient has a history of underlying atherosclerotic coronary disease as noted above based upon his diagnostic cardiac catheterization. He is continuing medical therapy with aspirin 81 mg p.o. q.day as well as his beta-nena. He will be asked to have his lipid labs performed. Depending upon the findings he may need to consider lipid-lowering therapy. [place] 01-01-2023 Evaluation + Plan note Associated Problem(s): Cardiomyopathy The patient was noted for period of time to have diminished LV systolic function/LVEF. His medications were adjusted. His LV systolic function and LVEF improved/normalized. Thus, he will continue his current medical therapy and follow-up. [place] 01-01-2023 Evaluation + Plan note Associated Problem(s): Left bundle-branch block The patient has a history of a left bundle branch block. He has been evaluated for this both noninvasively and invasively. If persist at this time. He is going to continue his current cardiovascular medical therapy and follow-up. [place] 01-01-2023 History of Presen t illness Narrative Referring provider: Danni Swann MD Primary care provider: Danni Swann MD Dear Dr. Swann, I had the pleasure of seeing your patient, Trip Myers, at the [facility] on 01/01/2023. I have reviewed pertinent outside medical records available at this time regarding this patient. As you recall, you referred this 57 y.o. male to our attention for a history of left bundle branch block, previous decreased LV systolic function/cardiomyopathy, hypertension, and hyperlipidemia. Chief Complaint Patient presents with Establish Care Patient previously saw Dr. Cote at [facility], wanting to establish care with him at [facility]. Denies any cardiac complaints. HPI: This is a 57-year-old white male who presents for a new [facility] follow-up visit who has previously been followed by the [facility] in [place], [place] for concerns of an underlying rate related left bundle branch block pattern with a history of decreased LV systolic function/cardiomyopathy (improved/resolved), hypertension, and hyperlipidemia. His last outpatient cardiovascular visit was on 05/31/2022. At that time he appeared to be doing well from a cardiovascular standpoint with no obvious concerns of ongoing angina pectoris, CHF, palpitations, near-syncope, or syncope. He was continuing medical therapy which included aspirin 81 mg p.o. q.day and carvedilol 12.5 mg p.o. b.i.d.. Since that time he has undergone subsequent evaluation for concerns of gallstone related pancreatitis. He states he was diagnosed with underlying gallbladder related disease/cholelithiasis. He placed an [facility] fishing trip on hold based on this issue. He states the day he would have arrived in [place] he developed abdominal discomfort. He states he was subsequently evaluated at [facility] and was diagnosed with gallstone related pancreatitis. He notes he spent approximately 1 week in the hospital. He underwent an ERCP/stenting procedure and subsequently a laparoscopic cholecystectomy. He states he is due for future follow-up with gastroenterology. He has also modified his lifestyle. He notes by modifying his diet he has lost approximately 42 lb since his last visit. Overall he is feeling better. During his hospitalization he states there were no concerns about his heart. He had no and continues to have no concerning chest discomfort. There was no report of CHF or pulmonary edema and he continues without orthopnea, PND, peripheral pitting edema. He has not had any ongoing palpitations and has no episodes of near-syncope or syncope. He does admit he is not sure when his last lipid profile was performed. In the office today he did have an ECG. He was noted to have evidence of his sinus bradycardia with a left bundle branch block pattern. Historical information was reviewed in the medical record. The following historical elements were reviewed by a provider in the specific [facility] and updated as appropriate: No Known Allergies Outpatient Encounter Medications as of 01/01/2023 Medication Sig Dispense Refill ASPIRIN PO Take 81 mg by mouth daily. carveDILOL 12.5 MG tablet Take 1 tablet by mouth 2 times daily. Docusate 100 MG capsule Take 1 capsule by mouth 2 times daily. Ferrous Sulfate (IRON PO) Take by mouth daily. Montelukast 10 MG tablet Take 1 tablet by mouth daily. Multiple Vitamin (multivitamin) capsule Take 1 capsule by mouth daily. Pantoprazole [address] tablet DR Take 1 tablet by mouth daily. No facility-administered encounter medications on file as of 01/01/2023. Past Medical History: Diagnosis Date CAD (coronary artery disease) Cardiomyopathy non-cad related Essential hypertension, benign Hyperlipidemia Left bundle branch block (LBBB) Pancreatitis Past Surgical History: Procedure Laterality Date LEFT HEART CATHETERIZATION (LHC) WITH LEFT VENTRICULOGRAPHY 11/2019 CHOLECYSTECTOMY HIP REPLACEMENT Left SEPTOPLASTY Family History Problem Relation Age of Onset Diabetes Mother Arthritis - Rheumatoid Mother Coronary Artery Disease Father Myocardial Infarction Father Heart Surgery Father Pacemaker Paternal Grandmother Social History Socioeconomic History Marital status: Spouse name: Not on file Number of children: Not on file Years of education: Not on file Highest education level: Not on file Occupational History Not on file Tobacco Use Smoking status: Former Types: Cigarettes Quit date: 1992 Years since quittin.7 Smokeless tobacco: Never Vaping Use Vaping Use: Never used Substance and Sexual Activity Alcohol use: Yes Alcohol/week: 3.0 standard drinks of alcohol Types: 3 Standard drinks or equivalent per week Drug use: Never Sexual activity: Not on file Other Topics Concern Not on file Social History Narrative Not on file Social Determinants of Health Financial Resource Strain: Not on file Food Insecurity: Not on file Transportation Needs: Not on file Physical Activity: Not on file Stress: Not on file Social Connections: Not on file Intimate Partner Violence: Not on file Housing Stability: Not on file Review of Systems Cardiovascular: Negative for chest pain, claudication, cyanosis, dyspnea on exertion, irregular heartbeat, leg swelling, near-syncope, orthopnea, palpitations, paroxysmal nocturnal dyspnea and syncope. On physcial exam today, the vital signs are as follows: BP 134/80 (BP Location: Left arm, BP Position: Sitting) Pulse 59 Ht 1.676 m (5' 6) Wt 72.6 kg (160 lb) BMI 25.82 kg/m Smoking Status Former Body mass index is 25.82 kg/m .. Physical Exam Vitals and nursing note reviewed. Constitutional: Appearance: Normal appearance. He is overweight. HENT: Head: Normocephalic and atraumatic. Cardiovascular: Rate and Rhythm: Normal rate and regular rhythm. No extrasystoles are present. Chest Wall: PMI is not displaced. No thrill. Pulses: Carotid pulses are 2+ on the right side and 2+ on the left side. Radial pulses are 2+ on the right side and 2+ on the left side. Posterior tibial pulses are 2+ on the right side and 2+ on the left side. Heart sounds: S1 normal. Comments: Paradoxically split S2 Pulmonary: Effort: Pulmonary effort is normal. Breath sounds: Normal breath sounds. Abdominal: General: Abdomen is flat. Bowel sounds are normal. Palpations: Abdomen is soft. Musculoskeletal: General: Normal range of motion. Cervical back: Normal range of motion and neck supple. Right lower leg: No edema. Left lower leg: No edema. Skin: General: Skin is warm and dry. Neurological: General: No focal deficit present. Mental Status: He is alert. Psychiatric: Mood and Affect: Mood normal. Relevant diagnostic data includes the following: No results found for: CHOLESTEROL, TRIG, HDL, LDLCALC, LDLDIRECT, NHCHOL No results found for: WBC, WBCCOUNT, WBCFETAL, HGB, HCT, PLATELET, MCV No results found for: SODIUM, POTASSIUM, CHLORIDE, CO2, BUN, CREATSERUM, GLUCOSE No results found for: TSH, KUD35QUD, XCS32EKU, TSHBASELINE, TSHULTRASEN, TSHRFT4 No results found for: HGBA1C I have independently reviewed the following reports and/or images/tracings: as noted below. ELECTROCARDIOGRAM 01/01/2023 [facility] Sinus bradycardia LBBB HOLTER 04/09/2019 [place], [place] This is a 48 hour Holter monitor in normal sinus rhythm with bundle branch block and periods of sinus arrhythmia with bundle branch block. Minimal heart rate was 41 beats per minute at 6:38:24 AM D2, no activity or symptoms recorded. Maximal heart rate was 120 beats per minute at 2:37:01 P D2, no activity or symptoms recorded. Average heart rate noted to be 84 beats per minute Rare PACs. No runs noted. Occasional PVCs. One ventricular couplet. No runs Noted. The patient kept a 48 hour diary and noted skipped beats and pain the middle of back which did not correlate with the scan. ECHOCARDIOGRAM 04/13/2019 [place], [place] Left ventricular systolic function is normal. The estimated ejection fraction is 55%. Septal motion consistent with IVCD. Apical false tendon noted. Trivial mitral valve insufficiency. Mild focal aortic valve thickening. Mild focal aortic valve calcification. Trivial pulmonic valve insufficiency. Diastolic function is indeterminate. 11/17/2019 [place], [place] Moderate segmental systolic dysfunction (see wall motion) The estimated ejection fraction is 35% Septal motion consistent with IVCD Apical false tendon noted Trivial mitral valve insufficiency Trivial tricuspid valve insufficiency Mild focal aortic valve thickening Mild focal aortic valve calcification Trivial pulmonic valve insufficiency No evidence for diastolic dysfunction 04/12/2020 [place], [place] The study was technically difficult Limited views were obtained Left ventricular systolic function is lower limits of normal The estimated ejection fraction is 50% Septal motion consistent with IVCD Apical false tendon noted Unable to assess diastolic dysfunction 03/21/2021 [place], [place] The study was technically difficult Based upon the 2D echocardiographic and contrast-enhanced images obtained there appears to be grossly normal left ventricular size, wall motion, and systolic function The estimated ejection fraction is 55% Septal motion consistent with IVCD Trivial mitral valve insufficiency Trivial tricuspid valve insufficiency Trivial pulmonic valve insufficiency Unable to estimate RV systolic pressure due to insufficient tricuspid regurgitant envelope Unable to assess diastolic dysfunction 04/19/2022 [place], [place] The study was technically difficult Left ventricular systolic function is normal The estimated ejection fraction is 55% Septal motion consistent with IVCD Trivial mitral valve insufficiency Trivial tricuspid valve insufficiency Trivial aortic valve insufficiency Trivial pulmonic valve insufficiency Unable to estimate RV systolic pressure/pulmonary artery pressure due to technically difficult study Diastolic function is indeterminate MYOCARDIAL PERFUSION STUDY 11/03/2019 [place], [place] The patient exercised on a Amol protocol for 10 minutes completing stage III and 1 minute of stage IV achieving a peak heart rate of 173 beats per minute (104% predicted maximal heart rate) with a peak blood pressure 164/100 mm Hg and a peak met capacity of 11 Mets. The baseline ECG demonstrated sinus rhythm; left bundle branch block. Peak exercise ECG demonstrated continued left bundle branch block pattern. There was a rare PAC during exercise and recovery. The functional capacity was considered good. There was no complain of chest discomfort during exercise or recovery. The examination was discontinued secondary to leg discomfort. Impression: 1. Technically adequate (% predicted maximal heart rate greater than 85%) exercise tolerance test 2. Peak exercise ECG with continued left bundle branch block pattern 3. There was a rare PAC during exercise and recovery 4. Nuclear images pending Myocardial perfusion imaging study: Impression: 1. Rest and stress SPECT Cardiolite nuclear imaging demonstrate myocardial perfusion changes appearing compatible with the affects of the underlying left bundle branch block with no myocardial perfusion changes considered diagnostic for associated stress-induced myocardial ischemia. 2. The gated Cardiolite study reports an LVEF of 38%. CARDIAC CATHETERIZATION 12/11/2019 [place], [place] Dominance: Right dominant Left heart assessment Left ventricular ejection fraction: By LV-gram 40% Anterior hypokinesis. Inferior mid hypokinesis. Apical hypokinesis. Elevated left ventricular end-diastolic pressure LVEDP: 19 mm Hg Left main: Mild luminal irregularities Left anterior descending artery: Diagonal 1.: Proximal-small caliber vessel: Smooth: 50% stenosis Circumflex artery: Proximal circumflex: Mild luminal irregularities Right coronary artery: Proximal RCA: Mild luminal irregularities Aortic root: Angiographically normal In summary, Mr. Myers is managed today for the following issues: Left bundle-branch block The patient has a history of a left bundle branch block. He has been evaluated for this both noninvasively and invasively. If persist at this time. He is going to continue his current cardiovascular medical therapy and follow-up. Cardiomyopathy The patient was noted for period of time to have diminished LV systolic function/LVEF. His medications were adjusted. His LV systolic function and LVEF improved/normalized. Thus, he will continue his current medical therapy and follow-up. 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 The patient has a history of underlying atherosclerotic coronary disease as noted above based upon his diagnostic cardiac catheterization. He is continuing medical therapy with aspirin 81 mg p.o. q.day as well as his beta-nena. He will be asked to have his lipid labs performed. Depending upon the findings he may need to consider lipid-lowering therapy. Essential hypertension He has been tracking his blood pressures at home. He notes for the most part, especially since his weight loss, his systolic blood pressure has been approximately 110 mm Hg to 120 mm Hg. It is somewhat more elevated today. He will continue to track his blood pressures at home. In the meantime he will continue his carvedilol 12.5 mg p.o. b.i.d.. Hyperlipidemia Based upon his previous office visit note there was comment that his LDL cholesterol was 105 with an HDL of 50 and a triglyceride level of 86. Again he will be asked to have a lipid labs performed to help guide further evaluation and care. I have ordered the following: Orders Placed This Encounter LIPID PANEL W CALCULATED LDL HEPATIC FUNCTION PANEL ECHOCARDIOGRAM [place] ECG, CLINIC PERFORMED He will also be asked to have a future transthoracic echocardiogram performed to continue to monitor his left ventricular systolic function/LVEF. This will be tentatively scheduled for approximately 6 months during a future outpatient cardiovascular follow-up visit. The above was discussed and reviewed with him. He was agreeable to this approach. We will plan on Return in about 6 months (around 07/02/2023).. If I can be of any further assistance, please do not hesitate to contact me. Sincerely, Se Cote MD, [facility] - Clinical [facility] Cardiovascular Medicine Please be aware that portions of this note may have been completed with a voice recognition software system. Despite efforts to edit the note mis-transcribed words may still be present. 12 Lead EKG performed per provider's order, per policy, and given to Dr. Cote for interpretation. Medical junior network engineer offered to patient prior to sensitive procedure and patient declined documented in this encounter [place] 01-01-2023 Telephone encounter Note Rec'd Holter summary from [facility], gave to Dr Cote for review. [place] 01-01-2023 Miscellaneous Notes Rec'd Holter summary from [facility], gave to Dr Cote for review. Rec'd medical records from [facility], gave to Dr Cote then will be scanned into the chart. Received cardiac records via fax from [facility]. To be scanned into chart. Cardiac records requested from [facility]. documented in this encounter [place] 01-01-2023 Telephone encounter Note Rec'd medical records from [facility], gave to Dr Cote then will be scanned into the chart. [place] 12-31-2022 Telephone encounter Note Received cardiac records via fax from [facility]. To be scanned into chart. [place] 12-27-2022 Telephone encounter Note Cardiac records requested from [facility]. [place] 12-08-2022 Discharge summary Note Date/Time December 08, 2022 12:30pm [facility] Medical Records Department [address] [place] [address] Instructions for Home/Discharge Instructions 12/08/22 1228 MR#: [id number] Acct: [id number] Name: TRIP MYERS Rep #:[id number] : 1965 57 From: Linda Hicks MD PCP: Dr. Danni Swann MD Status:AD M IN Discharge Instructions Diet Discharge Diet: Light diet - advance as tolerated (if you have questions about your diet instructions, please talk to you doctor.) Activity Discharge Activity: - (Continue parameters per Dr. Yao recommendations.) May shower in (days): 1 May resume sexual activity in: - (Once cleared per Dr. Yao.) Dressing / Incision Call your doctor if your incision/area has: Continuous Slow Oozing, Sudden Increased Bleeding, Increased Pain/ Swelling, Increased Redness and Foul Smelling Discharge Call your doctor if you observe: Fever of 101 or Higher Suture Line Care: Avoid Pulling/Pushing and Avoid Pinching/Bending Additional Dressing/Incision Instructions:: Change or remove dressing in 4 days. Leave steri-strips in place for 1 week. Follow Up Care Please Follow Up With: Stefano Yao MD Test Results: Test results from this visit will be discussed in further detail at your follow-up appointment, if applicable. Discharge Plan Admission Admit Date/Time: 12/03/22 04:06 Primary Reason for Your Visit: Acute gallstone pancreatitis, Acute on Chronic Cholecystitis, Post-op Ileus Attending Provider: Linda Hicks Primary Care Provider: Danni Swann Consulting Providers: Ziggy Hunter; Clem Forde; Derik Powers Instructions Patient Instructions: After Gallbladder Surgery, Understanding Pancreatitis, Pancreatitis Acute Dc, Cholecystectomy Dc Additional Instructions / Restrictions: Okay to take ibuprofen 400-600 mg PO q6hr PRN along with the hydrocodone/acetaminophen. Avoid Tylenol since there is already Tylenol in the hydrocodone/acetaminophen. Take all pain meds with food. Hydrocodone/acetaminophen can cause constipation recommend taking daily stool softener (i.e. Colace/docusate) while taking the pain meds. Recommend starting some MiraLAX in 1-2 days if no bowel movement. Discharge Orders/Prescriptions Prescriptions: New pantoprazole 40 mg Tablet,Delayed Release (Dr/Ec) 40 mg PO DAILY 30 Days Qty: 30 0RF docusate sodium 100 mg Capsule 100 mg PO BID 30 Days Qty: 60 0RF hydrocodone-acetaminophen 5-325 mg tablet 1 tab PO Q4H PRN (Reason: pain) 5 Days Qty: 20 0RF Continued montelukast [Singulair] 10 mg tablet 10 mg PO DAILY aspirin [Adult Low Dose Aspirin] 81 mg tablet,delayed release (DR/EC) 81 mg PO DAILY carvedilol 12.5 mg tablet 12.5 mg PO BID Qty: 180 3RF Referrals / Follow Up: Danni Swann MD [Primary Care Provider] - (Follow-up within 3-5 days to review admission.) Stefano Yao MD [Med Staff - Active Staff] - (Please contact Dr. Yao office Saturday morning to request follow-up visit 7-10 days.) Clem Forde DO [Med Staff - Active Staff] - (Follow-up with Dr. Forde in 6-8 weeks for re-assessment for stent removal/replacement. Contact office Saturdayto set-up visit and assure follow-up timeline preference.) Disposition Disposition (needs filled in before D/C Order can be placed): Home, Self Care 12/08/22 1230<Electronically signed by Linda Hicks MD>Linda Hicks MD CC: Dr. Danni Swann MD; Dr. Ziggy Hunter MD; Dr. Derik Powers MD; Clem Forde DO ~ Signed ADDENDUM by Dr. Linda Hicks MD on 12/08/22 at 1238 Correction medications: Silverpeak only #10 tablets sent. 12/08/22 1238<Electronically signed by Linda Hicks MD>Linda Hicks MD cc: Dr. Danni Swann MD; Dr. Ziggy Hunter MD; Dr. Derik Powers MD; Clem Forde DO ~* Signed [facility] Work Phone: [phone]) 745-531708-26-2023 Progress note Author Clem Forde [facility] December 08, 2022 10:17am Note Date/Time December 08, 2022 10 :17am [facility] Medical Records Department [address] [place] [id number] Progress Note - GI 12/08/22 1016 MR#: [id number] Acct: [id number] Name: TRIP MYERS Rep #:[id number] : 1965 57 From: Clem Forde DO PCP: Dr. Danni Swann MD Status:AD M IN Location: [place] [address] Subjective Subjective Patient had 2 bowel movements. He also has been passing some gas and is tolerating liquid diet. He feels a lot better. Objective Data Objective Data Vital Signs: Vital Signs Temp Pulse Resp BP Pulse Ox O2 Del Method O2 Flow Rate 97.9 F 83 14 149/96 H 96 Room Air 1 12/08/22 09:00 12/08/22 09:00 12/08/22 09:00 12/08/22 09:00 12/08/22 09:00 12/08/22 09:00 12/05/22 05:00 FiO2 21 12/04/22 01:30 Oxygen Flow Rate (L/min) 1 Oxygen Delivery Method Room Air Weight: 161 lb 2.526 oz Body Mass Index (BMI) 25.9 Intake & Output: Intake and Output for Last 24 Hours 12/06/22 12/07/22 12/08/22 23:59 23:59 23:59 Intake Total 2543.33 / 2543.33 2698.33 / 3148.33 700 / 700 Balance 2543.33 / 2543.33 2698.33 / 3148.33 700 / 700 Lab / Micro Data 12/08/22 06:05 12/08/22 06:05 Labs: Laboratory Results - last 24 hr 12/08/22 06:05: WBC 16.4 H, RBC 4.00 L, Hgb 11.5 L, Hct 34.5 L, MCV 86.3, MCH 28.8, MCHC 33.3, RDW Std Deviation 42.5, RDW Coeff of Arnoldo 13.3, Plt Count 257, MPV 8.9, Immature Gran % (Auto) 0.600, Neut % (Auto) 82.9 H, Lymph % (Auto) 5.7 L, [place] % (Auto) 9.5, Eos % (Auto) 1.1, Baso % (Auto) 0.2, Absolute Neuts (auto)13.6 H, Absolute Lymphs (auto) 0.94, Nucleated RBC % 0, Sodium 136, Potassium 3.1 L, Chloride 103, Carbon Dioxide 27.0, Anion Gap 6, BUN 7, Creatinine 0.54 L,Estim Creat Clear Calc 134.56, Est GFR (MDRD) Af Amer 199, Est GFR (MDRD) Non-Af164, BUN/Creatinine Ratio 12.9, Glucose 119 H, Calcium 8.1 L, Total Bilirubin 0.70, AST 23, ALT 76 H, Alkaline Phosphatase 79, C-React Prot Ext Range 186.00 H,Total Protein 6.0 L, Albumin 2.3 L, Globulin 3.7, Albumin/Globulin Ratio 0.6 L, Lipase 39 Physical Exam Const oriented x3 and no apparent distress Resp normal respiratory effort Cardio regular rate GI soft to palpation GI Narrative: Incision dressed clean dry and intact, mild distention, no peritoneal signs Assessment & Plan Assessment/Plan (1) Gastroparesis: (2) Ileus: (3) Gallstone pancreatitis: PLAN: Plan 49-year-old gentleman with cholelithiasis and choledocholithiasis with obstructive jaundice secondary to choledocholithiasis and gallstone induced pancreatitis -Status post ERCP day 1 with removal of filling defects from the distal common bile duct and dilation of the distal common bile duct with stent placement. -Gastroparesis-likely secondary to paralytic ileus associated with acute pancreatitis. He has had elevated lipase's in the past so I suspect that this is acute on chronic pancreatitis secondary to gallstone induced pancreatitis. Continue IV Reglan as ordered and azithromycin as ordered -Cholelithiasis-status postcholecystectomy postop day 1. -Pancreatitis-he has had a good decrease in his hematocrit and BUN which correlates with good outcome regarding severe pancreatitis. I would recommend him eating as much as tolerated after he undergoes cholecystectomy. MaintenanceIV fluids at 100 cc an hour. Encourage p.o. Aggressive bowel regimen. Repeat ESR and CRP and monitor white count 12/06-status post ERCP postop day 3. Status post cholecystectomy postop day 2. All his numbers are trending in the right direction. CT scan abdomen pelvis shows improving pancreatitis. He I suspect that he just has an ileus. We will continue azithromycin to hopefully increase his migratory motor complex. Would recommend to continue scheduled Reglan. Recommend to add MiraLAX and stool softener and if he does not have a significant bowel movement to incorporate enema this until he has 3 good bowel movements. -12/07-status post ERCP postop day 4. Status post lap cholecystectomy day 3. All numbers are trending in the right direction. He is feeling a lot better. He is less bloated. He continues to walk the halls to improve his GI motility. Continue Reglan, MiraLAX and stool softener. Hopefully if he has a good bowel movement he will be able to be DC'd tomorrow. 12/08-patient is doing a lot better. He has been okay to be DC'd from surgical standpoint. He will need to follow-up in the GI clinic if he goes home today. He will need stent removal or replacement in approximately 8 weeks. Charges/Coding Visit Charges Inpatient E&M: 03468 Subs Hosp L3 12/08/22 1017 <Electronically signed by Clem Friend DO> Cosigner Signature (if applicable): CC: ~ Signed [facility] Work Phone: 1(694) 511-166408-26-2023 Progress note Author Angelina Hicks [facility] December 08, 2022 8:04am Note Date/Time December 08, 2022 8: 04am [facility] Medical Records Department [address] [place] [address] Progress Note - Surgery 12/08/22702 MR#: [id number] Acct: [id number] Name: TRIP MYERS Rep #:[id number] : 1965 57 From: Angelina Hicks MD PCP: Dr. Danni Swann MD Status:AD M IN [facility] Subjective Subjective Patient is tolerating clear liquids. Patient did have 2 bowel movements yesterday first 1 was larger, positive flatus Objective Data Objective Data Vital Signs: Vital Signs Temp Pulse Resp BP Pulse Ox O2 Del Method O2 Flow Rate 98.2 F 68 16 157/87 H 94 Room Air 1 12/08/22 05:46 12/08/22 05:46 12/08/22 05:46 12/08/22 05:46 12/08/22 05:46 12/08/22 05:54 12/05/22 05:00 FiO2 21 12/04/22 01:30 Oxygen Flow Rate (L/min) 1 Oxygen Delivery Method Room Air Weight: 161 lb 2.526 oz Body Mass Index (BMI) 25.9 Intake & Output: Intake and Output for Last 24 Hours 12/06/22 12/07/22 12/08/22 23:59 23:59 23:59 Intake Total 2543.33 / 2543.33 2698.33 / 3148.33 700 / 700 Balance 2543.33 / 2543.33 2698.33 / 3148.33 700 / 700 Lab / Micro Data 12/08/22 06:05 12/07/22 05:47 Labs: Laboratory Results - last 24 hr 12/07/22 05:47: Magnesium 2.1 Physical Exam Const oriented x3 and no apparent distress Resp normal respiratory effort Cardio regular rate GI soft to palpation GI Narrative: Incision dressed clean dry and intact, mild distention, no peritoneal signs Assessment & Plan Assessment/Plan (1) S/P laparoscopic cholecystectomy: (2) Ileus: (3) Gastroparesis: PLAN: Plan Patient is having some flatus also had 2 bowel movements yesterday. Patient didtolerate clears will advance to regular diet. Patient able to tolerate & continue to do well, patient could be DC'd. Angelina Hicks M.D. Pager: [phone] [facility] [address] [place] [address], [address] [place] [address] Office: [phone] 12/08/22 0804 <Electronically signed by Angelina Hicks MD> Cosigner Signature (if applicable): CC: ~ Signed [facility] Work Phone: 1([phone]) 241-934608-25-2023 Progress note Author Clem Friend [facility] December 07, 2022 6:51pm Note Date/Time December 07, 2022 6: 51pm [facility] Medical Records Department [address] [place] [address] Progress Note - GI 12/07/22 1848 MR#: [id number] Acct: [id number] Name: TRIP MYERS Rep #:[id number] : 1965 57 From: Clem Forde DO PCP: Dr. Danni Swann MD Status:AD M IN Location: [place] [address] Subjective Subjective Patient had small bowel movement with some gas. Appetite is very poor. Denies any nausea or vomiting. Objective Data Objective Data Vital Signs: Vital Signs Temp Pulse Resp BP Pulse Ox O2 Del Method O2 Flow Rate 98.5 F 67 18 151/86 H 100 Room Air 1 12/07/22 15:00 12/07/22 15:00 12/07/22 15:00 12/07/22 15:00 12/07/22 15:00 12/07/22 15:00 12/05/22 05:00 FiO2 21 12/04/22 01:30 Oxygen Flow Rate (L/min) 1 Oxygen Delivery Method Room Air Weight: 161 lb 2.526 oz Body Mass Index (BMI) 25.9 Intake & Output: Intake and Output for Last 24 Hours 12/05/22 12/06/22 12/07/22 23:59 23:59 23:59 Intake Total 1241.92 / 1241.92 2543.33 / 2543.33 2698.33 / 2698.33 Balance 1241.92 / 1241.92 2543.33 / 2543.33 2698.33 / 2698.33 Lab / Micro Data 12/07/22 05:47 12/07/22 05:47 Labs: Laboratory Results - last 24 hr 12/07/22 05:47: WBC 16.9 H, RBC 4.05 L, Hgb 11.8 L, Hct 35.7 L, MCV 88.1, MCH 29.1, MCHC 33.1, RDW Std Deviation 43.7, RDW Coeff of Arnoldo 13.4, Plt Count 237, MPV 8.8, Immature Gran % (Auto) 0.500, Neut % (Auto) 84.6 H, Lymph % (Auto) 5.5 L, [place] % (Auto) 8.8, Eos % (Auto) 0.4, Baso % (Auto) 0.2, Absolute Neuts (auto)14.3 H, Absolute Lymphs (auto) 0.93, Nucleated RBC % 0, Sodium 139, Potassium 3.2 L, Chloride 106, Carbon Dioxide 23.0, Anion Gap 10, BUN 9, Creatinine 0.48 L, Estim Creat Clear Calc 151.38, Est GFR (MDRD) Af Amer 228, Est GFR (MDRD) Non-Af 188, BUN/Creatinine Ratio 18.6, Glucose 96, Calcium 8.0 L, Magnesium 2.1, Total Bilirubin 0.80, AST 23, ALT 96 H, Alkaline Phosphatase 68, Total Protein 6.1 L, Albumin 2.5 L, Globulin 3.6, Albumin/Globulin Ratio 0.7 L, Lipase 22 Physical Exam Narrative Physical Examination: General: Awake, alert, oriented x 3 and cooperative, laying in the PCU bed, Skin: Normal color, normal turgor, no icterus, no cyanosis except recent operative intervention with abdominal incisional dressings in place with no drainage. HEENT: AT/NC, EOMI, PERRLA, mildly dry MM. Lungs: CTA bilaterally, moderate effort, mild decrease BL bases, no rales, ronchi or wheezing. Heart: Mildly bradycardic with regular rhythm; no gallop, rub audible. Abdomen: Soft, tenderness to palpation, increased to moderate distention from day prior, hypoactive bowel sounds. Extremities: No cyanosis, clubbing, or edema. Neurological: Patient awake, alert, oriented as noted, cognitive function intact; pupils equally reactive to light and accommodation, cranial nerves grossly normal, moving all 4 extremities, no focal deficits, strength mildly to moderately global decrease secondary to acute presentation. Psychiatric: Affect appears fatigued, no acute evidence of depressive or anxietyfeelings. Const Constitutional Narrative: Patient clearly is miserable, moving around trying to find a comfortable position. Resp Resp Narrative: Diminished in the bases GI GI Narrative: Distended, diffusely tender, bowel sounds present with a few tinkles and rushes,laparoscopic incisions clean and dry Assessment & Plan Assessment/Plan (1) Gastroparesis: (2) Ileus: (3) Gallstone pancreatitis: PLAN: Plan 49-year-old gentleman with cholelithiasis and choledocholithiasis with obstructive jaundice secondary to choledocholithiasis and gallstone induced pancreatitis -Status post ERCP day 1 with removal of filling defects from the distal common bile duct and dilation of the distal common bile duct with stent placement. -Gastroparesis-likely secondary to paralytic ileus associated with acute pancreatitis. He has had elevated lipase's in the past so I suspect that this is acute on chronic pancreatitis secondary to gallstone induced pancreatitis. Continue IV Reglan as ordered and azithromycin as ordered -Cholelithiasis-status postcholecystectomy postop day 1. -Pancreatitis-he has had a good decrease in his hematocrit and BUN which correlates with good outcome regarding severe pancreatitis. I would recommend him eating as much as tolerated after he undergoes cholecystectomy. MaintenanceIV fluids at 100 cc an hour. Encourage p.o. Aggressive bowel regimen. Repeat ESR and CRP and monitor white count 12/06-status post ERCP postop day 3. Status post cholecystectomy postop day 2. All his numbers are trending in the right direction. CT scan abdomen pelvis shows improving pancreatitis. He I suspect that he just has an ileus. We will continue azithromycin to hopefully increase his migratory motor complex. Would recommend to continue scheduled Reglan. Recommend to add MiraLAX and stool softener and if he does not have a significant bowel movement to incorporate enema this until he has 3 good bowel movements. -12/07-status post ERCP postop day 4. Status post lap cholecystectomy day 3. All numbers are trending in the right direction. He is feeling a lot better. He is less bloated. He continues to walk the halls to improve his GI motility. Continue Reglan, MiraLAX and stool softener. Hopefully if he has a good bowel movement he will be able to be DC'd tomorrow. Charges/Coding Visit Charges Inpatient E&M: 50186 [facility] Hosp L3 12/07/221850 <Electronically signed by Clem Friend DO> Cosigner Signature (if applicable): CC: ~ Signed [facility] Work Phone: 1(380) 832-680608-25-2023 Progress note Author Linda Hicks [facility] December 07, 2022 4:14pm Note Date/Time December 07, 2022 6: 06am [facility] Medical Records Department [address] [place] [address] Progress Note - Hospitalist 12/07/22605 MR#: [id number] Acct: [id number] Name: TRIP MYERS Rep #:[id number] : 1965 57 From: Linda Hicks MD PCP: Dr. Danni Swann MD Status:AD M IN Location: [place] [address]- 1 Reason for Visit Reason for Visit: Diagnoses Gastroparesis (12/03/22) Ileus, unspecified (12/03/22) Calculus of gallbladder with chronic cholecystitis without obstruction (12/03/22) Biliary acute pancreatitis without necrosis or infection (12/03/22) Subjective Subjective With no acute events overnight per self and per nursing report. Patient is passing flatus but still no BM and still mild abdominal distention. Currently he denies any nausea and notes pain is well controlled and has not required any narcotic therapy. Patient denies fevers, chills, nausea, emesis, abdominal pain, chest pain or dyspnea. Objective Data Objective Data Vital Signs: Vital Signs Temp Pulse Resp BP Pulse Ox O2 Del Method O2 Flow Rate 98.6 F 70 16 160/91 H 96 Room Air 1 12/07/22 03:07 12/07/22 03:07 12/07/22 03:07 12/07/22 03:07 12/07/22 03:07 12/07/22 05:29 12/05/22 05:00 FiO2 21 12/04/22 01:30 Oxygen Flow Rate (L/min) 1 Oxygen Delivery Method Room Air Weight: 161 lb 2.526 oz Body Mass Index (BMI) 25.9 Intake & Output: Intake and Output for Last 24 Hours 12/05/22 12/06/22 12/07/22 23:59 23:59 23:59 Intake Total 1241.92 / 1241.92 2543.33 / 2543.33 1000 / 1000 Balance 1241.92 / 1241.92 2543.33 / 2543.33 1000 / 1000 Lab / Micro Data 12/07/22 05:47 12/07/22 05:47 Labs: Laboratory Results - last 24 hr 12/06/22 06:15: WBC 18.2 H, RBC 4.41 L, Hgb 12.7 L, Hct 39.2 L, MCV 88.9, MCH 28.8, MCHC 32.4, RDW Std Deviation 43.5, RDW Coeff of Arnoldo 13.3, Plt Count 263, MPV 9.0, Immature Gran % (Auto) 1.600 H, Neut % (Auto) 87.3 H, Lymph % (Auto) 3.8 L, [place] % (Auto) 7.0, Eos % (Auto) 0.1, Baso % (Auto) 0.2, Absolute Neuts (auto) 15.9 H, Absolute Lymphs (auto) 0.69 L, Nucleated RBC % 0, Sodium 139, Potassium 3.1 L, Chloride 105, Carbon Dioxide 26.0, Anion Gap 8, BUN 12, Creatinine 0.63 L, Estim Creat Clear Calc 115.34, Est GFR (MDRD) Af Amer 169, Est GFR (MDRD) Non-Af 139, BUN/Creatinine Ratio 19.1, Glucose 95, Calcium 8.3 L,Total Bilirubin 1.00, AST 45 H, ALT 151 H, Alkaline Phosphatase 81, Total Protein 6.7, Albumin 2.9 L, Globulin 3.8, Albumin/Globulin Ratio 0.8 L, Lipase 36 Radiography Diagnostic Testing: Radiology Impression Abdomen CT 12/06/22 06:22 IMPRESSION: Partial resolution of acute pancreatitis. Small bilateral pleural effusions associated with bilateral lower lobe dependent consolidation. Fatty infiltration of the liver. Atherosclerosis. Electronically Signed: Moira Hammond MD at 8:51 EDT , ADDENDUM: 12/06/2228 IMPRESSION: undefined Physical Exam Narrative Physical Examination: General: Awake, alert, oriented x 3 and cooperative, seated upright in the PCU bedside chair, notes feeling improved the day prior, mildly fatigued. Skin: Normal color, normal turgor, no icterus, no cyanosis except recent operative intervention with abdominal incisional dressings in place with no drainage. HEENT: AT/NC, EOMI, PERRLA, MMM. Lungs: CTA bilaterally, moderate effort, mild decrease BL bases, no rales, ronchi or wheezing. Heart: Mildly bradycardic with regular rhythm; no gallop, rub audible. Abdomen: Soft, expected mild tenderness palpation but no rebound or guarding, still mild distention, mildly increased bowel sounds from day prior. Extremities: No cyanosis, clubbing, or edema. Neurological: Patient awake, alert, oriented as noted, cognitive function intact; pupils equally reactive to light and accommodation, cranial nerves grossly normal, moving all 4 extremities, no focal deficits, strength improving,mildly to moderately global decrease secondary to acute presentation. Psychiatric: Affect appears fatigued, no acute evidence of depressive or anxietyfeelings. Assessment & Plan Assessment/Plan (1) Cholelithiasis with chronic cholecystitis: QUALIFIERS: Biliary obstruction: without biliary obstruction Cholelithiasis location: gallbladder Qualified Code(s): K80.10 - Calculus of gallbladder with chronic cholecystitis without obstruction PLAN: Plan The patient is a 57 y/o M w/ PMHx: Allergic rhintis, OA, HTN, HLD, JEFFERY on CPAP, HTN, HLD, Former tobacco use, Non-CAD related cardiomyopathy, CAD-none angiographically significant, Underlying LBBB who presents to the [facility] ED on 12/03/22 with history of excruciating epigastric discomfort with radiation acrosshis abdomen into his back with intermittent similar discomfort over the last several years however worsened since June prompting eventual ED evaluation. #1. Acute gallstone pancreatitis with potentially acute on chronic cholecystitis with chronic cholelithiasis with Hyperbilirubinemia/Transaminitis complicated by postoperative ileus: ED evaluation with lipase greater than 5000,T. bili 2.10, D bili 1.48, AST/ALT 616/65, alk phos 163, CT abdomen and pelvis with extensive peripancreatic inflammatory changes, mild dilation of the common bile duct, possible small stones in the distal common bile duct, follow-up gallbladder ultrasound with cholelithiasis with a distended biliary tree. 12/03/22 Dr. Forde ERCP with a single localized biliary stricture found in the lower third of the main bile duct likely secondary to previous stones and benignappearing with dilation performed, choledocholithiasis found with complete removal as well as biliary sphincterotomy and balloon extraction and a temporarystent placed in the common bile duct with recommendation for azithromycin 500 mgIV daily, Reglan 5 mg IV every 6 hours and hold on anticoagulation secondary to potential conversion to hemorrhagic pancreatitis. 12/04/22 Dr. Yao Laparoscopiccholecystectomy with cholangiograms and umbilical herniorrhaphy. 12/05/22 abdominal distention, decreased flatus, no BM with post-operative ileus, encouraged ambulation/activity, decreased oral intake per surgery to sips/chips until improved with planned advancement following. 12/05/22 hepatic profile with T. bili 0.80, AST/ALT 71/190, alk phos 83, lipase 170, improving-->12/06/22 hepatic profile with T. bili 1.0, AST/ALT 45/151, alk phos 81, lipase 36. CT A/Pw/ partial resolution of acute pancreatitis, small bilateral pleural effusions with bilateral lower lobe dependent consolidation, fatty infiltration of the liver, atherosclerosis, surgically absent gallbladder with fluid within the gallbladder fossa which is to be expected postsurgically. 12/07/2022 CBC with WBC 16.9 with left shift but improved since prior. 12/07/22 initiated on clears given improvement per Surgery. #2. Hypokalemia: Admission K+ 3.2, will request magnesium level, initiated on scheduled supplementation per general surgery, repeat level in AM. #3. Nonobstructive not angiographically significant CAD with known CAD related cardiomyopathy: 04/19/22 ECHO w/ normal LV systolic function, EF 55%, septal motion consistent with IVCD, trivial MVI, trivial TVI, trivial IMAN, trivial PVI,diastolic function indeterminate, last cardiac catheterization noted 12/11/2019, continued home coreg, added back aspirin potentially 12/06/22 per discussion withDr. Yao/Dr. Forde. #4. Hypertension: Continue home regimen including Coreg, PRN hydralazine. #5. Hyperlipidemia: Not on statin therapy, defer to outpatient especially given#1. #6. Allergic rhinitis: We will continue patient home montelukast regimen. #7. Former tobacco use: Encourage continued tobacco cessation. #8. JEFFERY: CPAP nightly; however, here as been preferentially using HS oxygen instead. #9. DVT prophylaxis: SCDs, hold chemoprophylaxis given planned interventions asnoted. #9. CODE status: Full Code. Charges/Coding Visit Charges Inpatient E&M: 78580 Subs Hosp L2 12/07/22 1614 <Electronically signed by Linda Hicks MD> Cosigner Signature (if applicable): CC: ~ Signed [facility] Work Phone: 1([phone]) 630-153308-25-2023 Progress note Author Stefano Yao [facility] December 07, 2022 4:09pm Note Date/Time December 07, 2022 4: 09pm [facility] Medical Records Department [address] [place] [id number] Progress Note - Surgery 12/07/22 1606 MR#: [id number] Acct: [id number] Name: TRIP MYERS Channing Rep #:[id number] : 1965 57 From: Stefano Yao MD PCP: Dr. Danni Swann MD Status:AD M IN [facility] Subjective Subjective Patient feels that he is making progress. He had a reasonable amount of flatus this morning although during the afternoon it is slowed down. He has not had a bowel movement. He has some mild nausea with taking the clear liquids but no emesis. He has back and abdominal pain remained fairly constant but he has not required narcotics. He probably will pursue some acetaminophen here later today. He is not overly hungry. Objective Data Objective Data Vital Signs: Vital Signs Temp Pulse Resp BP Pulse Ox O2 Del Method O2 Flow Rate 98.9 F 73 18 150/92 H 94 Room Air 1 12/07/22 09:00 12/07/22 09:00 12/07/22 09:00 12/07/22 09:00 12/07/22 09:00 12/07/22 13:47 12/05/22 05:00 FiO2 21 12/04/22 01:30 Oxygen Flow Rate (L/min) 1 Oxygen Delivery Method Room Air Weight: 161 lb 2.526 oz Body Mass Index (BMI) 25.9 Intake & Output: Intake and Output for Last 24 Hours 12/05/22 12/06/22 12/07/22 23:59 23:59 23:59 Intake Total 1241.92 / 1241.92 2543.33 / 2543.33 2218.33 / 2218.33 Balance 1241.92 / 1241.92 2543.33 / 2543.33 2218.33 / 2218.33 Lab / Micro Data 12/07/22 05:47 12/07/22 05:47 Labs: Laboratory Results - last 24 hr 12/07/22 05:47: WBC 16.9 H, RBC 4.05 L, Hgb 11.8 L, Hct 35.7 L, MCV 88.1, MCH 29.1, MCHC 33.1, RDW Std Deviation 43.7, RDW Coeff of Arnoldo 13.4, Plt Count 237, MPV 8.8, Immature Gran % (Auto) 0.500, Neut % (Auto) 84.6 H, Lymph % (Auto) 5.5 L, [place] % (Auto) 8.8, Eos % (Auto) 0.4, Baso % (Auto) 0.2, Absolute Neuts (auto)14.3 H, Absolute Lymphs (auto) 0.93, Nucleated RBC % 0, Sodium 139, Potassium 3.2 L, Chloride 106, Carbon Dioxide 23.0, Anion Gap 10, BUN 9, Creatinine 0.48 L, Estim Creat Clear Calc 151.38, Est GFR (MDRD) Af Amer 228, Est GFR (MDRD) Non-Af 188, BUN/Creatinine Ratio 18.6, Glucose 96, Calcium 8.0 L, Magnesium 2.1,Total Bilirubin 0.80, AST 23, ALT 96 H, Alkaline Phosphatase 68, Total Protein 6.1 L, Albumin 2.5 L, Globulin 3.6, Albumin/Globulin Ratio 0.7 L, Lipase 22 Physical Exam GI GI Narrative: Abdomen remains as earlier today distended though not focally tender. Assessment & Plan Assessment/Plan (1) Ileus: (2) Gastroparesis: PLAN: Plan Very slowly resolving ileus. I will hold at clear liquids tonight. I will treat the patient with a Dulcolax suppository tonight to see if that offers any benefit. He is doing a very good job of walking the halls. He enjoys having the IV out. He is voiding well today and feels that that is back close to normal. He has had an opportunity to ask and have questions answered. Dr. Hicks will cover for the weekend. 12/07/22 5801 <Electronically signed by Stefano Yao MD> Cosigner Signature (if applicable): CC: ~ Signed [facility] Work Phone: 1(973) 373-150708-25-2023 Progress note Author Stefano Santamariaanatoliy [facility] December 07, 2022 6:12am Note Date/Time December 07, 2022 6: 12am [facility] Medical Records Department [address] [place] [address] Progress Note - Surgery 12/07/22 0609 MR#: [id number] Acct: [id number] Name: TRIP MYERS Rep #:[id number] : 1965 57 From: Stefano Yao MD PCP: Dr. Danni Swann MD Status:AD M IN Location: [place] [address] Subjective Subjective Patient states that last night he suddenly feels like he turned the switch and is feeling better. He continues to have flatus although no stool. Pain is better managed and he was able to do overnight once again with Tylenol. He hopes not to have to resume the Dilaudid. He has been ambulating frequently. Objective Data Objective Data Vital Signs: Vital Signs Temp Pulse Resp BP Pulse Ox O2 Del Method O2 Flow Rate 98.6 F 70 16 160/91 H 96 Room Air 1 12/07/22 03:07 12/07/22 03:07 12/07/22 03:07 12/07/22 03:07 12/07/22 03:07 12/07/22 05:29 12/05/22 05:00 FiO2 21 12/04/22 01:30 Oxygen Flow Rate (L/min) 1 Oxygen Delivery Method Room Air Weight: 161 lb 2.526 oz Body Mass Index (BMI) 25.9 Intake & Output: Intake and Output for Last 24 Hours 12/05/22 12/06/22 12/07/22 23:59 23:59 23:59 Intake Total 1241.92 / 1241.92 2543.33 / 2543.33 1000 / 1000 Balance 1241.92 / 1241.92 2543.33 / 2543.33 1000 / 1000 Lab / Micro Data 12/06/22 06:15 12/06/22 06:15 Labs: Laboratory Results - last 24 hr 12/06/22 06:15: WBC 18.2 H, RBC 4.41 L, Hgb 12.7 L, Hct 39.2 L, MCV 88.9, MCH 28.8, MCHC 32.4, RDW Std Deviation 43.5, RDW Coeff of Arnoldo 13.3, Plt Count 263, MPV 9.0, Immature Gran % (Auto) 1.600 H, Neut % (Auto) 87.3 H, Lymph % (Auto) 3.8 L, [place] % (Auto) 7.0, Eos % (Auto) 0.1, Baso % (Auto) 0.2, Absolute Neuts (auto) 15.9 H, Absolute Lymphs (auto) 0.69 L, Nucleated RBC % 0, Sodium 139, Potassium 3.1 L, Chloride 105, Carbon Dioxide 26.0, Anion Gap 8, BUN 12, Creatinine 0.63 L, Estim Creat Clear Calc 115.34, Est GFR (MDRD) Af Amer 169, Est GFR (MDRD) Non-Af 139, BUN/Creatinine Ratio 19.1, Glucose 95, Calcium 8.3 L,Total Bilirubin 1.00, AST 45 H, ALT 151 H, Alkaline Phosphatase 81, Total Protein 6.7, Albumin 2.9 L, Globulin 3.8, Albumin/Globulin Ratio 0.8 L, Lipase 36 Radiography Diagnostic Testing: Radiology Impression Abdomen CT 12/06/22 06:22 IMPRESSION: Partial resolution of acute pancreatitis. Small bilateral pleural effusions associated with bilateral lower lobe dependent consolidation. Fatty infiltration of the liver. Atherosclerosis. Electronically Signed: Moira Hammond MD at 8:51 EDT Reading Location ID and State: [facility] / [place] Tel , Service support , ADDENDUM: 12/06/22927 IMPRESSION: undefined Physical Exam Narrative Patient all generally appears to be much more comfortable and much more optimistic about his progress Resp normal respiratory effort and clear to auscultation bilaterally GI GI Narrative: Softly distended, bowel sounds infrequent, dressings dry, less tender overall Assessment & Plan Assessment/Plan (1) Ileus: (2) Gastroparesis: (3) Gallstone pancreatitis: PLAN: Plan Patient progress and clinical findings suggest that his pancreatitis/ileus are slowly resolving. I will initiate clear liquids and stop the IV fluids. Convert to oral pantoprazole The patient will continue to mobilize and ambulate. I will assist with third space fluid removal solution to a single low-dose Lasix. Laboratories pending. Patient has had mild hypokalemia which was replaced yesterday. We will recheck today. He has had leukocytosis and that will be rechecked today as well. No current antibiotic therapy. 12/07/22611 <Electronically signed by Stefano Yao MD> Cosigner Signature (if applicable): CC: ~ Signed [facility] Work Phone: [phone] Progress note Author Clem Friend [facility] December 06, 2022 5:16pm Note Date/Time December 06, 2022 5: 16pm [facility] Medical Records Department [address] [place] [address] Progress Note - GI 12/06/221712 MR#: [id number] Acct: [id number] Name: TRIP MYERS Rep #:[id number] : 1965 57 From: Clem Friend DO PCP: Dr. Danni Swann MD Status:AD M IN Location: [facility] [id number] Subjective Subjective Patient notes that his abdominal pain is a 4 out of 10 at this time. Earlier today was a 10 out of 10. He still has not had a significant bowel movement. He has been passing some gas. He denies any chest pain or breath. CT scan abdomen pelvis was ordered but did not show any signs of acute pathology. His IV fluids were increased. His oxygen requirements have not increased. Objective Data Objective Data Vital Signs: Vital Signs Temp Pulse Resp BP Pulse Ox O2 Del Method O2 Flow Rate 98.3 F 63 16 155/80 H 95 Room Air 1 12/06/22 15:30 12/06/22 15:30 12/06/22 15:30 12/06/22 15:30 12/06/22 15:30 12/06/22 15:30 12/05/22 05:00 FiO2 21 12/04/22 01:30 Oxygen Flow Rate (L/min) 1 Oxygen Delivery Method Room Air Weight: 161 lb 2.526 oz Body Mass Index (BMI) 25.9 Intake & Output: Intake and Output for Last 24 Hours 12/04/22 12/05/22 12/06/22 23:59 23:59 23:59 Intake Total 4211.25 / 4211.25 1241.92 / 1241.92 2543.33 / 2543.33 Balance 4211.25 / 4211.25 1241.92 / 1241.92 2543.33 / 2543.33 Lab / Micro Data 12/06/22 06:15 12/06/22 06:15 Labs: Laboratory Results - last 24 hr 12/06/22 06:15: WBC 18.2 H, RBC 4.41 L, Hgb 12.7 L, Hct 39.2 L, MCV 88.9, MCH 28.8, MCHC 32.4, RDW Std Deviation 43.5, RDW Coeff of Arnoldo 13.3, Plt Count 263, MPV 9.0, Immature Gran % (Auto) 1.600 H, Neut % (Auto) 87.3 H, Lymph % (Auto) 3.8 L, [place] % (Auto) 7.0, Eos % (Auto) 0.1, Baso % (Auto) 0.2, Absolute Neuts (auto) 15.9 H, Absolute Lymphs (auto) 0.69 L, Nucleated RBC % 0, Sodium 139, Potassium 3.1 L, Chloride 105, Carbon Dioxide 26.0, Anion Gap 8, BUN 12, Creatinine0.63 L, Estim Creat Clear Calc 115.34, Est GFR (MDRD) Af Amer 169, Est GFR (MDRD) Non-Af 139, BUN/Creatinine Ratio 19.1, Glucose 95, Calcium 8.3 L, Total Bilirubin 1.00, AST 45 H, ALT 151 H, Alkaline Phosphatase 81, Total Protein 6.7,Albumin 2.9 L, Globulin 3.8, Albumin/Globulin Ratio 0.8 L, Lipase 36 Radiography Diagnostic Testing: Radiology Impression Abdomen CT 12/06/22 06:22 IMPRESSION: Partial resolution of acute pancreatitis. Small bilateral pleural effusions associated with bilateral lower lobe dependent consolidation. Fatty infiltration of the liver. Atherosclerosis. Electronically Signed: Moira Hammond MD at 8:51 EDT , ADDENDUM: 12/06/22 0928 IMPRESSION: undefined Physical Exam Narrative Physical Examination: General: Awake, alert, oriented x 3 and cooperative, laying in the PCU bed, Skin: Normal color, normal turgor, no icterus, no cyanosis except recent operative intervention with abdominal incisional dressings in place with no drainage. HEENT: AT/NC, EOMI, PERRLA, mildly dry MM. Lungs: CTA bilaterally, moderate effort, mild decrease BL bases, no rales, ronchi or wheezing. Heart: Mildly bradycardic with regular rhythm; no gallop, rub audible. Abdomen: Soft, tenderness to palpation, increased to moderate distention from day prior, hypoactive bowel sounds. Extremities: No cyanosis, clubbing, or edema. Neurological: Patient awake, alert, oriented as noted, cognitive function intact; pupils equally reactive to light and accommodation, cranial nerves grossly normal, moving all 4 extremities, no focal deficits, strength mildly to moderately global decrease secondary to acute presentation. Psychiatric: Affect appears fatigued, no acute evidence of depressive or anxietyfeelings. Const Constitutional Narrative: Patient clearly is miserable, moving around trying to find a comfortable position. Resp Resp Narrative: Diminished in the bases GI GI Narrative: Distended, diffusely tender, bowel sounds present with a few tinkles and rushes,laparoscopic incisions clean and dry Assessment & Plan Assessment/Plan (1) Gastroparesis: (2) Ileus: (3) Gallstone pancreatitis: PLAN: Plan 49-year-old gentleman with cholelithiasis and choledocholithiasis with obstructive jaundice secondary to choledocholithiasis and gallstone induced pancreatitis -Status post ERCP day 1 with removal of filling defects from the distal common bile duct and dilation of the distal common bile duct with stent placement. -Gastroparesis-likely secondary to paralytic ileus associated with acute pancreatitis. He has had elevated lipase's in the past so I suspect that this is acute on chronic pancreatitis secondary to gallstone induced pancreatitis. Continue IV Reglan as ordered and azithromycin as ordered -Cholelithiasis-status postcholecystectomy postop day 1. -Pancreatitis-he has had a good decrease in his hematocrit and BUN which correlates with good outcome regarding severe pancreatitis. I would recommend him eating as much as tolerated after he undergoes cholecystectomy. MaintenanceIV fluids at 100 cc an hour. Encourage p.o. Aggressive bowel regimen. Repeat ESR and CRP and monitor white count 12/06-status post ERCP postop day 3. Status post cholecystectomy postop day 2. All his numbers are trending in the right direction. CT scan abdomen pelvis shows improving pancreatitis. He I suspect that he just has an ileus. We will continue azithromycin to hopefully increase his migratory motor complex. Would recommend to continue scheduled Reglan. Recommend to add MiraLAX and stool softener and if he does not have a significant bowel movement to incorporate enema this until he has 3 good bowel movements. Charges/Coding Visit Charges Inpatient E&M: 07188 Subs Hosp L3 12/06/22 8660 <Electronically signed by Clem Friend DO> Cosigner Signature (if applicable): CC: ~ Signed [facility] Work Phone: [phone]) 844-165008-24-2023 Progress note Author Linda Hicks [facility] December 06, 2022 1:51pm Note Date/Time December 06, 2022 6: 22am [facility] Medical Records Department [facility] [place] [address] [place] [address] Progress Note - Hospitalist 12/06/22621 MR#: [id number] Acct: [id number] Name: TRIP MYERS Rep #:[id number] : 1965 57 From: Linda Hicks MD PCP: Dr. Danni Swann MD Status:AD M IN Location: [place] [address] Reason for Visit Reason for Visit: Diagnoses Gastroparesis (12/03/22) Ileus, unspecified (12/03/22) Calculus of gallbladder with chronic cholecystitis without obstruction (12/03/22) Biliary acute pancreatitis without necrosis or infection (12/03/22) Subjective Subjective Patient overnight with increased abdominal sensation of distention, still only minimal flatus despite walking aggressively and increased discomfort, cramping, currently improved he notes but had been 10 out of 10 earlier and more sharp stabbing with cramping. Discussed plan of care which included CT abdomen ordered by general surgery and awaiting these results. Patient denies fevers, chills, nausea, emesis, chest pain or dyspnea. Objective Data Objective Data Vital Signs: Vital Signs Temp Pulse Resp BP Pulse Ox O2 Del Method O2 Flow Rate 98.2 F 72 16 151/83 H 95 Room Air 1 12/06/22 03:00 12/06/22 03:00 12/06/22 03:00 12/06/22 03:00 12/06/22 03:00 12/06/22 05:40 12/05/22 05:00 FiO2 21 12/04/22 01:30 Oxygen Flow Rate (L/min) 1 Oxygen Delivery Method Room Air Weight: 161 lb 2.526 oz Body Mass Index (BMI) 25.9 Intake & Output: Intake and Output for Last 24 Hours 12/04/22 12/05/22 12/06/22 23:59 23:59 23:59 Intake Total 4211.25 / 4211.25 1241.92 / 1241.92 878.33 / 878.33 Balance 4211.25 / 4211.25 1241.92 / 1241.92 878.33 / 878.33 Lab / Micro Data 12/06/22 06:15 12/06/22 06:15 Physical Exam Narrative Physical Examination: General: Awake, alert, oriented x 3 and cooperative, laying in the PCU bed, morefatigued than day prior, notes abdominal pain currently improved but still distended and decreased flatus see notes. Skin: Normal color, normal turgor, no icterus, no cyanosis except recent operative intervention with abdominal incisional dressings in place with no drainage. HEENT: AT/NC, EOMI, PERRLA, mildly dry MM. Lungs: CTA bilaterally, moderate effort, mild decrease BL bases, no rales, ronchi or wheezing. Heart: Mildly bradycardic with regular rhythm; no gallop, rub audible. Abdomen: Soft, tenderness to palpation, increased to moderate distention from day prior, hypoactive bowel sounds. Extremities: No cyanosis, clubbing, or edema. Neurological: Patient awake, alert, oriented as noted, cognitive function intact; pupils equally reactive to light and accommodation, cranial nerves grossly normal, moving all 4 extremities, no focal deficits, strength mildly to moderately global decrease secondary to acute presentation. Psychiatric: Affect appears fatigued, no acute evidence of depressive or anxietyfeelings. Assessment & Plan Assessment/Plan (1) Cholelithiasis with chronic cholecystitis: QUALIFIERS: Biliary obstruction: without biliary obstruction Cholelithiasis location: gallbladder Qualified Code(s): K80.10 - Calculus of gallbladder with chronic cholecystitis without obstruction PLAN: Plan The patient is a 57 y/o M w/ PMHx: Allergic rhintis, OA, HTN, HLD, JEFFERY on CPAP, HTN, HLD, Former tobacco use, Non-CAD related cardiomyopathy, CAD-none angiographically significant, Underlying LBBB who presents to the [facility] ED on 12/03/22 with history of excruciating epigastric discomfort with radiation acrosshis abdomen into his back with intermittent similar discomfort over the last several years however worsened since June prompting eventual ED evaluation. #1. Acute gallstone pancreatitis with potentially acute on chronic cholecystitis with chronic cholelithiasis with Hyperbilirubinemia/Transaminitis complicated by postoperative ileus: ED evaluation with lipase greater than 5000,T. bili 2.10, D bili 1.48, AST/ALT 616/65, alk phos 163, CT abdomen and pelvis with extensive peripancreatic inflammatory changes, mild dilation of the common bile duct, possible small stones in the distal common bile duct, follow-up gallbladder ultrasound with cholelithiasis with a distended biliary tree. 12/03/22 Dr. Forde ERCP with a single localized biliary stricture found in the lower third of the main bile duct likely secondary to previous stones and benignappearing with dilation performed, choledocholithiasis found with complete removal as well as biliary sphincterotomy and balloon extraction and a temporarystent placed in the common bile duct with recommendation for azithromycin 500 mgIV daily, Reglan 5 mg IV every 6 hours and hold on anticoagulation secondary to potential conversion to hemorrhagic pancreatitis. 12/04/22 Dr. Yao Laparoscopiccholecystectomy with cholangiograms and umbilical herniorrhaphy. 12/05/22 abdominal distention, decreased flatus, no BM with post-operative ileus, encouraged ambulation/activity, decreased oral intake per surgery to sips/chips until improved with planned advancement following. 12/05/22 hepatic profile with T. bili 0.80, AST/ALT 71/190, alk phos 83, lipase 170, improving-->12/06/22 hepatic profile with T. bili 1.0, AST/ALT 45/151, alk phos 81, lipase 36. 12/06/22 transitioned to IV PPI, added back IV dilaudid, pending repeat CT A/P and low judicious IVFs given ongoing pain, distention although does admit to onset flatus. #2. Nonobstructive not angiographically significant CAD with known CAD related cardiomyopathy: 04/19/22 ECHO w/ normal LV systolic function, EF 55%, septal motion consistent with IVCD, trivial MVI, trivial TVI, trivial IMAN, trivial PVI,diastolic function indeterminate, last cardiac catheterization noted 12/11/2019, will continue coreg, add back aspirin potentially 12/06/[address] Yao, but will also clarify with Dr. Forde. #3. Hypertension: Continue home regimen including Coreg, PRN hydralazine. #4. Hyperlipidemia: Not on statin therapy, defer to outpatient especially given#1. #5. Allergic rhinitis: We will continue patient home montelukast regimen. #6. Former tobacco use: Encourage continued tobacco cessation. #7. JEFFERY: CPAP nightly; however, here as been preferentially using HS oxygen instead. #8. DVT prophylaxis: SCDs, hold chemoprophylaxis given planned interventions asnoted. #9. CODE status: Full Code. Charges/Coding Visit Charges Inpatient E&M: 86856 Subs Hosp L2 12/06/22 1350 <Electronically signed by Linda Hicks MD> Cosigner Signature (if applicable): CC: ~ Signed ADDENDUM by Dr. Linda Hicks MD on 12/06/[address] abdomen pelvis with gallbladder surgically absent, fluid within the gallbladder fossa expected postsurgically, partial resolution of acute pancreatitis, fatty infiltration of the liver, atherosclerotic change, small bilateral pleural effusions associated with bilateral lower lobe dependent consolidation. 12/06/22 1351<Electronically signed by Linda Hicks MD> Cosigner Signature (if applicable): cc: ~* Signed [facility] Work Phone: 1(587) 940-596208-24-2023 Progress note Author Stefano Yao [facility] December 06, 2022 6:31am Note Date/Time December 06, 2022 6: 31am [facility] Medical Records Department [address] [place] [address] Progress Note - Surgery 12/06/22626 MR#: [id number] Acct: [id number] Name: TRIP MYERS Rep #:[id number] : 1965 57 From: Stefano Yao MD PCP: Dr. Danni Swann MD Status:AD M IN Location: [place] [address] Subjective Subjective Patient has had a miserable night. Complaining of increasing severity of back pain. Complaining of generalized abdominal pain. Although he is passing some flatus this is not providing him relief. He additionally complains of heartburnand indigestion. Denies fever. Although previously he thought he was chilling last night that was only 1 episode. Now he just simply feels globally warm though no abnormal temperatures being recorded. No stool. No nausea no vomiting. Objective Data Objective Data Vital Signs: Vital Signs Temp Pulse Resp BP Pulse Ox O2 Del Method O2 Flow Rate 98.2 F 72 16 151/83 H 95 Room Air 1 12/06/22 03:00 12/06/22 03:00 12/06/22 03:00 12/06/22 03:00 12/06/22 03:00 12/06/22 05:40 12/05/22 05:00 FiO2 21 12/04/22 01:30 Oxygen Flow Rate (L/min) 1 Oxygen Delivery Method Room Air Weight: 161 lb 2.526 oz Body Mass Index (BMI) 25.9 Intake & Output: Intake and Output for Last 24 Hours 12/04/22 12/05/22 12/06/22 23:59 23:59 23:59 Intake Total 4211.25 / 4211.25 1241.92 / 1241.92 878.33 / 878.33 Balance 4211.25 / 4211.25 1241.92 / 1241.92 878.33 / 878.33 Lab / Micro Data 12/05/22 05:10 12/05/22 05:10 Physical Exam Const Constitutional Narrative: Patient clearly is miserable, moving around trying to find a comfortable position. Resp Resp Narrative: Diminished in the bases GI GI Narrative: Distended, diffusely tender, bowel sounds present with a few tinkles and rushes,laparoscopic incisions clean and dry Assessment & Plan Assessment/Plan (1) Ileus: (2) Gastroparesis: (3) Gallstone pancreatitis: PLAN: Plan Although there is some suggestion of the patient's ileus is starting to resolve with some flatus he clearly is absolutely miserable. We will reinitiate IV Dilaudid for patient comfort. I have concerns that his pancreatitis may be evolving. Need to assess for possible pseudocyst formation or pancreatic necrosis. Laboratory is pending. We will reinitiate IV fluids from 50 to 100 cc an hour. We will initiate proton pump inhibitor to assist with gastroparesis gastric stasis and indigestion and reflux We will reinitiate IV Dilaudid although patient is aware that this will complicate the resolution of his ileus he is clearly very fatigued with the amount of discomfort he is currently having We will check a abdominal contrasted CT scan particular looking for advancement of his pancreatitis. Ongoing pancreatitis related ileus is complicating his progress Stefano Yao M.D., F.A.C.S. 12/06/22 0631 <Electronically signed by Stefano Yao MD> Cosigner Signature (if applicable): CC: ~ Signed [facility] Work Phone: 1(544) 434-694608-23-2023 Progress note Author Linda Hicks [facility] December 05, 2022 12:59pm Note Date/Time December 05, 2022 6: 23am [facility] Medical Records Department [address] [place] [address] Progress Note - Hospitalist 12/05/22622 MR#: [id number] Acct: [id number] Name: TRIP MYERS Rep #:[id number] : 1965 57 From: Linda Hicks MD PCP: Dr. Danni Swann MD Status:AD M IN Location: [place] [address] Reason for Visit Reason for Visit: Diagnoses Gastroparesis (12/03/22) Ileus, unspecified (12/03/22) Calculus of gallbladder with chronic cholecystitis without obstruction (12/03/22) Biliary acute pancreatitis without necrosis or infection (12/03/22) Subjective Subjective Patient overnight with no acute complaints and notes that he does feel improved in the day prior with less abdominal discomfort however he does feel mildly distended and has not had any marked flatus or stool. He has been walking the halls without issue. Patient denies fevers, chills, nausea, emesis, abdominal pain, chest pain or dyspnea. Objective Data Objective Data Vital Signs: Vital Signs Temp Pulse Resp BP Pulse Ox O2 Del Method O2 Flow Rate 97.4 F L 63 16 127/74 H 93 Nasal Cannula 1 12/05/22 05:00 12/05/22 05:00 12/05/22 05:00 12/05/22 05:00 12/05/22 05:00 12/05/22 05:00 12/05/22 05:00 FiO2 21 12/04/22 01:30 Oxygen Flow Rate (L/min) 1 Oxygen Delivery Method Nasal Cannula Weight: 161 lb 2.526 oz Body Mass Index (BMI) 25.9 Intake & Output: Intake and Output for Last 24 Hours 12/03/22 12/04/22 12/05/22 23:59 23:59 23:59 Intake Total 2703.0 / 2703.0 4211.25 / 4211.25 550 / 550 Output Total 0 / 0 Balance 2703.0 / 2703.0 4211.25 / 4211.25 550 / 550 Lab / Micro Data 12/05/22 05:10 12/05/22 05:10 Labs: Laboratory Results - last 24 hr 12/04/22 04:46: ESR 18, C-React Prot Ext Range 112.00 H 12/05/22 05:10: WBC 18.0 H, RBC 4.29 L, Hgb 12.5 L, Hct 38.0 L, MCV 88.6, MCH 29.1, MCHC 32.9, RDW Std Deviation 44.3 H, RDW Coeff of Arnoldo 13.6, Plt Count 185,MPV 8.9, Immature Gran % (Auto) 0.900, Neut % (Auto) 90.0 H, Lymph % (Auto) 3.6 L, [place] % (Auto) 5.4, Eos % (Auto) 0.0, Baso % (Auto) 0.1, Absolute Neuts (auto)16.2 H, Absolute Lymphs (auto) 0.64 L, Nucleated RBC % 0, Sodium 138, Potassium 3.6, Chloride 108 H, Carbon Dioxide 24.0, Anion Gap 6, BUN 9, Creatinine 0.66 L,Estim Creat Clear Calc 110.09, Est GFR (MDRD) Af Amer 160, Est GFR (MDRD) Non-Af133, BUN/Creatinine Ratio 13.7, Glucose 126 H, Calcium 8.0 L, Total Bilirubin 0.80, AST 71 H, ALT 190 H, Alkaline Phosphatase 83, Total Protein 6.1 L, Albumin2.7 L, Globulin 3.4, Albumin/Globulin Ratio 0.8 L, Lipase 170 H Radiography Diagnostic Testing: Radiology Impression Chest X-Ray 12/04/22 09:15 IMPRESSION: Stable cardiomegaly with atelectasis at both bases, right greater than left and small left effusion. No active or acute cardiopulmonary disease. Electronically Signed: Harinder Young MD at 9:42 EDT , Cholangiogram 12/04/22 14:57 IMPRESSION: Fluoroscopic assistance for intraoperative cholangiogram. Please see operative report for additional information. Electronically Signed: Uriel Quinonez MD at 3:01 EDT , Physical Exam Narrative Physical Examination: General: Awake, alert, oriented x 3 and cooperative, laying in the PCU bed, improved appearance, notes minimal abdominal pain at this time. Skin: Normal color, normal turgor, no icterus, no cyanosis. HEENT: AT/NC, EOMI, PERRLA, MMM. Lungs: CTA bilaterally, moderate effort, mild decrease BL bases, no rales, ronchi or wheezing. Heart: Mildly bradycardic with regular rhythm; no gallop, rub audible. Abdomen: Soft, expected mild discomfort to palpation given recent OR, no reboundor guarding, mild to moderate distention with tympany noted, hypoactive bowel sounds currently. Extremities: No cyanosis, clubbing, or edema. Neurological: Patient awake, alert, oriented as noted, cognitive function intact; pupils equally reactive to light and accommodation, cranial nerves grossly normal, moving all 4 extremities, no focal deficits, strength mildly to moderately global decrease secondary to acute presentation. Psychiatric: Affect appears improved, no acute evidence of depressive or anxietyfeelings. Assessment & Plan Assessment/Plan (1) Cholelithiasis with chronic cholecystitis: QUALIFIERS: Biliary obstruction: without biliary obstruction Cholelithiasis location: gallbladder Qualified Code(s): K80.10 - Calculus of gallbladder with chronic cholecystitis without obstruction PLAN: Plan The patient is a 57 y/o M w/ PMHx: Allergic rhintis, OA, HTN, HLD, JEFFERY on CPAP, HTN, HLD, Former tobacco use, Non-CAD related cardiomyopathy, CAD-none angiographically significant, Underlying LBBB who presents to the [facility] ED on 12/03/22 with history of excruciating epigastric discomfort with radiation acrosshis abdomen into his back with intermittent similar discomfort over the last several years however worsened since June prompting eventual ED evaluation. #1. Acute gallstone pancreatitis with potentially acute on chronic cholecystitis with chronic cholelithiasis with Hyperbilirubinemia/Transaminitis complicated by postoperative ileus: ED evaluation with lipase greater than 5000,T. bili 2.10, D bili 1.48, AST/ALT 616/65, alk phos 163, CT abdomen and pelvis with extensive peripancreatic inflammatory changes, mild dilation of the common bile duct, possible small stones in the distal common bile duct, follow-up gallbladder ultrasound with cholelithiasis with a distended biliary tree. 12/03/22 Dr. Forde ERCP with a single localized biliary stricture found in the lower third of the main bile duct likely secondary to previous stones and benignappearing with dilation performed, choledocholithiasis found with complete removal as well as biliary sphincterotomy and balloon extraction and a temporarystent placed in the common bile duct with recommendation for azithromycin 500 mgIV daily, Reglan 5 mg IV every 6 hours and hold on anticoagulation secondary to potential conversion to hemorrhagic pancreatitis. 12/04/22 Dr. Yao Laparoscopiccholecystectomy with cholangiograms and umbilical herniorrhaphy. 12/05/22 abdominal distention, decreased flatus, no BM with post-operative ileus, encouraged ambulation/activity, decreased oral intake per surgery to sips/chips until improved with planned advancement following. 12/05/22 hepatic profile with T. bili 0.80, AST/LT 71/190, alk phos 83, lipase 170, improving. #2. Nonobstructive not angiographically significant CAD with known CAD related cardiomyopathy: 04/19/22 ECHO w/ normal LV systolic function, EF 55%, septal motion consistent with IVCD, trivial MVI, trivial TVI, trivial IMAN, trivial PVI,diastolic function indeterminate, last cardiac catheterization noted 12/11/2019, will continue coreg, add back aspirin potentially 12/06/[address] Yao, but will also clarify with Dr. Forde. #3. Hypertension: Continue home regimen including Coreg, PRN hydralazine. #4. Hyperlipidemia: Not on statin therapy, defer to outpatient especially given#1. #5. Allergic rhinitis: We will continue patient home montelukast regimen. #6. Former tobacco use: Encourage continued tobacco cessation. #7. JEFFERY: CPAP nightly; however, here as been preferentially using HS oxygen instead. #8. DVT prophylaxis: SCDs, hold chemoprophylaxis given planned interventions asnoted. #9. CODE status: Full Code. Charges/Coding Visit Charges Inpatient E&M: 82822 Subs Hosp L2 12/05/22 1250 <Electronically signed by Linda Hicks MD> Cosigner Signature (if applicable): CC: ~ Signed [facility] Work Phone: 1(995) 857-212408-23-2023 Progress note Author Clem Forde [facility] December 05, 2022 7:47am Note Date/Time December 05, 2022 7: 47am [facility] Medical Records Department [address] [place] [address] Progress Note - GI 12/05/22 0745 MR#: [id number] Acct: [id number] Name: TRIP MYERS Rep #:[id number] : 1965 57 From: Clem Forde DO PCP: Dr. Danni Swnan MD Status:AD M IN Location: [place] [address] Subjective Subjective Patient underwent cholecystectomy yesterday. His only issue is a mild sore throat from intubation. He also has not had any bowel movement since admission. Objective Data Objective Data Vital Signs: Vital Signs Temp Pulse Resp BP Pulse Ox O2 Del Method O2 Flow Rate 97.4 F L 63 16 127/74 H 93 Nasal Cannula 1 12/05/22 05:00 12/05/22 05:00 12/05/22 05:00 12/05/22 05:00 12/05/22 05:00 12/05/22 05:00 12/05/22 05:00 FiO2 21 12/04/22 01:30 Oxygen Flow Rate (L/min) 1 Oxygen Delivery Method Nasal Cannula Weight: 161 lb 2.526 oz Body Mass Index (BMI) 25.9 Intake & Output: Intake and Output for Last 24 Hours 12/03/22 12/04/22 12/05/22 23:59 23:59 23:59 Intake Total 2703.0 / 2703.0 4211.25 / 4211.25 936.92 / 936.92 Output Total 0 / 0 Balance 2703.0 / 2703.0 4211.25 / 4211.25 936.92 / 936.92 Lab / Micro Data 12/05/22 05:10 12/05/22 05:10 Labs: Laboratory Results - last 24 hr 12/04/22 04:46: ESR 18, C-React Prot Ext Range 112.00 H 12/05/22 05:10: WBC 18.0 H, RBC 4.29 L, Hgb 12.5 L, Hct 38.0 L, MCV 88.6, MCH 29.1, MCHC 32.9, RDW Std Deviation 44.3 H, RDW Coeff of Arnoldo 13.6, Plt Count 185,MPV 8.9, Immature Gran % (Auto) 0.900, Neut % (Auto) 90.0 H, Lymph % (Auto) 3.6 L, [place] % (Auto) 5.4, Eos % (Auto) 0.0, Baso % (Auto) 0.1, Absolute Neuts (auto)16.2 H, Absolute Lymphs (auto) 0.64 L, Nucleated RBC % 0, Sodium 138, Potassium 3.6, Chloride 108 H, Carbon Dioxide 24.0, Anion Gap 6, BUN 9, Creatinine 0.66 L,Estim Creat Clear Calc 110.09, Est GFR (MDRD) Af Amer 160, Est GFR (MDRD) Non-Af133, BUN/Creatinine Ratio 13.7, Glucose 126 H, Calcium 8.0 L, Total Bilirubin 0.80, AST 71 H, ALT 190 H, Alkaline Phosphatase 83, Total Protein 6.1 L, Albumin2.7 L, Globulin 3.4, Albumin/Globulin Ratio 0.8 L, Lipase 170 H Radiography Diagnostic Testing: Radiology Impression Chest X-Ray 12/04/22 09:15 IMPRESSION: Stable cardiomegaly with atelectasis at both bases, right greater than left and small left effusion. No active or acute cardiopulmonary disease. Electronically Signed: Harinder Young MD at 9:42 EDT , Cholangiogram 12/04/22 14:57 IMPRESSION: Fluoroscopic assistance for intraoperative cholangiogram. Please see operative report for additional information. Electronically Signed: Uriel Quinonez MD at 3:01 EDT , Physical Exam Narrative Physical Examination: General: Awake, alert, oriented x 3 and cooperative, seated upright in the PCU bed, fatigued, notes pain improved currently status post Dilaudid, currently 5 out of 10. Skin: Normal color, normal turgor, no icterus, no cyanosis. HEENT: AT/NC, EOMI, PERRLA, mild dry MM. Lungs: CTA bilaterally, moderate effort, mild decrease BL bases, no rales, ronchi or wheezing. Heart: Mildly bradycardic with regular rhythm; no gallop, rub audible. Abdomen: Soft, when distracted mild discomfort apparent right upper quadrant andepigastric region however with full manual palpation severe discomfort with voluntary guarding, no marked distention, hyperactive BS. Extremities: No cyanosis, clubbing, or edema. Neurological: Patient awake, alert, oriented as noted, cognitive function intact; pupils equally reactive to light and accommodation, cranial nerves grossly normal, moving all 4 extremities, no focal deficits, strength moderatelyglobal decrease secondary to acute presentation. Psychiatric: Affect appears fatigued, reports discomfort, no acute evidence of depressive or anxiety feelings. Assessment & Plan Assessment/Plan (1) Gastroparesis: (2) Ileus: (3) Gallstone pancreatitis: PLAN: Plan 49-year-old gentleman with cholelithiasis and choledocholithiasis with obstructive jaundice secondary to choledocholithiasis and gallstone induced pancreatitis -Status post ERCP day 1 with removal of filling defects from the distal common bile duct and dilation of the distal common bile duct with stent placement. -Gastroparesis-likely secondary to paralytic ileus associated with acute pancreatitis. He has had elevated lipase's in the past so I suspect that this is acute on chronic pancreatitis secondary to gallstone induced pancreatitis. Continue IV Reglan as ordered and azithromycin as ordered -Cholelithiasis-status postcholecystectomy postop day 1. -Pancreatitis-he has had a good decrease in his hematocrit and BUN which correlates with good outcome regarding severe pancreatitis. I would recommend him eating as much as tolerated after he undergoes cholecystectomy. MaintenanceIV fluids at 100 cc an hour. Encourage p.o. Aggressive bowel regimen. Repeat ESR and CRP and monitor white count Charges/Coding Visit Charges Inpatient E&M: 81886 Subs Hosp L3 12/05/22 9733 <Electronically signed by Clem Friend DO> Cosigner Signature (if applicable): CC: ~ Signed [facility] Work Phone: 1([phone]) 773-869308-23-2023 Progress note Author Stefano Cebul [facility] December 05, 2022 6:13am Note Date/Time December 05, 2022 6: 13am [facility] Medical Records Department [address] [place] [address] Progress Note - Surgery 12/05/22610 MR#: [id number] Acct: [id number] Name: TRIP MYERS Rep #:[id number] : 1965 57 From: Stefano Yao MD PCP: Dr. Danni Swann MD Status:AD M IN Location: [place] [address] Subjective Subjective Patient is feeling generally improved Burping but no stool or flatus Objective Data Objective Data Vital Signs: Vital Signs Temp Pulse Resp BP Pulse Ox O2 Del Method O2 Flow Rate 97.4 F L 63 16 127/74 H 93 Nasal Cannula 1 12/05/22 05:00 12/05/22 05:00 12/05/22 05:00 12/05/22 05:00 12/05/22 05:00 12/05/22 05:00 12/05/22 05:00 FiO2 21 12/04/22 01:30 Oxygen Flow Rate (L/min) 1 Oxygen Delivery Method Nasal Cannula Weight: 161 lb 2.526 oz Body Mass Index (BMI) 25.9 Intake & Output: Intake and Output for Last 24 Hours 12/03/22 12/04/22 12/05/22 23:59 23:59 23:59 Intake Total 2703.0 / 2703.0 4211.25 / 4211.25 550 / 550 Output Total 0 / 0 Balance 2703.0 / 2703.0 4211.25 / 4211.25 550 / 550 Lab / Micro Data 12/05/22 05:10 12/05/22 05:10 Labs: Laboratory Results - last 24 hr 12/04/22 04:46: ESR 18, C-React Prot Ext Range 112.00 H 12/05/22 05:10: WBC 18.0 H, RBC 4.29 L, Hgb 12.5 L, Hct 38.0 L, MCV 88.6, MCH 29.1, MCHC 32.9, RDW Std Deviation 44.3 H, RDW Coeff of Arnoldo 13.6, Plt Count 185,MPV 8.9, Immature Gran % (Auto) 0.900, Neut % (Auto) 90.0 H, Lymph % (Auto) 3.6 L, [place] % (Auto) 5.4, Eos % (Auto) 0.0, Baso % (Auto) 0.1, Absolute Neuts (auto)16.2 H, Absolute Lymphs (auto) 0.64 L, Nucleated RBC % 0, Sodium 138, Potassium 3.6, Chloride 108 H, Carbon Dioxide 24.0, Anion Gap 6, BUN 9, Creatinine 0.66 L,Estim Creat Clear Calc 110.09, Est GFR (MDRD) Af Amer 160, Est GFR (MDRD) Non-Af133, BUN/Creatinine Ratio 13.7, Glucose 126 H, Calcium 8.0 L, Total Bilirubin 0.80, AST 71 H, ALT 190 H, Alkaline Phosphatase 83, Total Protein 6.1 L, Albumin2.7 L, Globulin 3.4, Albumin/Globulin Ratio 0.8 L, Lipase 170 H Radiography Diagnostic Testing: Radiology Impression Chest X-Ray 12/04/22 09:15 IMPRESSION: Stable cardiomegaly with atelectasis at both bases, right greater than left and small left effusion. No active or acute cardiopulmonary disease. Electronically Signed: Harinder Young MD at 9:42 EDT , Cholangiogram 12/04/22 14:57 IMPRESSION: Fluoroscopic assistance for intraoperative cholangiogram. Please see operative report for additional information. Electronically Signed: Uriel Quinonez MD at 3:01 EDT , Physical Exam Resp Resp Narrative: Slightly diminished bibasilar GI GI Narrative: Soft, distended, dressings clean and dry, few bowel sounds, not focally tender Extremity Extremity Narrative: No significant lower extremity edema, SCUDs in place Assessment & Plan Assessment/Plan (1) Ileus: (2) Gastroparesis: (3) Gallstone pancreatitis: PLAN: Laboratories pending. Patient is making slow progress. Ileus related to the gallstone pancreatitis is the primary current issue. I have encouraged him to avoid narcotics. Encouraged him to ambulate and can utilize a heating pad as needed for comfort. I will moderate his IV fluids as he is voiding well. He is currently be allowed sips of clear liquids. Once his ileus improves we will be able to advance diet. I have also ceased his IV Zosyn therapy. Stefano Yao M.D., F.A.C.S. 12/05/22612 <Electronically signed by Stefano Yao MD> Cosigner Signature (if applicable): CC: ~ Signed [facility] Work Phone: 1([phone]) 687-878008-22-2023 Progress note Author Clem Forde [facility] December 04, 2022 5:21pm Note Date/Time December 04, 2022 5: 21pm [facility] Medical Records Department [address] [place] [address] Progress Note - GI 12/04/22 1200 MR#: [id number] Acct: [id number] Name: TRIP MYERS Rep #:[id number] : 1965 57 From: Clem Forde DO PCP: Dr. Danni Swann MD Status:AD M IN Location: [place] [address] Subjective Subjective Patient underwent ERCP yesterday. He has some abdominal pain that he rates at a6 out of 10. He denies any chest pain or shortness of breath. I ordered a chest x-ray this morning images showed some mild atelectasis. Plan is for cholecystectomy today. Objective Data Objective Data Vital Signs: Vital Signs Temp Pulse Resp BP Pulse Ox O2 Del Method O2 Flow Rate 99.9 F H 82 16 121/89 H 93 Nasal Cannula 2 12/04/22 16:52 12/04/22 16:52 12/04/22 16:52 12/04/22 16:52 12/04/22 16:52 12/04/22 16:52 12/04/22 16:52 FiO2 21 12/04/22 01:30 Oxygen Flow Rate (L/min) 2 Oxygen Delivery Method Nasal Cannula Weight: 161 lb 2.526 oz Body Mass Index (BMI) 25.9 Intake & Output: Intake and Output for Last 24 Hours 12/02/22 12/03/22 12/04/22 23:59 23:59 23:59 Intake Total 2703.0 / 2703.0 4211.25 / 4211.25 Output Total 0 / 0 Balance 2703.0 / 2703.0 4211.25 / 4211.25 Lab / Micro Data 12/04/22 04:46 12/04/22 04:46 Labs: Laboratory Results - last 24 hr 12/03/22 00:45: ESR 8, C-React Prot Ext Range 2.95 12/04/22 04:46: WBC 19.0 H, RBC 4.48 L, Hgb 13.0, Hct 39.7 L, MCV 88.6, MCH 29.0, MCHC 32.7, RDW Std Deviation 43.6, RDW Coeff of Arnoldo 13.4, Plt Count 198, MPV 9.0, Immature Gran % (Auto) 0.800, Neut % (Auto) 88.3 H, Lymph % (Auto) 4.3 L, [place] % (Auto) 6.4, Eos % (Auto) 0.0, Baso % (Auto) 0.2, Absolute Neuts (auto)16.8 H, Absolute Lymphs (auto) 0.81 L, Nucleated RBC % 0, ESR 18, Sodium 139, Potassium 3.4 L, Chloride 111 H, Carbon Dioxide 23.0, Anion Gap 5, BUN 10, Creatinine 0.68 L, Estim Creat Clear Calc 106.85, Est GFR (MDRD) Af Amer 154, Est GFR (MDRD) Non-Af 127, BUN/Creatinine Ratio 14.7, Glucose 101, Calcium 7.8 L, Total Bilirubin 0.80, AST 132 H, ALT 302 H, Alkaline Phosphatase 110, C-React Prot Ext Range 112.00 H, Total Protein 6.1 L, Albumin 2.9 L, Globulin 3.2, Albumin/Globulin Ratio 0.9, Lipase 1089 H Radiography Diagnostic Testing: Radiology Impression Endo Retro Cholangiopancreatogram 12/03/22 16:40 IMPRESSION: Fluoroscopic assistance for ERCP. Please see operative report for additional information. Electronically Signed: Uriel Quinonez MD at 22:11 EDT , Chest X-Ray 12/04/22 09:15 IMPRESSION: Stable cardiomegaly with atelectasis at both bases, right greater than left and small left effusion. No active or acute cardiopulmonary disease. Electronically Signed: Harinder Young MD at 9:42 EDT , Physical Exam Narrative Physical Examination: General: Awake, alert, oriented x 3 and cooperative, seated upright in the PCU bed, fatigued, notes pain improved currently status post Dilaudid, currently 5 out of 10. Skin: Normal color, normal turgor, no icterus, no cyanosis. HEENT: AT/NC, EOMI, PERRLA, mild dry MM. Lungs: CTA bilaterally, moderate effort, mild decrease BL bases, no rales, ronchi or wheezing. Heart: Mildly bradycardic with regular rhythm; no gallop, rub audible. Abdomen: Soft, when distracted mild discomfort apparent right upper quadrant andepigastric region however with full manual palpation severe discomfort with voluntary guarding, no marked distention, hyperactive BS. Extremities: No cyanosis, clubbing, or edema. Neurological: Patient awake, alert, oriented as noted, cognitive function intact; pupils equally reactive to light and accommodation, cranial nerves grossly normal, moving all 4 extremities, no focal deficits, strength moderatelyglobal decrease secondary to acute presentation. Psychiatric: Affect appears fatigued, reports discomfort, no acute evidence of depressive or anxiety feelings. Assessment & Plan Assessment/Plan (1) Gastroparesis: (2) Ileus: (3) Gallstone pancreatitis: PLAN: Plan 49-year-old gentleman with cholelithiasis and choledocholithiasis with obstructive jaundice secondary to choledocholithiasis and gallstone induced pancreatitis -Status post ERCP day 1 with removal of filling defects from the distal common bile duct and dilation of the distal common bile duct with stent placement. -Gastroparesis-likely secondary to paralytic ileus associated with acute pancreatitis. He has had elevated lipase's in the past so I suspect that this is acute on chronic pancreatitis secondary to gallstone induced pancreatitis. Continue IV Reglan as ordered and azithromycin as ordered -Cholelithiasis-he is scheduled to undergo cholecystectomy today -Pancreatitis-he has had a good decrease in his hematocrit and BUN which correlates with good outcome regarding severe pancreatitis. I would recommend him eating as much as tolerated after he undergoes cholecystectomy. I am okay with taking his fluid down to 200 cc an hour. Hopefully this will prevent translocation of bacteria from his gut to his pancreas. Repeat ESR and CRP and monitor white count Charges/Coding Visit Charges Inpatient E&M: 44225 Subs Hosp L3 12/04/22 1721 <Electronically signed by Clem Friend DO> Cosigner Signature (if applicable): CC: ~ Signed [facility] Work Phone: 1(295) 740-332908-22-2023 Procedure [facility] 12-04-2022 Progress note Author Linda Hicks [facility] December 04, 2022 1:32pm Note Date/Time December 04, 2022 6: 21am [facility] Medical Records Department [address] [place] [address] Progress Note - Hospitalist 12/04/22620 MR#: [id number] Acct: [id number] Name: TRIP MYERS Channing Rep #:[id number] : 1965 57 From: Linda Hicks MD PCP: Dr. Danni Swann MD Status:AD M IN Location: [place] [address] Reason for Visit Reason for Visit: Diagnoses Gastroparesis (12/03/22) Ileus, unspecified (12/03/22) Calculus of gallbladder with chronic cholecystitis without obstruction (12/03/22) Biliary acute pancreatitis without necrosis or infection (12/03/22) Subjective Subjective Patient with no acute events overnight per self and per nursing report. He notes abdominal discomfort has improved and currently rating it 4 out of 10 in severity. This morning has been up in the halls moving without marked issues. Currently he is status post ERCP and discussed awaiting decision for general surgery consideration of operative intervention for cholecystectomy. Objective Data Objective Data Vital Signs: Vital Signs Temp Pulse Resp BP Pulse Ox O2 Del Method O2 Flow Rate 99.6 F H 73 15 138/76 H 94 Nasal Cannula 2 12/04/22 04:06 12/04/22 04:06 12/04/22 04:06 12/04/22 04:06 12/04/22 04:06 12/04/22 04:06 12/04/22 04:06 FiO2 21 12/04/22 01:30 Oxygen Flow Rate (L/min) 2 Oxygen Delivery Method Nasal Cannula Weight: 161 lb 2.526 oz Body Mass Index (BMI) 25.9 Intake & Output: Intake and Output for Last 24 Hours 12/02/22 12/03/22 12/04/22 23:59 23:59 23:59 Intake Total 2703.0 / 2703.0 781.75 / 781.75 Output Total 0 / 0 Balance 2703.0 / 2703.0 781.75 / 781.75 Lab / Micro Data 12/04/22 04:46 12/04/22 04:46 Labs: Laboratory Results - last 24 hr 12/03/22 00:45: ESR 8, C-React Prot Ext Range 2.95 12/04/22 04:46: WBC 19.0 H, RBC 4.48 L, Hgb 13.0, Hct 39.7 L, MCV 88.6, MCH 29.0, MCHC 32.7, RDW Std Deviation 43.6, RDW Coeff of Arnoldo 13.4, Plt Count 198, MPV 9.0, Immature Gran % (Auto) 0.800, Neut % (Auto) 88.3 H, Lymph % (Auto) 4.3 L, [place] % (Auto) 6.4, Eos % (Auto) 0.0, Baso % (Auto) 0.2, Absolute Neuts (auto)16.8 H, Absolute Lymphs (auto) 0.81 L, Nucleated RBC % 0, Sodium 139, Potassium 3.4 L, Chloride 111 H, Carbon Dioxide 23.0, Anion Gap 5, BUN 10, Creatinine 0.68L, Estim Creat Clear Calc 106.85, Est GFR (MDRD) Af Amer 154, Est GFR (MDRD) Non-Af 127, BUN/Creatinine Ratio 14.7, Glucose 101, Calcium 7.8 L, Total Bilirubin 0.80, AST 132 H, ALT 302 H, Alkaline Phosphatase 110, Total Protein 6.1 L, Albumin 2.9 L, Globulin 3.2, Albumin/Globulin Ratio 0.9, Lipase 1089 H Radiography Diagnostic Testing: Radiology Impression Gallbladder Ultrasound 12/03/22 07:00 IMPRESSION: Cholelithiasis. Distended biliary tree. RECOMMENDATIONS: Follow-up MRCP recommended to exclude common bile duct stone. Electronically Signed: Hakan Martínez MD at 8:39 EDT , Endo Retro Cholangiopancreatogram 12/03/22 16:40 IMPRESSION: Fluoroscopic assistance for ERCP. Please see operative report for additional information. Electronically Signed: Uriel Quinonez MD at 22:11 EDT , Physical Exam Narrative Physical Examination: General: Awake, alert, oriented x 3 and cooperative, seated upright in the PCU bed, fatigued, notes pain improved currently status post Dilaudid, currently 5 out of 10. Skin: Normal color, normal turgor, no icterus, no cyanosis. HEENT: AT/NC, EOMI, PERRLA, mild dry MM. Lungs: CTA bilaterally, moderate effort, mild decrease BL bases, no rales, ronchi or wheezing. Heart: Mildly bradycardic with regular rhythm; no gallop, rub audible. Abdomen: Soft, when distracted mild discomfort apparent right upper quadrant andepigastric region however with full manual palpation severe discomfort with voluntary guarding, no marked distention, hyperactive BS. Extremities: No cyanosis, clubbing, or edema. Neurological: Patient awake, alert, oriented as noted, cognitive function intact; pupils equally reactive to light and accommodation, cranial nerves grossly normal, moving all 4 extremities, no focal deficits, strength moderatelyglobal decrease secondary to acute presentation. Psychiatric: Affect appears fatigued, reports discomfort, no acute evidence of depressive or anxiety feelings. Assessment & Plan Assessment/Plan (1) Cholelithiasis with chronic cholecystitis: QUALIFIERS: Biliary obstruction: without biliary obstruction Cholelithiasis location: gallbladder Qualified Code(s): K80.10 - Calculus of gallbladder with chronic cholecystitis without obstruction PLAN: Plan The patient is a 57 y/o M w/ PMHx: Allergic rhintis, OA, HTN, HLD, JEFFERY on CPAP, HTN, HLD, Former tobacco use, Non-CAD related cardiomyopathy, CAD-none angiographically significant, Underlying LBBB who presents to the [facility] ED on 12/03/22 with history of excruciating epigastric discomfort with radiation acrosshis abdomen into his back with intermittent similar discomfort over the last several years however worsened since June prompting eventual ED evaluation. #1. Acute gallstone pancreatitis with potentially acute on chronic cholecystitis with chronic cholelithiasis with Hyperbilirubinemia/Transaminitis:ED evaluation with lipase greater than 5000, T. bili 2.10, D bili 1.48, AST/ALT 616/65, alk phos 163, CT abdomen and pelvis with extensive peripancreatic inflammatory changes, mild dilation of the common bile duct, possible small stones in the distal common bile duct, follow-up gallbladder ultrasound with cholelithiasis with a distended biliary tree. Patient was scheduled a Cholecystectomy outpatient of note, given worsening pain presented to ED for evaluation, admitted to medical surgical floor, maintained NPO, IVFs, trending lipase and CMP, maintained on IV zosyn, GI consulted and s/p 12/03/22 ERCP with asingle localized biliary stricture found in the lower third of the main bile duct likely secondary to previous stones and benign appearing with dilation performed, choledocholithiasis found with complete removal as well as biliary sphincterotomy and balloon extraction and a temporary stent placed in the commonbile duct with recommendation for azithromycin 500 mg IV daily, Reglan 5 mg IV every 6 hours and hold on anticoagulation secondary to potential conversion to hemorrhagic pancreatitis, 12/04/2022 hepatic profile with T. bili 0.80, AST/LT 132/302, alk phos 110, lipase 1089, improving. General surgery following for future cholecystectomy plans. Based on most recent cardiology assessments and interventions/evaluations agree with progression to OR once felt appropriate persurgery. #2. Nonobstructive not angiographically significant CAD with known CAD related cardiomyopathy: 04/19/22 ECHO w/ normal LV systolic function, EF 55%, septal motion consistent with IVCD, trivial MVI, trivial TVI, trivial IMAN, trivial PVI,diastolic function indeterminate, last cardiac catheterization noted 12/11/2019, holding aspirin therapy given planned intervention as noted, not on statin therapy which will defer to outpatient especially given acute presentation #1, continue Coreg. #3. Hypertension: Continue home regimen including Coreg, PRN hydralazine. #4. Hyperlipidemia: Not on statin therapy, defer to outpatient especially given#1. #5. Allergic rhinitis: We will continue patient home montelukast regimen. #6. Former tobacco use: Encourage continued tobacco cessation. #7. JEFFERY: CPAP nightly. #8. DVT prophylaxis: SCDs, hold chemoprophylaxis given planned interventions asnoted. #9. CODE status: Full Code. Charges/Coding Visit Charges Inpatient E&M: 72558 Subs Hosp L2 12/04/22 1332 <Electronically signed by Linda Hicks MD> Cosigner Signature (if applicable): CC: ~ Signed [facility] Work Phone: 1(745) 197-696808-22-2023 Progress note Author Stefano Yao [facility] December 04, 2022 6:01am Note Date/Time December 04, 2022 6: 01am [facility] Medical Records Department [address] [place] [address] Progress Note - Surgery 12/04/22 0557 MR#: [id number] Acct: [id number] Name: TRIP MYERS Rep #:[id number] : 1965 57 From: Stfeano Yao MD PCP: Dr. Danni Swann MD Status:AD M IN Location: [place] [address] Subjective Subjective Patient seen and evaluated Gallstone pancreatitis with choledocholithiasis and benign distal common bile duct stricture treated yesterday with ERCP sphincterotomy dilatation and stone removal and temporary stent placement. The patient is currently receiving aggressive IV hydration. He remains on 2 L nasal prong oxygen subsequent to the ERCP. He complains of ongoing back pain and abdominal pain. Very dry mouth. Objective Data Objective Data Vital Signs: Vital Signs Temp Pulse Resp BP Pulse Ox O2 Del Method O2 Flow Rate 99.6 F H 73 15 138/76 H 94 Nasal Cannula 2 12/04/22 04:06 12/04/22 04:06 12/04/22 04:06 12/04/22 04:06 12/04/22 04:06 12/04/22 04:06 12/04/22 04:06 FiO2 21 12/04/22 01:30 Oxygen Flow Rate (L/min) 2 Oxygen Delivery Method Nasal Cannula Weight: 161 lb 2.526 oz Body Mass Index (BMI) 25.9 Intake & Output: Intake and Output for Last 24 Hours 12/02/22 12/03/22 12/04/22 23:59 23:59 23:59 Intake Total 2703.0 / 2703.0 781.75 / 781.75 Output Total 0 / 0 Balance 2703.0 / 2703.0 781.75 / 781.75 Lab / Micro Data 12/04/22 04:46 12/04/22 04:46 Labs: Laboratory Results - last 24 hr 12/03/22 00:45: ESR 8, C-React Prot Ext Range 2.95 12/04/22 04:46: WBC 19.0 H, RBC 4.48 L, Hgb 13.0, Hct 39.7 L, MCV 88.6, MCH 29.0, MCHC 32.7, RDW Std Deviation 43.6, RDW Coeff of Arnoldo 13.4, Plt Count 198, MPV 9.0, Immature Gran % (Auto) 0.800, Neut % (Auto) 88.3 H, Lymph % (Auto) 4.3 L, [place] % (Auto) 6.4, Eos % (Auto) 0.0, Baso % (Auto) 0.2, Absolute Neuts (auto)16.8 H, Absolute Lymphs (auto) 0.81 L, Nucleated RBC % 0, Sodium 139, Potassium 3.4 L, Chloride 111 H, Carbon Dioxide 23.0, Anion Gap 5, BUN 10, Creatinine 0.68L, Estim Creat Clear Calc 106.85, Est GFR (MDRD) Af Amer 154, Est GFR (MDRD) Non-Af 127, BUN/Creatinine Ratio 14.7, Glucose 101, Calcium 7.8 L, Total Bilirubin 0.80, AST 132 H, ALT 302 H, Alkaline Phosphatase 110, Total Protein 6.1 L, Albumin 2.9 L, Globulin 3.2, Albumin/Globulin Ratio 0.9, Lipase 1089 H Radiography Diagnostic Testing: Radiology Impression Gallbladder Ultrasound 12/03/22 07:00 IMPRESSION: Cholelithiasis. Distended biliary tree. RECOMMENDATIONS: Follow-up MRCP recommended to exclude common bile duct stone. Electronically Signed: Hakan Martínez MD at 8:39 EDT , Endo Retro Cholangiopancreatogram 12/03/22 16:40 IMPRESSION: Fluoroscopic assistance for ERCP. Please see operative report for additional information. Electronically Signed: Uriel Quinonez MD at 22:11 EDT , Physical Exam Resp Resp Narrative: Diminished in the bases GI GI Narrative: Mildly distended, quiet bowel sounds, diffusely mildly tender in the epigastrium Assessment & Plan Assessment/Plan (1) Gallstone pancreatitis: (2) Cholelithiasis with chronic cholecystitis: QUALIFIERS: Cholelithiasis location: gallbladder Biliary obstruction: without biliary obstruction Qualified Code(s): K80.10 - Calculus of gallbladder with chronic cholecystitis without obstruction (3) Gastroparesis: (4) Ileus: PLAN: Plan Patient current presentation to has ongoing progression of pancreatitis. Gastroparesis with retained food and ileus identified. Majority of the patient's ongoing back and abdominal complaints are secondary to the pancreatitis. I believe that there is a remaining small window of opportunity to attempt a laparoscopic cholecystectomy. Although he was tentatively scheduled for December 06 I do not believe that we can delay till that time. I amawaiting laboratory and then we will make a definitive determination. We will need to slow his IV fluids at least temporarily to avoid preoperative fluid overload. Patient is already on IV Zosyn. We will initiate incentive spirometry and hopefully nursing staff get that started immediately. We will initiate sequential venous compression devices. We will hold off on pharmacologic DVT prophylaxis secondary to the acute pancreatitis at this time. I have continue to encourage patient mobilization. He is aware of the technique, benefit, risk, alternatives. We will try to proceed today pending his clinical progress. Stefano Yao M.D., F.A.C.S. 12/04/22 06 <Electronically signed by Stefano Yao MD> Cosigner Signature (if applicable): CC: ~ Signed [facility] Work Phone: 1(677) 692-192208-21-2023 Procedure [facility] 12-03-2022 Procedure [facility]08-21-2023 Progress note Author Linda Hicks [facility] December 03, 2022 2:06pm Note Date/Time December 03, 2022 6: 52am [facility] Medical Records Department [address] [place] [address] Progress Note - Hospitalist 12/03/2252 MR#: [id number] Acct: [id number] Name: TRIP MYERS Rep #:[id number] : 1965 57 From: Linda Hicks MD PCP: Dr. Danni Swann MD Status:AD M IN Location: [place] [address] Reason for Visit Reason for Visit: Diagnoses Calculus of gallbladder with chronic cholecystitis without obstruction (12/03/22) Biliary acute pancreatitis without necrosis or infection (12/03/22) Subjective Subjective Patient with no acute events overnight per self or per nursing report. He notesstill ongoing discomfort to the epigastric and right upper quadrant region, currently rated 5 out of 10 in severity, more sharp stabbing and aching in sensation. He does admit to mild nausea. He notes that currently its improved with Dilaudid administration. Patient evaluated already by general surgery Dr. Yao and also being evaluated by Dr. Eula PETTIT. Patient denies fevers, chills,emesis, chest pain or dyspnea. Objective Data Objective Data Vital Signs: Vital Signs Temp Pulse Resp BP Pulse Ox O2 Del Method 98.1 F 57 L 18 120/73 97 Room Air 12/03/22 05:39 12/03/22 05:48 12/03/22 05:39 12/03/22 06:28 12/03/22 05:39 12/03/22 05:39 Oxygen Delivery Method Room Air Weight: 161 lb 2.526 oz Body Mass Index (BMI) 25.9 Intake & Output: Intake and Output for Last 24 Hours 12/01/22 12/02/22 12/03/22 23:59 23:59 23:59 Intake Total 1050 / 1050 Output Total 0 / 0 Balance 1050 / 1050 Lab / Micro Data 12/03/22 00:45 12/03/22 00:45 Labs: Laboratory Results - last 24 hr 12/03/22 00:45: WBC 12.4 H, RBC 4.83, Hgb 14.1, Hct 42.5, MCV 88.0, MCH 29.2, MCHC 33.2, RDW Std Deviation 41.1, RDW Coeff of Arnoldo 12.8, Plt Count 218, MPV 8.6, Immature Gran % (Auto) 0.500, Neut % (Auto) 83.3 H, Lymph % (Auto) 7.1 L, [place] % (Auto) 7.7, Eos % (Auto) 1.1, Baso % (Auto) 0.3, Absolute Neuts (auto) 10.3 H, Absolute Lymphs (auto) 0.88, Nucleated RBC % 0, Sodium 137, Potassium 3.8, Chloride 103, Carbon Dioxide 28.0, Anion Gap 6, BUN 18, Creatinine 0.92, Estim Creat Clear Calc 78.98, Est GFR (MDRD) Af Amer 109, Est GFR (MDRD) Non-Af 90, BUN/Creatinine Ratio 19.6, Glucose 149 H, Calcium 9.3, Total Bilirubin 2.10 H, Direct Bilirubin 1.48 H, AST 616 H, ALT 605 H, Alkaline Phosphatase 163 H, Total Protein 7.1, Albumin 3.7, Globulin 3.4, Lipase > 5000 H Radiography Diagnostic Testing: Radiology Impression Abdomen/Pelvis CT 12/03/22 02:08 IMPRESSION: undefined Physical Exam Narrative Physical Examination: General: Awake, alert, oriented x 3 and cooperative, seated upright in the PCU bed, fatigued, notes pain improved currently status post Dilaudid, currently 5 out of 10. Skin: Normal color, normal turgor, no icterus, no cyanosis. HEENT: AT/NC, EOMI, PERRLA, mild dry MM. Lungs: CTA bilaterally, moderate effort, mild decrease BL bases, no rales, ronchi or wheezing. Heart: Mildly bradycardic with regular rhythm; no gallop, rub audible. Abdomen: Soft, when distracted mild discomfort apparent right upper quadrant andepigastric region however with full manual palpation severe discomfort with voluntary guarding, no marked distention, hyperactive BS. Extremities: No cyanosis, clubbing, or edema. Neurological: Patient awake, alert, oriented as noted, cognitive function intact; pupils equally reactive to light and accommodation, cranial nerves grossly normal, moving all 4 extremities, no focal deficits, strength moderatelyglobal decrease secondary to acute presentation. Psychiatric: Affect appears fatigued, reports discomfort, no acute evidence of depressive or anxiety feelings. Assessment & Plan Assessment/Plan (1) Cholelithiasis with chronic cholecystitis: QUALIFIERS: Cholelithiasis location: gallbladder Biliary obstruction: without biliary obstruction Qualified Code(s): K80.10 - Calculus of gallbladder with chronic cholecystitis without obstruction PLAN: Plan The patient is a 57 y/o M w/ PMHx: Allergic rhintis, OA, HTN, HLD, JEFFERY on CPAP, HTN, HLD, Former tobacco use, Non-CAD related cardiomyopathy, CAD-none angiographically significant, Underlying LBBB who presents to the [facility] ED on 12/03/22 with history of excruciating epigastric discomfort with radiation acrosshis abdomen into his back with intermittent similar discomfort over the last several years however worsened since June prompting eventual ED evaluation. #1. Acute gallstone pancreatitis with potentially acute on chronic cholecystitis with chronic cholelithiasis with Hyperbilirubinemia/Transaminitis:ED evaluation with lipase greater than 5000, T. bili 2.10, D bili 1.48, AST/ALT 616/65, alk phos 163, CT abdomen and pelvis with extensive peripancreatic inflammatory changes, mild dilation of the common bile duct, possible small stones in the distal common bile duct, follow-up gallbladder ultrasound with cholelithiasis with a distended biliary tree. Patient was scheduled a Cholecystectomy outpatient of note, given worsening pain presented to ED for evaluation, admitted to medical surgical floor, will maintain n.p.o., continue aggressive IV fluid, trend lipase and CMP, maintain on IV Zosyn, general surgeryand gastroenterology consulted, pending evaluation and surgical intervention timeline. Based on most recent cardiology assessments and interventions/evaluations agree with progression to OR once felt appropriate persurgery/gastroenterology. #2. Nonobstructive not angiographically significant CAD with known CAD related cardiomyopathy: 04/19/22 ECHO w/ normal LV systolic function, EF 55%, septal motion consistent with IVCD, trivial MVI, trivial TVI, trivial IMAN, trivial PVI, diastolic function indeterminate, last cardiac catheterization noted 12/11/2019, holding aspirin therapy given planned intervention as noted, not on statin therapy which will defer to outpatient especially given acute presentation #1, continue Coreg. #3. Hypertension: Continue home regimen including Coreg, PRN hydralazine. #4. Hyperlipidemia: Not on statin therapy, defer to outpatient especially given#1. #5. Allergic rhinitis: We will continue patient home montelukast regimen. #6. Former tobacco use: Encourage continued tobacco cessation. #7. JEFFERY: CPAP nightly. #8. DVT prophylaxis: SCDs, hold chemoprophylaxis given planned interventions asnoted. #9. CODE status: Full Code. Charges/Coding Procedures Hospitalists Procedures: Other Procedure - See Report ([id number]--gbhlkr to bill, admitted same day.) 12/03/22 1406 <Electronically signed by Linda Hicks MD> Cosigner Signature (if applicable): CC: ~ Signed [facility] Work Phone: 1(224) 805-398608-21-2023 History and physical note Author Derik Powers [facility] December 03, 2022 10:30am Note Date/Time December 03, 2022 8: 34am [facility] Medical Records Department [address] [place] [id number] History & Physical Exam 12/03/22 0834 MR#: [id number] Acct: [id number] Name: TRIP MYERS Rep #:[id number] : 1965 57 From: Derik Snell PCP: Dr. Danni Swann MD Status:AD M IN Location: [facility] [id number] HPI - General General Date of Admission: 12/03/22 Chief Complaint: Abdominal pain HPI Narrative TRIP MYERS, is a 57 M who presented to [facility] early this morning with complaints of acute onset upper abdominal discomfort and associated nausea. He states that his pain started yesterday after lunch, but intensified as the day wore on. He reports that it reached a maximum intensity of a 9 out of 10. 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 Patient's ER work-up was notable for abnormal CMP with elevated liver function testing and hyperbilirubinemia. Is also noted to have an elevated lipase of greater than 5000. It was at this point I was notified of the patient's presence in the ER and I recommended further evaluation with CT imaging as well as ultrasound. Patient's CT imaging showed evidence of severe pancreatitis with significant inflammatory change but no evidence of hemorrhagicconversion or pseudocyst. Radiology did also comment that patient's common bileduct appeared dilated. Ultrasound has since been done but not reported. Commonbile duct of the study measures 8 mm. Incidentally, patient is already established with Dr. Yao and plans are in place to undergo laparoscopic cholecystectomy with intraoperative cholangiography later this week on 12/06/2022. Mr. Myers states that he had plans to be in [place] now, but was advised to hold off on those plans given his symptoms and he states that he is now happy he heeded that advice. Outside of the above, patient has a history of left bundle branch block and a depressed ejection fraction. He reports that through working with the [facility] here at the hospital he has been able to do rather well over the last couple of years and states that that seems to be pretty much cleared up. [facility] Medical History Abnormal echocardiogram Abnormal electrocardiogram Alcohol use Arthritis 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 Back pain Cardiology follow-up encounter CPAP (continuous positive airway pressure) dependence Decreased cardiac ejection fraction Dyspnea on exertion Essential hypertension Former smoker History of diverticulitis History of echocardiogram History of Holter monitoring History of left heart catheterization (LHC) (~12/11/19) History of stress test Hyperlipidemia Hypertension Left bundle branch block Left ventricular hypertrophy Sleep apnea Syncope and collapse Ventricular hypertrophy Wears hearing aid Home Medications aspirin 81 mg tablet,delayed release (Adult Low Dose Aspirin) 81 mg PO DAILY 11/18/19 [History Last Taken 12/11/19] montelukast 10 mg tablet (Singulair) 10 mg PO DAILY 11/15/21 [History Last Taken Unknown] carvedilol 12.5 mg tablet 12.5 mg PO BID #180 TABLETS 02/02/22 [Rx Last Taken Unknown] Allergy/AdvReac Type Severity Reaction Status Date / Time Seasonal Allergies: Uncoded Allergy Mild PT UNSURE Verified 12/03/22 00:30 OF REACTION Family History Father CAD (coronary artery disease) Myocardial infarction Hx of CABG Grandmother History of permanent cardiac pacemaker placement Grandfather CVA (cerebral vascular accident) Surgical History History of appendectomy History of colonoscopy History of hip replacement, total History of nasal surgery Social History Smoking Status: Former smoker how long ago did patient quit smokin alcohol intake: current alcohol intake frequency: a few times a week substance use type: does not use caffeine: Yes Type: coffee Number of servings: 1 Vital Signs Vital Signs Vital Signs: 12/03/22 00:27 12/03/22 01:55 12/03/22 02:53 Temperature 98.3 F Temperature Source Oral Pulse Rate 70 67 76 Respiratory Rate 18 20 H 15 Respiratory Effort Respiratory Depth Respiratory Pattern Blood Pressure 124/78 H 149/87 H 142/88 H Blood Pressure [BP] Blood Pressure Mean 93 107 106 Blood Pressure Mean [BP] Blood Pressure Source Blood Pressure Source [BP] Blood Pressure Position Blood Pressure Position [BP] Blood Pressure Location Blood Pressure Location [BP] Pulse Ox 97 100 97 Oxygen Delivery Method Room Air Room Air Room Air 12/03/22 03:42 12/03/22 04:43 12/03/22 05:24 Temperature 98.0 F Temperature Source Temporal Pulse Rate 73 72 Respiratory Rate 18 16 Respiratory Effort Normal Non-Labored Respiratory Depth Normal Respiratory Pattern Normal Blood Pressure 128/76 H 104/68 Blood Pressure [BP] Blood Pressure Mean 93 80 Blood Pressure Mean [BP] Blood Pressure Source Blood Pressure Source [BP] Blood Pressure Position Blood Pressure Position [BP] Blood Pressure Location Blood Pressure Location [BP] Pulse Ox 97 96 Oxygen Delivery Method Room Air Room Air Room Air 12/03/22 05:39 12/03/22 05:48 12/03/22 06:28 Temperature 98.1 F Temperature Source Oral Pulse Rate 55 L 57 L Respiratory Rate 18 Respiratory Effort Respiratory Depth Respiratory Pattern Blood Pressure 137/81 H 137/81 H Blood Pressure [BP] 120/73 Blood Pressure Mean 99 Blood Pressure Mean [BP] 88 Blood Pressure Source Monitor Blood Pressure Source [BP] Monitor Blood Pressure Position Semi-Fowlers Blood Pressure Position [BP] Semi-Fowlers Blood Pressure Location Right Arm Blood Pressure Location [BP] Right Arm Pulse Ox 97 Oxygen Delivery Method Room Air 12/03/22 07:24 Temperature Temperature Source Pulse Rate Respiratory Rate Respiratory Effort Respiratory Depth Respiratory Pattern Blood Pressure Blood Pressure [BP] Blood Pressure Mean Blood Pressure Mean [BP] Blood Pressure Source Blood Pressure Source [BP] Blood Pressure Position Blood Pressure Position [BP] Blood Pressure Location Blood Pressure Location [BP] Pulse Ox 97 Oxygen Delivery Method Room Air Weight Weight: 161 lb 2.526 oz Body Mass Index (BMI) 25.9 Physical Exam Const alert and oriented x3 Constitutional Narrative: Exhibits some discomfort but no significant distress General Appearance: cooperative Resp normal respiratory effort GI GI Narrative: Mildly distended, soft, tenderness across the epigastrium Results Lab / Micro Data 12/03/22 00:45 12/03/22 00:45 Labs: Laboratory Results - last 24 hr 12/03/22 00:45: WBC 12.4 H, RBC 4.83, Hgb 14.1, Hct 42.5, MCV 88.0, MCH 29.2, MCHC 33.2, RDW Std Deviation 41.1, RDW Coeff of Arnoldo 12.8, Plt Count 218, MPV 8.6, Immature Gran % (Auto) 0.500, Neut % (Auto) 83.3 H, Lymph % (Auto) 7.1 L, [place] % (Auto) 7.7, Eos % (Auto) 1.1, Baso % (Auto) 0.3, Absolute Neuts (auto) 10.3 H, Absolute Lymphs (auto) 0.88, Nucleated RBC % 0, Sodium 137, Potassium 3.8, Chloride 103, Carbon Dioxide 28.0, Anion Gap 6, BUN 18, Creatinine 0.92, Estim Creat Clear Calc 78.98, Est GFR (MDRD) Af Amer 109, Est GFR (MDRD) Non-Af 90, BUN/Creatinine Ratio 19.6, Glucose 149 H, Calcium 9.3, Total Bilirubin 2.10 H, Direct Bilirubin 1.48 H, AST 616 H, ALT 605 H, Alkaline Phosphatase 163 H, Total Protein 7.1, Albumin 3.7, Globulin 3.4, Lipase > 5000 H Radiology Impression Abdomen/Pelvis CT 12/03/22 02:08 IMPRESSION: undefined Assessment & Plan Assessment/Plan (1) Gallstone pancreatitis: (2) Cholelithiasis with chronic cholecystitis: QUALIFIERS: Biliary obstruction: without biliary obstruction Cholelithiasis location: gallbladder Qualified Code(s): K80.10 - Calculus of gallbladder with chronic cholecystitis without obstruction PLAN: Plan This is a 57-year-old male who presents with acute gallstone pancreatitis and a previous diagnosis of cholelithiasis with chronic cholecystitis. Given the latter diagnosis he was actually due to undergo laparoscopic cholecystectomy with intraoperative cholangiogram later this week. However, beginning yesterday at lunchtime he experienced progressive epigastric abdominal discomfort that is now believed to be secondary to his diagnosis of acute pancreatitis. Biochemically and radiologically this pancreatitis appears to be rather severe. Fortunately patient's exam is more reassuring. I held a lengthy conversation with him regarding the relevant pathophysiology and used hand drawings to try to illustrate the relevant points. I shared with him that I would recommend evaluation with gastroenterology for possible MRCP/ERCP and that we would ultimately like to complete a same admission cholecystectomy to try to mitigate his risk for recurrent pancreatitis. Overall, Mr. Myers expressed an understanding of the information shared, but did seem to still have some lingering questions. For now recommend n.p.o. status with IV fluid resuscitation. Continue IV antibiotics as started by emergency medicine given the probability of biliary obstruction. As above await GI consultation. General surgery will continue to follow patient's exam and case will be turned over to Dr. Yao for ongoing management. Charges/Coding Visit Charges Inpatient E&M: 49559 Init Hosp L2 12/03/22 1030 <Electronically signed by Derik Powers MD> Cosigner Signature (if applicable): CC: Dr. Danni Swann MD; Dr. Derik Powers MD~ Signed [facility] Work Phone: 1(393) 585-157508-21-2023 History and physical note Author Ziggy Hunter [facility] December 03, 2022 5:53am Note Date/Time December 03, 2022 4: 30am [facility] Medical Records Department [address] [place] [address] [place] [address] H&P Exam - Hospitalist 12/03/22 0429 MR#: [id number] Acct: [id number] Name: TRIP MYERS Rep #:[id number] : 1965 57 From: Ziggy Hunter MD PCP: Dr. Danni Swann MD Status:AD M IN Location: [place] [address] HPI - General General Date of Admission: 12/03/22 Date of Service: 12/03/22 Chief Complaint: Abdominal pain HPI Narrative TRIP MYERS, is a 57 M with a significant history of hypertension; and diverticulosis who presented to the emergency department with excruciating epigastric pain that radiated to his entire abdomen and into his back; diametrically opposite his epigastric region. He described the pain as heaviness. The pain has been going on for a couple of years but worsened since June 2022. The pain factors to food. On the day of presentation the pain cameon with lunch. He denies any alleviating factors to the pain. Associated with symptoms is nausea, vomiting and chills. Because of gallbladder attacks and diverticulosis patient had developed sitophobia so he does not eat. He has lost about 30 pounds because of sitophobia. Previously patient was hypertensive but with losing so much weight his blood pressure has gone down. [facility] Medical History Abnormal echocardiogram Abnormal electrocardiogram Alcohol use Arthritis 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 Back pain Cardiology follow-up encounter CPAP (continuous positive airway pressure) dependence Decreased cardiac ejection fraction Dyspnea on exertion Essential hypertension Former smoker History of diverticulitis History of echocardiogram History of Holter monitoring History of left heart catheterization (LHC) (~12/11/19) History of stress test Hyperlipidemia Hypertension Left bundle branch block Left ventricular hypertrophy Sleep apnea Syncope and collapse Ventricular hypertrophy Wears hearing aid Home Medications aspirin 81 mg tablet,delayed release (Adult Low Dose Aspirin) 81 mg PO DAILY 11/18/19 [History Last Taken 12/11/19] montelukast 10 mg tablet (Singulair) 10 mg PO DAILY 11/15/21 [History Last Taken Unknown] carvedilol 12.5 mg tablet 12.5 mg PO BID #180 TABLETS 02/02/22 [Rx Last Taken Unknown] Allergy/AdvReac Type Severity Reaction Status Date / Time Seasonal Allergies: Uncoded Allergy Mild PT UNSURE Verified 12/03/22 00:30 OF REACTION Family History Father CAD (coronary artery disease) Myocardial infarction Hx of CABG Grandmother History of permanent cardiac pacemaker placement Grandfather CVA (cerebral vascular accident) Surgical History History of appendectomy History of colonoscopy History of hip replacement, total History of nasal surgery Social History Smoking Status: Former smoker how long ago did patient quit smokin alcohol intake: current alcohol intake frequency: a few times a week substance use type: does not use caffeine: Yes Type: coffee Number of servings: 1 ROS ROS Narrative Pertinent positives and pertinent negatives as noted in HPI. All other systems were reviewed and are negative Vital Signs Vital Signs Vital Signs: 12/03/22 00:27 12/03/22 01:55 12/03/22 02:53 Temperature 98.3 F Temperature Source Oral Pulse Rate 70 67 76 Respiratory Rate 18 20 H 15 Blood Pressure 124/78 H 149/87 H 142/88 H Blood Pressure Mean 93 107 106 Pulse Ox 97 100 97 Oxygen Delivery Method Room Air Room Air Room Air 12/03/22 03:42 Temperature Temperature Source Pulse Rate 73 Respiratory Rate 18 Blood Pressure 128/76 H Blood Pressure Mean 93 Pulse Ox 97 Oxygen Delivery Method Room Air Weight Weight: 73.4 kg Body Mass Index (BMI) 26.1 Physical Exam Narrative Physical exam: General: Well-nourished, well-developed. Head: Normocephalic, atraumatic, no tenderness Eyes: Vision is grossly intact. EOMI ENT, no trauma, moist mucous membranes, no rhinorrhea Neck: Nontender, No thyromegaly. CVS: Regular rate and rhythm. S1-S2 present. No murmur, gallop or rub. Respiratory : clear to auscultation bilaterally, chest wall nontender Abdomen: Soft, tender, nondistended, normal bowel sounds, no masses : Deferred Back: Nontender, no CVA tenderness, no midline spinal tenderness, deformities, step-offs Extremities: Nontender full range of motion, no trauma Skin: Normal color, no trauma, abrasions Neuro: Alert, oriented, cranial nerves II through XII grossly intact. Psychiatry: Normal mood. Normal affect. Not depressed. Not anxious. Results Lab / Micro Data 12/03/22 00:45 12/03/22 00:45 Labs: Laboratory Results - last 24 hr 12/03/22 00:45: WBC 12.4 H, RBC 4.83, Hgb 14.1, Hct 42.5, MCV 88.0, MCH 29.2, MCHC 33.2, RDW Std Deviation 41.1, RDW Coeff of Arnoldo 12.8, Plt Count 218, MPV 8.6, Immature Gran % (Auto) 0.500, Neut % (Auto) 83.3 H, Lymph % (Auto) 7.1 L, [place] % (Auto) 7.7, Eos % (Auto) 1.1, Baso % (Auto) 0.3, Absolute Neuts (auto) 10.3 H, Absolute Lymphs (auto) 0.88, Nucleated RBC % 0, Sodium 137, Potassium 3.8, Chloride 103, Carbon Dioxide 28.0, Anion Gap 6, BUN 18, Creatinine 0.92, Estim Creat Clear Calc 78.98, Est GFR (MDRD) Af Amer 109, Est GFR (MDRD) Non-Af 90, BUN/Creatinine Ratio 19.6, Glucose 149 H, Calcium 9.3, Total Bilirubin 2.10 H, Direct Bilirubin 1.48 H, AST 616 H, ALT 605 H, Alkaline Phosphatase 163 H, Total Protein 7.1, Albumin 3.7, Globulin 3.4, Lipase > 5000 H Radiology Impression Abdomen/Pelvis CT 12/03/22 02:08 IMPRESSION: undefined Assessment & Plan Assessment/Plan (1) Gallstone pancreatitis: (2) Cholelithiasis with chronic cholecystitis: QUALIFIERS: Cholelithiasis location: gallbladder Biliary obstruction: without biliary obstruction Qualified Code(s): K80.10 - Calculus of gallbladder with chronic cholecystitis without obstruction PLAN: Plan Acute gallstone pancreatitis with chronic cholelithiasis and acute on chronic cholecystitis Patient was scheduled for cholecystitis (12/06/2022) of the week of presentation Impression of abdomen/pelvis CT by radiologist: Extensive peripancreatic inflammatory changes consistent with severe acute pancreatitis, new since the prior exam. Mild dilatation of the common bile duct, new. Possible small stones in the distal common bile duct. Gallstones. Abdomen/pelvis CT was independently interpreted and I agree with radiologist interpretation. Abdomen ultrasound on 10/27/2022 showed multiple gallstones without evidence of biliary dilatation. Patient with elevated lipase; total bilirubin; direct bilirubin and liver biochemistry. Trend CMP. Normal saline hydration. Keep NPO. Per general surgeon recommendations ultrasound of gallbladder was ordered from the ED. Zosyn was started emergency department and continued. GI consult and general surgery consult. History of hypertension Blood pressure is stable Hold home carvedilol in the setting of patient be n.p.o. Scheduled metoprolol IV ordered. Trend blood pressures DVT prophylaxis: SCDs ordered Time spent in the patient's overall evaluation,decision-making process, review of diagnostic data, adjustment of management, discussion with other providers, nursing nursing and ancillary staff involved in patient's care documentation, 65minutes Charges/Coding Visit Charges Inpatient E&M: 38287 Init Hosp 12/03/22 0553 <Electronically signed by Ziggy Hunter MD> Cosigner Signature (if applicable): CC: Dr. Danni Swann MD; Dr. Ziggy Hunter MD~ Signed [facility] Work Phone: 1(242) 611-942008-21-2023 Discharge summary Author Lisa Barger [facility] December 03, 2022 4:51am Note Date/Time December 03, 2022 12 :45am [facility] Medical Records Department [address] [place] [id number] Emergency Department Summary 12/03/22 MR#: [id number] Acct: [id number] Name: TRIP MYERS Rep #:[id number] 07 : 1965 57 From: Lisa Barger MD PCP: Dr. Danni Swann MD Status:AD M IN Location: [place] [address] HPI History of Present Illness Chief Complaint: Abd Pain Informant: patient Onset/Context/Timing Onset: Yesterday Current Severity: Moderate Maximum Severity: Severe Narrative Narrative: Patient presents secondary to upper abdominal pain. He has been having intermittent flares of upper abdominal pain and is scheduled to have his gallbladder removed 12/[address] Yao. Patient states around 2 PM yesterday afternoon after eating lunch she developed upper abdominal pain that is persisted and worsened throughout the evening. He complains of pain to the upper right abdomen that radiates into his back. He has had nausea and vomiting. He tried Tylenol at home without improvement. 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 Back pain Cardiology follow-up encounter CPAP (continuous positive airway pressure) dependence Decreased cardiac ejection fraction Dyspnea on exertion Essential hypertension Former smoker History of diverticulitis History of echocardiogram History of Holter monitoring History of left heart catheterization (LHC) (~12/11/19) History of stress test Hyperlipidemia Hypertension Left bundle branch block Left ventricular hypertrophy Sleep apnea Syncope and collapse Ventricular hypertrophy Wears hearing aid Home Medications aspirin 81 mg tablet,delayed release (Adult Low Dose Aspirin) 81 mg PO DAILY 11/18/19 [History Last Taken 12/11/19] montelukast 10 mg tablet (Singulair) 10 mg PO DAILY 11/15/21 [History Last Taken Unknown] carvedilol 12.5 mg tablet 12.5 mg PO BID #180 TABLETS 02/02/22 [Rx Last Taken Unknown] Allergy/AdvReac Type Severity Reaction Status Date / Time Seasonal Allergies: Uncoded Allergy Mild PT UNSURE Verified 12/03/22 00:30 OF REACTION Family History Father CAD (coronary artery disease) Myocardial infarction Hx of CABG Grandmother History of permanent cardiac pacemaker placement Grandfather CVA (cerebral vascular accident) Surgical History History of appendectomy History of colonoscopy History of hip replacement, total History of nasal surgery Social History Smoking Status: Former smoker how long ago did patient quit smokin alcohol intake: current alcohol intake frequency: a few times a week substance use type: does not use caffeine: Yes Type: coffee Number of servings: 1 ROS ROS ED Constitutional Constitutional ED: Reports chills; Denies fever(s) Eyes Eyes: Denies change in vision or discharge from eye(s) ENT ENT ED: Denies discharge from eye(s), rhinorrhea or sore throat Cardiovascular Cardiovascular: Denies chest pain or palpitations Respiratory/Chest Respiratory/Chest: Denies cough or dyspnea Gastrointestinal Gastrointestinal: Reports abdominal pain, nausea and vomiting; Denies diarrhea Genitourinary Genitourinary ED: Denies dysuria Musculoskeletal Musculoskeletal: Reports back pain; Denies extremity pain Integumentary Denies Abrasions or rash Neurologic Neurologic: Denies headache(s) or weakness Psychiatric Psychiatric: Denies anxiety or depression Allergic/Immunologic Allergic/Immunologic ED: Denies lip swelling or urticaria EXAM Physical Exam Const Vital Signs: 12/03/22 00:27 12/03/22 01:55 12/03/22 02:53 Temperature 98.3 F Temperature Source Oral Pulse Rate 70 67 76 Respiratory Rate 18 20 H 15 Blood Pressure 124/78 H 149/87 H 142/88 H Blood Pressure Mean 93 107 106 Pulse Ox 97 100 97 Oxygen Delivery Method Room Air Room Air Room Air 12/03/22 03:42 Temperature Temperature Source Pulse Rate 73 Respiratory Rate 18 Blood Pressure 128/76 H Blood Pressure Mean 93 Pulse Ox 97 Oxygen Delivery Method Room Air Positive well nourished and well developed General Appearance ED: well developed HEENT Reports normocephalic and head/scalp atraumatic Eyes PERRL and EOMs intact bilaterally Neck supple Chest Wall inspection of chest normal and palpation of chest normal Resp normal respiratory effort and clear to auscultation bilaterally Cardio regular rate and regular rhythm GI GI Narrative: Moderate tenderness to palpation in the upper abdomen. Hypoactive bowel sounds. Palpation: soft Extremity normal to inspection Neuro oriented x3 and no sensory deficits noted Sensorium / Orientation: alert Motor Exam: strength 5/5 throughout Psych mental status grossly normal Skin no rashes or lesions noted MDM MDM MDM Narrative Medical decision making narrative: Patient is given morphine and Zofran along with IV fluids. Labwork obtained to evaluate for leukocytosis, anemia, and electrolyte derangement. Lab Data Attestation: I reviewed the patient's lab results. Labs: Laboratory Results - last 24 hr 12/03/22 00:45 WBC 12.4 H RBC 4.83 Hgb 14.1 Hct 42.5 MCV 88.0 MCH 29.2 MCHC 33.2 RDW Std Deviation 41.1 RDW Coeff of Arnoldo 12.8 Plt Count 218 MPV 8.6 Immature Gran % (Auto) 0.500 Neut % (Auto) 83.3 H Lymph % (Auto) 7.1 L [place] % (Auto) 7.7 Eos % (Auto) 1.1 Baso % (Auto) 0.3 Absolute Neuts (auto) 10.3 H Absolute Lymphs (auto) 0.88 Nucleated RBC % 0 Sodium 137 Potassium 3.8 Chloride 103 Carbon Dioxide 28.0 Anion Gap 6 BUN 18 Creatinine 0.92 Estim Creat Clear Calc 78.98 Est GFR (MDRD) Af Amer 109 Est GFR (MDRD) Non-Af 90 BUN/Creatinine Ratio 19.6 Glucose 149 H Calcium 9.3 Total Bilirubin 2.10 H Direct Bilirubin 1.48 H AST 616 H ALT 605 H Alkaline Phosphatase 163 H Total Protein 7.1 Albumin 3.7 Globulin 3.4 Lipase > 5000 H Radiography Diagnostic Testing: Clinical Impression(s) from Imaging Studies Abdomen/Pelvis CT 12/03/22 02:08 IMPRESSION: undefined Treatment and Re-Evaluation :: CBC was a white count 12.4 with 83% neutrophils. Hemoglobin is normal at 14.1. Chemistry studies unremarkable. Liver function tests are abnormal with a total bilirubin of 2.1, direct bilirubin of 1.48, AST of 616, ALT of 605, alk phos of 163. Lipase is greater than 5000. Patient did require a dose of Dilaudid for pain control. I spoke with Dr. Powers, on-call for surgery. He asked that the patient receive a CT scan of the abdomen pelvis with IV contrast to evaluate how much pancreaticedema and inflammation is noted. An ultrasound will then need to be performed in the morning. He asked medicine to admit the patient with consults to both surgery and GI. Patient will be given a dose of Zosyn. Discharge Plan Triage Chief Complaint: Abd Pain ED Provider: Lisa Barger Dx/Rx/DC Orders Clinical Impression: Gallstone pancreatitis Prescriptions: No Action montelukast [Singulair] 10 mg tablet 10 mg PO DAILY aspirin [Adult Low Dose Aspirin] 81 mg tablet,delayed release (DR/EC) 81 mg PO DAILY carvedilol 12.5 mg tablet 12.5 mg PO BID Qty: 180 3RF Primary Care Provider: Danni Swann Referrals: Danni Swann MD [Primary Care Provider] - Disposition Disposition: Acute Care [facility] What to do if you have Problems For any increased pain, shortness of breath, bleeding, nausea or vomiting, chestpain, or any unexpected problems, contact your Primary Care Provider. Call [facility] ([phone]) or report to the closest Emergency Room. Call 911 if necessary. 12/03/22 0451 <Electronically signed by Lisa Barger MD> Cosigner Signature (if applicable): CC: Dr. Danni Swann MD ~ Signed [facility] Work Phone: 1(759) 594-729908-21-2023 Discharge summary Author Lisa Barger [facility] December 03, 2022 4:51am Note Date/Time December 03, 2022 12 :45am [facility] Medical Records Department [address] [place] [address] Emergency Department Summary 12/03/22 MR#: [id number] Acct: [id number] Name: TRIP MYERS Rep #:[id number] 07 : 1965 57 From: Lisa Barger MD PCP: Dr. Danni Swann MD Status:AD M IN Location: [address] History of Present Illness Chief Complaint: Abd Pain Informant: patient Onset/Context/Timing Onset: Yesterday Current Severity: Moderate Maximum Severity: Severe Narrative Narrative: Patient presents secondary to upper abdominal pain. He has been having intermittent flares of upper abdominal pain and is scheduled to have his gallbladder removed 12/[address] Yao. Patient states around 2 PM yesterday afternoon after eating lunch she developed upper abdominal pain that is persisted and worsened throughout the evening. He complains of pain to the upper right abdomen that radiates into his back. He has had nausea and vomiting. He tried Tylenol at home without improvement. 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 Back pain Cardiology follow-up encounter CPAP (continuous positive airway pressure) dependence Decreased cardiac ejection fraction Dyspnea on exertion Essential hypertension Former smoker History of diverticulitis History of echocardiogram History of Holter monitoring History of left heart catheterization (LHC) (~12/11/19) History of stress test Hyperlipidemia Hypertension Left bundle branch block Left ventricular hypertrophy Sleep apnea Syncope and collapse Ventricular hypertrophy Wears hearing aid Home Medications aspirin 81 mg tablet,delayed release (Adult Low Dose Aspirin) 81 mg PO DAILY 11/18/19 [History Last Taken 12/11/19] montelukast 10 mg tablet (Singulair) 10 mg PO DAILY 11/15/21 [History Last Taken Unknown] carvedilol 12.5 mg tablet 12.5 mg PO BID #180 TABLETS 02/02/22 [Rx Last Taken Unknown] Allergy/AdvReac Type Severity Reaction Status Date / Time Seasonal Allergies: Uncoded Allergy Mild PT UNSURE Verified 12/03/22 00:30 OF REACTION Family History Father CAD (coronary artery disease) Myocardial infarction Hx of CABG Grandmother History of permanent cardiac pacemaker placement Grandfather CVA (cerebral vascular accident) Surgical History History of appendectomy History of colonoscopy History of hip replacement, total History of nasal surgery Social History Smoking Status: Former smoker how long ago did patient quit smokin alcohol intake: current alcohol intake frequency: a few times a week substance use type: does not use caffeine: Yes Type: coffee Number of servings: 1 ROS ROS ED Constitutional Constitutional ED: Reports chills; Denies fever(s) Eyes Eyes: Denies change in vision or discharge from eye(s) ENT ENT ED: Denies discharge from eye(s), rhinorrhea or sore throat Cardiovascular Cardiovascular: Denies chest pain or palpitations Respiratory/Chest Respiratory/Chest: Denies cough or dyspnea Gastrointestinal Gastrointestinal: Reports abdominal pain, nausea and vomiting; Denies diarrhea Genitourinary Genitourinary ED: Denies dysuria Musculoskeletal Musculoskeletal: Reports back pain; Denies extremity pain Integumentary Denies Abrasions or rash Neurologic Neurologic: Denies headache(s) or weakness Psychiatric Psychiatric: Denies anxiety or depression Allergic/Immunologic Allergic/Immunologic ED: Denies lip swelling or urticaria EXAM Physical Exam Const Vital Signs: 12/03/22 00:27 12/03/22 01:55 12/03/22 02:53 Temperature 98.3 F Temperature Source Oral Pulse Rate 70 67 76 Respiratory Rate 18 20 H 15 Blood Pressure 124/78 H 149/87 H 142/88 H Blood Pressure Mean 93 107 106 Pulse Ox 97 100 97 Oxygen Delivery Method Room Air Room Air Room Air 12/03/22 03:42 Temperature Temperature Source Pulse Rate 73 Respiratory Rate 18 Blood Pressure 128/76 H Blood Pressure Mean 93 Pulse Ox 97 Oxygen Delivery Method Room Air Positive well nourished and well developed General Appearance ED: well developed HEENT Reports normocephalic and head/scalp atraumatic Eyes PERRL and EOMs intact bilaterally Neck supple Chest Wall inspection of chest normal and palpation of chest normal Resp normal respiratory effort and clear to auscultation bilaterally Cardio regular rate and regular rhythm GI GI Narrative: Moderate tenderness to palpation in the upper abdomen. Hypoactive bowel sounds. Palpation: soft Extremity normal to inspection Neuro oriented x3 and no sensory deficits noted Sensorium / Orientation: alert Motor Exam: strength 5/5 throughout Psych mental status grossly normal Skin no rashes or lesions noted MDM MDM MDM Narrative Medical decision making narrative: Patient is given morphine and Zofran along with IV fluids. Labwork obtained to evaluate for leukocytosis, anemia, and electrolyte derangement. Lab Data Attestation: I reviewed the patient's lab results. Labs: Laboratory Results - last 24 hr 12/03/22 00:45 WBC 12.4 H RBC 4.83 Hgb 14.1 Hct 42.5 MCV 88.0 MCH 29.2 MCHC 33.2 RDW Std Deviation 41.1 RDW Coeff of Arnoldo 12.8 Plt Count 218 MPV 8.6 Immature Gran % (Auto) 0.500 Neut % (Auto) 83.3 H Lymph % (Auto) 7.1 L [place] % (Auto) 7.7 Eos % (Auto) 1.1 Baso % (Auto) 0.3 Absolute Neuts (auto) 10.3 H Absolute Lymphs (auto) 0.88 Nucleated RBC % 0 Sodium 137 Potassium 3.8 Chloride 103 Carbon Dioxide 28.0 Anion Gap 6 BUN 18 Creatinine 0.92 Estim Creat Clear Calc 78.98 Est GFR (MDRD) Af Amer 109 Est GFR (MDRD) Non-Af 90 BUN/Creatinine Ratio 19.6 Glucose 149 H Calcium 9.3 Total Bilirubin 2.10 H Direct Bilirubin 1.48 H AST 616 H ALT 605 H Alkaline Phosphatase 163 H Total Protein 7.1 Albumin 3.7 Globulin 3.4 Lipase > 5000 H Radiography Diagnostic Testing: Clinical Impression(s) from Imaging Studies Abdomen/Pelvis CT 12/03/22 02:08 IMPRESSION: undefined Treatment and Re-Evaluation :: CBC was a white count 12.4 with 83% neutrophils. Hemoglobin is normal at 14.1. Chemistry studies unremarkable. Liver function tests are abnormal with a total bilirubin of 2.1, direct bilirubin of 1.48, AST of 616, ALT of 605, alk phos of 163. Lipase is greater than 5000. Patient did require a dose of Dilaudid for pain control. I spoke with Dr. Powers, on-call for surgery. He asked that the patient receive a CT scan of the abdomen pelvis with IV contrast to evaluate how much pancreaticedema and inflammation is noted. An ultrasound will then need to be performed in the morning. He asked medicine to admit the patient with consults to both surgery and GI. Patient will be given a dose of Zosyn. Discharge Plan Triage Chief Complaint: Abd Pain ED Provider: Lisa Barger Dx/Rx/DC Orders Clinical Impression: Gallstone pancreatitis Prescriptions: No Action montelukast [Singulair] 10 mg tablet 10 mg PO DAILY aspirin [Adult Low Dose Aspirin] 81 mg tablet,delayed release (DR/EC) 81 mg PO DAILY carvedilol 12.5 mg tablet 12.5 mg PO BID Qty: 180 3RF Primary Care Provider: Danni Swann Referrals: Danni Swann MD [Primary Care Provider] - Disposition Disposition: Acute Care [facility] What to do if you have Problems For any increased pain, shortness of breath, bleeding, nausea or vomiting, chestpain, or any unexpected problems, contact your Primary Care Provider. Call [facility] ([phone]) or report to the closest Emergency Room. Call 911 if necessary. 12/03/22 0451 <Electronically signed by Lisa Barger MD> Cosigner Signature (if applicable): CC: Dr. Danni Swann MD ~ Signed [facility] Work Phone: 1(362) 435-367908-26-2021 NotePatient Outreach (NETNAV) TRIP MYERS ([id number]) 1965 M Date Time Provider Department 12/08/20 SARI LI During your visit today, we recorded the following information about you: Sari Li Population Health Navigator 12/08/2020 11:21 AM Signed POPULATION HEALTH NAVIGATION OUTREACH Action/FYI I left a voice message and a my chart message re: pcp No care everywhere Contact made with patient or family member? NO Pt identified by name and : NO Outreach Outcome/Action Unable to reach patient: Left message [employer] message sent Reason for Outreach Attribution: Provider [...] future healthcare decisions with a power of manufacturing supervisor, living will, or advance directives? No. Please bring a copy to your next appointment or email to Referrals: N/A Message Sent to Practice: NO Navigation Signature: Sari Li Population Health Navigator December 08, 2020 11:20 AM Allergies As of Date: 12/08/2020 (No Known Allergies) Date Reviewed: 06/11/2019 Reviewed by: Katie Cheng - Fully Assessed Reason for Visit: Population Health Navigation Outreach [8710] Cmt: Offboarding Problem List As Of Date 12/08/2020 Noted Resolved ABNORMAL WEIGHT GAIN [R63.5] 07/04/2005 HYPERTENSION NOS [I10] 07/04/2005 HYPERLIPIDEMIA NEC/NOS [E78.5] 07/04/2005 JEFFERY (obstructive sleep apnea) [G47.33] 10/30/2005 LBBB (left bundle branch block) [I44.7] 08/18/2015 Status post total replacement of left hip [Z96.*08/18/2015 Encounter Status:Closed by JEN POPULATION HEALTH NAVIGATOR, SARI Trent on 12/08/20[facility]08-26-2021 NoteHNO ID: [id number] Author: Sari [facility] Navigpadma Service: ? Author Type: ? Type: Progress Notes Filed: 12/08/2020 11:21 AM Note Text: POPULATION HEALTH NAVIGATION OUTREACH Action/FYI I left a voice message and a my chart message re: pcp No care everywhere Contact made with patient or family member? NO Pt identified by name and : NO Outreach Outcome/Action Unable to reach patient: Left message [employer] message sent Reason for Outreach Attribution: Provider [...] future healthcare decisions with a power of manufacturing supervisor, living will, or advance directives? No. Please bring a copy to your next appointment or email to Referrals: N/A Message Sent to Practice: NO Navigation Signature: Sari Li Population Health Navigator December 08, 2020 [facility]:20 [facility] Onset Date Resolution Status Decreased cardiac ejection fraction acute Atherosclerotic heart diseas e of iroquois coronary artery without angina pectoris chronic Essential hypertension chron ic Hyperlipidemia chronic Left bundle branch block chr [facility] Work Phone: Evaluation note* Diagnosis Onset Date Resolution Status Encounter for screening for malignant neoplasm of colo n acute [facility] Work Phone: Evaluation note* Diagnosis Onset Date Resolution Status Encounter for screening for malignant neoplasm of colo n acute Decreased cardiac ejection fraction acute Atherosclerotic heart diseas e of iroquois coronary artery without angina pectoris chronic Essential hypertension chron ic Hyperlipidemia chronic Left bundle branch block chr [facility] Work Phone: Evaluation noteNo assessment information available [facility] Work Phone: Evaluation note* Diagnosis Onset Date Resolution Status Cholelithiasis with chronic cholecystitis chronic Gallstone pancreatitis acute Cholelithiasis with chronic cholecystitis [facility] Work Phone: Evaluation note* Diagnosis Onset Date Resolution Status Cholelithiasis with chronic cholecystitis chronic Gallstone pancreatitis acute Gastroparesis acute Ileus acute S/P laparoscopic cholecystectomy acute Cholelithiasis with chronic cholecystitis [facility] Work Phone: Evaluation note* Diagnosis Left bundle-branch block- Primary Other left bundle branch block Cardiomyopathy, unspecified type 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 Essential hypertension Unspecified essential hypertension Hyperlipidemia, unspecified hyperlipidemia type [place] [facility] Diagnosis Left bundle-branch block- Primary Other left bundle branch block Essential hypertension Unspecified essential hypertension Other cardiomyopathy 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 Hyperlipidemia, unspecified hyperlipidemia [facility] Left bundle-branch block Other left bundle branch block Essential hypertension Unspecified essential hypertension Hyperlipidemia, unspecified hyperlipidemia type Cardiomyopathy, unspecified type [place] [place] Left bundle-branch block- Primary Other left bundle branch block Cardiomyopathy, unspecified type 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 Essential hypertension Unspecified essential hypertension Hyperlipidemia, unspecified hyperlipidemia type Left bundle-branch block- Primary Other left bundle branch block Essential hypertension Unspecified essential hypertension Other cardiomyopathy 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 Hyperlipidemia, unspecified hyperlipidemia type Other cardiomyopathy- Primary Left bundle-branch block Other left bundle branch block Essential hypertension Unspecified essential hypertension Hyperlipidemia, unspecified hyperlipidemia type [facility] Left bundle-branch block- Primary Other left bundle branch block Cardiomyopathy, unspecified type 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 Essential hypertension Unspecified essential hypertension Hyperlipidemia, unspecified hyperlipidemia type Left bundle-branch block- Primary Other left bundle branch block Essential hypertension Unspecified essential hypertension Other cardiomyopathy 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 Hyperlipidemia, unspecified hyperlipidemia type Other cardiomyopathy- Primary Left bundle-branch block Other left bundle branch block Essential hypertension Unspecified essential hypertension Hyperlipidemia, unspecified hyperlipidemia type 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- Primary Other cardiomyopathy Left bundle-branch block Other left bundle branch block Essential hypertension Unspecified essential hypertension Hyperlipidemia, unspecified hyperlipidemia type [facility] Left bundle-branch block- Primary Other left bundle branch block Cardiomyopathy, unspecified type 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 Essential hypertension Unspecified essential hypertension Hyperlipidemia, unspecified hyperlipidemia type Left bundle-branch block- Primary Other left bundle branch block Essential hypertension Unspecified essential hypertension Other cardiomyopathy 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 Hyperlipidemia, unspecified hyperlipidemia type Other cardiomyopathy- Primary Left bundle-branch block Other left bundle branch block Essential hypertension Unspecified essential hypertension Hyperlipidemia, unspecified hyperlipidemia type 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 Elizabeth [facility] Work Phone: Summary Purpose Family History No Family History Records Found Relationship Condition Age at Onset Recorded Date/T abdoulaye father Coronary artery disease Unknown Myocardial infarction Unknown History of coronary artery bypass surgery Unknown grandmother History of permanent cardiac pacemaker placement Unknown grandfather Cerebrovascular accident (CVA) Unknown Advance Directives No Advanced Directives Records Found Advance Directive Response Recorded Date/ Time Advance Directives Yes December 11, 2019 7:12am Living Will Yes December 10 0 7:12am Power of Material Control Associate Yes December 10, 020 7:12am Advance Directive Response Recorded Date/ Time Name of Medical Power of Material Control Associate SPOUSE April 20, 2022 1:59pm Advance Directives Yes December 11, 2019 7:12am Living Will Yes April 20 3 1:59pm Power of Material Control Associate Yes April 20, 2 023 1:59pm Advance Directive Response Recorded Date/ Time Name of Medical Power of Material Control Associate SPOUSE April 20, 2022 2:59pm Advance Directives Yes December 11, 2019 8:12am Living Will Yes April 20 3 2:59pm Power of Material Control Associate Yes April 20, 2 023 2:59pm Advance Directive Response Recorded Date/ Time Advance Directives Yes December 11, 2019 8:12am Living Will Yes April 20 3 2:59pm Power of Material Control Associate Yes April 20, 2 023 2:59pm Advance Directive Response Recorded Date/ Time Name of Medical Power of Material Control Associate Dulce Myers December 03, 2022 4:59am Advance Directives Yes December 11, 2019 8:12am Living Will Yes December 03 3 4:59am Power of Material Control Associate Yes December 03, 2 023 4:59am Advance Directive Response Recorded Date/ Time Advance Directives Yes December 11, 2019 8:12am Living Will No April 02, 2 023 12:42pm Power of Material Control Associate No April 02, 2023 12:42pm Advance Directive Response Recorded Date/ Time Advance Directives Yes December 11, 2019 8:12am Chief Complaint and Reason for Visit Chief Complaint 6 m fu Reason for Visit Decreased cardiac ej ection fraction 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 Essential hypertension Hyperlipidemia Left bundle branch block Chief Complaint Amb Documentation ABNORMAL EKG Reason for Visit Encounter for screen ing for malignant neoplasm of colon Chief Complaint ABNORMAL EKG 6 M FU DIVERTICULITIS Reason for Visit Encounter for screen ing for malignant neoplasm of colon Decreased cardiac ejection fraction 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 Essential hypertension Hyperlipidemia Left bundle branch block Chief Complaint DIVERTICULITIS Right upper quadrant pain Chief Complaint Right upper quadrant pain GALLSTONES ACUTE CHOLECYSTITIS W POSSIBLE CHOLANGITIS AND CHO Reason for Visit Cholelithiasis with chronic cholecystitis Gallstone pancreatitis Cholelithiasis with chronic cholecystitis Chief Complaint Right upper quadrant pain GALLSTONES ACUTE CHOLECYSTITIS W POSSIBLE CHOLANGITIS AND CHO ACUTE CHOLECYSTITIS W POSSIBLE CHOLANGITIS AND CHO ACUTE CHOLECYSTITIS W POSSIBLE CHOLANGITIS AND CHO ACUTE CHOLECYSTITIS W POSSIBLE CHOLANGITIS AND CHO ACUTE CHOLECYSTITIS W POSSIBLE CHOLANGITIS AND CHO ACUTE CHOLECYSTITIS W POSSIBLE CHOLANGITIS AND CHO ACUTE CHOLECYSTITIS W POSSIBLE CHOLANGITIS AND CHO ACUTE CHOLECYSTITIS W POSSIBLE CHOLANGITIS AND CHO ACUTE CHOLECYSTITIS W POSSIBLE CHOLANGITIS AND CHO ACUTE CHOLECYSTITIS W POSSIBLE CHOLANGITIS AND CHO ACUTE CHOLECYSTITIS W POSSIBLE CHOLANGITIS AND CHO ACUTE CHOLECYSTITIS W POSSIBLE CHOLANGITIS AND CHO ACUTE CHOLECYSTITIS W POSSIBLE CHOLANGITIS AND CHO ACUTE CHOLECYSTITIS W POSSIBLE CHOLANGITIS AND CHO ACUTE CHOLECYSTITIS W POSSIBLE CHOLANGITIS AND CHO ACUTE CHOLECYSTITIS W POSSIBLE CHOLANGITIS AND CHO ACUTE CHOLECYSTITIS W POSSIBLE CHOLANGITIS AND CHO Reason for Visit Cholelithiasis with chronic cholecystitis Gallstone pancreatitis Gastroparesis Ileus S/P laparoscopic cholecystectomy Cholelithiasis with chronic cholecystitis Chief Complaint Right upper quadrant pain GALLSTONES ACUTE CHOLECYSTITIS W POSSIBLE CHOLANGITIS AND CHO ACUTE CHOLECYSTITIS W POSSIBLE CHOLANGITIS AND CHO ACUTE CHOLECYSTITIS W POSSIBLE CHOLANGITIS AND CHO PREOP ACUTE CHOLECYSTITIS W POSSIBLE CHOLANGITIS AND CHO ACUTE CHOLECYSTITIS W POSSIBLE CHOLANGITIS AND CHO ACUTE CHOLECYSTITIS W POSSIBLE CHOLANGITIS AND CHO ACUTE CHOLECYSTITIS W POSSIBLE CHOLANGITIS AND CHO ACUTE CHOLECYSTITIS W POSSIBLE CHOLANGITIS AND CHO ACUTE CHOLECYSTITIS W POSSIBLE CHOLANGITIS AND CHO ACUTE CHOLECYSTITIS W POSSIBLE CHOLANGITIS AND CHO ACUTE CHOLECYSTITIS W POSSIBLE CHOLANGITIS AND CHO ACUTE CHOLECYSTITIS W POSSIBLE CHOLANGITIS AND CHO ACUTE CHOLECYSTITIS W POSSIBLE CHOLANGITIS AND CHO ACUTE CHOLECYSTITIS W POSSIBLE CHOLANGITIS AND CHO ACUTE CHOLECYSTITIS W POSSIBLE CHOLANGITIS AND CHO ACUTE CHOLECYSTITIS W POSSIBLE CHOLANGITIS AND CHO ACUTE CHOLECYSTITIS W POSSIBLE CHOLANGITIS AND CHO ACUTE CHOLECYSTITIS W POSSIBLE CHOLANGITIS AND CHO EORDER Reason for Referral Specialty Diagnoses / Procedures Referred By Mary t Referred To Contact Diagnoses Left bundle-branch block Essential hypertension Hyperlipidemia, unspecified hyperlipidemia type Cardiomyopathy, unspecified type Procedures ECHOCARDIOGRAM [place] ECHO HEART XTHORACIC,COMPLETE W DOPPLER Se Cote MD [address] [address] Referral ID Status Reason Start Date Expiration Date V isits Requested Visits Authorized [id number] Auth Not Needed 01/01/2023 01/26/2024 1 1 Referral ID Status Reason Start Date Expiration Date Visits Re quested Visits Authorized [id number] Closed 01/01/2023 01/26/2024 1 1 Additional Source Comments (unrecognized sect ion and content) No Status Records FoundNo Status Records FoundNo Status Records Found INFORMATION SOURCE (unrecogn ized section and content) DATE CREATED AUTHOR 05/09/[address] [facility] DATE CREATED AUTHOR AUTHOR'S ORGANIZ ATION 08/08/2024 [facility] DATE CREATED AUTHOR AUTHOR'S ORGANIZ ATION 01/02/2025 [facility] Goals (unrecognized section and content) Goals may be documented in a n alternate sectionGoals may be documented in an alternate sectionGoals may be documented in an alternate sectionGoals may be documented in an alternate sectionGoals may be documented in an alternate sectionGoals may be documented in an alternate sectionGoals may be documented in an alternate section Care Teams (unrecognized sec tion and content) Team Status: Active Member Role Status Dates Dr. Danni Swann MD Family Provider Active Dr. Danni Swann MD Primary Care Provider Active Team Status: Inactive Member Role Status Dates Dr. Danni Swann MD Primary Care Provider, Referr ing Provider Active Dr. Se Cote MD Attending Provider Active Team Status: Active Member Role Status Dates Dr. Danni Swann MD Primary Care Provider Active Dr. Se Cote MD Attending Provider Active Team Status: Active Member Role Status Dates Dr. Danni Swann MD Primary Care Provider Active Dr. Stefano Yao MD Attending Provid er, Referring Provider, Other Provider Active Team Status: Inactive Member Role Status Dates Dr. Danni Swann MD Primary Care Provider Active Dr. Se Cote MD Attending Provider, Referring Provider Active Team Status: Inactive Member Role Status Dates Dr. Danni Swann MD Primary Care Provider, Referr ing Provider Active Dr. Stefano Yao MD Attending Provider Active Team Status: Inactive Member Role Status Dates Dr. Danni Swann MD Primary Care Pr ovider, Attending Provider, Referring Provider Active Team Status: Inactive Member Role Status Dates Dr. Danni Swann MD Primary Care Provider, Attend ing Provider Active Team Status: Active Member Role Status Dates Dr. Danni Swann MD Primary Care Pr ovider, Attending Provider, Referring Provider Active Team Status: Active Member Role Status Dates Dr. Danni Swann MD Primary Care Provider Active Dr. Lisa Barger MD Emergency Provider Active Dr. Ziggy Hunter MD Admit Provider, Attending Pro vider Active Dr. Derik Powers MD Other Provider Active Team Status: Active Member Role Status Dates Dr. Danni Swann MD Primary Care Provider Active Dr. Lisa Barger MD Emergency Provider Active Dr. Ziggy Hunter MD Admit Provider, Attending Provider, Other Provider Active Dr. Derik Powers MD Other Provider Active Team Status: Active Member Role Status Dates Dr. Danni Swann MD Primary Care Provider Active Dr. Lisa Barger MD Emergency Provider Active Dr. Ziggy Hunter MD Admit Provider, Other Provide r Active Dr. Derik Powers MD Attending Provider, Other Provi bernardino Active Dr. Linda Hicks MD Other Provider Active Dr. Clem Forde DO Other Provider Active Team Status: Active Member Role Status Dates Dr. Danni Swann MD Primary Care Provider Active Dr. Clem oFrde DO Attending Provider Active Team Status: Active Member Role Status Dates Dr. Danni Swann MD Primary Care Provider Active Dr. Lisa Barger MD Emergency Provider Active Dr. Ziggy Hunter MD Admit Provider, Other Provide r Active Dr. Derik Powers MD Other Provider Active Dr. Linda Hicks MD Other Provider Active Dr. Clem Forde DO Other Provider Active Dr. Stefano Yao MD Attending Provider Active Team Status: Active Member Role Status Dates Dr. Danni Swann MD Primary Care Provider Active Dr. Lisa Barger MD Emergency Provider Active Dr. Ziggy Hunter MD Admit Provider, Other Provide r Active Dr. Derik Powers MD Other Provider Active Dr. Linda Hicks MD Attending Provider, Other Prov ider Active Dr. Clem Forde DO Other Provider Active Team Status: Active Member Role Status Dates Dr. Danni Swann MD Primary Care Provider Active Dr. Lisa Barger MD Emergency Provider Active Dr. Ziggy Hunter MD Admit Provider, Other Provide r Active Dr. Derik Powers MD Other Provider Active Dr. Linda Hicks MD Other Provider Active Dr. Clem Forde DO Attending Provider, Other Prov ider Active Team Status: Active Member Role Status Dates Dr. Danni Swann MD Primary Care Provider Active Dr. Lisa Barger MD Emergency Provider Active Dr. Ziggy Hunter MD Admit Provider, Other Provide r Active Dr. Linda Hicks MD Other Provider Active Dr. Clem Forde DO Other Provider Active Dr. Derik Powers MD Other Provider Active Dr. Stefano Yao MD Attending Provider Active Team Status: Active Member Role Status Dates Dr. Danni Swann MD Primary Care Provider Active Dr. Lisa Barger MD Emergency Provider Active Dr. Ziggy Hunter MD Admit Provider, Other Provide r Active Dr. Linda Hicks MD Other Provider Active Dr. Clem Forde DO Attending Provider, Other Prov ider Active Dr. Derik Powers MD Other Provider Active Team Status: Active Member Role Status Dates Dr. Danni Swann MD Primary Care Provider Active Dr. Lisa Barger MD Emergency Provider Active Dr. Ziggy Hunter MD Admit Provider, Other Provide r Active Dr. Linda Hicks MD Attending Provider, Other Prov ider Active Dr. Clem Forde DO Other Provider Active Dr. Derik Powers MD Other Provider Active Team Status: Active Member Role Status Dates Dr. Danni Swann MD Primary Care Provider Active Dr. Lisa Barger MD Emergency Provider Active Dr. Ziggy Hunter MD Admit Provider, Other Provide r Active Dr. Linda Hicks MD Other Provider Active Dr. Clem Forde DO Other Provider Active Dr. Derik Powers MD Other Provider Active Dr. Angelina Hicks MD Attending Provider Active Team Status: Inactive Member Role Status Dates Dr. Danni Swann MD Primary Care Provider Active Dr. Lisa Barger MD Emergency Provider Active Dr. Ziggy Hunter MD Admit Provider, Other Provide r Active Dr. Linda Hicks MD Attending Provider Active Dr. Clem Forde DO Other Provider Active Dr. Derik Powers MD Other Provider Active Team Status: Active Member Role Status Dates Dr. Danni Swann MD Primary Care Provider Active Dr. Lisa Barger MD Emergency Provider Active Dr. Ziggy Hunter MD Admit Provider, Other Provide r Active Dr. Derik Powers MD Attending Provider, Other Provi bernardino Active Dr. Linda Hicks MD Referring Provider, Other Prov ider Active Dr. Clem Forde DO Other Provider Active Team Status: Active Member Role Status Dates Dr. Danni Swann MD Primary Care Provider Active Dr. Ana Renee MD Attending Provider Active Dr. Cachorro Kay MD Referring Provider Active Asset Card Clerk Relationship Specialty Start Date End Date [facility] Other [address] [place] [address] PCP - General Other 01/01/23 Asset Card Clerk Relationship Specialty Start Date End Date [facility] Other [address] [place] [address] PCP - General Other 01/01/23 Asset Card Clerk Relationship Specialty Start Date End Date [facility] Other [address] [place] [address] PCP - General Other 01/01/23 Asset Card Clerk Relationship Specialty Start Date End Date [facility] Other [address] [place] [address] PCP - General Other 01/01/23 Asset Card Clerk Relationship Specialty Start Date End Date [facility] Other [address] [place] [address] PCP - General Other 01/01/23 Asset Card Clerk Relationship Specialty Start Date End Date Danni Swann MD [address] [place] [id number] PCP - General Family Medicine 06/30/24 Team Status: Inactive Member Role Status Dates Dr. Danni Swann MD Primary Care Provider Active Start: June 17, 2024 End: June 17, 2024 Dr. Danni Swann MD Attending Provider Active Start: June 17, 2024 End: June 17, 2024 Dr. Danni Swann MD Referring Provider Active Start: June 17, 2024 End: June 17, 2024 Asset Card Clerk Relationship Specialty Start Date End Date Danni Swann MD PCP - General Family Medicine 06/30/24 Reason for Visit (unrecogniz ed section and content) Reason Onset Date Comments Outside Medical Records Request 12/27/2022 Reason Comments Establish Care Patient previously s aw Dr. Cote at [place], wanting to establish care with him at [facility]. Denies any cardiac complaints. Reason Comments Follow-up Pt is here for a six month follow up. Pt has no concerns. Specialty Diagnoses / Procedures Referred By Contac t Referred To Contact Diagnoses Left bundle-branch block Essential hypertension Hyperlipidemia, unspecified hyperlipidemia type Cardiomyopathy, unspecified type Procedures ECHOCARDIOGRAM [place] ECHO HEART XTHORACIC,COMPLETE W DOPPLER Se Cote MD [address] [facility] [address] [place] [address] Referral ID Status Reason Start Date Expiration Date Visits Re quested Visits Authorized [id number] Closed 01/01/2023 01/26/2024 1 1 Reason Comments Follow-up 6 month follow up. N o complaints at this time. Reason Comments Follow-up Pt states they are h aving no cardiac symptoms, feeling good. No complaints. Reason Comments Follow-up No cardiac symptoms states by PT FOR RECORDS PERTAINING TO PATIENTS WHO ARE [...] BE BASED ON THE PRIMARY CLINICAL RECORDS. [email or web address] provides no warranty or guarantee of the accuracy or completeness of information in this document.
[2025-03-20 11:08] LABS: Lyme Scn Total Ab w/Rflx Negative (Negative)
== END | disposition home or self-care (01) ==
LOC: MFPLAB 14:23
PROVIDERS: PCP Family Medicine; Visit Provider Family Medicine
DX: R73.02 Impaired glucose tolerance (oral) (principal); Z12.5 Encounter for screening for malignant neoplasm of prostate; R53.83 Other fatigue
CPT/HCPCS: 36415; 80053; 82306; 82607; 83036; 84153; 84439; 85025; 86618; G0103